=== PATIENT | male | born 1960 | race Caucasian/White ===

== ENCOUNTER 2022-11-17 12:31 | Outpatient (OUT) | payer MEDICARE, MEDICAID, SELFPAY ==
[2022-11-17 13:38] LABS: Alanine Aminotransferase 39 U/L (16-63); Albumin Level 3.8 g/dL (3.4-5.0); Alkaline Phosphatase 86 U/L (46-116); Aspartate Amino Transferase 30 U/L (15-37); Bilirubin Direct 0.1 mg/dL (0.0-0.2); Bilirubin Total 0.6 mg/dL (0.2-1.0); Globulin 3.7 g/dL; Total Protein 7.5 g/dL (6.4-8.2)
[2022-11-18 05:08] LABS: HBsAg Screen Negative (Negative); Hep B Core Ab, IgM Negative (Negative); Hep B Core Ab, Tot Negative (Negative)
== END 2022-11-17 12:32 | disposition home or self-care (01) ==
PROVIDERS: PCP Internal Medicine
DX: R76.8 Other specified abnormal immunological findings in serum (principal)
CPT/HCPCS: 36415; 80076; 86704; 86705; 86706; 86707; 87350; 87517; 87522

== ENCOUNTER 2022-12-11 15:18 | Outpatient (OUT) | payer MEDICARE, MEDICAID, SELFPAY ==
[2022-12-11 16:32] LABS: Prostate Specific Antigen Dx <0.13 ng/mL (<=4.00)
[2022-12-13 06:37] LABS: Testosterone 338 ng/dL (264-916)
== END 2022-12-11 15:19 | disposition home or self-care (01) ==
PROVIDERS: PCP Internal Medicine
DX: C61 Malignant neoplasm of prostate (principal)
CPT/HCPCS: 36415; 84153; 84403

== ENCOUNTER 2023-06-14 14:00 | Outpatient (OUT) | payer MEDICARE, MEDICAID, SELFPAY ==
[2023-06-14 15:01] LABS: Erythrocyte Sedimentation Rate 14 mm/hr (<=20)
[2023-06-14 15:11] LABS: C Reactive Protein 0.63 mg/dL (<=0.50)
[2023-06-16 10:09] LABS: QuantiFERON-TB Gold Plus Negative (Negative)
[2023-06-17 18:08] LABS: HBsAg Screen Negative (Negative); HCV Ab Reactive (Non Reactive); Hep A Ab, IgM Negative (Negative); Hep B Core Ab, IgM Negative (Negative)
== END 2023-06-14 14:01 | disposition home or self-care (01) ==
LOC: LAB 14:07
PROVIDERS: PCP Internal Medicine
DX: C61 Malignant neoplasm of prostate (principal); M05.9 Rheumatoid arthritis with rheumatoid factor, unspecified
CPT/HCPCS: 36415; 80074; 84153; 84403; 85652; 86140; 86480; 87522

== ENCOUNTER 2023-06-14 14:20 | Outpatient (OUT) | payer MEDICARE, MEDICAID, SELFPAY ==
[2023-06-14 15:26] LABS: Prostate Specific Antigen Dx 0.14 ng/mL (<=4.00)
[2023-06-15 04:09] LABS: Testosterone 285 ng/dL (264-916)
== END 2023-06-14 14:21 | disposition home or self-care (01) ==
PROVIDERS: PCP Internal Medicine; Visit Provider Radiology Radiation Oncology
DX: C61 Malignant neoplasm of prostate (principal)
CPT/HCPCS: 36415; 84153; 84403

== ENCOUNTER 2023-12-07 13:05 | Outpatient (OUT) | payer MEDICARE, SELFPAY ==
[2023-12-07 13:29] LABS: Estimated GFR (African America >60 (>=60); Estimated GFR (Non-African Ame >60 (>=60)
--- NOTE | 2023-12-07 13:34 | CT_ITS ---
[facility] [place] [id number] Patient Name: CONSTANTINO DUVAL MRN: [facility]:[id number] date: 1960 Sex: M Assigned Patient Location: LAB Current Patient Location: LAB Accession/Order Number: [id number] Exam Date: 12/07/2023 14:38 Report Date: 12/07/2023 15:12 At the request of: MAYKEL XAVIER Procedure: CT abdomen pelvis w con EXAM: CT scan of the abdomen and pelvis using 98 mL of IV iodinated contrast. Oral contrast. Dose reduction technique used: Automated exposure control and/or adjustment of the mA and/or kV according to patient size and/or use of iterative reconstruction technique. REASON FOR EXAM: Abdominal Pain R10.9 COMPARISON: CT scan dated 09/14/2020 FINDINGS: Diffuse bladder wall thickening. Colonic diverticulosis. Prostate brachytherapy. Chronic L1 anterior plate compression fracture with mild height loss. Atrophy of the pancreatic tail. Normal appendix. No free fluid in the abdomen or pelvis. No free intraperitoneal air. No dilated or thickened loops of small bowel or colon. No hydronephrosis or obstructing renal or ureteral calculi. Liver, pancreas, spleen, bilateral kidneys, and bilateral adrenal glands are otherwise unremarkable. No lymphadenopathy in the abdomen or pelvis. Remainder unremarkable. CT/CT abdomen pelvis w con IMPRESSION: 1. Diffuse bladder wall thickening could be due to chronic outlet obstruction although cystitis cannot be excluded, correlate clinically. 2. Otherwise, no acute abnormalities in the abdomen or pelvis. Electronically authenticated by: CHRIS ZARCO Date: 12/07/2023 15:12
== END 2023-12-07 13:06 | disposition home or self-care (01) ==
LOC: LAB 13:05
PROVIDERS: PCP Internal Medicine; Visit Provider Internal Medicine
DX: R10.9 Unspecified abdominal pain (principal)
CPT/HCPCS: 36415; 74177; 82565; Q9967

== ENCOUNTER 2024-03-12 06:13 | Emergency (ER) | payer MEDICARE, SELFPAY ==
[2024-03-12] VITALS (8 sets, daily range): BP systolic 138–152; BP diastolic 88–103; PULSE 76–102; TEMP 36.7; O2SAT 82–99; BMI 28.7
--- OUTSIDE RECORDS SUMMARY | 2024-03-12 06:20 | XMS_ITS | CCD ---
Author Organization [facility] Care Team Providers Care Case Resource Manager Name Role Phone Efren Castillo II Primary Care Provider Rhys German Unavailable EFREN CASTILLO Primary Care Physician [phone] Efren Castillo II Primary Care Provider Efren Castillo II Primary Care Provider [phone] DANICA MCNEIL P Admitting Unavailable DANICA MCNEIL Attending Unavailable JONATHAN, DR COLEMAN Primary Care Unavailable ENGDANICA CHAPMAN P Consulting Unavailable MISC, DR COSTA Consulting Unavailable MISC, DR COSTA Admitting Unavailable MISC, DR COSTA Attending Unavailable JONATHAN, DR COLEMAN Primary Care Unavailable ENGELERDANICA P Consulting Unavailable ENGELER, DANICA P Admitting Unavailable ENGELER, DANICA P Attending Unavailable JONATHAN, DR COLEMAN Primary Care Unavailable MISC, DR COSTA Admitting Unavailable MISC, DR COSTA Attending Unavailable JONATHAN, DR COLEMAN Primary Care Unavailable MISC, DR COSTA Consulting Unavailable MISC, DR COSTA Admitting Unavailable MISC, DR COSTA Attending Unavailable JONATHAN, DR COLEMAN Primary Care Unavailable MARYAN, PHOEBE Admitting Unavailable EUGENE HERNANDEZ Consulting Unavailable JONATHAN, DR COLEMAN Primary Care Unavailable MARYAN, PHOEBE Attending Unavailable MARYAN, PHOEBE Consulting Unavailable ENGELER, DANICA P Admitting Unavailable ENGELER, DANICA P Attending Unavailable JONATHAN, DR COLEMAN Primary Care Unavailable DANICA MCNEIL P Consulting Unavailable Efren Castillo II Primary Care Provider Jonathan VALDEZ MD, Daniel B Primary Care Provider Jonathan VALDEZ MD, Daniel B Primary Care Provider MD Chin Watkins Attending Provider JOSÉ MIGUEL Castillo Primary Care Provider [phone] Efren Castillo Primary Care Unavailable Chin Watkins Attending Unavailable Chin Watkins Admitting Unavailable Ronald Rice Attending Unavailab Ronald Huffman Admitting Unavailab Khanh Benson Primary Care Unavailable CASTILLO II, EFREN B Primary Care Unavailable May MCNEIL Attending Unavailable JOE HEADLEY Attending Unavailable JONATHAN VALDEZ, EFREN [place] Primary Care Unavailable KATTY DUENAS Referring Unavailable CASTILLO II, EFREN B Primary Care Unavailable KATTY DUENAS Attending Unavailable CASTILLO II, EFREN [place] Primary Care Unavailable JOE HEADLEY Referring Unavailable CASTILLO II, EFREN B Primary Care Unavailable CASTILLO II, EFREN B Primary Care Unavailable May MCNEIL Attending Unavailable CASTILLO II, EFREN B Primary Care Unavailable JOE HEADLEY Attending Unavailable KATTY DUENAS Attending Unavailable SELF Referring Unavailable CASTILLO II, EFREN B Primary Care Unavailable PELFREY, ROBYN Referring Unavailable CASTILLO II, EFREN B Primary Care Unavailable PELFREY, ROBYN Referring Unavailable CASTILLO II, EFREN B Primary Care Unavailable Jacky MARSH Attending Unavailable Jacky MARSH Attending Unavailable Efren Castillo MD Primary Care Provider EFREN CASTILLO Attending Unavailable EFREN CASTILLO Attending Unavailable EFREN CASTILLO Attending Unavailable EFREN CASTILLO Attending Unavailable EFREN CASTILLO Attending Unavailable YANDEL MTZ Attending Unavailable FORREST BUENO Attending Unavailable Allergies Allergy Classification Reported Allergen(s) Allergy Type Date of Onset Reaction(s) Facility Anti-Epileptic Agents (1 source) gabapentin Drug Allergy 12-25-19 23 Other: See Comments [facility] leflunomide (1 source) leflunomide Drug Allergy 08-02-19 21 Diarrhea, GI Upset, Intolerance, Other: See Comments, Shortness of Breath [facility] methIMAzole (1 source) methIMAzole Drug Allergy 03-25-20 11 Anaphylaxis [facility] Methotrexate (1 source) Methotrexate Drug Allergy 09-19-19 23 GI Upset [facility] (16 sources) HMG-CoA reductase inhibitor; Translations: [statins] Drug Intolerance 04-24-20 20 Other: See Comments, Pain (finding) [facility] (20 sources) leflunomide; Translations: [leflunomide] Drug Allergy 08-02-19 21 Diarrhea, GI Upset, Intolerance, Other: See Comments, Shortness of Breath, Nausea (finding), Diarrhea (finding) [facility] (20 sources) methIMAzole; Translations: [methimazole] Drug Allergy 03-25-20 11 Anaphylaxis, Anaphylaxis (disorder) [facility] (2 sources) Hmg-Coa Reductase Inhibitors (Statins); Translations: [statins] Propensity to adverse reactions muscle pain [facility] (20 sources) Methotrexate; Translations: [methotrexate] Drug Allergy 09-19-19 23 GI Upset [facility] Other (3 sources) atorvastatin; Translations: [atorvastatin] Drug Allergy Cramping sensation quality (qualifier value) [facility] (3 sources) Simvastatin; Translations: [simvastatin] Drug Allergy Muscle pain (finding) [facility] (20 sources) HMG-CoA reductase inhibitor Drug Intolerance 04-24-20 20 Other: See Comments [facility] (1 source) black walnut pollen extract Drug Allergy [facility] Rep[facility] (19 sources) gabapentin; Translations: [GABAPENTIN] Drug Allergy 12-25-19 Other: See Comments [facility] (2 sources) Xabxmoe-YSC-WkC Reductase Inhibitor; Translations: [Qoasbjg-FDC-VoC Reductase Inhibitor] Allergy to substance 10-21-19 muscle pain [facility] (1 source) leflunomide Drug Allergy 10-21-19 24 [facility] (1 source) Methotrexate Drug Allergy 10-21-19 [facility] (1 source) Hydroxychloroqui ne; Translations: [hydroxychloroqu ine] Drug Allergy 01-23-20 [facility] Rep[facility] (1 source) No Known Medication Allergies; Translations: [No Known Medication Allergies] Propensity to adverse reactions (disorder) [facility] (3 sources) atorvastatin Drug Allergy 12-25-19 [facility] (3 sources) leflunomide Drug Allergy 12-25-19 23 [facility] (3 sources) methIMAzole Drug Allergy 03-25-20 Anaphylaxis [facility] (3 sources) Pregabalin Allergy to substance 12-25-19 [facility] (3 sources) Simvastatin Allergy to substance 12-25-19 [facility] Medications Current Medications Medication Drug Class(es) Dates Sig (Normalized) Sig (Original) [id number] 200 actuat albuterol 0.09 mg/actuat metered dose inhaler (18 sources) beta2-Adrenergic Agonist Start: 08-25-2023 take 2 puff(s) by mouth every four hours albuterol HFA 90 mcg/act inhaler inhale 2 puffs by mouth and INTO THE LUNGS every 4 hours if neede... (REFER TO PRESCRIPTION NOTES). 08/25/2023 Active Start: 01-15-2023 End: 09-24-2023 take 2 puff(s) by inhalation every four hours as needed for wheezing albuterol HFA (VENTOLIN HFA) 90 mcg/actuation inhaler Indications: Chronic obstructive pulmonary disease, unspecified COPD type (HCC) Inhale 2 Puffs as instructed every 4 hours as needed for wheezing/shortness of breath. 1 Each 5 08/25/2023 Active Comment on above: Inhale 2 Puffs as in structed every 4 hours as needed for wheezing/shortness of breath. ALPRAZolam 0.25 mg oral tablet (20 sources) Benzodiazepine Start: 12-16-19 End: 03-15-20 take 1 tablet by mouth once ALPRAZolam (Xanax) 0.25 MG tablet Indications: Depression with anxiety Take 1 tablet (0.25 mg) by mouth every 12 (twelve) hours if needed for anxiety 30 tablet 2 12/16/2023 03/15/2024 Active Start: 09-30-2023 take 1 tablet by wilfredo th once daily Alprazolam (Xanax) 0.25 mg tablet Active 0.25 MG PO Daily September 30, 2023 12:00am Start: 05-21-2020 Xanax Oral, Joe dotyy Start Date: 05/21/20 Status: Ordered Start: 03-29-2020 take 1 tablet by wilfredo th every twelve hours as needed ALPRAZolam (XANAX) 0.25 mg tablet Take 0.25 mg by mouth twice daily as needed. 0 03/29/2020 Active Comment on above: Take 0.25 mg by mout h twice daily as needed. atenolol 50 mg oral tablet (20 sources) beta-Adrenergic [place] Start: 10-18-2023 take 1 tablet by mouth twice daily atenolol (Tenormin) 50 MG tablet Indications: Benign essential hypertension (CMS/HCC) take 1 tablet by mouth twice a day 180 tablet 3 10/18/2023 Active Start: 06-22-2011 take 1 tablet by wilfredo th once daily atenolol 50 mg Tab 50 mg = 1 tab(s), Oral, Daily, Refills(s) 0 Start Date: 01/30/20 Status: Ordered Comment on above: Take by mouth once d aily. 50 mg.once daily Augmentin Tablets 875 MG (1 source) Start: 01-22-2021 take 1 tablet by mouth every twelve hours Augmentin Tablets 875 MG 1 cap(s) orally bid for 10 day(s) Jan, Active biotin 10 mg oral capsule (4 sources) Start: 11-03-2023 take 37464 ug by mouth once daily Biotin Active 00314 MCG PO Daily November 03, 2023 12:00am biotin 02400 MCG tablet 1 (one) time each day at the same time. Active cwgzmo-hlos-mcrd-levomef-zhen ic 10-50-500-0.5 mg cap (20 sources) fnqnjt-jgjj-nmiu -levomef-silic 10-50-500-0.5 mg cap Take 1 tablet by mouth. 0 Active Comment on above: Take 1 tablet by wilfredo th. busPIRone hydrochloride 10 m g oral tablet (20 sources) Sta rt: take 10 mg by mouth four times daily Buspirone Active 10 MG PO Four times daily September 30, 2023 12:00am Start: 08-04-2023 End: 08-03-2024 take 2 tablets by mouth in the morning busPIRone (Buspar) 10 MG tablet Indications: Depression with anxiety Take 2 tablets (20 mg) by mouth in the morning and 2 tablets (20 mg) before bedtime. 120 tablet 11 08/04/2023 08/03/2024 Active Start: 01-30-2020 take 2 tablets by mo ut three times daily busPIRone (BUSPAR) 10 mg tablet Take 20 mg by mouth three times daily. 0 01/30/2020 Active Start: 01-30-2020 take 2 tablets by mo ut twice daily busPIRone 10 mg Tab 20 mg = 2 tab(s), Oral, BID, Refills(s) 0 Start Date: 01/30/20 Status: Ordered BuSpar Active Comment on above: Take 20 mg by mouth three times daily. Take 20 mg by mouth twice daily. cholecalciferol 0.05 mg oral capsule (20 sources) Vitamin D Start: take 50 ug by mouth once daily Cholecalciferol (Vitamin D3) Active 50 MCG PO Daily September 30, 2023 12:00am take 1 tablet by mouth once jewell y cholecalciferol (VITAMIN D3) 1,000 unit tab tablet Take 1 tablet by mouth once daily. 0 Active Comment on above: [facility] [address] [facility]. clobetasol propionate 0.5 mg/ml topical cream (20 sources) Corticosteroid Start: 07-06-2022 clobetasol (TEMOVATE) 0.05 % cream Apply to affected area twice daily. APPLY TO AFFECTED AREA 0 07/06/2022 Active Start: 01-30-2020 clobetasol pro pionate 0.05% top oint Topical, BID, Refill(s) 0 Start Date: 01/30/20 Status: Ordered Comment on above: Apply to affected ar ea twice daily. APPLY TO AFFECTED AREA doxycycline hyclate 100 mg oral capsule (1 source) Tetracycline-class Drug Start: 2022 End: 2022 take 1 capsule by mouth twice daily doxycycline hyclate (VIBRAMYCIN) 100 mg capsule Indications: Acute upper respiratory infection Take 1 capsule by mouth twice daily for 7 days. 14 capsule 0 01/15/2023 01/22/2023 Active Comment on above: Take 1 capsule by mo [facility] twice daily for 7 days. Fluticasone Furoate 27.5 MCG/SPRAY (1 source) Start: 2020 take 2 puff(s) nasal route once daily Fluticasone Furoate 27.5 MCG/SPRAY 2 puffs Nasally Once a day Jan, Active hydroxychloroquine sulfate 200 mg oral tablet (20 sources) Antimalarial, Antirheumatic Agent Start: 2023 take 2 tablets by mouth once daily Hydroxychloroquine (Plaquenil) 200 mg tablet Active 400 MG PO Daily September 30, 2023 12:00am Start: 06-08-2023 End: 11-08-2023 take 1 tablet by mouth twice daily at mealtime hydrOXYchloroQUINE (PLAQUENIL) 200 mg tablet Indications: Seropositive rheumatoid arthritis (HCC) take 1 tablet by mouth twice a day with food. Continue yearly retinal eye exam with eye doctor. 60 tablet 11 11/08/2023 Active Start: 07-29-2021 End: 02-08-2023 take 1 tablet by mouth twice daily at mealtime hydrOXYchloroQUINE (PLAQUENIL) 200 mg tablet Indications: Seropositive rheumatoid arthritis (HCC) take 1 tablet by mouth twice a day with food 60 tablet 3 02/08/2023 Active Start: 05-21-2020 take 1 mg by mouth once daily hydroxychloroquine mg, Oral, Daily Start Date: 05/21/20 Status: Ordered Comment on above: take 1 tablet by [facility] twice a day with meals *CONTINUE YEARLY EYE EXAMS take 1 tablet by [facility] twice a day with food levothyroxine sodium 0.175 mg oral tablet (20 sources) l-Thyroxine Start: 12-21-19 take 1 tablet by mouth before mealtime levothyroxine (Synthroid) 175 MCG tablet Indications: Hypothyroidism following radioiodine therapy (CMS/HCC) Take 1 tablet (175 mcg) by mouth in the morning. Take before meals. 100 tablet 3 12/21/2023 Active Start: 11-03-2023 take 175 ug by mouth once jewell y Levothyroxine Active 175 MCG PO Daily November 03, 2023 12:00am Start: 09-30-2023 End: 11-03-2023 take 175 ug by mouth once daily Levothyroxine Disconti nued 175 MCG PO Daily September 30, 2023 12:00am November 03, 2023 8:18am Start: 01-30-2020 take 1 tablet by wilfredo once daily levothyroxine 150 mcg (0.15 mg) Tab 150 microgram = 1 tab(s), Oral, Daily, Refills(s) 0 Start Date: 01/30/20 Status: Ordered take 1 capsule by [facility] once daily before breakfast levothyroxine 150 mcg cap Take 150 mcg by mouth daily before breakfast. 0 Active Levothyroxine So dium Active Comment on above: Take 150 mcg by mout h daily before breakfast. liothyronine sodium 0.025 mg oral tablet (20 sources) l-Triiodothyronine Start: take 1 tablet by mouth once daily liothyronine 25 mcg Tab 25 mcg = 1 tab(s), Oral, Daily, # 30 tab(s), Refills(s) 0 Start Date: 02/21/24 Status: Ordered Start: 12-03-2020 take 1 tablet by wilfredo once daily liothyronine (Cytomel) 25 MCG tablet Indications: Hypothyroidism following radioiodine therapy (CMS/HCC) Take 1 tablet (25 mcg) by mouth Daily 100 tablet 3 12/21/2023 Active Comment on above: Take 25 mcg by mouth once daily. loperamide hydrochloride 2 mg oral capsule (4 sources) Opioid Agonist Start: 03-01-2024 loperamide (Imodium) 2 MG capsule Daily 03/01/2024 Active Start: 11-12-2020 take 1 mg by mouth once Imodiu m A-D mg, Oral, Refills(s) 0 Start Date: 11/12/20 Status: Ordered Medrol Dose Pack as directed (1 source) Start: 01-22-2021 Medrol Dose Pack as directed as directed orally as directed for 6 days Jan, Active Multiple Vitamin (Multi Vitamin) tablet (3 sources) Multiple Vitamin (Multi Vitamin) tablet 1 (one) time each day at the same time. Active Multivitamin (Daily Multi-Vitamin) tablet (1 source) Start: 11-03-2023 take 1 tablet by mouth once daily Multivitamin (Daily Multi-Vitamin) tablet Active 1 TAB PO Daily November 03, 2023 12:00am Multivitamin ORAL capsule (20 sources) Start: 03-25-2011 take 1 capsule by mouth once daily Multivitamin ORAL capsule Indications: Thyrotoxicosis without mention of goiter or other cause, without mention of thyrotoxic crisis or storm Take 1 capsule by mouth once daily. 0 03/25/2011 Active Comment on above: Take 1 capsule by mo ut once daily. Multivitamins and Minerals (2 sources) Start: 01-30-2020 Multivitamins and Minerals See Instructions, Refill(s) 0 Start Date: 01/30/20 Status: Ordered nortriptyline 10 mg oral capsule (3 sources) Tricyclic Antidepressant Start: 01-27-2024 End: 04-26-2024 take 1 capsule by mouth at bedtime nortriptyline (Pamelor) 10 MG capsule Indications: Peripheral neuropathic pain , Peripheral polyneuropathy Take 1 capsule (10 mg) by mouth at bedtime 30 capsule 2 01/27/2024 04/26/2024 Active predniSONE 5 mg oral tablet (20 sources) Start: 11-02-2022 End: 01-13-2023 take 2 tablets by mouth once daily, then take 1 tablet by mouth once daily at breakfast predniSONE (DELTASONE) 5 mg tablet Indications: Seropositive rheumatoid arthritis (HCC) Take 2 tablets by mouth once daily for 3 days, THEN 1 tablet once daily for 3 days. With breakfast. No other nsaids. 9 tablet 0 01/07/2023 01/13/2023 Active Start: 09-16-2022 take 2 tablets by mo uth once daily, then take 1 tablet by mouth once daily predniSONE (DELTASONE) 5 mg tablet take 2 tablets by mouth once daily for 5 days then take 1 tablet by mouth once daily for 5 days 0 09/16/2022 Active Start: 06-12-2022 End: 06-22-2022 take 2 tablets by mouth once daily, then take 1 tablet by mouth once daily predniSONE (DELTASONE) 5 mg tablet Indications: Seropositive rheumatoid arthritis (HCC) Take 2 tablets by mouth once daily for 5 days, THEN 1 tablet once daily for 5 days. 15 tablet 1 06/12/2022 06/22/2022 Active Start: 10-22-2021 End: 03-13-2022 take 2 tablets by mouth once daily predniSONE (DELTASONE) 5 mg tablet Take 2 tablets by mouth once daily. 60 tablet 1 10/22/2021 03/03/2022 Discontinued Start: 08-05-2021 End: 08-19-2021 take 2 tablets by mouth once daily, then take 1 tablet by mouth once daily at breakfast predniSONE (DELTASONE) 5 mg tablet Take 2 tablets by mouth once daily for 7 days, THEN 1 tablet once daily for 7 days. With breakfast . No other NSAID while taking.. 21 tablet 0 08/05/2021 08/19/2021 Active Comment on above: Take 2 tablets by mo [facility] once daily for 7 days, THEN 1 tablet once daily for 7 days. With breakfast . No other NSAID while taking.. Take 2 tablets by mo [facility] once daily. Take 2 tablets by mo [facility] once daily for 5 days, THEN 1 tablet once daily for 5 days. take 2 tablets by mo ut once daily for 5 days then take 1 tablet by mouth once daily for 5 days Take 2 tablets by mo [facility] once daily for 3 days, THEN 1 tablet once daily for 3 days. With breakfast. No other nsaids. sildenafil 100 mg oral tablet (2 sources) Phosphodiesterase 5 Inhibitor Start: 06-17-19 take 1 tablet by mouth once daily sildenafil 100 mg Tab 100 mg = 1 tab(s), Oral, Daily, # 30 tab(s), Refills(s) 1, Pharmacy: [facility] [address], 172, cm, 06/17/21 11:14:00 EST, Height/Length Dosing, 85.1, kg, 06/17/21 11:14:00 EST, Weight Dosing Start Date: 06/17/21 Status: Ordered Sod Picosulf-Mag Ox-Citric Ac (1 source) Start: 09-30-19 take 1 dose by mouth once daily in the evening Sod Picosulf-Mag Ox-Citric Ac (Clenpiq) 10 mg-3.5 gram- 12 gram/175 mL solution Active 175 ML PO Daily 175 September 30, 2023 12:00am take first dose at 3:00 pm the day before colonoscopy, take second dose at 9:00 pm the day before colonoscopy. sodium fluoride 0.011 mg/mg toothpaste (20 sources) Start: 01-27-20 Sodium Fluoride 5000 Plus 1.1 % cream brush teeth EVERY NIGHT before bed do not eat or drink after 01/27/2024 Active Start: 07-03-2022 Sodium Fluorid e 1.1 % BRUSH A PEA SIZED AMOUNT ON TEETH at bedtime (NO FOOD OR WATER 30 MINUTES AFTER,) 0 07/03/2022 Active Comment on above: BRUSH A PEA SIZED AM OUNT ON TEETH at bedtime (NO FOOD OR WATER 30 MINUTES AFTER,) tamsulosin hydrochloride 0.4 mg oral capsule (20 sources) alpha-Adrenergic [place] Start: 09-30-2023 take 1 capsule by mouth once daily Tamsulosin (Flomax) 0.4 mg capsule Active 0.4 MG PO Daily September 30, 2023 12:00am Start: 12-17-2022 End: 08-16-2023 take 1 capsule by mouth twice daily tamsulosin (FLOMAX) 0.4 mg Indications: Malignant neoplasm of prostate (HCC) Take 1 capsule by mouth two times a day. 180 capsule 3 08/17/2023 Active Start: 12-10-2020 End: 10-13-2022 take 1 capsule by mouth twice daily tamsulosin (FLOMAX) 0.4 mg Indications: Malignant neoplasm of prostate (HCC) Take 1 capsule by mouth twice daily. 60 capsule 3 10/13/2022 Active Start: 06-03-2020 End: 10-20-2021 take 1 capsule by mouth once daily at bedtime tamsulosin (FLOMAX) 0.4 mg Take 1 capsule by mouth daily at bedtime. 30 capsule 2 10/20/2021 Active Start: 07-09-2019 take 1 capsule by mo uth every twenty-four hours in the morning tamsulosin (Flomax) 0.4 MG 24 hr capsule Take 0.4 mg by mouth in the morning and 0.4 mg in the evening. 07/09/2019 Active Comment on above: Take 1 capsule by mo uth daily at bedtime. Take 1 capsule by mo uth twice daily. Take 1 capsule by mo uth two times a day. Completed/Discontinued Medications Medication Drug Class(es) Dates Sig (Normalized) Sig (Original) amoxicillin 875 mg / clavulanate 125 mg oral tablet (1 source) Penicillin-class Antibacterial Start: 06-30-2019 take 1 tablet by mouth every twelve hours Amoxicillin-Pot Clavulanate 875-125 MG 1 tablet Orally every 12 hrs for 20 days Jun, Not-Taking biotion (1 source) Start: 09-30-2023 End: 11-03-2023 take 92525 ug by mouth once daily biotion Discontinued 90914 MCG PO Daily September 30, 2023 12:00am November 03, 2023 8:07am Budesonide / formoterol (20 sources) Corticosteroid, beta2-Adrenergic Agonist Start: 01-15-2023 End: 06-24-2023 take 2 puff(s) by inhalation twice daily budesonide-formote rol (SYMBICORT) 160-4.5 mcg/actuation inhaler Indications: Chronic obstructive pulmonary disease, unspecified COPD type (HCC) Inhale 2 Puffs as instructed twice daily. 1 Each 5 01/15/2023 06/24/2023 Discontinued Start: 01-15-2023 take 2 puff(s) by in halation twice daily budesonide-formoterol (SYMBICORT) 160-4.5 mcg/actuation inhaler Indications: Chronic obstructive pulmonary disease, unspecified COPD type (HCC) Inhale 2 Puffs as instructed twice daily. 1 Each 5 01/15/2023 Active Start: 06-18-2022 End: 01-15-2023 take 2 puff(s) by inhalation twice daily budesonide-formoterol (SYMBICORT) 160-4.5 mcg/actuation inhaler Inhale 2 Puffs as instructed twice daily. 1 Each 5 06/18/2022 01/15/2023 Discontinued Start: 06-18-2022 take 2 puff(s) by in halation twice daily budesonide-formoterol (SYMBICORT) 160-4.5 mcg/actuation inhaler Inhale 2 Puffs as instructed twice daily. 1 Each 5 06/18/2022 Active Start: 03-03-2022 End: 06-18-2022 take 2 puff(s) by inhalation twice daily budesonide-formoterol (SYMBICORT) 160-4.5 mcg/actuation inhaler Inhale 2 Puffs as instructed twice daily. 1 Each 2 03/03/2022 06/18/2022 Discontinued Start: 03-03-2022 take 2 puff(s) by in halation twice daily budesonide-formoterol (SYMBICORT) 160-4.5 mcg/actuation inhaler Inhale 2 Puffs as instructed twice daily. 1 Each 2 03/03/2022 Active Comment on above: Inhale 2 Puffs as in structed twice daily. ciprofloxacin 500 mg oral tablet (1 source) Quinolone Antimicrobial Start: take 1 tablet by mouth once daily Cipro 500 mg Tab 500 mg = 1 tab(s), Oral, Daily, take one tab day before procedure and one tab after procedure, # 2 tab(s), Refills(s) 0, Pharmacy: [id number], 172, cm, 02/21/24 11:41:00 EDT, Height/Length Dosing, 85.1, kg, 02/21/24 11:41:00 EDT, Weight Dosing Start Date: 02/21/24 Status: Ordered 1 ml etanercept 50 mg/ml auto-injector (16 sources) Tumor Necrosis Factor [place] Start: 022 End: 023 inject 50 mg by subcutaneous injection every week Etanercept (ENBREL SURECLICK) 50 mg/mL (1 mL) Indications: Seropositive rheumatoid arthritis (HCC) Inject 50mg subcutaneously one time a week. 4 Pen 11 10/27/2021 06/12/2022 Discontinued Start: 07-14-2021 End: 10-08-2021 inject 50 mg by subcutaneous injection every week Etanercept (ENBREL SURECLICK) 50 mg/mL (1 mL) Indications: Seropositive rheumatoid arthritis (HCC) Inject 50mg subcutaneously one time a week. 4 Pen 11 07/14/2021 10/08/2021 Discontinued Comment on above: Inject 50mg subcutan eously one time a week. fluticasone propionate 0.05 mg/actuat metered dose nasal spray (1 source) Corticosteroid Start: 06-30-19 take 1 spray(s) nasal route once daily Fluticasone Propionate 50 MCG/ACT 1 spray in each nostril Nasally Once a day for 21 days Jun, Not-Taking gabapentin 300 mg oral capsule (3 sources) Anti-epileptic Agent Start: 02-08-20 End: 10-09-19 take 1 capsule by mouth three times daily gabapentin (NEURONTIN) 300 mg capsule Take 300 mg by mouth three times daily. 0 02/07/2021 10/08/2021 Discontinued take 1 capsule by [facility] every twenty-four hours Gabapentin 300 MG 1 capsule Orally Once a day Active Comment on above: Take 300 mg by mouth three times daily. hydrOXYzine pamoate 50 mg oral capsule (20 sources) Antihistamine Start: 020 End: 024 hydrOXYzine pamoate (VISTARIL) 50 mg capsule Take 50 mg by mouth. 0 01/30/2020 12/23/2023 Discontinued Comment on above: Take 50 mg by mouth. levETIRAcetam 250 mg oral tablet (6 sources) Start: End: take 1 tablet by mouth in the morning levETIRAcetam (KEPPRA) 250 mg tablet take 1 tablet by mouth IN THE MORNING then 1 tablet by mouth BEFORE BEDTIME 0 12/24/2022 06/24/2023 Discontinued Comment on above: take 1 tablet by wilfredo th IN THE MORNING then 1 tablet by mouth BEFORE BEDTIME methylPREDNISolone (1 source) Corticosteroid Start: Depo-Medrol 40 mg Jun, 40 mg Multivitamin preparation (2 sources) Start: End: take 1 tablet by mouth once daily multivitamin Discontinued 1 TAB PO Daily September 30, 2023 12:00am November 03, 2023 8:07am Multivitamin - O rally Active naproxen 500 mg oral tablet (2 sources) Nonsteroidal Anti-inflammatory Drug Start: 09-14-2020 End: 10-08-2021 take 1 tablet by mouth twice daily naproxen (NAPROSYN) 500 mg tablet Take 500 mg by mouth twice daily. 0 09/14/2020 10/08/2021 Discontinued (Course of therapy completed) Comment on above: Take 500 mg by mouth twice daily. tiZANidine 4 mg oral tablet (2 sources) Central alpha-2 Adrenergic Agonist Start: 12-19-2020 End: 10-08-2021 take 1 tablet by mouth every eight hours as needed tiZANidine (ZANAFLEX) 4 mg tablet Take 4 mg by mouth three times daily as needed. 0 12/19/2020 10/08/2021 Discontinued Comment on above: Take 4 mg by mouth three times daily as needed. zonisamide 25 mg oral capsule (6 sources) Anti-epileptic Agent Start: 12-24-2022 End: 06-24-2023 take 1 capsule by mouth two times weekly zonisamide (ZONEGRAN) 25 mg capsule Take 25 mg by mouth two times a week. 0 12/24/2022 06/24/2023 Discontinued Comment on above: Take 25 mg by mouth two times a week. Problems Active Problems Problem Classification Problem Date Documented Da te Episodic/Chronic Abdominal pain (5 sources) Abdominal pain; Translations: [Unspecified abdominal pain] Onset: 4 09-30-2023 Episodic Administrative/social admission (4 sources) Follow-up status; Translations: [Person consulting for explanation of examination or test findings] Episodic Anxiety disorders (8 sources) Anxiety; Translations: [Anxiety state] Onset: 3 01-30-2020 Chronic Asthma (1 source) Uncomplicated asthma; Translations: [Unspecified asthma, uncomplicated] 08-25-2023 Chronic Cancer of prostate (20 sources) Malignant tumor of prostate; Translations: [Malignant neoplasm of prostate] Onset: 1 06-12-2020 Chronic Cancer of prostate (2 sources) Personal history of malignant neoplasm of prostate; Translations: [History of malignant neoplasm of prostate] Onset: 4 Episodic Chronic obstructive pulmonary disease and bronchiectasis (20 sources) Chronic obstructive lung disease; Translations: [Chronic obstructive pulmonary disease, unspecified] Onset: 3 01-15-2023 Chronic Complications of surgical procedures or medical care (20 sources) Postablative hypothyroidism; Translations: [Postprocedural hypothyroidism] Onset: 3 12-21-2012 Chronic Disorders of lipid metabolism (5 sources) Hyperlipidemia; Translations: [Hyperlipidemia, unspecified] Onset: 3 01-30-2020 Chronic Diverticulosis and diverticulitis (9 sources) Diverticulitis; Translations: [Diverticulitis of intestine, part unspecified, without perforation or abscess without bleeding] Onset: 6 10-15-2022 Chronic E Codes: Adverse effects of medical drugs (1 source) Adverse effect of glucocorticoids and synthetic analogues, initial encounter; Translations: [ADVRS EFF GLUCOCORT SYN ANALOG INIT] Onset: 3 Episodic Esophageal disorders (5 sources) Gastroesophageal reflux disease; Translations: [Gastro-esophageal reflux disease without esophagitis] Onset: 8 01-30-2020 Chronic Essential hypertension (6 sources) Hypertensive disorder; Translations: [Essential (primary) hypertension] Onset: 3 01-30-2020 Chronic Genitourinary symptoms and ill-defined conditions (5 sources) Urge incontinence of urine; Translations: [Urge incontinence] Onset: 3 06-17-2021 Chronic Hyperplasia of prostate (7 sources) Benign prostatic hyperplasia; Translations: [Benign prostatic hypertrophy with outflow obstruction] Onset: 3 05-21-2020 Chronic Immunizations and screening for infectious disease (4 sources) Hepatitis B antibody present; Translations: [Other specified abnormal immunological findings in serum] Episodic Nutritional deficiencies (7 sources) Vitamin D deficiency; Translations: [Vitamin D deficiency, unspecified] Onset: 3 Chronic Osteoarthritis (3 sources) Arthritis; Translations: [Degenerative joint disease of hand] 01-30-2020 Chronic Osteoporosis (3 sources) Osteoporosis; Translations: [Age-related osteoporosis without current pathological fracture] Onset: 3 10-15-2022 Chronic Other aftercare (2 sources) Patient encounter status; Translations: [Encounter for therapeutic drug level monitoring] Episodic Other aftercare (1 source) Long-term current use of systemic steroid; Translations: [care home (current) use of systemic steroids] Episodic Other bone disease and musculoskeletal deformities (4 sources) Other specified disorders of bone density and structure, unspecified site; Translations: [OTH D/O BONE DEN STRUCT UNS SITE] Onset: 3 Episodic Other connective tissue disease (1 source) Pain of bilateral hands; Translations: [Pain in right hand] 08-01-2020 Episodic Other diseases of bladder and urethra (3 sources) Hypertrophy of bladder; Translations: [Other specified disorders of bladder] Onset: 4 12-16-2023 Chronic Other diseases of veins and lymphatics (3 sources) Stasis dermatitis of right lower extremity due to peripheral venous hypertension; Translations: [Chronic venous hypertension (idiopathic) with inflammation of right lower extremity] Onset: 3 10-15-2022 Chronic Other gastrointestinal disorders (5 sources) Diarrhea; Translations: [Diarrhea, unspecified] Onset: 4 Episodic Other gastrointestinal disorders (5 sources) History of diverticulitis; Translations: [Personal history of other diseases of the digestive system] Onset: 4 Episodic Other gastrointestinal disorders (4 sources) Altered bowel function; Translations: [Change in bowel habit] Onset: 4 09-30-2023 Episodic Other gastrointestinal disorders (1 source) Change in bowel habit; Translations: [Other symptoms involving digestive system] 09-30-2023 Episodic Other gastrointestinal disorders (1 source) Diarrhea, unspecified; Translations: [Diarrhea] 09-30-2023 Episodic Other gastrointestinal disorders (1 source) Personal history of other diseases of the digestive system; Translations: [Personal history of unspecified digestive disease] 09-30-2023 Episodic Other infections; including parasitic (2 sources) History of hepatitis C; Translations: [Personal history of other infectious and parasitic diseases] Episodic Other infections; including parasitic (4 sources) History of hepatitis B; Translations: [Personal history of other infectious and parasitic diseases] Onset: 4 09-30-2023 Episodic Other infections; including parasitic (1 source) History of viral hepatitis; Translations: [Personal history of other infectious and parasitic diseases] 09-30-2023 Episodic Other infections; including parasitic (1 source) Personal history of other infectious and parasitic diseases; Translations: [Personal history of other infectious and parasitic diseases] 09-30-2023 Episodic Other lower respiratory disease (20 sources) Interstitial lung disease; Translations: [Interstitial pulmonary disease, unspecified] Onset: 3 01-15-2023 Chronic Other lower respiratory disease (1 source) Interstitial pulmonary disease, unspecified; Translations: [ILD (interstitial lung disease) (HCC)] Onset: 3 Chronic Other lower respiratory disease (5 sources) Dyspnea; Translations: [Shortness of breath] Episodic Other male genital disorders (5 sources) Impotence; Translations: [Male erectile dysfunction, unspecified] Onset: 3 06-17-2021 Chronic Other male genital disorders (1 source) Erectile dysfunction following radiation therapy; Translations: [Erectile dysfunction due to and following radiation therapy] Onset: 4 Chronic Other nervous system disorders (4 sources) Chronic pain; Translations: [Other chronic pain] Onset: 3 10-15-2022 Chronic Other nervous system disorders (1 source) Lesion of ulnar nerve, bilateral upper limbs Onset: 2 Resolved: 2 Chronic Other nervous system disorders (1 source) Other chronic pain Onset: 2 Resolved: 2 Chronic Other nervous system disorders (3 sources) Partial thenar atrophy; Translations: [Carpal tunnel syndrome, right upper limb] Onset: 3 10-15-2022 Chronic Other nervous system disorders (3 sources) Polyneuropathy; Translations: [Polyneuropathy, unspecified] Onset: 3 10-15-2022 Chronic Other nervous system disorders (3 sources) Bilateral ulnar nerve disorder; Translations: [Lesion of ulnar nerve, bilateral upper limbs] Onset: 3 10-15-2022 Chronic Other nervous system disorders (3 sources) Carpal tunnel syndrome; Translations: [Carpal tunnel syndrome, unspecified upper limb] Onset: 1 12-24-2022 Chronic Other nervous system disorders (3 sources) Inflammatory and toxic neuropathy; Translations: [Polyneuropathy due to other toxic agents] Onset: 1 12-24-2022 Chronic Other non-traumatic joint disorders (1 source) Chronic pain of left upper limb; Translations: [Pain in left shoulder] 08-01-2020 Episodic Other non-traumatic joint disorders (1 source) Ankle pain; Translations: [Pain in right ankle and joints of right foot] 08-01-2020 Episodic Other screening for suspected conditions (not mental disorders or infectious disease) (1 source) Imaging of thorax abnormal; Translations: [Abnormal findings on diagnostic imaging of other specified body structures] 02-27-2022 Chronic Other skin disorders (2 sources) Seborrheic keratosis; Translations: [Other seborrheic keratosis] 03-02-2024 Episodic Other skin disorders (2 sources) Epidermoid cyst; Translations: [Epidermal cyst] 03-02-2024 Episodic Other skin disorders (2 sources) Actinic keratosis; Translations: [Actinic keratosis] 03-02-2024 Episodic Other upper respiratory disease (3 sources) Seasonal allergy; Translations: [Other seasonal allergic rhinitis] Onset: 3 10-15-2022 Chronic Other upper respiratory infections (6 sources) Chronic maxillary sinusitis; Translations: [Chronic maxillary sinusitis] Onset: 3 10-15-2022 Chronic Other upper respiratory infections (1 source) Acute upper respiratory infection; Translations: [Acute upper respiratory infection, unspecified] 01-15-2023 Episodic Peripheral and visceral atherosclerosis (3 sources) Peripheral vascular disease, unspecified; Translations: [Peripheral vascular disease, unspecified] Onset: 3 10-15-2022 Chronic Rheumatoid arthritis and related disease (20 sources) Seropositive rheumatoid arthritis; Translations: [Rheumatoid arthritis with rheumatoid factor, unspecified] Onset: 3 Chronic Spondylosis; intervertebral disc disorders; other back problems (1 source) Cervical disc disorder; Translations: [Cervical disc disorder, unspecified, unspecified cervical region] Chronic Substance-related disorders (20 sources) Smoker; Translations: [Nicotine dependence, unspecified, uncomplicated] Onset: 3 Chronic Thyroid disorders (9 sources) Hypothyroidism; Translations: [Hyperthyroidism] Onset: 2 01-30-2020 Chronic Unclassified (2 sources) Asymptomatic microscopic hematuria 04-11-2020 Unclassified (2 sources) Finding of sensation of bladder 01-30-2020 Past or Other Problems Problem Classification Problem Date Documented Da te Episodic/Chronic Abdominal hernia (3 sources) Umbilical hernia; Translations: [Umbilical hernia without obstruction or gangrene] Onset: 10-15-2022 10-15-2022 Episodic Diabetes mellitus without complication (6 sources) Impaired glucose tolerance; Translations: [Impaired glucose tolerance (oral)] Onset: 06-04-2015 10-15-2022 Episodic E Codes: Other specified and classifiable (3 sources) Exposure to radioactive isotopes, initial encounter; Translations: [Exposure to radioactive isotopes] Onset: 05-18-2023 05-18-2023 Episodic Genitourinary symptoms and ill-defined conditions (12 sources) Microscopic hematuria; Translations: [Nocturia] Onset: 12-24-2022 05-21-2020 Episodic Intestinal obstruction without hernia (3 sources) Stenosis of colon; Translations: [Other intestinal obstruction unspecified as to partial versus complete obstruction] Onset: 10-15-2022 10-15-2022 Episodic Malaise and fatigue (3 sources) Asthenia; Translations: [Weakness] Onset: 10-15-2022 10-15-2022 Episodic Mood disorders (3 sources) Mood disorders Onset: 09-01-2023 09-01-2023 Other bone disease and musculoskeletal deformities (20 sources) Steroid-induced osteopenia; Translations: [Other specified disorders of bone density and structure, unspecified site] Onset: 03-19-2021 03-19-2021 Episodic Other bone disease and musculoskeletal deformities (5 sources) Osteopenia; Translations: [Other specified disorders of bone density and structure, multiple sites] Onset: 10-15-2022 01-30-2020 Episodic Other connective tissue disease (1 source) Pain in right foot; Translations: [PAIN IN RIGHT FOOT] Onset: 10-08-2021 Episodic Other connective tissue disease (3 sources) Peripheral neuropathic pain; Translations: [Neuralgia and neuritis, unspecified] Onset: 10-15-2022 10-15-2022 Episodic Other diseases of veins and lymphatics (3 sources) Peripheral venous insufficiency; Translations: [Venous insufficiency (chronic) (peripheral)] Onset: 10-06-2013 10-15-2022 Episodic Other injuries and conditions due to external causes (5 sources) Injury of head; Translations: [Unspecified injury of head, initial encounter] Onset: 12-24-2022 01-30-2020 Episodic Other injuries and conditions due to external causes (3 sources) H/O: vertebral fracture; Translations: [Personal history of (healed) traumatic fracture] Onset: 02-24-2021 12-24-2022 Episodic Other lower respiratory disease (20 sources) Nodule of lung; Translations: [Solitary pulmonary nodule] Onset: 01-15-2023 Episodic Other lower respiratory disease (4 sources) Dyspnea, unspecified; Translations: [DYSPNEA UNSPECIFIED] Onset: 02-23-2022 Episodic Other lower respiratory disease (1 source) Other abnormalities of breathing; Translations: [OTHER ABNORMALITIES OF BREATHING] Onset: 02-25-2022 Episodic Other lower respiratory disease (1 source) Solitary pulmonary nodule; Translations: [Lung nodule] Onset: 01-15-2023 Episodic Other nervous system disorders (3 sources) Ataxia; Translations: [Ataxia, unspecified] Onset: 10-15-2022 10-15-2022 Episodic Other screening for suspected conditions (not mental disorders or infectious disease) (5 sources) Raised prostate specific antigen; Translations: [Elevated prostate specific antigen [PSA]] Onset: 12-24-2022 01-30-2020 Episodic Pancreatic disorders (not diabetes) (3 sources) Pseudocyst of pancreas; Translations: [Pseudocyst of pancreas] Onset: 11-14-2009 10-15-2022 Episodic Poisoning by other medications and drugs (2 sources) Drug overdose Onset: 10-09-2017 01-30-2020 Episodic Residual codes; unclassified (5 sources) Family history of prostate cancer; Translations: [Family history of malignant neoplasm of prostate] Onset: 12-24-2022 04-11-2020 Episodic Residual codes; unclassified (3 sources) Tobacco user; Translations: [Tobacco use] Onset: 10-17-2018 12-24-2022 Episodic Spondylosis; intervertebral disc disorders; other back problems (7 sources) Spinal stenosis, cervical region; Translations: [Pain in cervical spine] Onset: 07-24-2021 Resolved: 07-24-2021 Episodic Sprains and strains (4 sources) Strain of unspecified muscle and tendon at ankle and foot level, right foot, initial encounter; Translations: [STRAIN UNS M AND T ANK FT LEVL RT INIT] Onset: 09-30-2021 Episodic Unclassified (1 source) Low back pain, unspecified M54.50 Onset: 07-24-2021 Resolved: 07-24-2021 Results Test Name Value Interpretation Reference Range Facility No Panel Informationon 03-02 [facility] Ambulatory Visit Summaryon 1 Ambulatory Visit Summary Ambulatory Visit Summary CONSTANTINO DUVAL Ilan :1960 Visit Date:02/21/2024 Ambulatory Visit Instructions Your Diagnosis History of prostate cancer BPH with obstruction/lower urinary tract symptoms ED (erectile dysfunction) Your Care Team Attending Physician - SALMA CHAVARRIA, Jacky Mckinney Primary Care Physician - EFREN CASTILLO MD This Is Your Medications List sildenafil (sildenafil 100 mg Tab) tamsulosin (Flomax 0.4 mg Cap) Contact prescribing physician if questions or concerns alprazolam (Xanax) atenolol (atenolol 50 mg Tab) busPIRone (busPIRone 10 mg Tab) clobetasol topical (clobetasol propionate 0.05% top oint) hydroxychloroquine levothyroxine (levothyroxine 150 mcg (0.15 mg) Tab) liothyronine (liothyronine 25 mcg Tab) loperamide (Imodium A-D) multivitamin with minerals (Multivitamins and Minerals) Procedures Performed Brachytherapy (07/31/2020), Transrectal biopsy of prostate using ultrasound guidance (02/15/2020). Discharge Vitals Heart Rate (Peripheral) 76 Blood Pressure 122/86 Height 172 cm Height 68 in Weight 85.1 kg Weight 187.22 lb BMI 28.77 What to do next You Need to Schedule the Following Appointments Follow Up with SALMA CHAVARRIA, BERNICE Wong When: Where: [facility] [address] , [place] [address] [phone] Medications What How Much When Instructions Unchanged sildenafil (sildenafil 100 mg Tab) 1 Tablets By Mouth Every day Unchanged tamsulosin (Flomax 0.4 mg Cap) 1 Capsules By Mouth 2 times a day Unchanged alprazolam (Xanax) By Mouth Every day Contact prescribing physician if questions or concerns Unchanged atenolol (atenolol 50 mg Tab) 1 Tablets By Mouth Every day Contact prescribing physician if questions or concerns Unchanged busPIRone (busPIRone 10 mg Tab) 2 Tablets By Mouth 2 times a day Contact prescribing physician if questions or concerns Unchanged clobetasol topical (clobetasol propionate 0.05% top oint) Topical 2 times a day Contact prescribing physician if questions or concerns Unchanged hydroxychloroquine By Mouth Every day Contact prescribing physician if questions or concerns Unchanged levothyroxine (levothyroxine 150 mcg (0.15 mg) Tab) 1 Tablets By Mouth Every day Contact prescribing physician if questions or concerns Unchanged liothyronine (liothyronine 25 mcg Tab) 1 Tablets By Mouth Every day Contact prescribing physician if questions or concerns Unchanged loperamide (Imodium A-D) By Mouth Contact prescribing physician if questions or concerns Unchanged multivitamin with minerals (Multivitamins and Minerals) See instructions Contact prescribing physician if questions or concerns Allergies Lipitor (Cramping) leflunomide (Nausea, Diarrhea) methIMAzole (Anaphylaxis) methotrexate (unknown) simvastatin (Myalgia) statins (Pain) Problems Ongoing - Any problem that you are currently receiving treatment for. Anxiety Arthritis Asymptomatic microscopic hematuria BPH with elevated PSA BPH with obstruction/lower urinary tract symptoms Chronic GERD Drug overdose ED (erectile dysfunction) Elevated PSA Family history of prostate cancer Feeling of incomplete bladder emptying Head injury History of cocaine abuse History of prostate cancer Hyperlipidemia Hypertension Hypothyroid Microscopic hematuria Nocturia Osteopenia Prostate cancer Smoker Urge incontinence Patient Survey You may receive a survey via text or e-mail asking about your office visit. Please share your experience with us by completing your survey. We appreciate your feedback and thank you for choosing us for your care. Education Materials Cystoscopy Cystoscopy is a procedure that is used to help diagnose and sometimes treat conditions that affect the lower urinary tract. The lower urinary tract includes the bladder and the urethra. The urethra is the tube that drains urine from the bladder. Cystoscopy is done using a thin, tube-shaped instrument with a light and camera at the end (cystoscope). The cystoscope may be hard or flexible, depending on the goal of the procedure. The cystoscope is inserted through the urethra, into the bladder. Cystoscopy may be recommended if you have: ? Urinary tract infections that keep coming back. ? Blood in the urine (hematuria). ? An inability to control when you urinate (urinary incontinence) or an overactive bladder. ? Unusual cells found in a urine sample. ? A blockage in the urethra, such as a urinary stone. ? Painful urination. ? An abnormality in the bladder found during an intravenous pyelogram (IVP) or CT scan. Cystoscopy may also be done to remove a sample of tissue to be examined under a microscope (biopsy). Tell a health care provider about: ? Any allergies you have. ? All medicines you are taking, including vitamins, herbs, eye drops, creams, and [id number] medicines. ? Any problems you or fa (more content not included)... Normal [facility] Urology Office/Clinic Noteon 02-21-2024 Urology Office/Clinic Note Urology Office/Clinic Note Chief Complaint re- establish HPI Staff 63 yr old pt here to re- establish care, last seen IO 06/17/21 s/p brachytherapy 07-31-20. Dx: bph with luts, weak urine stream, dysuria, nocturia and family h/o prostate cancer. Dysuria: _no Incomplete bladder emptying: _unsure Hematuria: _no, trace IO today Frequency: _q2-3hrs Urgency: _no Nocturia: _2-4x Stream: _weak Leaking: _no Post void dripping: _no Wearing pads/ Depends: _no Urge incontinence: _no Stress incontinence: _no Incontinence without Sensory Awareness: _no Abdominal pain: _no Flank pain: _at times, lower - mid both sides Sexual complaints: _ History of Present Illness Tests reviewed: reviewed UA, PSAs, Testosterone, CT scan I have reviewed the previous health record information and history for this patient from external providers and Dr. Soler. I have reviewed and verified the staff HPI to be accurate for this encounter. Review of Systems PHQ Score Initial Depression Screen Score: 0 SCORE ROS - Provider Constitutional: denies weight loss, denies hot flashes. Eyes: denies eye problems. Gastrointestinal: denies nausea, denies vomiting. Cardiovascular: denies chest pain or angina. Integumentary: no dryness Musculoskeletal: denies musculoskeletal symptoms. ENMT: denies otolaryngeal symptoms. Respiratory: no shortness of breath. Heme/Lymph: denies easy bleeding tendency, denies easy bruising tendency. Psychiatric: no confusion, no anxiety. Genitourinary: See HPI. Physical Exam Vitals & Measurements HR: 76(Peripheral) BP: 122/86 HT: 68 in HT: 172 cm WT: 85.1 kg WT: 187.22 lb BMI: 28.77 General Appearance: alert, no distress, well nourished, well developed male. Assessment/Plan Prior DLS pt, last seen 2021 1. History of prostate cancer (Z85.46: Personal history of malignant neoplasm of prostate) PSA 03/20/21 - 0.05 05/16/21 - 0.1 12/11/22 - <0.13 06/14/23 - 0.14 12/21/23 - 0.06 TRUS/bx 02/15/20 by WIL - Amy 7 (4+3) EBRT 06/21/20. Brachytherapy 07/31/20. Last saw Dr. Schmid 12/23/23. PSA remains low and stable. -Cont following w/ Dr. Mcneil -F/u in 1 year w/ PSA 2. BPH with obstruction/lower urinary tract symptoms (N40.1: Benign prostatic hyperplasia with lower urinary tract symptoms) CT AP w con 12/07/23 [facility] - Diffuse bladder wall thickening could be due to CORLEY although cystitis cannot be excluded. No hydro or obstructing stones. Taking Tamsulosin 0.4mg bid. Reports weaker stream. Getting up a few times per night to void. Does not always feel empty. PVR today 118 mL. States sxs were worse with lower Tamsulosin dosage. Recommended pt to continue taking bid. Also reviewed imaging results. Thickened bladder wall. Discussed cysto to evaluate. Pt wishes to proceed. -Cont Tamsulosin bid -Will schedule cystoscopy. The risks and benefits for cystoscopy have been discussed. The risks include bleeding, infection, and irritation of the bladder and urinary channel, among others. The patient, after being informed of procedural details and after questions have been answered, wishes to proceed. Full informed consent has been obtained. Will order Local anesthesia. 3. Incomplete bladder emptying (R33.9: Retention of urine, unspecified) See #2. 4. ED (erectile dysfunction) (N52.35: Erectile dysfunction following radiation therapy) Testosterone: 12/11/22 - 338 06/14/23 - 285 Not on TRT. Shares Dr. Mcneil was monitoring levels and did not recommend TRT. Taking Sildenafil 100mg prn. Follow-up With When Contact Information SALMA CHAVARRIA, Jacky Mckinney, URL [facility] [address], [place] [address] [phone] Additional Instructions: sched cysto Patient Education Cystoscopy Benign Prostatic Hyperplasia I, Margareth Castillo, personally scribed for Dr. Marsh on 02/21/2024 12:20:26. . Documentation recorded by the elderibMargareth delgado, accurately reflects the services(s) I performed and decisions made by me. Authenticated by Dr. Marsh on 02/21/2024 12:23:34. Problem List/Past Medical History Ongoing Anxiety Arthritis Asymptomatic microscopic hematuria BPH with elevated PSA BPH with obstruction/lower urinary tract symptoms Chronic GERD Drug overdose ED (erectile dysfunction) Elevated PSA Family history of prostate cancer Feeling of incomplete bladder emptying Head injury History of cocaine abuse History of prostate cancer Hyperlipidemia Hypertension Hypothyroid Incomplete bladder emptying Microscopic hematuria Nocturia Osteopenia Prostate cancer Smoker Urge incontinence Historical No qualifying data Procedure/Surgical History Brachytherapy (07/31/2020), Transrectal biopsy of prostate using ultrasound guidance (02/15/2020). Medications atenolol 50 mg Tab, 50 mg= 1 tab(s), Oral, Daily busPIRone 10 mg Tab, 20 mg= 2 tab(s), Oral, BID Cipro 500 mg Tab, 500 mg= 1 (more content not included)... Normal [facility] Comment on above: Result Comment: Elec tronically Signed By: SALMA CHAVARRIA, Jacky R\.br\Date and Time Signed: 02/21/24 12:23 EDT\.br\Electronically Co-Signed By: Margareth Castillo\Date and Time Co-Signed: 02/21/24 12:20 EDT CNOVon 12-23-2023 CNOV Office Visit (RADTSA ) CONSTANTINO DUVAL ([id number]) 1960 M Date Time Provider Department 12/23/23 1:00 PM May MCENIL During your visit today, we recorded the following information about you: Temperature Pulse Respiration Blood pressure 97.1 degrees 82/minute 18/minute 117/76 Weight 92.8 kg May Mcneil MD 12/23/2023 1:31 PM Signed Radiation Oncology - Follow Up Note PATIENT NAME: Constantino Duval PATIENT DIAGNOSIS: Prostate adenocarcinoma, initial PSA 28.36, biopsy Amy score 4 + 3 = 7 (grade group 3), clinical stage T2b, N0, M0, stage IIIA [T1-T2, N0, M0, PSA >=20, GG 1-4] (AJCC 8th ed.), s/p TRUS Random biopsy. RADIATION SUMMARY: DATES OF TREATMENT: Pelvic external beam treatment 05/20/20-06/21/20 Prostate brachytherapy implant 07/31/2020 AREA TREATED: Prostate and pelvis DELIVERED DOSE: Area: Pelvis 45 Gy in 25 fractions,3 Arcs, IMRT with rapid arc , 10MV with daily CBCT Area: Prostate 100 Gy Pd-103, 30 sources, 14 needles, 78.75 mCi INTERVAL HISTORY: Doing well. Patient had some recent abdominal discomfort underwent CT scan without remarkable findings other than some thickening of the bladder. Otherwise doing well. 10/08/21:Doing fairly well. Has had some lower abdominal pain and rectal discomfort. Mostly relieved by BMs. No blood per rectum. Occasional diarrhea. Otherwise no new problems PSA HISTORY: PSA (ng/mL) Date Value 12/21/2023 0.06 PSA. (no units) Date Value 06/14/2023 0.14 12/11/2022 <0.13 06/09/2022 <0.13 02/09/2022 <0.13 02/09/22 Testosterone <3 12/11/2022 Testosterone 338 at ALLERGIES Allergen Reactions Tapazole [Methimazo* Anaphylaxis rash, itching throat was closing Gabapentin Other: See Comments Other Reaction(s): Weakness,Dizziness, Nausea Leflunomide Diarrhea, GI Upset, Intolerance, Other: See Comments, Shortness of Breath Methotrexate GI Upset nausea , vomiting, dizziness Xrkxkla-Bly-Sku Red* Other: See Comments Leg pain hydrOXYchloroQUINE (PLAQUENIL) 200 mg tablet take 1 tablet by mouth twice a day with food. Continue yearly retinal eye exam with eye doctor. tamsulosin (FLOMAX) 0.4 mg Take 1 capsule by mouth two times a day. clobetasol (TEMOVATE) 0.05 % cream Apply to affected area twice daily. APPLY TO AFFECTED AREA Sodium Fluoride 1.1 % BRUSH A PEA SIZED AMOUNT ON TEETH at bedtime (NO FOOD OR WATER 30 MINUTES AFTER,) kwjuye-wzkp-laza-levom ef-silic 10-50-500-0.5 mg cap Take 1 tablet by mouth. cholecalciferol (VITAMIN D3) 1,000 unit tab tablet Take 1 tablet by mouth once daily. liothyronine (CYTOMEL) 25 mcg tablet Take 25 mcg by mouth once daily. levothyroxine 150 mcg cap Take 150 mcg by mouth daily before breakfast. ALPRAZolam (XANAX) 0.25 mg tablet Take 0.25 mg by mouth twice daily as needed. busPIRone (BUSPAR) 10 mg tablet Take 20 mg by mouth twice daily. atenolol 50 mg tablet Take by mouth once daily. 50 mg.once daily Multivitamin ORAL capsule Take 1 capsule by mouth once daily. albuterol HFA (VENTOLIN HFA) 90 mcg/actuation inhaler Inhale 2 Puffs as instructed every 4 hours as needed for wheezing/shortness of breath. REVIEW OF SYSTEMS: D/N = 6/2 AUA = 16 Hematuria: none Dysuria: none Incontinence: none Urgency:Mild to moderate Catheter use: none Medications to aid urination: y Flomax twice daily Bowel movement frequency: 1-3/day Bowel movement quality: Occasional diarrhea Blood per rectum: none Androgen deprivation: Lupron. Last treatment 05/2021 PHYSICAL EXAM: BP 117/76 Pulse 82 Temp 36.2 ?C (97.1 ?F) Resp 18 Wt 92.8 kg (204 lb 9.4 oz) SpO2 100% BMI 28.86 kg/m? KPS: 100 General appearance: Alert and oriented. No acute distress. Rectal exam def Extremities: No deformities, edema, skin discoloration, clubbing or cyanosis. Lymph Nodes: No cervical lymphadenopathy, No supraclavicular lymphadenopathy, No axillary lymphadenopathy. Skin: Skin color, texture, turgor normal, no suspicious rashes or lesions. ASSESSMENT/PLAN: Prostate adenocarcinoma, initial PSA 28.36, biopsy Amy score 4 + 3 = 7 (grade group 3), clinical stage T2b, N0, M0, stage IIIA [T1-T2, N0, M0, PSA >=20, GG 1-4] (AJCC 8th ed.), s/p pelvic radiation followed by prostate brachytherapy 07/31/2020. Doing well. PSA remains low actually decreased from last visit. He has some questionable changes on CT scan of his bladder unclear significance. Patient will see his urologist regarding this. Otherwise recommend continued PSA surveillance. Signed by: May Mcneil MD cc: Efren Castillo II, MD [address] [place] [address] Portions of the above note extracted and edited from previous visit as well as active information included in the EMR. Trudy Davila RN 12/23/2023 1:31 PM Signed AUA 17 PAO Miranda (more content not included)... Normal [facility] Amphetamine Screen Ql (U)Ord ered By: Chin Watkins on 11-03-2023 Amphetamines Ql (U) Negative Negative [facility] Barbiturates [Presence] in U rine by Screen methodOrdered By: Chin Watkins on 11-03-2023 Barbiturates Screen Ql (U) Negative Negative [facility] Benzodiazepines Screen Ql (U )Ordered By: Chin Watkins on 11-03-2023 Benzodiazepines Ql (U) Negative Negative [facility] Benzoylecgonine [Presence] i n Urine by Screen methodOrdered By: Chin Watkins on 11-03-2023 Benzoylecgonine Screen Ql (U) Negative Negative [facility] Cannabinoids [Presence] in U rine by Screen methodOrdered By: Chin Watkins on 11-03-2023 Cannabinoids Screen Ql (U) Positive High Negative [facility] Comment on above: These are unconfirme d results and should not be used for legal purposes. Drug Cut-Off Concentration: AMPH 1000 ng/mL GLENNY 200 ng/mL BECKY 200 ng/mL COCM 300 ng/mL OP 300 ng/mL PCP 25 ng/mL THC 20 ng/mL Drug Screen,Urineon 11-03-19 24 Amphetamine Screen,Urine Negative Normal Negative [facility] Comment on above: Performed By: #### U RDS #### [place] [address] [place] Barbiturate Screen,Urine Negative Normal Negative [facility] Comment on above: Performed By: #### U RDS #### [place] [address] [place] Benzodiazepines Screen,Urine Negative Normal Negative [facility] Comment on above: Performed By: #### U RDS #### [place] [address] [place] Cannabinoid Screen,Urine Positive High Negative [facility] Comment on above: Result Comment: Thes e are unconfirmed results and should not be used for legal purposes. Drug Cut-Off Concentration: AMPH 1000 ng/mL GLENNY 200 ng/mL BECKY 200 ng/mL COCM 300 ng/mL OP 300 ng/mL PCP 25 ng/mL THC 20 ng/mL PERFORMED BY: [place] [address] PATHOLOGIST SOLUTION MAKE UP OPERATOR HUNTER HICKEY M.D. Performed By: #### U RDS #### [place] [address] [place] Cocaine Screen,Urine Negative Normal Negative [facility] Comment on above: Performed By: #### U RDS #### [address] [place] [address] [place] Opiate Screen,Urine Negative Normal Negative [facility] Comment on above: Performed By: #### U RDS #### [facility] [address] Phencyclidine Screen,Urine Negative Normal Negative [facility] Comment on above: Performed By: #### U RDS #### [facility] [address] Kelvin 11-03-2023 L Specimen: [id number] Received: 11/03/23 Status: LINK Req Num: [id number] Spec Type: Surgical Subm Dr: Chin Watkins MD Tissues: A Colon Biopsy (RANDOM COLON BX) Procedures: HE/2, Gross/Micro L4 Age/ Patient Sex Location Account Attending Physician Constantino Duval O 63/M [id number] Chin Watkins MD SPEC NUM: [id number] RECD: 11/03/23 STATUS: LINK BUTLER NUM: [id number] MAURICE: 11/03/23 DR: Chin Watkins MD ENTERED: 11/03/23 [facility] DR: SPEC TYPE: Surgical DEPT: S ORDERED: HE/2, Gross/Micro L4 ORDERED: HE/2, Gross/Micro L4 Pathological Diagnosis Colon, random biopsy: No evidence of colitis. Clinical Information Diarrhea, history of diverticulitis. Rule out microscopic colitis. Gross Description Received in formalin labeled with the patient's name, date of and random colon biopsies is a 0.3 x 0.3 x 0.2 cm singleton mucosal tissue fragment, entirely submitted in A1. CPT Codes 82080 ---- ---- Specimen: [id number] Received: 11/03/23 Status: LINK Butler Num: [id number] Spec Type: Surgical Subm Dr: Chin Watkins MD Tissues: A Colon Biopsy (RANDOM COLON BX) Procedures: HE/2, Gross/Micro L4 ---- Patient: Constantino Duval [id number] (Continued) ---- Signed (signature on file) Elen Skaggs MD 11/04/23 1440 Normal [facility] Opiates [Presence] in Urine by Screen methodOrdered By: Chin Watkins on 11-03-2023 Opiates Screen Ql (U) Negative Negative [facility] Phencyclidine Screen Ql (U)O rdered By: Chin Watkins on 11-03-2023 Phencyclidine Ql (U) Negative [facility] CNPNon 09-06-2023 CNPN Telephone (PULMLO) CONSTANTINO DUVAL ([id number]) 1960 M Date Time Provider Department 09/06/23 JOE HEADLEY During your visit today, we recorded the following information about you: Rita Starr 09/06/2023 3:38 PM Signed PFTs and Return in about 6 months (around 02/24/2024). 1st attempt LVM to schedule 6 month follow and PFTs Rita Starr September 06, 2023 Rita Starr 09/14/2023 10:07 AM Signed Final attempt LVM to schedule Ranier King September 14, 2023 Allergies As of Date: 09/06/2023 Noted Allergy Reaction TAPAZOLE (METHIMAZOLE) 03/25/2011 10 - Anaphylaxis Comments: rash, itching throat was closing GABAPENTIN 12/24/2022 14 - Other: See Comments Comments: Other Reaction(s): Weakness,Dizziness, Nausea LEFLUNOMIDE 08/01/2020 6 - Diarrhea 8 - GI Upset 5 - Intolerance 14 - Other: See Comments 12 - Shortness of Breath METHOTREXATE 09/18/2022 8 - GI Upset Comments: nausea , vomiting, dizziness DTMHKFB-NAI-ZHP REDUCTASE INHIBIT*04/24/2020 14 - Other: See Comments Comments: Leg pain Date Reviewed: 08/08/2023 Reviewed by: Katty Duenas, BUGGYMAN.TRANSVERSE ABDOMINAL MUSCLE SURGEON - Fully Assessed Reason for Visit: Appointment [186] Prescriptions as of 09/14/2023 - albuterol HFA (VENTOLIN HFA) 90 mcg/actuation inhaler Inhale 2 Puffs as instructed every 4 hours as needed for wheezing/shortness of breath. - tamsulosin (FLOMAX) 0.4 mg Take 1 capsule by mouth two times a day. - hydrOXYchloroQUINE (PLAQUENIL) 200 mg tablet take 1 tablet by mouth twice a day with food - clobetasol (TEMOVATE) 0.05 % cream Apply to affected area twice daily. APPLY TO AFFECTED AREA - Sodium Fluoride 1.1 % BRUSH A PEA SIZED AMOUNT ON TEETH at bedtime (NO FOOD OR WATER 30 MINUTES AFTER,) - cpghjz-negj-cvii-levom ef-silic 10-50-500-0.5 mg cap Take 1 tablet by mouth. - cholecalciferol (VITAMIN D3) 1,000 unit tab tablet Take 1 tablet by mouth once daily. - liothyronine (CYTOMEL) 25 mcg tablet Take 25 mcg by mouth once daily. - levothyroxine 150 mcg cap Take 150 mcg by mouth daily before breakfast. - ALPRAZolam (XANAX) 0.25 mg tablet Take 0.25 mg by mouth twice daily as needed. - busPIRone (BUSPAR) 10 mg tablet Take 20 mg by mouth twice daily. - hydrOXYzine pamoate (VISTARIL) 50 mg capsule Take 50 mg by mouth. - atenolol 50 mg tablet Take by mouth once daily. 50 mg.once daily - Multivitamin ORAL capsule Take 1 capsule by mouth once daily. 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, T38.0X5A] 03/19/2021 ILD (interstitial lung disease) (HCC) [J84.9] 01/15/2023 Chronic obstructive pulmonary disease (HCC) [J4*01/15/2023 Lung nodule [R91.1] 01/15/2023 Current smoker [F17.200] 01/15/2023 Encounter Status:Closed by RITA STARR on 09/06/23 [facility] Jose Juan 07-02-2023 CNOV Office Visit (MIQUEL ) CONSTANTINO DUVAL ([id number]) 1960 Jacob Date Time Provider Department 07/02/23 3:30 PM KATTY DUENAS During your visit today, we recorded the following information about you: Temperature Pulse Blood pressure Weight 98 degrees 95/minute 132/79 93.2 kg Katty Duenas, AILIN.TRANSVERSE ABDOMINAL MUSCLE SURGEON 08/08/2023 2:05 PM Signed Face to face FOLLOW UP VISIT PCP: Efren Castillo II, MD [address] [facility] [address] [place] [address] Mr. Duval is a 63 year old patient here today for follow up of rheumatoid arthritis and osteopenia Interim History: Saw Dr. Castillo 2-3 times last month Tsh high 13.78 On levothryoxine Has appt with Dr. Castillo next week Does not have GI Has diverticulitis hx Pain and bloating left side worse this last month Diarrhea off and on More gas Needs a GI closer to home Needed to reapply medicaid losing end july This last month achy bones , joints, ankles , hands Last dec Occasional ibuprofen - it irritates stomach Pain in hands, ankles , sometimes in shoulder s No swelling Am stiffness - couple hours Following pulm for lung nodules, COPD, ILD Current smoker Following with urology prostate ca- just monitoring PSA Off hormone therapy 1 year ago Testosterone slowly going up No falls No fractures No dental concerns Stopped enbrel -caused bloating, diarrhea, headaches Took for only 8 weeks Tried leflunomide, methotrexate Taking plaquenil twice daily Vit d 2 gummies+ ca and mult vitamin daily biotin = 3000 international unit(s) daily Tylenol not working Review of Systems CONSTITUTION: Negative for: Fever and Recent weight change HEENT: Negative for: Nosebleeds, Mouth sores, Trouble swallowing and Dry mouth More sinus issues recently Had hx sinus sx Not currrently following with ent RESPIRATORY: Negative for: Cough (improved), Shortness of breath, Pain with breathing and Coughing up blood GASTROINTESTINAL: Positive for: Diarrhea (intermittent, none today, last couple days ago) Negative for: Melena, Heartburn and Abdominal pain Bloating and diarrhea improved off enbrel Problems since radiation MUSCULOSKELETAL: Positive for: Arthralgias, Myalgias, Muscle weakness and Morning Joint Stiffness Negative for: Joint swelling NEUROLOGICAL: Positive for: Numbness Negative for: Headaches and Memory loss SKIN: Negative for: Rash, Skin changes, Hair loss and Nail changes EYES: Positive for: Eye dryness Negative for: Eye pain, Eye redness and visual disturbance CARDIOVASCULAR: Negative for: Chest pain and Leg swelling GENITOURINARY: Negative for: Dysuria and Hematuria HEMATOLOGIC/LYMPHATIC: Negative for: Swollen glands Past Medical Hx, Past Surgical Hx. Social Hx and Family Hx: unchanged ACTIVE PROBLEM LIST Ild (Interstitial Lung Disease) ([facility]) - 01/15/2023 Chronic Obstructive Pulmonary Disease ([facility]) - 01/15/2023 Lung Nodule - 01/15/2023 Current Smoker - 01/15/2023 Steroid-Induced Osteopenia - 03/19/2021 Prostate Cancer ([facility]) - 06/12/2020 Other Postablative Hypothyroidism - 12/21/2012 PHYSICAL EXAM: BP 132/79 Pulse 95 Temp 36.7 ?C (98 ?F) Wt 93.2 kg (205 lb 7.5 oz) SpO2 97% BMI 28.98 kg/m? GEN: A AND O in NAD SKIN: no lesions HEENT: No conj. inj., oral ulcers, thrush LUNGS: CTA B/L HEART: RRR, no g/r/m NEURO: Mental Status: alert and oriented x 3 cheerful, Gait: Normal w/o assistive devices Tone: normal no focal weakness. MUSCULOSKELETAL: Sw Jts.:0 T Jts.:ankles, knees, mcps hands No joint deformities, no rheumatoid nodules. calcifications or tophi. No SI tenderness, no vitaliy's tenderness, no heel/plantar tenderness, lumbar flexion full, negative Salma's test. No clinical synovitis in the DIP's, PIP's, MCP's, wrists, elbows, shoulders, knees, ankles, midfoot, or toes. No knee effusions bilateral. Shoulder exam:FROM FROM: all upper and lower extremity joints Thoracic/Lumbar Spine: No percussion tenderness SLR: negative modified in chair Extr.: no edema Prior Test results discussed with patient. IMPRESSION/DIAGNOSIS: M05.9 Seropositive rheumatoid arthritis (HCC) (primary encounter diagnosis) Z51.81, Z79.899 Encounter for monitoring of hydroxychloroquine therapy Z71.2 Encounter to discuss test results F17.200 Smoking M85.80, T38.0X5A Steroid-induced osteopenia Z87.19 History of diverticulitis J84.9 ILD (interstitial lung disease) ([facility]) Per Dr. 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 His outside labs: CCP 101 (09/15/2019),RF 10, MANUEL direct negative Urate 4.9 (more content not included)... Normal [facility] LUNG DIFFUSION CAPACITY (BLAYNE O)on 07-02-2023 DLCO (ml/min/mmHg) 24.11 ml/min/mmHg [facility] DLCO/VA (ml/min/mmHg/L) 3.86 ml/min/mmHg/L [facility] OHM24-06% POST (L/S) 1.63 L/S [facility] WKO82-21% PRE (L/S) 1.43 L/S [facility] FEV1 PRE (L) 3.11 L [facility] FEV1/FVC POST (%) 67 % [facility] FEV1/FVC PRE (%) 65 % [facility] FEV1_POST (L) 3.20 L [facility] FVC POST (L) 4.78 L [facility] FVC PRE (L) 4.76 L [facility] PEF POST (L/S) 9.83 L/S [facility] PEF PRE (L/S) 9.65 L/S [facility] VA (L) 6.28 L [facility] SPIROMETRY - BASELINE AND PO ST DILATORon 07-02-2023 [facility] CNOVon 06-24-2023 CNOV Office Visit (WAYNEA ) CONSTANTINO DUVAL ([id number]) 1960 M Date Time Provider Department 06/24/23 1:00 PM ENGELER, G JUNI RADTSA During your visit today, we recorded the following information about you: Temperature Pulse Respiration Blood pressure 97.4 degrees 88/minute 18/minute 124/80 Weight 95.2 kg May Mcneil MD 06/24/2023 1:15 PM Signed Radiation Oncology - Follow Up Note PATIENT NAME: Constantino Duval PATIENT DIAGNOSIS: Prostate adenocarcinoma, initial PSA 28.36, biopsy [place] score 4 + 3 = 7 (grade group 3), clinical stage T2b, N0, M0, stage IIIA [T1-T2, N0, M0, PSA >=20, GG 1-4] (AJCC 8th ed.), s/p TRUS Random biopsy. RADIATION SUMMARY: DATES OF TREATMENT: Pelvic external beam treatment 05/20/20-06/21/20 Prostate brachytherapy implant 07/31/2020 AREA TREATED: Prostate and pelvis DELIVERED DOSE: Area: Pelvis 45 Gy in 25 fractions,3 Arcs, IMRT with rapid arc , 10MV with daily CBCT Area: Prostate 100 Gy Pd-103, 30 sources, 14 needles, 78.75 mCi INTERVAL HISTORY: Doing well. Some occasional slow stream he feels overall improved, has gone to once a day Flomax. No dysuria hematuria. 10/08/21:Doing fairly well. Has had some lower abdominal pain and rectal discomfort. Mostly relieved by BMs. No blood per rectum. Occasional diarrhea. Otherwise no new problems PSA HISTORY: PSA. (no units) Date Value 06/14/2023 0.14 12/11/2022 <0.13 06/09/2022 <0.13 02/09/2022 <0.13 02/09/22 Testosterone <3 12/11/2022 Testosterone 338 at ALLERGIES Allergen Reactions Tapazole [Methimazo* Anaphylaxis rash, itching throat was closing Gabapentin Other: See Comments Other Reaction(s): Weakness,Dizziness, Nausea Leflunomide Diarrhea, GI Upset, Intolerance, Other: See Comments, Shortness of Breath Methotrexate GI Upset nausea , vomiting, dizziness Labtwbn-Efc-Uis Red* Other: See Comments Leg pain hydrOXYchloroQUINE (PLAQUENIL) 200 mg tablet take 1 tablet by mouth twice a day with food tamsulosin (FLOMAX) 0.4 mg Take 1 capsule by mouth two times a day. clobetasol (TEMOVATE) 0.05 % cream Apply to affected area twice daily. APPLY TO AFFECTED AREA Sodium Fluoride 1.1 % BRUSH A PEA SIZED AMOUNT ON TEETH at bedtime (NO FOOD OR WATER 30 MINUTES AFTER,) frmgpy-kltg-rhxv-levom ef-silic 10-50-500-0.5 mg cap Take 1 tablet by mouth. cholecalciferol (VITAMIN D3) 1,000 unit tab tablet Take 1 tablet by mouth once daily. liothyronine (CYTOMEL) 25 mcg tablet Take 25 mcg by mouth once daily. levothyroxine 150 mcg cap Take 150 mcg by mouth daily before breakfast. ALPRAZolam (XANAX) 0.25 mg tablet Take 0.25 mg by mouth twice daily as needed. busPIRone (BUSPAR) 10 mg tablet Take 20 mg by mouth twice daily. hydrOXYzine pamoate (VISTARIL) 50 mg capsule Take 50 mg by mouth. atenolol 50 mg tablet Take by mouth once daily. 50 mg.once daily Multivitamin ORAL capsule Take 1 capsule by mouth once daily. levETIRAcetam (KEPPRA) 250 mg tablet take 1 tablet by mouth IN THE MORNING then 1 tablet by mouth BEFORE BEDTIME zonisamide (ZONEGRAN) 25 mg capsule Take 25 mg by mouth two times a week. budesonide-formoterol (SYMBICORT) 160-4.5 mcg/actuation inhaler Inhale 2 Puffs as instructed twice daily. albuterol HFA (VENTOLIN HFA) 90 mcg/actuation inhaler Inhale 2 Puffs as instructed every 4 hours as needed for wheezing/shortness of breath. REVIEW OF SYSTEMS: D/N = 6/2 AUA = 16 Hematuria: none Dysuria: none Incontinence: none Urgency:Mild to moderate Catheter use: none Medications to aid urination: y Flomax twice daily Bowel movement frequency: 1-3/day Bowel movement quality: Occasional diarrhea Blood per rectum: none Androgen deprivation: lupron. Last treatment 05/2021 PHYSICAL EXAM: Resp 18 Wt 95.2 kg (209 lb 14.1 oz) BMI 29.60 kg/m? KPS: 100 General appearance: Alert and oriented. No acute distress. Rectal exam def Extremities: No deformities, edema, skin discoloration, clubbing or cyanosis. Lymph Nodes: No cervical lymphadenopathy, No supraclavicular lymphadenopathy, No axillary lymphadenopathy. Skin: Skin color, texture, turgor normal, no suspicious rashes or lesions. ASSESSMENT/PLAN: Prostate adenocarcinoma, initial PSA 28.36, biopsy [place] score 4 + 3 = 7 (grade group 3), clinical stage T2b, N0, M0, stage IIIA [T1-T2, N0, M0, PSA >=20, GG 1-4] (AJCC 8th ed.), s/p pelvic radiation followed by prostate brachytherapy 07/31/2020. Doing well. PSA has risen minimally likely related to hormonal withdrawal. Recommend follow-up in 6 months with repeat PSA. Signed by: May Mcneil MD cc: Efren Castillo II, MD [address] [place] [address] Portions of the above note extracted and edited from previous visit as well as active information included in the EMR. Trudy Davila RN 06/24/2023 1:01 PM S (more content not included)... Normal [facility] Natalie 06-15-2023 BILLY Telephone (MIQUEL) CONSTANTINO UDVAL ([id number]) 1960 M Date Time Provider Department 06/15/23 KATTY DUENAS During your visit today, we recorded the following information about you: Natalee Huertas MA 06/15/2023 10:49 AM Signed Received outside lab results ordered by Katty Duenas CNP, completed on 06/14/2023 at [facility] Sed rate, CRP Natalee Huertas MA 06/16/2023 1:38 PM Signed [facility] lab faxed TB results placed on Katty Duenas's desk for review Katty Duenas APRN.TRANSVERSE ABDOMINAL MUSCLE SURGEON 06/17/2023 11:52 PM Signed Please call patient No inflammation Sed - normal Crp-normal Tb negative Natalee Huertas MA 06/18/2023 9:36 AM Signed Notified patient of below, verbal understanding. Natalee Huertas MA 06/18/2023 11:53 AM Signed Received outside labs from [facility] that were done along with rest of labs below Hepatitis panel Katty Duenas APRN.CNP 06/29/2023 3:52 PM Signed Hep panel unchanged from prior hepA AB igm - neg HBsAG scrn - neg Hep b core igm- neg HCV ab - reactive Hep c quant - HCV not detected HCV log 10 - test not performed - resolved past infection Allergies As of Date: 06/15/2023 Noted Allergy Reaction TAPAZOLE (METHIMAZOLE) 03/25/2011 10 - Anaphylaxis Comments: rash, itching throat was closing GABAPENTIN 12/24/2022 14 - Other: See Comments Comments: Other Reaction(s): Weakness,Dizziness, Nausea LEFLUNOMIDE 08/01/2020 6 - Diarrhea 8 - GI Upset 5 - Intolerance 14 - Other: See Comments 12 - Shortness of Breath METHOTREXATE 09/18/2022 8 - GI Upset Comments: nausea , vomiting, dizziness [id number] REDUCTASE INHIBIT*04/24/2020 14 - Other: See Comments Comments: Leg pain Date Reviewed: 01/07/2023 Reviewed by: Natalee Huertas MA - Fully Assessed Reason for Visit: Outside Labs-[facility] Ordered [1004] Cmt: [facility] -06/14/2023- ordered by Katty Duenas CNP Prescriptions as of 06/29/2023 - tamsulosin (FLOMAX) 0.4 mg Take 1 capsule by mouth two times a day. - hydrOXYchloroQUINE (PLAQUENIL) 200 mg tablet take 1 tablet by mouth twice a day with food - albuterol HFA (VENTOLIN HFA) 90 mcg/actuation inhaler Inhale 2 Puffs as instructed every 4 hours as needed for wheezing/shortness of breath. - clobetasol (TEMOVATE) 0.05 % cream Apply to affected area twice daily. APPLY TO AFFECTED AREA - Sodium Fluoride 1.1 % BRUSH A PEA SIZED AMOUNT ON TEETH at bedtime (NO FOOD OR WATER 30 MINUTES AFTER,) - shrqou-zkyo-iqzw-levom ef-silic 10-50-500-0.5 mg cap Take 1 tablet by mouth. - cholecalciferol (VITAMIN D3) 1,000 unit tab tablet Take 1 tablet by mouth once daily. - liothyronine (CYTOMEL) 25 mcg tablet Take 25 mcg by mouth once daily. - levothyroxine 150 mcg cap Take 150 mcg by mouth daily before breakfast. - ALPRAZolam (XANAX) 0.25 mg tablet Take 0.25 mg by mouth twice daily as needed. - busPIRone (BUSPAR) 10 mg tablet Take 20 mg by mouth twice daily. - hydrOXYzine pamoate (VISTARIL) 50 mg capsule Take 50 mg by mouth. - atenolol 50 mg tablet Take by mouth once daily. 50 mg.once daily - Multivitamin ORAL capsule Take 1 capsule by mouth once daily. 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] 03/19/2021 ILD (interstitial lung disease) (HCC) [J84.9] 01/15/2023 Chronic obstructive pulmonary disease (HCC) [J4*01/15/2023 Lung nodule [R91.1] 01/15/2023 Current smoker [F17.200] 01/15/2023 Encounter Status:Closed by NATALEE HUERTAS on 06/18/23 [facility] 06-02-2023 DARIN Telephone (MIQUEL) CONSTANTINO DUVAL ([id number]) 1960 M Date Time Provider Department 06/02/23 KATTY DUENAS During your visit today, we recorded the following information about you: Natalee Huertas MA 06/02/2023 2:56 PM Signed Received Ophthalmology exam completed on 03/10/2023 Dr Lamin Morel Normal OCT, no change in ON's return annually -high risk med use -open ankle with borderline findings, low risk, bilateral -presbyopia Katty Duenas, AILIN.TRANSVERSE ABDOMINAL MUSCLE SURGEON 06/17/2023 11:46 PM Signed reviewed Allergies As of Date: 06/02/2023 Noted Allergy Reaction TAPAZOLE (METHIMAZOLE) 03/25/2011 10 - Anaphylaxis Comments: rash, itching throat was closing GABAPENTIN 12/24/2022 14 - Other: See Comments Comments: Other Reaction(s): Weakness,Dizziness, Nausea LEFLUNOMIDE 08/01/2020 6 - Diarrhea 8 - GI Upset 5 - Intolerance 14 - Other: See Comments 12 - Shortness of Breath METHOTREXATE 09/18/2022 8 - GI Upset Comments: nausea , vomiting, dizziness [id number] REDUCTASE INHIBIT*04/24/2020 14 - Other: See Comments Comments: Leg pain Date Reviewed: 01/07/2023 Reviewed by: Natalee Huertas MA - Fully Assessed Reason for Visit: Received Outside Medical Records [3576] Cmt: Ophthalmology exam - Plaquenil Prescriptions as of 06/17/2023 - hydrOXYchloroQUINE (PLAQUENIL) 200 mg tablet take 1 tablet by mouth twice a day with food - tamsulosin (FLOMAX) 0.4 mg Take 1 capsule by mouth two times a day. - levETIRAcetam (KEPPRA) 250 mg tablet take 1 tablet by mouth IN THE MORNING then 1 tablet by mouth BEFORE BEDTIME - zonisamide (ZONEGRAN) 25 mg capsule Take 25 mg by mouth two times a week. - budesonide-formoterol (SYMBICORT) 160-4.5 mcg/actuation inhaler Inhale 2 Puffs as instructed twice daily. - albuterol HFA (VENTOLIN HFA) 90 mcg/actuation inhaler Inhale 2 Puffs as instructed every 4 hours as needed for wheezing/shortness of breath. - clobetasol (TEMOVATE) 0.05 % cream Apply to affected area twice daily. APPLY TO AFFECTED AREA - Sodium Fluoride 1.1 % BRUSH A PEA SIZED AMOUNT ON TEETH at bedtime (NO FOOD OR WATER 30 MINUTES AFTER,) - fxiafv-pcsm-xscb-levom ef-silic 10-50-500-0.5 mg cap Take 1 tablet by mouth. - cholecalciferol (VITAMIN D3) 1,000 unit tab tablet Take 1 tablet by mouth once daily. - liothyronine (CYTOMEL) 25 mcg tablet Take 25 mcg by mouth once daily. - levothyroxine 150 mcg cap Take 150 mcg by mouth daily before breakfast. - ALPRAZolam (XANAX) 0.25 mg tablet Take 0.25 mg by mouth twice daily as needed. - busPIRone (BUSPAR) 10 mg tablet Take 20 mg by mouth twice daily. - hydrOXYzine pamoate (VISTARIL) 50 mg capsule Take 50 mg by mouth. - atenolol 50 mg tablet Take by mouth once daily. 50 mg.once daily - Multivitamin ORAL capsule Take 1 capsule by mouth once daily. Problem List As Of Date 06/02/2023 Noted Resolved Other postablative hypothyroidism [E89.0] 12/21/2012 Prostate cancer (HCC) [C61] 06/12/2020 Steroid-induced osteopenia [M85.80, T38.0X5A] 03/19/2021 ILD (interstitial lung disease) (HCC) [J84.9] 01/15/2023 Chronic obstructive pulmonary disease (HCC) [J4*01/15/2023 Lung nodule [R91.1] 01/15/2023 Current smoker [F17.200] 01/15/2023 Encounter Status:Closed by KATTY DUENAS on 06/17/23 [facility]OVon 01-15-2023 CNOV Office Visit (PULMLO ) CONSTANTINO DUVAL ([id number]) 1960 M Date Time Provider Department 01/15/23 3:30 PM JOE HEADLEY During your visit today, we recorded the following information about you: Temperature Pulse Blood pressure Weight 97.2 degrees 76/minute 114/69 92.5 kg Height 1.793 m Joe Headley MD 01/17/2023 12:37 PM Signed . [facility] [place] Follow Up [facility] Note Mr. Duval is a 62 year old male who presents to the [facility] [place] for follow up of COPD. HPI: 62 year old male with PMH significant for COPD, lung nodule (first seen 02/27/22), current smoker, 1 PPD x 42 years, RA (previously on methotrexate and Enbrel, currently on Plaquenil and prednisone 5 mg PRN), GERD, HTN, MVP, prostate CA. Occupational exposure to dust, possible exposure to asbestos. Has dyspnea and leg weakness with exertion after 60-80 ft. Chronic cough with white/clear sputum and occasional wheezing. Interval HPI Since Last OV via telehealth with Dr. Headley 06/18/22: Cont. Symbicort as prescribed. Counseled on smoking cessation and to increase physical activity Follow CT chest in [place] given lung nodule in a smoker, counseled on risks/benefits of repat CT chest and he wishes to proceed with another scan Shortness of breath seems like it is progressively getting worse since last visit. Has occasional daily cough with clear sputum. Stopped Symbicort during an episode of exacerbation/bronchiti s-like symptoms; didn't feel like it was helping. Took it for at least 6 months, stopped 3 months ago. Did not notice any instant worsening without it. Has had increased cough, yellow/white sputum production, and shortness of breath over the past week. Has sinus congestion, runny nose, sore throat, headache, night sweats. Not taking any additional treatment at this time. Using albuterol HFA 0-1 x/day with minimal response. Last took prednisone 5 mg x 10 days for RA exacerbation, ended 1 month ago. Last took antibiotics 2-3 years ago. Smoking 1 PPD still. Smoking has gone up since he has stopped working and his schedule is less structured. Tried to quit 6 times - accupuncture twice, Chantix (dizzy/nausea after 3 days), patches, gum. Quit once for 6-8 months, gained 45 lbs. Started smoking again because of wt gain. Review of Systems Constitutional: Positive for chills. Negative for diaphoresis, fever, malaise/fatigue and weight loss. HENT: Positive for congestion and sore throat. Negative for nosebleeds and sinus pain. Eyes: Negative for pain. Respiratory: Positive for cough, sputum production and shortness of breath. Negative for hemoptysis, wheezing and stridor. Cardiovascular: Negative for chest pain, palpitations, orthopnea and leg swelling. Gastrointestinal: Negative for heartburn. Musculoskeletal: Positive for back pain, joint pain and myalgias. Negative for falls. Skin: Negative for rash. Neurological: Negative for seizures and loss of consciousness. Endo/Heme/Allergies: Negative for environmental allergies. Psychiatric/Behavioral : Negative for hallucinations. Allergies: Tapazole [Methimazole], Gabapentin, Leflunomide, Methotrexate, and Mdlctwq-Oik-Zbn Reductase Inhibitors Outpatient Medications: tamsulosin (FLOMAX) 0.4 mg Take 1 capsule by mouth twice daily. hydrOXYchloroQUINE (PLAQUENIL) 200 mg tablet take 1 tablet by mouth twice a day with food clobetasol (TEMOVATE) 0.05 % cream Apply to affected area twice daily. APPLY TO AFFECTED AREA Sodium Fluoride 1.1 % BRUSH A PEA SIZED AMOUNT ON TEETH at bedtime (NO FOOD OR WATER 30 MINUTES AFTER,) wzpqgg-ofrw-hzkc-levom ef-silic 10-50-500-0.5 mg cap Take 1 tablet by mouth. cholecalciferol (VITAMIN D3) 1,000 unit tab tablet Take 1 tablet by mouth once daily. liothyronine (CYTOMEL) 25 mcg tablet Take 25 mcg by mouth once daily. levothyroxine 150 mcg cap Take 150 mcg by mouth daily before breakfast. ALPRAZolam (XANAX) 0.25 mg tablet Take 0.25 mg by mouth twice daily as needed. busPIRone (BUSPAR) 10 mg tablet Take 20 mg by mouth twice daily. hydrOXYzine pamoate (VISTARIL) 50 mg capsule Take 50 mg by mouth. atenolol 50 mg tablet Take by mouth once daily. 50 mg.once daily Multivitamin ORAL capsule Take 1 capsule by mouth once daily. levETIRAcetam (KEPPRA) 250 mg tablet take 1 tablet by mouth IN THE MORNING then 1 tablet by mouth BEFORE BEDTIME zonisamide (ZONEGRAN) 25 mg capsule Take 25 mg by mouth two times a week. budesonide-formoterol (SYMBICORT) 160-4.5 mcg/actuation inhaler Inhale 2 Puffs as instructed twice daily. (Patient not taking: Reported on 01/15/2023) BP 114/69 Pulse 76 Temp (Src) 97.2 (Temporal) Ht 5' 10.6 (1.79m) Wt 204 lb (92.5kg) SpO2 98[RA]% BMI 28.78 kg/(m2). Physical Exam Vitals reviewed. Constitutional: General: He is not in acute distress. Appearance: Normal appearance. He is not (more content not included)... [facility]MIQUEL[facility] CONSTANTINO DUVAL ([id number]) 1960 M Date Time Provider Department 01/10/23 KATTY DUENAS During your visit today, we recorded the following information about you: Katty Duenas, BUGGYMAN.TRANSVERSE ABDOMINAL MUSCLE SURGEON 01/10/2023 10:53 PM Signed Please call patient Labs are normal Recheck in 3 months Component Latest Ref Rng AND Units 01/07/2023 WBC 3.70 - 11.00 k/uL 5.87 RBC 4.20 - 6.00 m/uL 4.54 Hemoglobin 13.0 - 17.0 g/dL 15.2 Hematocrit 39.0 - 51.0 % 45.5 MCV 80.0 - 100.0 fL 100.2 (H) MCH 26.0 - 34.0 pg 33.5 MCHC 30.5 - 36.0 g/dL 33.4 RDW-CV 11.5 - 15.0 % 13.0 Platelet Count 150 - 400 k/uL 226 MPV 9.0 - 12.7 fL 9.4 Neut% % 67.0 Abs Neut (ANC) 1.45 - 7.50 k/uL 3.93 Lymph% % 17.7 Abs Lymph 1.00 - 4.00 k/uL 1.04 Rush% % 11.4 Abs Rush <0.87 k/uL 0.67 Eosin% % 3.2 Abs Eosin <0.46 k/uL 0.19 Baso% % 0.5 Abs Baso <0.11 k/uL 0.03 Immature Gran % % 0.2 IMMATURE GRANS (ABS) <0.10 k/uL <0.03 NRBC /100 WBC 0.0 Absolute nRBC <0.01 k/uL <0.01 DTYPE Auto Protein, Total 6.3 - 8.0 g/dL 7.8 Albumin 3.9 - 4.9 g/dL 4.5 Calcium 8.5 - 10.2 mg/dL 9.6 Bilirubin, Total 0.2 - 1.3 mg/dL 0.4 Alkaline Phosphatase 38 - 113 U/L 86 AST 14 - 40 U/L 33 ALT 10 - 54 U/L 25 Glucose 74 - 99 mg/dL 98 BUN 9 - 24 mg/dL 8 (L) Creatinine 0.73 - 1.22 mg/dL 0.99 Sodium 136 - 144 mmol/L 137 Potassium 3.7 - 5.1 mmol/L 4.3 Chloride 97 - 105 mmol/L 102 CO2 22 - 30 mmol/L 26 Anion Gap 9 - 18 mmol/L 9 eGFR >=60 mL/min/1.73mA? 87 CRP <0.9 mg/dL 0.5 WSR 0 - 15 mm/hr 6 Vitamin D 25 Hydroxy 31.0 - 80.0 ng/mL 44.3 Michelle Lechuga MA 01/12/2023 9:15 AM Signed Left a v/m for pt to return call. My chart sent. Michelle Lechuga MA January 12, 2023 9:14 AM Elida Almonte MA 01/13/2023 8:44 AM Signed Lm regarding results and recommendations. Allergies As of Date: 01/10/2023 Noted Allergy Reaction TAPAZOLE (METHIMAZOLE) 03/25/2011 10 - Anaphylaxis Comments: rash, itching throat was closing LEFLUNOMIDE 08/01/2020 6 - Diarrhea 8 - GI Upset 5 - Intolerance 14 - Other: See Comments 12 - Shortness of Breath METHOTREXATE 09/18/2022 8 - GI Upset Comments: nausea , vomiting, dizziness [id number] REDUCTASE INHIBIT*04/24/2020 14 - Other: See Comments Comments: Leg pain Date Reviewed: 01/07/2023 Reviewed by: Natalee Huertas MA - Fully Assessed Reason for Visit: Results [95] Primary Visit Diagnosis:Seropositive rheumatoid arthritis (HCC) [M05.9] Order(s):CBC + DIFF [SQCBCDIF] Order #: [id number] FUTURE COMP METABOLIC PANEL [SQCMP] Order #: [id number] FUTURE Prescriptions as of 01/13/2023 - predniSONE (DELTASONE) 5 mg tablet Take 2 tablets by mouth once daily for 3 days, THEN 1 tablet once daily for 3 days. With breakfast. No other nsaids. - tamsulosin (FLOMAX) 0.4 mg Take 1 capsule by mouth twice daily. - hydrOXYchloroQUINE (PLAQUENIL) 200 mg tablet take 1 tablet by mouth twice a day with food - clobetasol (TEMOVATE) 0.05 % cream Apply to affected area twice daily. APPLY TO AFFECTED AREA - Sodium Fluoride 1.1 % BRUSH A PEA SIZED AMOUNT ON TEETH at bedtime (NO FOOD OR WATER 30 MINUTES AFTER,) - budesonide-formoterol (SYMBICORT) 160-4.5 mcg/actuation inhaler Inhale 2 Puffs as instructed twice daily. - thgdfd-hxys-fjoo-levom ef-silic 10-50-500-0.5 mg cap Take 1 tablet by mouth. - cholecalciferol (VITAMIN D3) 1,000 unit tab tablet Take 1 tablet by mouth once daily. - liothyronine (CYTOMEL) 25 mcg tablet Take 25 mcg by mouth once daily. - levothyroxine 150 mcg cap Take 150 mcg by mouth daily before breakfast. - ALPRAZolam (XANAX) 0.25 mg tablet Take 0.25 mg by mouth twice daily as needed. - busPIRone (BUSPAR) 10 mg tablet Take 20 mg by mouth twice daily. - hydrOXYzine pamoate (VISTARIL) 50 mg capsule Take 50 mg by mouth. - atenolol 50 mg tablet Take by mouth once daily. 50 mg.once daily - Multivitamin ORAL capsule Take 1 capsule by mouth once daily. Problem List As Of Date 01/10/2023 Noted Resolved Other postablative hypothyroidism [E89.0] 12/21/2012 Prostate cancer (HCC) [C61] 06/12/2020 Steroid-induced osteopenia [M85.80, T38.0X5A] 03/19/2021 Encounter Status:Closed by ELIDA ALMONTE on 01/13/23 Normal [facility] 25(OH)D3 Leslie 2022 25-hydroxyvitamin D3 [Mass/Vol] 44.3 ng/mL Normal 31.0-80.0 [facility] Comment on above: Order Comment: Speci men Type: BLOOD SPECIMENOrdering Facility: [facility] Address: [address] [address] Result Comment: Clas sification of 25 OH Vitamin D status: Deficiency/Insufficiency: < or = 30 ng/ml. Sufficiency/Optimal Levels: 31-80 ng/mL Toxicity: > 100 ng/mL. Test performed by chemiluminescent immunoassay. Performed By: #### 1 989-3 ####[facility]CLIA [id number] [address] [place] CBC W Auto Differential pane l (Bld)on 01-07-2023 Basophils (Bld) [#/Vol] 0.03 10*3/uL <0.11 k/uL [facility] Basophils/100 WBC (Bld) 0.5 % [facility] Differential cell count method Nom (Bld) Auto [facility] Eosinophils (Bld) [#/Vol] 0.19 10*3/uL <0.46 k/uL [facility] Eosinophils/100 WBC (Bld) 3.2 % [facility] Erythrocyte distribution width (RBC) [Ratio] 13.0 % 11.5 - 15.0 % [facility] Hematocrit (Bld) [Volume fraction] 45.5 % 39.0 - 51.0 % [facility] Hemoglobin (Bld) [Mass/Vol] 15.2 g/dL 13.0 - 17.0 g/dL [facility] Immature granulocytes (Bld) [#/Vol] <0.10 k/uL [facility] Immature granulocytes/100 WBC (Bld) 0.2 % [facility] Lymphocytes (Bld) [#/Vol] 1.04 10*3/uL 1.00 - 4.00 k/uL [facility] Lymphocytes/100 WBC (Bld) 17.7 % [facility] MCH (RBC) [Entitic mass] 33.5 pg 26.0 - 34.0 pg [facility] MCHC (RBC) [Mass/Vol] 33.4 g/dL 30.5 - 36.0 g/dL [facility] MCV (RBC) [Entitic vol] 100.2 fL High 80.0 - 100.0 fL [facility] Monocytes (Bld) [#/Vol] 0.67 10*3/uL <0.87 k/uL [facility] Monocytes/100 WBC (Bld) 11.4 % [facility] Neutrophils (Bld) [#/Vol] 3.93 10*3/uL 1.45 - 7.50 k/uL [facility] Neutrophils/100 WBC (Bld) 67.0 % [facility] Nucleated RBC (Bld) [#/Vol] <0.01 k/uL [facility] Nucleated RBC/100 WBC (Bld) [Ratio] 0.0 /100 WBC [facility] Platelet mean volume (Bld) [Entitic vol] 9.4 fL 9.0 - 12.7 fL [facility] Platelets (Bld) [#/Vol] 226 10*3/uL 150 - 400 k/uL [facility] RBC (Bld) [#/Vol] 4.54 10*6/uL 4.20 - 6.0 0 m/uL [facility] WBC (Bld) [#/Vol] 5.87 10*3/uL 3.70 - 11. 00 k/uL [facility] Basophils (Bld) [#/Vol] 0.03 10*3/uL Normal <0.11 [facility] Comment on above: Order Comment: Speci men Type: BLOOD SPECIMENOrdering Facility: [facility] Address: [address] [place] [address] Performed By: #### 5 7021-8, 4537-7 ####[facility]CLIA [id number] [address] [place] Basophils/100 WBC (Bld) 0.5 % Normal [facility] Comment on above: Order Comment: Speci men Type: BLOOD SPECIMENOrdering Facility: [facility] Address: [address] Performed By: #### 5 7021-8, 4536-7 ####[facility]CLIA [id number] [place] [address] [place] Differential cell count method Nom (Bld) Auto Normal [facility] Comment on above: Order Comment: Speci men Type: BLOOD SPECIMENOrdering Facility: [facility] Address: [address] Performed By: #### 5 7021-8, 4536-7 ####[facility]CLIA [id number] [place] [address] [place] Eosinophils (Bld) [#/Vol] 0.19 10*3/uL Normal <0.46 [facility] Comment on above: Order Comment: Speci men Type: BLOOD SPECIMENOrdering Facility: [facility] Address: [address] Performed By: #### 5 7021-8, 7 ####[facility]CLIA [id number] [place] [address] [place] Eosinophils/100 WBC (Bld) 3.2 % Normal [facility] Comment on above: Order Comment: Speci men Type: BLOOD SPECIMENOrdering Facility: [facility] Address: [address] Performed By: #### 5 7021-8, 7 ####[facility]CLIA [id number] [place] [address] [place] Erythrocyte distribution width (RBC) [Ratio] 13.0 % Normal 11.5-15.0 [facility] Comment on above: Order Comment: Speci men Type: BLOOD SPECIMENOrdering Facility: [facility] Address: [address] Performed By: #### 5 7021-8, 4536-7 ####[facility]CLIA [id number] [place] [address] [place] Hematocrit (Bld) [Volume fraction] 45.5 % Normal 39.0-51.0 [facility] Comment on above: Order Comment: Speci men Type: BLOOD SPECIMENOrdering Facility: [facility] Address: [address] [place] [address] Performed By: #### 5 7021-8, 4536-7 ####[facility]CLIA [id number] [place] [address] [place] Hemoglobin (Bld) [Mass/Vol] 15.2 g/dL Normal 13.0-17.0 [facility] Comment on above: Order Comment: Speci men Type: BLOOD SPECIMENOrdering Facility: [facility] Address: [address] [place] [address] Performed By: #### 5 7021-8, 4536-7 ####[facility]CLIA [id number] [place] [address] [place] Immature granulocytes (Bld) [#/Vol] 10*3/uL Normal <0.10 [facility] Comment on above: Order Comment: Speci men Type: BLOOD SPECIMENOrdering Facility: [facility] Address: [address] [place] [address] Performed By: #### 5 7021-8, 4536-7 ####[facility]CLIA [id number] [address] [place] Immature granulocytes/100 WBC (Bld) 0.2 % Normal [facility] Comment on above: Order Comment: Speci men Type: BLOOD SPECIMENOrdering Facility: [facility] Address: [address] [place], [place] [address] Performed By: #### 5 7021-8, 4536-7 ####[facility]CLIA [id number] [place] [address] [place] Lymphocytes (Bld) [#/Vol] 1.04 10*3/uL Normal 1.00-4.00 [facility] Comment on above: Order Comment: Speci men Type: BLOOD SPECIMENOrdering Facility: [facility] Address: [address] [place] [address] Performed By: #### 5 7021-8, 4536-7 ####[facility]CLIA [id number] [address] [place] [facility] Lymphocytes/100 WBC (Bld) 17.7 % Normal [facility] Comment on above: Order Comment: Speci men Type: BLOOD SPECIMENOrdering Facility: [facility] Address: [address] [place] [address] Performed By: #### 5 7021-8, 4536-7 ####[facility] LABIA [id number] [address] [place] [facility] MCH (RBC) [Entitic mass] 33.5 pg Normal 26.0-34.0 [facility] Comment on above: Order Comment: Speci men Type: BLOOD SPECIMENOrdering Facility: [facility] Address: [address] [place], [place] [address] Performed By: #### 5 7021-8, 4536-7 ####[facility] LABIA [id number] [address] [place] [facility] MCHC (RBC) [Mass/Vol] 33.4 g/dL Normal 30.5-36.0 [facility] Comment on above: Order Comment: Speci men Type: BLOOD SPECIMENOrdering Facility: [facility] Address: [address] [place], [place] [address] Performed By: #### 5 7021-8, 4536-7 ####[facility]CLIA [id number] [address] [place] MCV (RBC) [Entitic vol] 100.2 fL High 80.0-100.0 [facility] Comment on above: Order Comment: Speci men Type: BLOOD SPECIMENOrdering Facility: [facility] Address: [address] Performed By: #### 5 7021-8, 4536-7 ####[facility]CLIA [id number] [place] [address] [place] Monocytes (Bld) [#/Vol] 0.67 10*3/uL Normal <0.87 [facility] Comment on above: Order Comment: Speci men Type: BLOOD SPECIMENOrdering Facility: [facility] Address: [address] [address] Performed By: #### 5 7021-8, 4536-7 ####[facility]CLIA [id number] [place] [address] [place] Monocytes/100 WBC (Bld) 11.4 % Normal [facility] Comment on above: Order Comment: Speci men Type: BLOOD SPECIMENOrdering Facility: [facility] Address: [address] Performed By: #### 5 7021-8, 7 ####[facility]CLIA [id number] [place] [address] [place] Neutrophils (Bld) [#/Vol] 3.93 10*3/uL Normal 1.45-7.50 [facility] Comment on above: Order Comment: Speci men Type: BLOOD SPECIMENOrdering Facility: [facility] Address: [address] Performed By: #### 5 7021-8, 4536-7 ####[facility] LABCLIA [id number] [place] [address] [place] Neutrophils/100 WBC (Bld) 67.0 % Normal [facility] Comment on above: Order Comment: Speci men Type: BLOOD SPECIMENOrdering Facility: [facility] Address: [address] Performed By: #### 5 7021-8, 4536-7 ####[facility]CLIA [id number] [place] [address] [place] Nucleated RBC (Bld) [#/Vol] 10*3/uL Normal <0.01 [facility] Comment on above: Order Comment: Speci men Type: BLOOD SPECIMENOrdering Facility: [facility] Address: [address] [place], [place] Performed By: #### 5 7021-8, 7 ####[facility] LABIA [id number] [place] [address] [place] Nucleated RBC/100 WBC (Bld) [Ratio] 0.0 /100 WBC Normal [facility] Comment on above: Order Comment: Speci men Type: BLOOD SPECIMENOrdering Facility: [facility] Address: [address] [place] [address] Performed By: #### 5 7021-8, 7 ####[facility] LABIA [id number] [place] [address] [place] Platelet mean volume (Bld) [Entitic vol] 9.4 fL Normal 9.0-12.7 [facility] Comment on above: Order Comment: Speci men Type: BLOOD SPECIMENOrdering Facility: [facility] Address: [address] [place], [place] Performed By: #### 5 7021-8, 7 ####[facility] LABIA [id number] [place] [address] [place] Platelets (Bld) [#/Vol] 226 10*3/uL Normal 150-400 [facility] Comment on above: Order Comment: Speci men Type: BLOOD SPECIMENOrdering Facility: [facility] Address: [address] [place], [place] Performed By: #### 5 7021-8, 7 ####[facility]CLIA [id number] [place] [address] [place] RBC (Bld) [#/Vol] 4.54 10*6/uL Normal 4.20-6.00 [facility] Comment on above: Order Comment: Speci men Type: BLOOD SPECIMENOrdering Facility: [facility] Address: [address] [place] [address] Performed By: #### 5 7021-8, 4537-7 ####[facility]CLIA [id number] [place] [address] [place] WBC (Bld) [#/Vol] 5.87 10*3/uL Normal 3.70-11.00 [facility] Comment on above: Order Comment: Speci men Type: BLOOD SPECIMENOrdering Facility: [facility] Address: [address] [place] [address] Performed By: #### 5 7021-8, 4537-7 ####[facility]CLIA [id number] [place] [address] [place] CNOVon 01-07-2023 CNOV Office Visit (MIQUEL ) CONSTANTINO DUVAL ([id number]) 1960 M Date Time Provider Department 01/07/23 2:30 PM KATTY DUENAS During your visit today, we recorded the following information about you: Pulse Blood pressure Weight 85/minute 110/74 91.2 kg Katty Duenas APRN.TRANSVERSE ABDOMINAL MUSCLE SURGEON 01/07/2023 2:46 PM Signed Face to face FOLLOW UP VISIT PCP: Efren Castillo II, MD [address] [place] [id number] Mr. Duval is a 62 year old patient here today for follow up of rheumatoid arthritis and osteopenia Interim History: Off and on Has not seen GI yet Still having diarrhea off and on- wants another colonoscope Terminated from work and dropped insurance Had CT scan scheduled same time - completed today Now has medicaid and medicare Following pulm for lung nodules, COPD Has pleural thickening per patient Follow up scheduled next Wednesday Following with urology prostate ca- just monitoring PSA Off hormone therapy 1 year ago Testosterone slowly going up Starting to have more pains Pain -ankles/ shoulder/ arms and legs No swelling Am stiffness 30 min No falls No fractures No dental concerns Stopped enbrel -caused bloating, diarrhea, headaches Took for only 8 weeks Tried leflunomide, methotrexate Following with pulm Still smoking Taking plaquenil twice daily Eye exam due - scheduled 1 month Vit d 2 gummies+ ca and mult vitamin daily biotin = 3000 international unit(s) daily No pred since October Tylenol not working Ibuprofen helps but bothers stomach Hx diverticulitis- has appt scheduled GI Review of Systems CONSTITUTION: Negative for: Fever and Recent weight change HEENT: Negative for: Nosebleeds, Mouth sores, Trouble swallowing and Dry mouth More sinus issues recently Had hx sinus sx Not currrently following with ent RESPIRATORY: Negative for: Cough (improved), Shortness of breath, Pain with breathing and Coughing up blood GASTROINTESTINAL: Positive for: Diarrhea (intermittent, none today, last couple days ago) Negative for: Melena, Heartburn and Abdominal pain Bloating and diarrhea improved off enbrel Problems since radiation MUSCULOSKELETAL: Positive for: Arthralgias, Myalgias, Muscle weakness and Morning Joint Stiffness Negative for: Joint swelling NEUROLOGICAL: Positive for: Numbness Negative for: Headaches and Memory loss SKIN: Negative for: Rash, Skin changes, Hair loss and Nail changes EYES: Positive for: Eye dryness Negative for: Eye pain, Eye redness and visual disturbance CARDIOVASCULAR: Negative for: Chest pain and Leg swelling GENITOURINARY: Negative for: Dysuria and Hematuria HEMATOLOGIC/LYMPHATIC: Negative for: Swollen glands Past Medical Hx, Past Surgical Hx. 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 GEN: A AND O in NAD SKIN: no lesions HEENT: No conj. inj., oral ulcers, thrush LUNGS: CTA B/L HEART: RRR, no g/r/m NEURO: Mental Status: alert and oriented x 3 cheerful, Gait: Normal w/o assistive devices Tone: normal no focal weakness. MUSCULOSKELETAL: Sw Jts.:0 T Jts.:ankles, knees, mcps hands No joint deformities, no rheumatoid nodules. calcifications or tophi. No SI tenderness, no vitaliy's tenderness, no heel/plantar tenderness, lumbar flexion full, negative Salma's test. No clinical synovitis in the DIP's, PIP's, MCP's, wrists, elbows, shoulders, knees, ankles, midfoot, or toes. No knee effusions bilateral. Shoulder exam:FROM FROM: all upper and lower extremity joints Thoracic/Lumbar Spine: No percussion tenderness SLR: negative modified in chair Extr.: no edema Prior Test results discussed with patient. 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 His outside labs: CCP 101 (09/15/2019),RF 10, MANUEL direct negative Urate 4.9 sed 10 crp 0.5 mg/dL He has had very good response to prednisone, but flares after being off and has requir (more content not included)... Normal [facility] CRP SerPl-ncon 01-07-2023 CRP [Mass/Vol] 0.5 mg/dL Normal <0.9 [facility] Comment on above: Order Comment: Speci men Type: BLOOD SPECIMENOrdering Facility: [facility] Address: [address] [place] [address] Performed By: #### 2 4323-8, 1987-09 ####[facility] LABCLIA [id number] [facility] [id number] [address] [facility] CT CHEST WO IVCONon 01-08-[address] CHEST WO IVCON * * *Final Report* * * DATE OF EXAM: Jan 07 2023 1:59PM [facility] 0541 - CT CHEST WO IVCON / PROCEDURE REASON: Lung nodule * * * * Physician Interpretation * * * * RESULT: EXAMINATION: CHEST CT WITHOUT CONTRAST CLINICAL HISTORY: Evaluate lung nodules. Technique: Spiral CT acquisition of the chest from the thoracic inlet to the upper abdomen without contrast. MQ: [id number] CT Radiation dose: Integrated Dose-length product (DLP) for this visit = 284 mGy*cm CT Dose Reduction Employed: Automated exposure control (AEC) Comparison: CT chest 02/27/2022 RESULT: Limitations: None. Lines, tubes, and devices: None. Lung parenchyma and airways: There is unchanged mild subpleural groundglass and interstitial reticulation involving the anterior aspects of both upper lobes (series 4, image 105) and the right middle lobe (series 4, image 171). There is mild peripheral groundglass opacification with subpleural sparing involving the lower lobes (series 4, image 168). There is mild subsegmental atelectasis within the lingula and left lower lobe. No dense airspace consolidation. There is minimal dependent secretion within the trachea and bilateral mainstem bronchi. A 0.5 cm nodule within the right middle lobe (series 4, image 184) is unchanged. No enlarging suspicious pulmonary nodule is identified. Pleural space: No pleural effusion. No pleural thickening. Lower neck, lymph nodes, and mediastinum: There is no supraclavicular or axillary lymphadenopathy. Again noted are mildly enlarged mediastinal and right hilar lymph nodes. A precarinal lymph node measures 0.9 cm in short axis on series 3, image 93 (previously 0.9 cm when remeasured at a similar location.). A right hilar lymph node measures 1.2 cm on series 3, image 107 (previously 1.2 cm). A subcarinal lymph node on series 3, image 111 measures 1 cm (unchanged). Heart, pericardium, and thoracic vessels: The thoracic aorta and main pulmonary artery are normal in caliber. The cardiac chambers are normal in size. No coronary artery atherosclerotic calcifications are noted, although the study is not optimized for coronary assessment. No pericardial effusion or thickening. Bones and soft tissues: Degenerative changes involve the thoracic spine. Unchanged compression deformities of the midthoracic spine. No destructive lytic or blastic osseous abnormality. Upper abdomen: No abnormality in the imaged upper abdomen. Print Decorator (topogram) images: No additional findings. IMPRESSION: 1. Unchanged mild diffuse subpleural interstitial reticular opacities and peripheral groundglass, most pronounced within the anterior aspects of the upper lobes, suggestive of interstitial lung disease (favoring a nonspecific interstitial pneumonitis pattern). 2. Unchanged mildly enlarged mediastinal and right hilar lymph nodes. 3. Unchanged 0.5 cm right middle lobe nodule. No enlarging suspicious pulmonary nodule. Transcribe Date/Time: Jan 08 2023 1:39P Dictated by: MAE HUGO MD This examination was interpreted and the report reviewed and electronically signed by: MAE HUGO MD on Jan 08 2023 1:49PM EST Thank you for allowing us to participate in the care of your patient. Should there be any questions regarding this interpretation, please call [phone]. If you are unable to reach us at the number above, please feel free to contact [facility] at [phone]. [id number] Normal [facility] Comprehensive metabolic 2000 panelon 01-07-2023 Albumin [Mass/Vol] 4.5 g/dL Normal 3.9-4.9 [facility] Comment on above: Order Comment: Speci men Type: BLOOD SPECIMENOrdering Facility: [facility] Address: [address] [place] [address] Performed By: #### 2 4323-8, 1987-09 ####[facility] LABCLIA [id number] [place] [address] [place] ALP [Catalytic activity/Vol] 86 U/L Normal 38-113 [facility] Comment on above: Order Comment: Speci men Type: BLOOD SPECIMENOrdering Facility: [facility] Address: [address] [place], [place] [address] Performed By: #### 2 4322-12, 1987-09 ####[facility] LABCLIA [id number] [place] [address] [place] ALT [Catalytic activity/Vol] 25 U/L Normal 10-54 [facility] Comment on above: Order Comment: Speci men Type: BLOOD SPECIMENOrdering Facility: [facility] Address: [address] [place], [place] [address] Performed By: #### 2 4322-12, 1987-09 ####[facility] LABCLIA [id number] [place] [address] [place] Anion gap [Moles/Vol] 9 mmol/L Normal 9-18 [facility] Comment on above: Order Comment: Speci men Type: BLOOD SPECIMENOrdering Facility: [facility] Address: [address] [place] [address] Performed By: #### 2 4322-12, 1987-09 ####[facility] LABCLIA [id number] [place] [address] [place] AST [Catalytic activity/Vol] 33 U/L Normal 14-40 [facility] Comment on above: Order Comment: Speci men Type: BLOOD SPECIMENOrdering Facility: [facility] Address: [address] [place] [address] Performed By: #### 2 4322-12, 1987-09 ####[facility] LABCLIA [id number] [place] [address] [place] Bilirubin [Mass/Vol] 0.4 mg/dL Normal 0.2-1.3 [facility] Comment on above: Order Comment: Speci men Type: BLOOD SPECIMENOrdering Facility: [facility] Address: [address] [place] [address] Performed By: #### 2 4322-12, 1987-09 ####[facility] LABCLIA [id number] [place] [address] [place] Calcium [Mass/Vol] 9.6 mg/dL Normal 8.5-10.2 [facility] Comment on above: Order Comment: Speci men Type: BLOOD SPECIMENOrdering Facility: [facility] Address: [address] Performed By: #### 2 4322-12, 1987-09 ####[facility] LABCLIA [id number] [place] [address] [place] Chloride [Moles/Vol] 102 mmol/L Normal 97-105 [facility] Comment on above: Order Comment: Speci men Type: BLOOD SPECIMENOrdering Facility: [facility] Address: [address] Performed By: #### 2 4322-12, 1987-09 ####[facility] LABCLIA [id number] [place] [address] [place] CO2 [Moles/Vol] 26 mmol/L Normal 22-30 [facility] Comment on above: Order Comment: Speci men Type: BLOOD SPECIMENOrdering Facility: [facility] Address: [address] [place], [place] Performed By: #### 2 4322-12, 1987-09 ####[facility] LABCLIA [id number] [place] [address] [place] Creatinine [Mass/Vol] 0.99 mg/dL Normal 0.73-1.22 [facility] Comment on above: Order Comment: Speci men Type: BLOOD SPECIMENOrdering Facility: [facility] Address: [address] [place] [id number] Performed By: #### 2 43231987-09 ####[facility] LABCLIA [id number] [place] [address] [place] Creatinine and Glomerular filtration rate.predicted panel (S/P/Bld) 87 mL/min/1.73m??? Normal >=60 [facility] Comment on above: Order Comment: Aric hall Type: BLOOD SPECIMENOrdering Facility: [facility] Address: [address] [place] [address] Result Comment: Maureen mated Glomerular Filtration Rate (eGFR) is calculated using the 2020 CKD-EPI creatinine equation. This equation utilizes serum creatinine, sex, and age as parameters. The creatinine assay has traceable calibration to isotope dilution-mass spectrometry. Refer to KDIGO guidelines for clinical interpretation. In patients with unstable renal function, e.g. those with acute kidney injury, the eGFR may not accurately reflect actual GFR. Performed By: #### 2 43207-15, 1987-09 ####[facility] LABIA [id number] [place] [address] [place] Glucose [Mass/Vol] 98 mg/dL Normal 74-99 [facility] Comment on above: Order Comment: Aric hall Type: BLOOD SPECIMENOrdering Facility: [facility] Address: [address] [place] [address] Result Comment: The [place] Diabetes Association (ADA) provides guidance for cutoff values for fasting glucose and random glucose. The ADA defines fasting as no caloric intake for at least 8 hours. Fasting plasma glucose results between 100 to 125 mg/dL indicate increased risk for diabetes (prediabetes). Fasting plasma glucose results greater than or equal to 126 mg/dL meet the criteria for diagnosis of diabetes. In the absence of unequivocal hyperglycemia, results should be confirmed by repeat testing. In a patient with classic symptoms of hyperglycemia or hyperglycemic crisis, random plasma glucose results greater than or equal to 200 mg/dL meet the criteria for diagnosis of diabetes. Reference: Standards of Medical Care in Diabetes 2016, [place] [employer] Association. Diabetes Care. 2016.39(Suppl 1). Performed By: #### 2 4323, 1987-09 ####[facility] LABCLIA [id number] [place] [address] [place] Potassium [Moles/Vol] 4.3 mmol/L Normal 3.7-5.1 [facility] Comment on above: Order Comment: Speci men Type: BLOOD SPECIMENOrdering Facility: [facility] Address: [address] [place] [address] Performed By: #### 2 43207-15, 1987-09 ####[facility] LABCLIA [id number] [place] [address] [place] Protein [Mass/Vol] 7.8 g/dL Normal 6.3-8.0 [facility] Comment on above: Order Comment: Speci men Type: BLOOD SPECIMENOrdering Facility: [facility] Address: [address] [place] [address] Performed By: #### 2 43207-15, 1987-09 ####[facility] LABIA [id number] [place] [address] [place] Sodium [Moles/Vol] 137 mmol/L Normal 136-144 [facility] Comment on above: Order Comment: Speci men Type: BLOOD SPECIMENOrdering Facility: [facility] Address: [address] [place] [address] Performed By: #### 2 4322-12, 1987-09 ####[facility] LABIA [id number] [place] [address] [place] Urea nitrogen [Mass/Vol] 8 mg/dL Low 9-24 [facility] Comment on above: Order Comment: Speci men Type: BLOOD SPECIMENOrdering Facility: [facility] Address: [address] [place] [address] Performed By: #### 2 43207-15, 1987-09 ####[facility]CLIA [id number] [place] [address] [place] ESR Westergren method (Bld) [Velocity]on 01-07-2023 ESR (Bld) [Velocity] 6 mm/h 0 - 15 mm/hr Cl [facility] ESR (Bld) [Velocity] 6 mm/h Normal 0-15 [facility] Comment on above: Order Comment: Speci men Type: BLOOD SPECIMENOrdering Facility: [facility] Address: [address] [place] [id number] Performed By: #### 5 7021-8, 4537-7 ####[facility] LABCLIA [id number] [place] [id number] [facility] YASMIN MISC TESTon 023 Referral Lab Comment Normal [facility] Comment on above: Result Comment: [facility] Performed By: #### L CMISC #### [facility] [address] [place] [address] Dr. Shree Gar Referral Test Code or Mnemonic Comment Normal [facility] Comment on above: Result Comment: SNTX Performed By: #### L CMISC #### [facility] [address] [place] [address] Dr. Shree Gar Referral Test Name Comment Normal [facility] Comment on above: Result Comment: N TE RMINAL TELOPEPTIDE Performed By: #### L CMISC #### [facility] [address] [place] [address] Dr. Shree Gar Referral Test Results Comment Normal [facility] Comment on above: Result Comment: Refe rence lab report sent via fax. Performed By: #### L CMISC #### [facility] [address] [place] [address] [address] Shree Gar CBC AUTO DIFFon 09-08-2022 BASO # 0.0 103/ul Normal 0.0-0.1 [facility] Comment on above: Performed By: #### C BC #### [facility] [address] [place] [address] Dr. Shree Gar Basophils/100 WBC (Bld) 1.0 % Normal 0.2-2.0 [facility] Comment on above: Performed By: #### C BC #### [facility] [address] [place] [address] Dr. Shree Gar EO # 0.3 103/ul Normal 0.0-0.7 [facility] Comment on above: Performed By: #### C BC #### [facility] [address] [place] [address] Dr. Shree Gar Eosinophils/100 WBC (Bld) 6.7 % Normal 0.9-7.0 [facility] Comment on above: Performed By: #### C BC #### [facility] [address] [place] [address] Dr. Shree Gar Erythrocyte distribution width (RBC) [Ratio] 12.9 % Normal 11.0-15.0 [facility] Comment on above: Performed By: #### C BC #### [facility] [address] [place] [address] Dr. Shree Gar Hematocrit (Bld) [Volume fraction] 42.2 % Normal 42.0-54.0 [facility] Comment on above: Performed By: #### C BC #### [facility] [address] [place] [address] Dr. Shree Gar Hemoglobin (Bld) [Mass/Vol] 14.4 g/dL Normal 14.0-18.0 [facility] Comment on above: Performed By: #### C BC #### [facility] [address] [place] [address] Dr. Shree Gar IG # 0.01 10e3/ul Normal 0.00-0.03 [facility] Comment on above: Performed By: #### C BC #### [facility] [address] [place] [address] Dr. Shree Gar IG % 0.2 % Normal 0.0-0.5 [facility] Comment on above: Performed By: #### C BC #### [facility] [address] [place] [address] Dr. Shree Gar LYMPH # 0.8 103/ul Critically low 1.2-3.8 [facility] Comment on above: Performed By: #### C BC #### [facility] [address] [place] [address] Dr. Shree Gar Lymphocytes/100 WBC (Bld) 19.3 % Critically low 20.5-60.0 [facility] Comment on above: Performed By: #### C BC #### [facility] [address] [place] [address] Dr. Shree Gar MANUAL DIFF REQ NO Normal [facility] Comment on above: Performed By: #### C BC #### [facility] [address] [place] [address] [address] Shree Gar MCH (RBC) [Entitic mass] 33.2 pg Normal 25.9-34.0 [facility] Comment on above: Performed By: #### C BC #### [facility] [address] [place] [address] Dr. Shree Gar MCHC (RBC) [Mass/Vol] 34.1 g/dL Normal 29.9-35.2 [facility] Comment on above: Performed By: #### C BC #### [facility] [address] [place] [address] Dr. Shree Gar MCV (RBC) [Entitic vol] 97.2 fL Critically high 80.0-94.0 [facility] Comment on above: Performed By: #### C BC #### [facility] [address] [place] [address] Dr. Shree Gar MONO # 0.6 103/ul Normal 0.3-0.8 [facility] Comment on above: Performed By: #### C BC #### [facility] [address] [place] [address] Dr. Shree Gar Monocytes/100 WBC (Bld) 13.1 % Critically high 1.7-12.0 [facility] Comment on above: Performed By: #### C BC #### [facility] [address] [place] [address] Dr. Shree Gar NEUT # 2.5 103/ul Normal 1.4-6.5 [facility] Comment on above: Performed By: #### C BC #### [facility] [address] [place] [address] Dr. Shree Gar Neutrophils/100 WBC (Bld) 59.7 % Normal 43.0-75.0 [facility] Comment on above: Performed By: #### C BC #### [facility] [address] [place] [address] Dr. Shree Gar Platelet mean volume (Bld) [Entitic vol] 8.9 fL Critically low 9.5-13.5 [facility] Comment on above: Performed By: #### C BC #### [facility] [address] [place] [address] Dr. Shree Gar PLT 204 103/ul Normal 150-450 [facility] Comment on above: Performed By: #### C BC #### [facility] [address] [place] [address] Dr. Shree Gar RBC 4.34 106/ul Critically low 4.70-6.10 [facility] Comment on above: Performed By: #### C BC #### [facility] [address] [place] [address] Dr. Shree Gar WBC 4.2 103/ul Normal 4.0-11.0 [facility] Comment on above: Performed By: #### C BC #### [facility] [address] [place] [address] Dr. Shree Gar CRPon 09-08-2022 CRP 0.6 mg/dL Normal <=1.0 [facility] Comment on above: Performed By: #### T ESTTOT #### [facility] [address] [place] [address] Dr. Shree Gar LAB TESTINGon 09-08-2022 RECV HEADER SEE SCANNED REPORT I N HPF Normal [facility] Comment on above: Performed By: #### M ISC #### [facility] [address] [place] [address] Dr. Shree Gar REV FROM REF LAB 09/11/2022 Normal [facility] Comment on above: Performed By: #### M ISC #### [facility] [address] [place] [address] Dr. Shree Gar SENT TO REF LAB 09/08/2022 Normal [facility] Comment on above: Performed By: #### M ISC #### [facility] [address] [address] [address] Shree Gar PHOSPHORUSon 09-08-2022 Phosphate [Mass/Vol] 3.1 mg/dL Normal 2.6-4.7 [facility] Comment on above: Performed By: #### T ESTTOT #### [facility] [address] [place] [address] Dr. Shree Gar PROF 14(COMP METB)on 023 Albumin [Mass/Vol] 3.6 g/dL Normal 3.4-5.0 [facility] Comment on above: Performed By: #### C RP, PHOS, CMP #### [facility] [address] [place] [address] Dr. Shree Gar Albumin/Globulin [Mass ratio] 0.9 {ratio} Normal [facility] Comment on above: Performed By: #### C RP, PHOS, CMP #### [facility] [address] [place] [address] Dr. Shree Gar ALP [Catalytic activity/Vol] 94 U/L Normal 46-116 [facility] Comment on above: Performed By: #### C RP, PHOS, CMP #### [facility] [address] [place] [address] Dr. Shree Gar ALT [Catalytic activity/Vol] 31 U/L Normal 16-63 [facility] Comment on above: Performed By: #### C RP, PHOS, CMP #### [facility] [address] [place] [address] Dr. Shree Gar Anion gap [Moles/Vol] 10.7 mmol/L Normal [facility] Comment on above: Performed By: #### C RP, PHOS, CMP #### [facility] [address] [place] [address] Dr. Shree Gar AST [Catalytic activity/Vol] 27 U/L Normal 15-37 [facility] Comment on above: Performed By: #### C RP, PHOS, CMP #### [facility] [address] [address] [address] Shree Gar Bilirubin [Mass/Vol] 0.4 mg/dL Normal 0.2-1.0 [facility] Comment on above: Performed By: #### C RP, PHOS, CMP #### [facility] [address] [address] [address] Shree Gar Calcium [Mass/Vol] 8.9 mg/dL Normal 8.5-10.1 [facility] Comment on above: Performed By: #### C RP, PHOS, CMP #### [facility] [address] [address] [address] Shree Gar Chloride [Moles/Vol] 106 mmol/L Normal 98-107 [facility] Comment on above: Performed By: #### C RP, PHOS, CMP #### [facility] [address] [place] [address] Dr. Shree Gar CO2 [Moles/Vol] 28.8 mmol/L Normal 21.0-32.0 [facility] Comment on above: Performed By: #### C RP, PHOS, CMP #### [facility] [address] [place] [address] Dr. Shree Gar Creatinine [Mass/Vol] 1.00 mg/dL Normal 0.70-1.30 [facility] Comment on above: Performed By: #### C RP, PHOS, CMP #### [facility] [address] [place] [address] Dr. Shree Gar EGFR-AF MONTSERRATIAN >60 Normal >=60 [facility] Comment on above: Performed By: #### C RP, PHOS, CMP #### [facility] [address] [place] [address] Dr. Shree Gar EGFR-NON AF MONTSERRATIAN >60 Normal >=60 [facility] Comment on above: Performed By: #### C RP, PHOS, CMP #### [facility] [address] [place] [address] Dr. Shree Gar Globulin (S) [Mass/Vol] 3.9 g/dL Normal [facility] Comment on above: Performed By: #### C RP, PHOS, CMP #### [facility] [address] [place] [address] Dr. Shree Gar Glucose [Mass/Vol] 113 mg/dL Critically high 74-106 [facility] Comment on above: Performed By: #### C RP, PHOS, CMP #### [facility] [address] [place] [address] Dr. Shree Gar Potassium [Moles/Vol] 4.5 mmol/L Normal 3.5-5.1 [facility] Comment on above: Performed By: #### C RP, PHOS, CMP #### [facility] [address] [place] [address] Dr. Shree Gar Protein [Mass/Vol] 7.5 g/dL Normal 6.4-8.2 [facility] Comment on above: Performed By: #### C RP, PHOS, CMP #### [facility] [address] [place] [address] Dr. Shree Gar Sodium [Moles/Vol] 141 mmol/L Normal 136-145 [facility] Comment on above: Performed By: #### C RP, PHOS, CMP #### [facility] [address] [place] [address] Dr. Shree Gar Urea nitrogen [Mass/Vol] 8.0 mg/dL Normal 7.0-18.0 [facility] Comment on above: Performed By: #### C RP, PHOS, CMP #### [facility] [address] [place] [address] Dr. Shree Gar Urea nitrogen/Creatinine [Mass ratio] 8.0 mg/mg Normal [facility] Comment on above: Performed By: #### C RP, PHOS, CMP #### [facility] [address] [place] [address] Dr. Shree Gar SED RATE [facility] 2022 SED RATE 10 mm/hr Normal <=20 [facility] Comment on above: Performed By: #### S EDR #### [facility] [address] [place] [address] Dr. Shree Gar VITAMIN D 25 OHon 09-08-2022 VIT D 25-OH 48.5 ng/mL Normal [facility] Comment on above: Performed By: #### V ITAD #### [facility] [address] [address] [address] Shree Gar VIT D RANGES SEE BELOW Normal [facility] Comment on above: Result Comment: <20 ng/mL Vit D deficient 20 - <30 ng/mL Vit D insufficient 30 - 100 ng/mL Vit D sufficient >100 ng/mL Potential Toxicity Performed By: #### V ITAD #### [facility] [address] [address] [address] Shree Gar TESTOSTERONE, TOTALon 2022 Testosterone [Mass/Vol] 244 ng/dL Critically low 264-916 [facility] Comment on above: Result Comment: Adul t male reference interval is based on a population of healthy nonobese males (BMI <30) between 19 and 39 years old. Berkley, et.al. JCEM 2017,102;8723-6522. PMID: [id number]. Performed By: #### T ESTTOT #### [facility] [address] [address] [address] Shree Gar BLOOD TB SCREENon 03-03-2022 M. tuberculosis tuberculin stim IFN-g Ql (Bld) Negative [facility] Mitogen minus Nil >=0.50 IU/mL [facility] TB Gamma Interpretation Infection with M. tuberculosis complex is unlikely. If latent tuberculosis infection is highly suspected, a negative result does not rule out the infection. Specimens from immunocompromised patients and those <5 years of age may show false negative results. In case of a contact investigation, please repeat 8-12 weeks after a known exposure. [facility] TB Nil 0.00 IU/mL <=8.00 IU/mL [facility] TB1 Ag minus Nil 0.03 IU/mL <0.35 IU/mL [facility] TB2 Ag minus Nil 0.04 IU/mL <0.35 IU/mL [facility] CT CHEST W IVCONon 2 Radiology Result ACTIONABLE Abnormal [facility] CBC W Auto Differential pane l (Bld)on 02-28-2022 Basophils (Bld) [#/Vol] 0.04 10*3/uL <0.11 k/uL [facility] Basophils/100 WBC (Bld) 0.7 % [facility] Differential cell count method Nom (Bld) Auto [facility] Eosinophils (Bld) [#/Vol] 0.26 10*3/uL <0.46 k/uL [facility] Eosinophils/100 WBC (Bld) 4.6 % [facility] Erythrocyte distribution width (RBC) [Ratio] 12.3 % 11.5 - 15.0 % [facility] Hematocrit (Bld) [Volume fraction] 41.3 % 39.0 - 51.0 % [facility] Hemoglobin (Bld) [Mass/Vol] 14.0 g/dL 13.0 - 17.0 g/dL [facility] Immature granulocytes (Bld) [#/Vol] <0.10 k/uL [facility] Immature granulocytes/100 WBC (Bld) 0.4 % [facility] Lymphocytes (Bld) [#/Vol] 0.93 10*3/uL Low 1.00 - 4.00 k/uL [facility] Lymphocytes/100 WBC (Bld) 16.5 % [facility] MCH (RBC) [Entitic mass] 33.4 pg 26.0 - 34.0 pg [facility] MCHC (RBC) [Mass/Vol] 33.9 g/dL 30.5 - 36.0 g/dL [facility] MCV (RBC) [Entitic vol] 98.6 fL 80.0 - 100.0 fL [facility] Monocytes (Bld) [#/Vol] 0.77 10*3/uL <0.87 k/uL [facility] Monocytes/100 WBC (Bld) 13.7 % [facility] Neutrophils (Bld) [#/Vol] 3.62 10*3/uL 1.45 - 7.50 k/uL [facility] Neutrophils/100 WBC (Bld) 64.1 % [facility] Nucleated RBC (Bld) [#/Vol] <0.01 k/uL [facility] Nucleated RBC/100 WBC (Bld) [Ratio] 0.0 /100 WBC [facility] Platelet mean volume (Bld) [Entitic vol] 10.0 fL 9.0 - 12.7 fL [facility] Platelets (Bld) [#/Vol] 241 10*3/uL 150 - 400 k/uL [facility] RBC (Bld) [#/Vol] 4.19 10*6/uL Low 4.20 - 6.0 0 m/uL [facility] WBC (Bld) [#/Vol] 5.64 10*3/uL 3.70 - 11. 00 k/uL [facility] Comprehensive metabolic 2000 panelon 02-28-2022 Albumin [Mass/Vol] 4.6 g/dL 3.9 - 4.9 g/dL [facility] ALP [Catalytic activity/Vol] 79 U/L 38 - 113 U/L [facility] ALT [Catalytic activity/Vol] 23 U/L 10 - 54 U/L [facility] Anion gap [Moles/Vol] 9 mmol/L 9 - 18 mmol/L [facility] AST [Catalytic activity/Vol] 32 U/L 14 - 40 U/L [facility] Bilirubin [Mass/Vol] 0.2 mg/dL 0.2 - 1 .3 mg/dL [facility] Calcium [Mass/Vol] 9.4 mg/dL 8.5 - 10. 2 mg/dL [facility] Chloride [Moles/Vol] 103 mmol/L 97 - 10 5 mmol/L [facility] CO2 [Moles/Vol] 28 mmol/L 22 - 30 mmol/L [facility] Creatinine [Mass/Vol] 0.97 mg/dL 0.73 - 1.22 mg/dL [facility] Estimated Glomerular Filtration Rate 89 mL/min/1.73m >=60 mL/min/1.73m [facility] Glucose [Mass/Vol] 92 mg/dL 74 - 99 mg/dL [facility] Potassium [Moles/Vol] 4.8 mmol/L 3.7 - 5.1 mmol/L [facility] Protein [Mass/Vol] 7.1 g/dL 6.3 - 8.0 g/dL [facility] Sodium [Moles/Vol] 140 mmol/L 136 - 144 mmol/L [facility] Urea nitrogen [Mass/Vol] 11 mg/dL 9 - 24 mg/dL [facility] VITAMIN D 25 HYDROXYon 02-28 25-hydroxyvitamin D3 [Mass/Vol] 39.7 ng/mL 31.0 - 80.0 ng/mL [facility] CREATININE, BLOOD (POC)on Creatinine [Mass/Vol] 0.90 mg/dL 0.7 - 1.4 mg/dL [facility] eGFR (POCT) [facility] SPIROMETRY WITH DILATOR IF O BSTRUCTEDon 02-27-2022 VLL58-49% POST (L/S) 2.00 L/S [facility] LML16-21% PRE (L/S) 1.05 L/S [place] [facility] FEV1 PRE (L) 2.78 L [facility] FEV1/FVC POST (%) 65 % [facility] FEV1/FVC PRE (%) 63 % [facility] FEV1_POST (L) 3.10 L [facility] FVC POST (L) 4.75 L [facility] FVC PRE (L) 4.39 L [facility] PEF POST (L/S) 8.53 L/S [facility] PEF PRE (L/S) 8.46 L/S [facility] CREATININEon 02-23-2022 Creatinine [Mass/Vol] 0.95 mg/dL Normal 0.70-1.30 [facility] Comment on above: Performed By: #### T ESTTOT #### [facility] [address] [address] [address] Shree Gar EGFR-AF MONTSERRATIAN >60 Normal >=60 [facility] Comment on above: Performed By: #### T ESTTOT #### [facility] [address] [address] [address] Shree Gar EGFR-NON AF MONTSERRATIAN >60 Normal >=60 [facility] Comment on above: Performed By: #### T ESTTOT #### [facility] [address] [address] [address] Shree Gar TESTOSTERONE, TOTALon 2021 Testosterone [Mass/Vol] ng/dL Critically low 264-916 [facility] Comment on above: Result Comment: Adul t male reference interval is based on a population of healthy nonobese males (BMI <30) between 19 and 39 years old. leon Gooden.al. JCEM 2017,102;8018-2715. PMID: [id number]. Performed By: #### T ESTTOT #### [facility] [address] [place], [place] [address] Dr. Shree Gar CBC W Auto Differential pane l (Bld)on 10-23-2021 Abs Immature Gran <0.03 <0.10 k/uL [facility] Basophils (Bld) [#/Vol] 0.04 10*3/uL <0.11 k/uL [facility] Basophils/100 WBC (Bld) 0.6 % [facility] Differential cell count method Nom (Bld) Auto [facility] Eosinophils (Bld) [#/Vol] 0.16 10*3/uL <0.46 k/uL [facility] Eosinophils/100 WBC (Bld) 2.3 % [facility] Erythrocyte distribution width (RBC) [Ratio] 12.8 % 11.5 - 15.0 % [facility] Hematocrit (Bld) [Volume fraction] 39.5 % 39.0 - 51.0 % [facility] Hemoglobin (Bld) [Mass/Vol] 13.3 g/dL 13.0 - 17.0 g/dL [facility] Immature Gran % 0.3 % [facility] Lymphocytes (Bld) [#/Vol] 1.49 10*3/uL 1.00 - 4.00 k/uL [facility] Lymphocytes/100 WBC (Bld) 21.7 % [facility] MCH (RBC) [Entitic mass] 32.6 pg 26.0 - 34.0 pg [facility] MCHC (RBC) [Mass/Vol] 33.7 g/dL 30.5 - 36.0 g/dL [facility] MCV (RBC) [Entitic vol] 96.8 fL 80.0 - 100.0 fL [facility] Monocytes (Bld) [#/Vol] 0.71 10*3/uL <0.87 k/uL [facility] Monocytes/100 WBC (Bld) 10.3 % [facility] Neutrophils (Bld) [#/Vol] 4.45 10*3/uL 1.45 - 7.50 k/uL [facility] Neutrophils/100 WBC (Bld) 64.8 % [facility] Nucleated RBC (Bld) [#/Vol] 10*3/uL <0.01 k/uL [facility] Nucleated RBC/100 WBC (Bld) [Ratio] 0.0 /100 WBC [facility] Platelet mean volume (Bld) [Entitic vol] 9.8 fL 9.0 - 12.7 fL [facility] Platelets (Bld) [#/Vol] 231 10*3/uL 150 - 400 k/uL [facility] RBC (Bld) [#/Vol] 4.08 10*6/uL Low 4.20 - 6.0 0 m/uL [facility] WBC (Bld) [#/Vol] 6.87 10*3/uL 3.70 - 11. 00 k/uL [facility] Comprehensive metabolic 2000 panelon 10-23-2021 Albumin [Mass/Vol] 4.4 g/dL 3.9 - 4.9 g/dL [facility] ALP [Catalytic activity/Vol] 69 U/L 38 - 113 U/L [facility] ALT [Catalytic activity/Vol] 19 U/L 10 - 54 U/L [facility] Anion gap [Moles/Vol] 11 mmol/L 9 - 18 mmol/L [facility] AST [Catalytic activity/Vol] 27 U/L 14 - 40 U/L [facility] Bilirubin [Mass/Vol] 0.3 mg/dL 0.2 - 1 .3 mg/dL [facility] Calcium [Mass/Vol] 9.8 mg/dL 8.5 - 10. 2 mg/dL [facility] Chloride [Moles/Vol] 102 mmol/L 97 - 10 5 mmol/L [facility] CO2 [Moles/Vol] 27 mmol/L 22 - 30 mmol/L [facility] Creatinine [Mass/Vol] 0.93 mg/dL 0.73 - 1.22 mg/dL [facility] Estimated Glomerular Filtration Rate 94 mL/min/1.73m >=60 mL/min/1.73m [facility] Glucose [Mass/Vol] 110 mg/dL High 74 - 99 mg/dL [facility] Potassium [Moles/Vol] 4.1 mmol/L 3.7 - 5.1 mmol/L [facility] Protein [Mass/Vol] 7.3 g/dL 6.3 - 8.0 g/dL [facility] Sodium [Moles/Vol] 140 mmol/L 136 - 144 mmol/L [facility] Urea nitrogen [Mass/Vol] 14 mg/dL 9 - 24 mg/dL [facility] VITAMIN D 25 HYDROXYon 10-23 25-hydroxyvitamin D3 [Mass/Vol] 41.1 ng/mL 31.0 - 80.0 ng/mL [facility] No Panel Informationon 10-22 [facility] No Panel Informationon 08-01 [facility] Vital Signs Date Time Vital Sign Value Performing Clinician Facility 02-21-2024 11:33-0400 Blood Pressure Location Jackyregulo MARSH [facility] 02-21-2024 11:33-0400 Diastolic blood pressure 86 mm[Hg] Jackyregulo MARSH [facility] 02-21-2024 11:33-0400 Heart rate 76 /min Jackyregulo MARSH [facility] 02-21-2024 11:33-0400 Systolic blood pressure 122 mm[Hg] Jackyregulo MARSH [facility] 12-23-2023 12:59-0400 Body mass index (BMI) [Ratio] 28.86 kg/m2 DWIGHT Mcneil MD Work Phone: [facility] 12-23-2023 12:59-0400 Body temperature 97.11 [degF] DWIGHT Mcneil MD Work Phone: [facility] 12-23-2023 12:59-0400 Body weight 92.8 kg DWIGHT Mcneil MD Work Phone: [facility] 12-23-2023 12:59-0400 Diastolic blood pressure 76 mm[Hg] DWIGHT Mcneil MD Work Phone: [facility] 12-23-2023 12:59-0400 Heart rate 82 /min DWIGHT Mcneil MD Work Phone: [facility] 12-23-2023 12:59-0400 Respiratory rate 18 /min DWIGHT Mcneil MD Work Phone: [facility] 12-23-2023 12:59-0400 SaO2% (BldA) [Mass fraction] 100 % NA Ethan CHAVARRIA Work Phone: [facility] 12-23-2023 12:59-0400 Systolic blood pressure 117 mm[Hg] NA Ethan CHAVARRIA Work Phone: [facility] 11-03-2023 10:31-0400 Diastolic blood pressure 87 mm[Hg] II Efren Castillo Work Phone: [facility] 11-03-2023 10:31-0400 Heart rate 67 /min II Efren Castillo Work Phone: [facility] 11-03-2023 10:31-0400 Respiratory rate 16 /min II Efren Castillo Work Phone: [facility] 11-03-2023 10:31-0400 SaO2% (BldA) [Mass fraction] 97 % II Efren Castillo Work Phone: [facility] 11-03-2023 10:31-0400 Systolic blood pressure 129 mm[Hg] II Efren Castillo Work Phone: [facility] 11-03-2023 08:12-0400 Body height 177.8 cm II Efren Castillo Work Phone: [facility] 11-03-2023 08:12-0400 Body weight 90.71 kg II Efren Castillo Work Phone: [facility] 09-30-2023 14:02-0400 Body height 177.8 cm II Efren Castillo Work Phone: [facility] 09-30-2023 14:02-0400 Body mass index (BMI) [Ratio] 29.1 kg/m2 II Efren Castillo Work Phone: [facility] 09-30-2023 14:02-0400 Body weight 92.07 kg II Efren Castillo Work Phone: [facility] 09-30-2023 14:02-0400 Diastolic blood pressure 80 mm[Hg] II Efrenpasha Castillo Work Phone: [facility] 09-30-2023 14:02-0400 Heart rate 82 /min II Efren Castillo Work Phone: [facility] 09-30-2023 14:02-0400 Systolic blood pressure 113 mm[Hg] II Efren Castillo Work Phone: [facility] 06-24-2023 12:56-0500 Body temperature 97.39 [degF] DWIGHT Mcneil MD Work Phone: [facility] 06-24-2023 12:56-0500 Body weight 95.2 kg DWGIHT Mcneil MD Work Phone: [facility] 06-24-2023 12:56-0500 Diastolic blood pressure 80 mm[Hg] DWIGHT Mcneil MD Work Phone: [facility] 06-24-2023 12:56-0500 Heart rate 88 /min DWIGHT Mcneil MD Work Phone: [facility] 06-24-2023 12:56-0500 Respiratory rate 18 /min DWIGHT Mcneil MD Work Phone: [facility] 06-24-2023 12:56-0500 SaO2% (BldA) [Mass fraction] 98 % DWIGHT Mcneil MD Work Phone: [facility] 06-24-2023 12:56-0500 Systolic blood pressure 124 mm[Hg] DWIGHT Mcneil MD Work Phone: [facility] 01-15-2023 15:20-0400 Body height 179.3 cm Joe Headley MD Work Phone: [facility] 01-15-2023 15:20-0400 Body temperature 97.2 [degF] Joe Headley MD Work Phone: [facility] 01-15-2023 15:20-0400 Body weight 92.53 kg Joe Headley MD Work Phone: [facility] 01-15-2023 15:20-0400 Diastolic blood pressure 69 mm[Hg] Joe Headley MD Work Phone: [facility] 01-15-2023 15:20-0400 Heart rate 76 /min Joe Headley MD Work Phone: [facility] 01-15-2023 15:20-0400 SaO2% (BldA) [Mass fraction] 98 % Joe Headley MD Work Phone: [facility] 01-15-2023 15:20-0400 Systolic blood pressure 114 mm[Hg] Joe Headley MD Work Phone: [facility] 01-07-2023 14:10-0400 Body weight 91.17 kg Katty Duenas [employer]GG[employer].TRANSVERSE [employer] SURGEON Work Phone: [facility] 01-07-2023 14:10-0400 Diastolic blood pressure 74 mm[Hg] Katty Duenas BUGGYMAN.TRANSVERSE ABDOMINAL MUSCLE SURGEON Work Phone: [facility] 01-07-2023 14:10-0400 Heart rate 85 /min Katty Duenas BUGGYMAN.TRANSVERSE ABDOMINAL MUSCLE SURGEON Work Phone: [facility] 01-07-2023 14:10-0400 SaO2% (BldA) [Mass fraction] 99 % Katty Duenas BUGGYMAN.TRANSVERSE ABDOMINAL MUSCLE SURGEON Work Phone: [facility] 01-07-2023 14:10-0400 Systolic blood pressure 110 mm[Hg] Katty Duenas BUGGYMAN.TRANSVERSE ABDOMINAL MUSCLE SURGEON Work Phone: [facility] 06-16-2022 13:00-0500 Body temperature 96.91 [degF] DWIGHT Mcneil MD Work Phone: [facility] 06-16-2022 13:00-0500 Body weight 90.72 kg DWIGHT Mcneil MD Work Phone: [facility] 06-16-2022 13:00-0500 Diastolic blood pressure 77 mm[Hg] DWIGHT Mcneil MD Work Phone: [facility] 06-16-2022 13:00-0500 Heart rate 73 /min DWIGHT Mcneil MD Work Phone: [facility] 02-07-2023 13:00-0500 Respiratory rate 16 /min DWIGHT Mcneil MD Work Phone: [facility] 06-16-2022 13:00-0500 SaO2% (BldA) [Mass fraction] 100 % DWIGHT Mcneil MD Work Phone: [facility] 06-16-2022 13:00-0500 Systolic blood pressure 113 mm[Hg] DWIGHT Mcneil MD Work Phone: [facility] 02-27-2022 15:34-0400 Body weight 89.81 kg Katty Duenas APRN.TRANSVERSE A[employer]INAL [employer]CLE SURGEON Work Phone: [facility] 02-27-2022 15:34-0400 Diastolic blood pressure 67 mm[Hg] Katty Duenas BUGGYMAN.TRANSVERSE A[employer]INAL MUSCLE SURGEON Work Phone: [facility] 02-27-2022 15:34-0400 Heart rate 83 /min Katty Duenas APRN.TRANSVERSE ABD[employer]INAL MUSCLE SURGEON Work Phone: [facility] 02-27-2022 15:34-0400 SaO2% (BldA) [Mass fraction] 100 % Katty Duenas BUGGYMAN.TRANSVERSE ABDOMINAL MUSCLE SURGEON Work Phone: [facility] 02-27-2022 15:34-0400 Systolic blood pressure 122 mm[Hg] Katty Duenas BUGGYMAN.TRANSVERSE ABDOMINAL MUSCLE SURGEON Work Phone: [facility] 02-11-2022 10:44-0400 Body temperature 97.81 [degF] DWIGHT Mcneil MD Work Phone: [facility] 02-11-2022 10:44-0400 Body weight 88.91 kg DWIGHT Mcneil MD Work Phone: [facility] 02-11-2022 10:44-0400 Diastolic blood pressure 78 mm[Hg] DWIGHT Mcneil MD Work Phone: [facility] 02-11-2022 10:44-0400 Heart rate 78 /min DWIGHT Mcneil MD Work Phone: [facility] 02-11-2022 10:44-0400 Respiratory rate 16 /min DWIGHT Mcneil MD Work Phone: [facility] 02-11-2022 10:44-0400 SaO2% (BldA) [Mass fraction] 98 % DWIGHT Mcneil MD Work Phone: [facility] 02-11-2022 10:44-0400 Systolic blood pressure 121 mm[Hg] DWIGHT Mcneil MD Work Phone: [facility] 10-22-2021 14:55-0400 Body weight 85.37 kg Katty Duenas APRN.TRANSVERSE A[employer]INAL [employer]CLE SURGEON Work Phone: [facility] 10-22-2021 14:55-0400 Diastolic blood pressure 67 mm[Hg] Katty Duenas APRN.TRANSVERSE ABD[employer]INAL MUSCLE SURGEON Work Phone: [facility] 10-22-2021 14:55-0400 Heart rate 78 /min Katty Duenas APRN.TRANSVERSE ABDOMINAL MUSCLE SURGEON Work Phone: [facility] 10-22-2021 14:55-0400 SaO2% (BldA) [Mass fraction] 100 % Katty Duenas APRN.TRANSVERSE ABDOMINAL MUSCLE SURGEON Work Phone: [facility] 10-22-2021 14:55-0400 Systolic blood pressure 112 mm[Hg] Katty Duenas APRN.TRANSVERSE ABDOMINAL MUSCLE SURGEON Work Phone: [facility] 10-08-2021 10:53-0400 Body temperature 97.3 [degF] DWIGHT Mcneil MD Work Phone: [facility] 10-08-2021 10:53-0400 Body weight 86.09 kg DWIGHT Mcneil MD Work Phone: [facility] 10-08-2021 10:53-0400 Diastolic blood pressure 71 mm[Hg] DWIGHT Mcneil MD Work Phone: [facility] 10-08-2021 10:53-0400 Heart rate 78 /min DWIGHT Mcneil MD Work Phone: [facility] 10-08-2021 10:53-0400 Respiratory rate 16 /min DWIGHT Mcneil MD Work Phone: [facility] 10-08-2021 10:53-0400 SaO2% (BldA) [Mass fraction] 99 % DWIGHT Mcneil MD Work Phone: [facility] 10-08-2021 10:53-0400 Systolic blood pressure 102 mm[Hg] DWIGHT Mcneil MD Work Phone: [facility] 07-24-2021 15:00-0400 Body height 182.88 cm Rhys German Other [employer] Other 07-24-2021 15:00-0400 Body mass index (BMI) [Ratio] 25.09 kg/m2 Rhys German Other [employer] Other 07-24-2021 15:00-0400 Body weight 83.92 kg Rhys German Other [employer] Other Encounters Encounter Date Encounter Type Care Provider Facility Start: 02-23-2025 ambulatory Jacky MARSH Facili ty:[facility] Start: 03-02-2024 End: 03-02-2024 Bamboo flowsheet Forrest [facility] PA Work Phone: [facility] Start: 03-02-2024 End: 03-02-2024 Bamboo flowsheet Forrest [facility] Work Phone: [facility] Start: 03-02-2024 End: 03-02-2024 Office outpatient new [facility] Work Phone: [facility] Comment on above: Epidermal inclusion cyst (Primary Dx); Seborrheic keratosis; Actinic keratosis Start: 03-02-2024 End: 03-02-2024 ambulatory FORREST NORTHEIM Not Available Start: 02-21-2024 End: 02-21-2024 ambulatory Jacky MARSH Facility:[facility] Start: 02-21-2024 End: 02-21-2024 Patient encounter procedure Jacky MARSH [facility] Start: 01-27-2024 End: 01-27-2024 ambulatory YANDEL MTZ Not Available Start: 12-23-2023 End: 12-23-2023 ambulatory EFRENPASHA CASTILLO II Facility:[facility] Start: 12-23-2023 End: 12-23-2023 Patient encounter procedure G Juni Mcneil MD Work Phone: Radiation Oncology Comment on above: Malignant neoplasm o f prostate (HCC) (Primary Dx) Start: 12-16-2023 End: 12-16-2023 ambulatory EFREN CASTILLO Not Available Start: 11-07-2023 Refill Katty Duenas BUGGYMAN.TRANSVERSE ABDOMINAL MUSCLE SURGEON Work Phone: Rheumatology Comment on above: Refill Request Start: 11-06-2023 ambulatory Katty Duenas APRN.TRANSVERSE ABDOMINAL MUSCLE SURGEON Work Phone: Rheumatology Comment on above: Prescription Start: 11-03-2023 Non-patient / Non-visit II Agusto Castillo Work Phone: [facility] Work Phone: Start: 11-03-2023 End: 11-03-2023 Admission to same day surgery center II Efren Castillo Work Phone: [facility] Work Phone: Start: 11-03-2023 End: 11-03-2023 ambulatory II Efren Castillo Work Phone: [facility] Work Phone: Start: 09-30-2023 End: 09-30-2023 Patient encounter procedure II Efren Castillo Work Phone: [facility] Work Phone: Start: 09-06-2023 Telephone encounter Joe villegas MD Work Phone: Pulmonary Medicine Comment on above: Appointment Start: 09-01-2023 End: 09-01-2023 ambulatory EFREN CASTILLO Not Available Start: 08-25-2023 End: 08-25-2023 [facility] Joe Headley MD Work Phone: Pulmonary Medicine Comment on above: ILD (interstitial faisal ng disease) (HCC) (Primary Dx); Chronic obstructive pulmonary disease, unspecified COPD type (HCC); Uncomplicated asthma, unspecified asthma severity, unspecified whether persistent [U14.448]; Tobacco use disorder [F17.200] Start: 08-16-2023 Refill G Juni guerra MD Work Phone: Radiation Oncology Comment on above: Refill Request Start: 08-04-2023 End: 08-04-2023 ambulatory EFREN CASTILLO Not Available Start: 07-14-2023 ambulatory Katty Duenas BUGGYMAN.TRANSVERSE ABDOMINAL MUSCLE SURGEON Work Phone: [facility] Start: 07-14-2023 Follow-up encounter Katty rebolledo BUGGYMAN.TRANSVERSE ABDOMINAL MUSCLE SURGEON Work Phone: Rheumatology Comment on above: Follow up Start: 07-07-2023 End: 07-07-2023 ambulatory EFREN CASTILLO Not Available Start: 07-02-2023 End: 07-02-2023 ambulatory KATTY DUENAS Pulmonary Lab Comment on above: Spirometry Start: 07-02-2023 End: 07-02-2023 Patient encounter procedure Pulm [facility] Work Phone: [facility] Start: 07-01-2023 Refill Katty Duenas BUGGYMAN.TRANSVERSE ABDOMINAL MUSCLE SURGEON Work Phone: Rheumatology Comment on above: Refill Request Start: 06-24-2023 End: 06-24-2023 ambulatory EFREN CASTILLO II Facility:[facility] Start: 06-24-2023 End: 06-24-2023 Patient encounter procedure May Mcneil MD Work Phone: Radiation Oncology Comment on above: Malignant neoplasm o f prostate (HCC) (Primary Dx) Start: 06-22-2023 ambulatory Ronald Rice Facility:[facility] Start: 06-15-2023 Telephone encounter Katty rebolledo BUGGYMAN.TRANSVERSE ABDOMINAL MUSCLE SURGEON Work Phone: Rheumatology Comment on above: Outside Labs-[facility] Ord ered ([facility] -06/14/2023- ordered by Katty Duenas CNP) Start: 06-02-2023 Telephone encounter Katty rebolledo APRN.DARIN Work Phone: Rheumatology Comment on above: Received Outside [facility] Records (Ophthalmology exam - Plaquenil ) Start: 06-02-2023 End: 06-02-2023 ambulatory EFREN CASTILLO Not Available Start: 03-05-2023 Refill G Juni guerra MD Work Phone: Radiation Oncology Comment on above: Refill Request Start: 02-05-2023 Refill Katty Duenas APRN.CNP Work Phone: Rheumatology Comment on above: Refill Request Start: 01-15-2023 End: 01-15-2023 ambulatory JOE HEADLEY Facility:[facility] Start: 01-15-2023 End: 01-15-2023 Patient encounter procedure Joe Headley MD Work Phone: Pulmonary Medicine Comment on above: ILD (interstitial faisal ng disease) (HCC) (Primary Dx); Chronic obstructive pulmonary disease, unspecified COPD type (HCC); Lung nodule; Current smoker; Acute upper respiratory infection Start: 01-13-2023 ambulatory Katty Duenas APRN.CNP Work Phone: Rheumatology Comment on above: Handicap prescriptio n Start: 01-10-2023 Telephone encounter Katty rebolledo APRN.DARIN Work Phone: Rheumatology Comment on above: Results Start: 01-07-2023 End: 01-07-2023 Patient encounter procedure Katty Duenas APRN.TRANSVERSE ABDOMINAL MUSCLE SURGEON Work Phone: Rheumatology Comment on above: Seropositive rheumat oid arthritis (HCC) (Primary Dx); Encounter for monitoring of hydroxychloroquine therapy; Encounter to discuss test results; Encounter for medication review and counseling; Steroid-induced osteopenia; Smoking; History of hepatitis C; Hepatitis B antibody positive; Vitamin D deficiency Start: 01-07-2023 End: 01-07-2023 ambulatory KATTY DUENAS Facility:[facility] Start: 01-07-2023 End: 01-07-2023 Subsequent hospital visit by physician Afshan [facility] Work Phone: Radiology Comment on above: Lung nodule [R91.1] Start: 12-09-2022 ambulatory May guerra MD Work Phone: Radiation Oncology Comment on above: blood test Start: 11-02-2022 ambulatory Katty Duenas APRN.TRANSVERSE ABDOMINAL MUSCLE SURGEON Work Phone: Rheumatology Comment on above: Prednisone Start: 10-27-2022 End: 10-27-2022 ambulatory Adrienne Russo PA-C Work Phone: Gastroenterology Comment on above: HCV antibody positiv e (Primary Dx); Hepatitis B core antibody positive; Diarrhea, unspecified type; History of diverticulitis Start: 10-27-2022 End: 10-27-2022 Telemedicine consultation with patient Adrienne Russo PA-C Work Phone: [facility] Start: 10-13-2022 Refill May guerra MD Work Phone: Radiation Oncology Comment on above: Refill Request Start: 10-12-2022 Refill Katty Duenas APRN.TRANSVERSE ABDOMINAL MUSCLE SURGEON Work Phone: Rheumatology Comment on above: Refill Request Start: 09-08-2022 End: 09-09-[address] DOCTOR OSORIO Facility:[facility] Start: 08-24-2022 End: 08-25-[address] DOCTOR OSORIO Facility:[facility] Start: 07-28-2022 ambulatory Katty Duenas APRN.TRANSVERSE ABDOMINAL MUSCLE SURGEON Work Phone: Rheumatology Comment on above: Ntx test Start: 06-19-2022 Telephone encounter May Mcneil MD Work Phone: Radiation Oncology Comment on above: Medication Question Start: 06-18-2022 End: 06-18-2022 ambulatory Joe Headley MD Work Phone: Pulmonary Medicine Comment on above: Lung nodule (Primary Dx) Start: 06-18-2022 End: 06-18-2022 Telemedicine consultation with patient Joe Headley MD Work Phone: [facility] Start: 06-16-2022 End: 06-16-2022 Patient encounter procedure May Mcneil MD Work Phone: Radiation Oncology Comment on above: Malignant neoplasm o f prostate (HCC) (Primary Dx) Start: 06-09-2022 End: 06-10-2022 ambulatory DANICA MCNEIL Facility:[facility] Start: 06-09-2022 Telephone encounter Katty rebolledo BUGGYMAN.TRANSVERSE ABDOMINAL MUSCLE SURGEON Work Phone: Rheumatology Comment on above: Patient Update Start: 06-08-2022 Refill Katty Duenas BUGGYMAN.TRANSVERSE ABDOMINAL MUSCLE SURGEON Work Phone: Rheumatology Comment on above: Refill Request Start: 04-07-2022 ambulatory Katty Duenas BUGGYMAN.TRANSVERSE ABDOMINAL MUSCLE SURGEON Work Phone: Rheumatology Comment on above: handicap renewal Start: 03-30-2022 Refill May guerra MD Work Phone: Radiation Oncology Comment on above: Refill Request Start: 03-03-2022 Telephone encounter Joe villegas MD Work Phone: Pulmonary Medicine Comment on above: Results Start: 03-01-2022 ambulatory Katty Duenas BUGGYMAN.TRANSVERSE ABDOMINAL MUSCLE SURGEON Work Phone: Rheumatology Comment on above: Hepatitis blood work Start: 02-27-2022 End: 02-27-2022 Patient encounter procedure Katty Duenas BUGGYMAN.TRANSVERSE ABDOMINAL MUSCLE SURGEON Work Phone: Rheumatology Comment on above: 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) (Primary Dx); Encounter for monitoring of hydroxychloroquine therapy; Encounter to discuss test results; Encounter for medication review and counseling; care home current use of systemic steroids; Steroid-induced osteopenia Start: 02-27-2022 End: 02-27-2022 Subsequent hospital visit by physician Afshan [facility] Work Phone: Radiology Comment on above: Abnormal CXR [R93.89 ] Start: 02-27-2022 End: 02-27-2022 ambulatory Pulm Isabela Work Phone: Pulmonary Lab Comment on above: Spirometry Start: 02-27-2022 End: 02-27-2022 Patient encounter procedure [facility] Start: 02-23-2022 End: 02-24-[address] DOCTOR DE PAZ Facility:[facility] Start: 02-20-2022 Orders Only Joe Headley MD Work Phone: Pulmonary Medicine Comment on above: Dyspnea and respirat ory abnormalities (Primary Dx) Start: 02-12-2022 Telephone encounter May Mcneil MD Work Phone: Radiation Oncology Comment on above: Results Start: 02-11-2022 End: 02-11-2022 Patient encounter procedure May Juni Mcneil MD Work Phone: Radiation Oncology Comment on above: Malignant neoplasm o f prostate (HCC) (Primary Dx) Start: 02-09-2022 End: 02-10-2022 ambulatory DANICA MCNEIL Facility:[facility] Start: 02-09-2022 Refill Katty Duenas APRN.TRANSVERSE ABDOMINAL MUSCLE SURGEON Work Phone: Rheumatology Comment on above: Refill Request Start: 12-16-2021 End: 12-16-2021 Patient encounter procedure Trae Soler Jr. [facility] Start: 10-27-2021 ambulatory Katty Duenas BUGGYMAN.TRANSVERSE ABDOMINAL MUSCLE SURGEON Work Phone: Rheumatology Comment on above: Enbrel Start: 10-23-2021 Telephone encounter Katty rebolledo BUGGYMAN.TRANSVERSE ABDOMINAL MUSCLE SURGEON Work Phone: Rheumatology Comment on above: Results Start: 10-22-2021 End: 10-22-2021 Subsequent hospital visit by physician Xr [facility] Radiology Comment on above: Seropositive rheumat oid arthritis (HCC) [M05.9] Start: 10-22-2021 ambulatory Claritza Donaldson n RT(R) Radiology Comment on above: Radiology XR Start: 10-22-2021 End: 10-22-2021 Patient encounter procedure Claritza Singh RT(R) [facility] Comment on above: Seropositive rheumat oid arthritis (HCC) (Primary Dx); Vitamin D deficiency; Smoking; SOB (shortness of breath) Start: 10-22-2021 Telephone encounter Katty rebolledo BUGGYMAN.TRANSVERSE ABDOMINAL MUSCLE SURGEON Work Phone: Rheumatology Comment on above: Forms Start: 10-20-2021 Refill Katty Duenas APRN.TRANSVERSE ABDOMINAL MUSCLE SURGEON Work Phone: Rheumatology Comment on above: Refill Request time off work Start: 10-08-2021 End: 10-08-2021 ambulatory Elizabeth Henderson APRN.TRANSVERSE ABDOMINAL MUSCLE SURGEON Work Phone: Hematology/Oncology Comment on above: Prostate cancer (HCC ) (Primary Dx) Start: 10-08-2021 End: 10-08-2021 Patient encounter procedure Elizabeth Henderson BUGGYMAN.TRANSVERSE ABDOMINAL MUSCLE SURGEON Work Phone: [place] Comment on above: Malignant neoplasm o f prostate (HCC) (Primary Dx) Start: 10-02-2021 End: 10-03-2021 ambulatory DANICA MCNEIL Facility:[facility] Start: 09-30-2021 End: 10-01-2021 ambulatory PHOEBE STEINBERG Facility:[facility] Start: 08-04-2021 ambulatory Katty Duenas APRN.TRANSVERSE ABDOMINAL MUSCLE SURGEON Work Phone: Rheumatology Comment on above: predisone Start: 07-24-2021 End: 07-24-2021 ambulatory Rhys German Other [facility] [employer] Other Start: 07-24-2021 Office outpatient ne w 45 minutes Rhys German [facility] Neurosurgery Start: 08-01-2020 End: 08-01-2020 Subsequent hospital visit by physician Xr [facility] Radiology Comment on above: Seropositive rheumat oid arthritis (HCC) [M05.9] Procedures Date Procedure Procedure Detail Performing Clinician Start: 03-02-2024 CRYOTHERAPY SKIN LESION Forrest SIN Work Phone: Start: 11-03-2023 Colonoscopy II Efren Castillo Work Phone: Start: 07-02-2023 Co diffusing capacity S aubrey Alcazar APRN.TRANSVERSE ABDOMINAL MUSCLE SURGEON Work Phone: Start: 06-02-2023 Lipid 1996 panel - S yanira or Plasma Katty Duenas BUGGYMAN.TRANSVERSE ABDOMINAL MUSCLE SURGEON Work Phone: Start: 06-09-2022 End: 06-09-2022 PSA screening [facility] Provider Comment on above: Performed By: #### P SAD #### [facility] [address] [place] [address] Dr. Shree Gar Start: 02-27-2022 Ct thorax w/contrast material Joe Headley MD Work Phone: Start: 02-27-2022 Creatinine [Mass/vol ume] in Serum or Plasma [facility] Provider Start: 02-27-2022 Brncdilat rspse spmt ry pre&post-brncdilat admn Joe Headley MD Work Phone: Start: 02-09-2022 End: 02-09-2022 PSA screening [facility] Provider Comment on above: Performed By: #### T ESTTOT #### [facility] [address] [place] [address] Dr. Shree Gar Start: 10-22-2021 Radiologic exam ches t 2 views Katty Duenas BUGGYMAN.TRANSVERSE ABDOMINAL MUSCLE SURGEON Work Phone: Start: 10-07-2021 Adult depression scr eening assessment Elizabeth Henderson BUGGYMAN.TRANSVERSE ABDOMINAL MUSCLE SURGEON Work Phone: Start: 10-02-2021 End: 10-02-2021 PSA screening [facility] Provider Comment on above: Performed By: #### P SAD #### [facility] [address] [place], [place] [id number] Dr. Shree Gar Start: 01-05-2021 Adult depression scr eening assessment Katty Duenas BUGGYMAN.TRANSVERSE ABDOMINAL MUSCLE SURGEON Work Phone: Start: 08-01-2020 Radex shoulder compl ete minimum 2 views Jared Gonzalez MD Work Phone: Start: 07-31-2020 Brachytherapy Trae altamirano Jr. Start: 02-15-2020 Transrectal biopsy o f prostate using ultrasound guidance Trae Soler Jr. Start: 11-15-2015 Colonoscopy Forrest SIN Work Phone: Start: 03-04-2010 Colonoscopy Katty pittman APRN.TRANSVERSE ABDOMINAL MUSCLE SURGEON Work Phone: Plan of Treatment Date Care Activity Detail Author Start: 11-02-2033 Screening for malign ant neoplasm of colon [facility] Start: 01-02-2030 Urine microalbumin profile [facility] Start: 12-20-2028 Prostate specific antigen measurement Prostate Cancer Screening Discussion [facility] Start: 06-14-2028 Prostate specific antigen measurement Prostate Cancer Screening Discussion [facility] Start: 06-02-2028 Lipid panel Lipid Screening [facility] Start: 12-12-2027 PROSTATE CANCER SCREENING DISCUSSION PROSTATE CANCER SCREENING DISCUSSION [facility] Start: 06-09-2027 PROSTATE CANCER SCREENING DISCUSSION PROSTATE CANCER SCREENING DISCUSSION [facility] Start: 02-09-2027 PROSTATE CANCER SCREENING DISCUSSION PROSTATE CANCER SCREENING DISCUSSION [facility] Start: 10-22-2026 PROSTATE CANCER SCREENING DISCUSSION PROSTATE CANCER SCREENING DISCUSSION [facility] Start: 10-02-2026 PROSTATE CANCER SCREENING DISCUSSION PROSTATE CANCER SCREENING DISCUSSION [facility] Start: 03-20-2026 PROSTATE CANCER SCREENING DISCUSSION PROSTATE CANCER SCREENING DISCUSSION [facility] Start: 01-07-2026 DIABETES SCREEN DIABETES SCREEN [facility] Start: 01-07-2026 Diabetes Screening Diabetes Screenin g [facility] Start: 11-14-2025 Screening for malign ant neoplasm of colon [facility] Start: 02-27-2025 DIABETES SCREEN DIABETES SCREEN [facility] Start: 10-22-2024 DIABETES SCREEN DIABETES SCREEN [facility] Start: 08-31-2024 Medicare Annual Wellness (AWV) Medicare Annual Wellness (AWV) [facility] Start: 06-24-2024 End: 09-23-2024 Prostate specific Ag [Mass/volume] in Serum or Plasma PROSTATE-SPECIFIC ANTIGEN DIAGNOSTIC Lab Routine Malignant neoplasm of prostate (HCC) Expected: 06/24/2024 (Approximate), Expires: 09/23/2024 [facility] Work Phone: Comment on above: Expected: 06/24/2024 (Approximate), Expires: 09/23/2024 Start: 06-22-2024 End: 06-22-2024 Patient encounter procedure 06/22/2024 1:00 PM EST Office Visit Radiation Oncology [address] [place] [address] [place] [address] May Mcneil MD [address] [place] [address] [place] [address] Follow up Radiation Oncology Comment on above: Follow up Start: 06-20-2024 End: 06-20-2024 Patient encounter procedure 06/20/2024 1:40 PM EST Office Visit Rheumatology [address] [place] [address] Jared Gonzalez MD [address] [facility] [place] [address] ra f/u Rheumatology Comment on above: ra f/u Start: 06-19-2024 End: 06-19-2024 Patient encounter procedure 06/19/2024 1:30 PM EST Office Visit [facility] [address] [facility] [address] [place] [id number] Efren Castillo MD [address] [place] [address] [facility] Start: 04-27-2024 End: 04-27-2024 Patient encounter procedure 04/27/2024 11:40 AM EST Office Visit [facility] [address] [place] [address] Yandel Mtz MD [address] [facility] [address] [id number] [facility] Start: 03-02-2024 End: 03-02-2024 Patient encounter procedure 03/02/2024 1:20 PM EDT Office Visit [facility] [address] [place] [address] Forrest Bueno PA [address] [place] [address] Arrived [facility] Comment on above: Arrived Start: 02-12-2024 DIABETES SCREEN DIABETES SCREEN [facility] Start: 01-09-2024 Influenza vaccination Influenza Vacc ine (#1) [facility] Start: 01-08-2024 Influenza vaccination LUNG CANCER SC REENING [facility] Start: 01-08-2024 Screening for malign ant neoplasm of lung Lung Cancer Screening [facility] Start: 12-23-2023 End: 03-23-2024 Prostate specific Ag [Mass/volume] in Serum or Plasma PSA/PROSTSPECAG DIAG Lab Routine Malignant neoplasm of prostate (HCC) Expected: 12/23/2023 (Approximate), Expires: 03/23/2024 [facility] Work Phone: Comment on above: Expected: 12/23/2023 (Approximate), Expires: 03/23/2024 Start: 12-23-2023 End: 03-23-2024 Testosterone [Mass/volume] in Serum or Plasma TESTOSTERONE TOTAL Lab Routine Malignant neoplasm of prostate (HCC) Expected: 12/23/2023 (Approximate), Expires: 03/23/2024 [facility] Work Phone: Comment on above: Expected: 12/23/2023 (Approximate), Expires: 03/23/2024 Start: 12-23-2023 End: 12-23-2023 Patient encounter procedure 12/23/2023 1:00 PM EDT Office Visit Radiation Oncology [address] [place] [address] May Mcneil MD [address] [place] [address] Follow up Radiation Oncology Comment on above: Follow up Start: 12-14-2023 End: 12-14-2023 Patient encounter procedure 12/14/2023 2:00 PM EDT Office Visit Rheumatology [address] [place] [address] Jared Gonzalez MD [address] [facility] [place] [id number] future with Dr. Gonzalez . Rheumatology Comment on above: future with Dr. Dottie jurado . Start: 11-03-2023 [facility] Start: 05-10-2023 Behavioral Health Screening Behavioral Health Screening [facility] Start: 05-10-2023 Depression Assessment Depression Ass essment [facility] Start: 04-11-2023 End: 06-11-2023 CBC W Auto Differential panel - Blood CBC + DIFF Lab Routine Seropositive rheumatoid arthritis (HCC) Expected: 04/11/2023 (Approximate), Expires: 06/11/2023 [facility] Work Phone: Comment on above: Expected: 04/11/2023 (Approximate), Expires: 06/11/2023 Start: 04-11-2023 End: 06-11-2023 Comprehensive metabolic 2000 panel - Serum or Plasma COMP METABOLIC PANEL Lab Routine Seropositive rheumatoid arthritis (HCC) Expected: 04/11/2023 (Approximate), Expires: 06/11/2023 [facility] Work Phone: Comment on above: Expected: 04/11/2023 (Approximate), Expires: 06/11/2023 Start: 02-27-2023 Influenza vaccination LUNG CANCER [facility] Start: 01-08-2023 Covid-19 Vaccine (2022- season) Covid-19 Vaccine ( season) [facility] Start: 01-08-2023 Influenza vaccination [facility] Start: 01-07-2023 End: 03-09-2023 25-hydroxyvitamin D3 [Mass/volume] in Serum or Plasma [facility] Work Phone: Comment on above: Expected: 01/07/2023 , Expires: 03/09/2023 Start: 01-07-2023 End: 03-09-2023 C reactive protein [Mass/volume] in Serum or Plasma [facility] Work Phone: Comment on above: Expected: 01/07/2023 , Expires: 03/09/2023 Start: 01-07-2023 End: 03-09-2023 Comprehensive metabolic 2000 panel - Serum or Plasma [facility] Work Phone: Comment on above: Expected: 01/07/2023 , Expires: 03/09/2023 Start: 12-15-2022 End: 07-18-2023 Ct thorax w/o contrast material CT CHEST WO IVCON Radiology Routine Lung nodule Expected: 12/15/2022, Expires: 07/18/2023 [facility] Work Phone: Comment on above: Expected: 12/15/2022 , Expires: 07/18/2023 Start: 12-14-2022 End: 02-13-2023 Prostate specific Ag [Mass/volume] in Serum or Plasma PSA/PROSTSPECAG DIAG Lab Routine Malignant neoplasm of prostate (HCC) Expected: 12/14/2022, Expires: 02/13/2023 [facility] Work Phone: Comment on above: Expected: 12/14/2022 , Expires: 02/13/2023 Start: 12-10-2022 End: 02-09-2023 Testosterone [Mass/volume] in Serum or Plasma TESTOSTERONE TOTAL Lab Routine Malignant neoplasm of prostate (HCC) Expected: 12/10/2022, Expires: 02/09/2023 [facility] Work Phone: Comment on above: Expected: 12/10/2022 , Expires: 02/09/2023 Start: 10-27-2022 End: 12-27-2022 HEP BE ANTIBODY HEP BE ANTIBODY Lab Routine HCV antibody positive Hepatitis B core antibody positive Expected: 10/27/2022, Expires: 12/27/2022 [facility] Work Phone: Comment on above: Expected: 10/27/2022 , Expires: 12/27/2022 Start: 10-27-2022 End: 12-27-2022 HEP BE ANTIGEN HEP BE ANTIGEN Lab Routine HCV antibody positive Hepatitis B core antibody positive Expected: 10/27/2022, Expires: 12/27/2022 [facility] Work Phone: Comment on above: Expected: 10/27/2022 , Expires: 12/27/2022 Start: 10-27-2022 End: 12-27-2022 Hepatic function 2000 panel - Serum or Plasma HEPATIC FUNCTION PNL Lab Routine HCV antibody positive Hepatitis B core antibody positive Expected: 10/27/2022, Expires: 12/27/2022 [facility] Work Phone: Comment on above: Expected: 10/27/2022 , Expires: 12/27/2022 Start: 10-27-2022 End: 12-27-2022 Hepatitis B virus core Ab [Presence] in Serum HEP B CORE AB TOTAL Lab Routine HCV antibody positive Hepatitis B core antibody positive Expected: 10/27/2022, Expires: 12/27/2022 [facility] Work Phone: Comment on above: Expected: 10/27/2022 , Expires: 12/27/2022 Start: 10-27-2022 End: 12-27-2022 Hepatitis B virus core IgM Ab [Presence] in Serum HEP B CORE AB IGM Lab Routine HCV antibody positive Hepatitis B core antibody positive Expected: 10/27/2022, Expires: 12/27/2022 [facility] Work Phone: Comment on above: Expected: 10/27/2022 , Expires: 12/27/2022 Start: 10-27-2022 End: 12-27-2022 Hepatitis B virus DNA [Units/volume] in Serum HEP B VIRAL DNA CLEO Lab Routine HCV antibody positive Hepatitis B core antibody positive Expected: 10/27/2022, Expires: 12/27/2022 [facility] Work Phone: Comment on above: Expected: 10/27/2022 , Expires: 12/27/2022 Start: 10-27-2022 End: 12-27-2022 Hepatitis B virus surface Ag [Presence] in Serum HEP B SURF AG SCRN Lab Routine HCV antibody positive Hepatitis B core antibody positive Expected: 10/27/2022, Expires: 12/27/2022 [facility] Work Phone: Comment on above: Expected: 10/27/2022 , Expires: 12/27/2022 Start: 10-27-2022 End: 12-27-2022 Hepatitis C virus RNA [Units/volume] (viral load) in Serum or Plasma by CARMELIAN with probe detection HCV QUANT RNA BY PCR Lab Routine HCV antibody positive Hepatitis B core antibody positive Expected: 10/27/2022, Expires: 12/27/2022 [facility] Work Phone: Comment on above: Expected: 10/27/2022 , Expires: 12/27/2022 Start: 10-07-2022 Adult depression screening assessment DEPRESSION SCREENING [facility] Start: 06-16-2022 End: 08-16-2022 Testosterone [Mass/volume] in Serum or Plasma TESTOSTERONE TOTAL Lab Routine Malignant neoplasm of prostate (HCC) Expected: 06/16/2022, Expires: 08/16/2022 [facility] Work Phone: Comment on above: Expected: 06/16/2022 , Expires: 08/16/2022 Start: 06-14-2022 End: 08-14-2022 Prostate specific Ag [Mass/volume] in Serum or Plasma PSA/PROSTSPECAG DIAG Lab Routine Malignant neoplasm of prostate (HCC) Expected: 06/14/2022, Expires: 08/14/2022 [facility] Work Phone: Comment on above: Expected: 06/14/2022 , Expires: 08/14/2022 Start: 06-14-2022 End: 08-14-2022 Testosterone [Mass/volume] in Serum or Plasma TESTOSTERONE TOTAL Lab Routine Malignant neoplasm of prostate (HCC) Expected: 06/14/2022, Expires: 08/14/2022 [facility] Work Phone: Comment on above: Expected: 06/14/2022 , Expires: 08/14/2022 Start: 05-10-2022 DEPRESSION ASSESSMENT DEPRESSION ASS ESSMENT [facility] Start: 02-21-2022 End: 04-23-2022 Prostate specific Ag [Mass/volume] in Serum or Plasma PSA/PROSTSPECAG DIAG Lab Routine Malignant neoplasm of prostate (HCC) Expected: 02/21/2022, Expires: 04/23/2022 [facility] Work Phone: Comment on above: Expected: 02/21/2022 , Expires: 04/23/2022 Start: 02-21-2022 End: 04-23-2022 Testosterone [Mass/volume] in Serum or Plasma TESTOSTERONE TOTAL Lab Routine Malignant neoplasm of prostate (HCC) Expected: 02/21/2022, Expires: 04/23/2022 [facility] Work Phone: Comment on above: Expected: 02/21/2022 , Expires: 04/23/2022 Start: 02-20-2022 End: 04-22-2022 CREATININE BLD CREATININE BLD Lab Routine Dyspnea and respiratory abnormalities Expected: 02/20/2022, Expires: 04/22/2022 [facility] Work Phone: Comment on above: Expected: 02/20/2022 , Expires: 04/22/2022 Start: 01-08-2022 Influenza vaccination INFLUENZA (#1) [facility] Start: 01-05-2022 Adult depression screening assessment DEPRESSION SCREENING [facility] Start: 10-08-2021 End: 12-08-2021 Prostate specific Ag [Mass/volume] in Serum or Plasma PSA/PROSTSPECAG DIAG Lab Routine Malignant neoplasm of prostate (HCC) Expected: 10/08/2021, Expires: 12/08/2021 [facility] Work Phone: Comment on above: Expected: 10/08/2021 , Expires: 12/08/2021 Start: 10-08-2021 End: 12-08-2021 Testosterone [Mass/volume] in Serum or Plasma TESTOSTERONE TOTAL Lab Routine Malignant neoplasm of prostate (HCC) Expected: 10/08/2021, Expires: 12/08/2021 [facility] Work Phone: Comment on above: Expected: 10/08/2021 , Expires: 12/08/2021 Start: 2021 RSV Vaccine (1 - 1-d ose 60+ series) RSV Vaccine (1 - 1-dose 60+ series) [facility] Start: 05-10-2021 DEPRESSION ASSESSMENT DEPRESSION ASS ESSMENT [facility] Start: 10-24-2020 COVID-19 VACCINE (3 - Booster for Pfizer series) COVID-19 VACCINE (3 - Booster for Pfizer series) [facility] Start: 10-24-2020 COVID-19 VACCINE (3 - Pfizer series) COVID-19 VACCINE (3 - Pfizer series) [facility] Start: 09-26-2020 COVID-19 VACCINE (3 - Pfizer risk 4-dose series) COVID-19 VACCINE (3 - Pfizer risk 4-dose series) [facility] Start: 09-26-2020 COVID-19 VACCINE (3 - Pfizer risk series) COVID-19 VACCINE (3 - Pfizer risk series) [facility] Start: 12-08-2019 PNEUMOCOCCAL (2 - PCV) PNEUMOCOCCAL (2 - PCV) [facility] Start: 12-08-2019 Pneumococcal vaccination [facility] Start: 2016 Influenza vaccination LUNG CANCER [facility] Start: 07-31-2011 Influenza vaccination LUNG CANCER [facility] Start: 07-31-2011 SHINGRIX VACCINE (1 of 2) SHINGRIX VACCINE (1 of 2) [facility] Start: 03-04-2011 Colonoscopy COLONOSCOPY [facility] Start: 03-04-2011 COLORECTAL CANCER SCREENING COLORECTAL CANCER SCREENING [facility] Start: 03-04-2011 Screening for malign ant neoplasm of colon [facility] Start: 2006 COLOGUARD (FIT-DNA) COLOGUARD (FIT-D NA) [facility] Start: [address] COLONOGRAPHY [facility] Start: 2006 FECAL OCCULT BLOOD FECAL OCCULT BLOO D [facility] Start: 2006 Screening for malign ant neoplasm of colon [facility] Start: 2006 SIGMOIDOSCOPY SIGMOIDOSCOPY [facility] Start: 1996 Lipid 1996 panel - Serum or Plasma Lipid Screening [facility] Start: 1996 LIPID SCREEN LIPID SCREEN [facility] Start: 07-31-1991 Zoledronic acid therapy ALPHA- 1 ANTITRYPSIN DEFICIENCY SCREENING [facility] Start: 1980 SHINGRIX VACCINE (1 of 2) SHINGRIX VACCINE (1 of 2) [facility] Start: 07-31-1979 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 DISEASE VISIT ANNUAL PCP TEAM CHRONIC DISEASE VISIT [facility] Start: 07-31-1979 Anxiety Screening Anxiety Screening [facility] Start: 07-31-1979 Depression Screening Depression Scre ening [facility] Start: 07-31-1979 HIV SCREENING HIV SCREENING [facility] Start: 07-31-1979 HIV screening HIV Screening [facility] Start: 1961 Screening for malign ant neoplasm of colon [facility] thorax w/o contra st material CT CHEST WO IVCON Radiology Routine Lung nodule 01/07/2023 2:08 PM EDT [facility] Work Phone: Hepatic function panel [facility] Hepatitis B core antibody measurement [facility] Hepatitis B virus surface Ab [Presence] in Serum [facility] End: 02-15-2024 LUNG DIFFUSION CAPACITY (DLCO) LUNG DIFFUSION CAPACITY (DLCO) PFT Routine ILD (interstitial lung disease) (HCC) Chronic obstructive pulmonary disease, unspecified COPD type (HCC) Lung nodule 1 Occurrences starting 01/15/2023 until 02/15/2024 [facility] Work Phone: Comment on above: 1 Occurrences starti ng 01/15/2023 until 02/15/2024 End: 09-23-2024 LUNG DIFFUSION CAPACITY (DLCO) LUNG DIFFUSION CAPACITY (DLCO) PFT Routine ILD (interstitial lung disease) (HCC) 1 Occurrences starting 08/25/2023 until 09/23/2024 [facility] Work Phone: Comment on above: 1 Occurrences starti ng 08/25/2023 until 09/23/2024 Patient Education Know your Meds [facility] Work Phone: End: 02-15-2024 SPIROMETRY - BASELINE AND POST DILATOR SPIROMETRY - BASELINE AND POST DILATOR PFT Routine ILD (interstitial lung disease) (HCC) Chronic obstructive pulmonary disease, unspecified COPD type (HCC) Current smoker 1 Occurrences starting 01/15/2023 until 02/15/2024 [facility] Work Phone: Comment on above: 1 Occurrences starti ng 01/15/2023 until 02/15/2024 End: 09-23-2024 SPIROMETRY WITH DILATOR IF OBSTRUCTED SPIROMETRY WITH DILATOR IF OBSTRUCTED PFT Routine ILD (interstitial lung disease) (HCC) 1 Occurrences starting 08/25/2023 until 09/23/2024 [facility] Work Phone: Comment on above: 1 Occurrences starti ng 08/25/2023 until 09/23/2024 [facility] Immunizations Immunization Date Immunization Notes Care Provider Fa [facility] 03-03-2023 influenza, injectabl e, quadrivalent, preservative free Forrest Terryjacob [place] Work Phone: [facility] 03-03-2023 influenza virus vacc ine, unspecified formulation Katty Duenas APRN.TRANSVERSE ABDOMINAL MUSCLE SURGEON Work Phone: [facility] 04-06-2022 influenza, injectabl e, quadrivalent, preservative free Katty Duenas BUGGYMAN.TRANSVERSE ABDOMINAL MUSCLE SURGEON Work Phone: [facility] 04-06-2022 influenza virus vacc ine, unspecified formulation Katty Duenas APRN.TRANSVERSE ABDOMINAL MUSCLE SURGEON Work Phone: [facility] 04-08-2021 influenza, injectabl e, quadrivalent, contains preservative Katty Duenas APRN.TRANSVERSE ABDOMINAL MUSCLE SURGEON Work Phone: [facility] 08-29-2020 COVID-19 vaccine, ag e 12+ yr (PFIZER-BIONTECH - PURPLE TOP) Katty Duenas APRN.TRANSVERSE ABDOMINAL MUSCLE SURGEON Work Phone: [facility] 08-08-2020 COVID-19 vaccine, ag e 12+ yr (PFIZER-BIONTECH - PURPLE TOP) Katty Duenas APRN.TRANSVERSE ABDOMINAL MUSCLE SURGEON Work Phone: [facility] 04-15-2020 influenza, injectabl e, quadrivalent, preservative free Katty Duenas APRN.TRANSVERSE ABDOMINAL MUSCLE SURGEON Work Phone: [facility] 01-03-2020 tetanus toxoid, redu khadar diphtheria toxoid, and acellular pertussis vaccine, adsorbed Katty Duenas APRN.TRANSVERSE ABDOMINAL MUSCLE SURGEON Work Phone: [facility] 12-07-2018 pneumococcal polysaccharide vaccine, 23 valent Katty Matthew BUGGYMAN.TRANSVERSE ABDOMINAL MUSCLE SURGEON Work Phone: [facility] 02-23-2018 influenza, seasonal, injectable, preservative free Katty Matthew BUGGYMAN.TRANSVERSE ABDOMINAL MUSCLE SURGEON Work Phone: [facility] 02-23-2018 seasonal influenza, intradermal, preservative free Katty Matthew BUGGYMAN.TRANSVERSE ABDOMINAL MUSCLE SURGEON Work Phone: [facility] 02-17-2017 influenza, seasonal, injectable, preservative free Katty Matthew BUGGYMAN.TRANSVERSE ABDOMINAL MUSCLE SURGEON Work Phone: [facility] 02-17-2017 seasonal influenza, intradermal, preservative free Katty Matthew BUGGYMAN.TRANSVERSE ABDOMINAL MUSCLE SURGEON Work Phone: [facility] 02-13-2007 tetanus and diphther ia toxoids, adsorbed, preservative free, for adult use (5 Lf of tetanus toxoid and 2 Lf of diphtheria toxoid) Katty Matthew BUGGYMAN.TRANSVERSE ABDOMINAL MUSCLE SURGEON Work Phone: [facility] Payers Date Payer Category Payer Private Health Insurance [id number] 2022 Medicare [id number] 2022 Medicare (Managed Care) [employer] ADV[employer]AGE [id number] 2022 Medicaid [id number] 2022 Private Health Insurance [id number] 2022 Self-pay [id number] 2020 Private Health Insurance [facility] [employer] GENERIC [id number] 2020-Present [phone] [address] [address] [place] [address] PPO [id number] 2020 Private Health Insurance [id number] 2019 Medicaid [facility] MEDICAID [facility] [employer] MEDICAID [id number] 2019-Present [phone] [address] [place] [address] Medicaid [id number] 2019 Medicaid [id number] 1961 Unknown [id number] 2.16.840.1.465096.3.579.2. 593 1961 Unknown [id number] 2.16.840.1.383355.3.579.2. 593 1961 Unknown [id number] 2.16.840.1.535859.3.579.2. 593 1961 Unknown [id number] 2.16.840.1.394697.3.579.2. 593 1961 Unknown [id number] 2.16.840.1.265477.3.579.2. 593 1961 Unknown [id number] 2.16.840.1.289045.3.579.2. 593 1961 Unknown [id number] 2.16.840.1.964671.3.579.2. 593 1961 Unknown [id number] 2.16.840.1.385012.3.579.2. 727 1961 Unknown [id number] 2.16.840.1.915635.3.579.2. 727 1961 Unknown [id number] 2.16.840.1.832445.3.579.2. 1259 1961 Unknown [id number] 2.16.840.1.516639.3.579.2. 1259 1961 Unknown [id number] 2.16.840.1.702041.3.579.2. 1259 1961 Unknown [id number] 2.16.840.1.878102.3.579.2. 1259 1961 Unknown [id number] 2.16.840.1.057603.3.579.2. 1259 1961 Unknown [id number] 2.16.840.1.339968.3.579.2. 1259 1961 Unknown [id number] 2.16.840.1.352896.3.579.2. 1259 1959 Unknown [id number] 2.16.840.1.763597.19 1959 Unknown [id number] 2.16.840.1.005184. 1959 Unknown [id number] Private Health Insurance [facility] [id number] Unknown [id number] 2.16.840.1.298222.3.579.2. 531 Unknown [id number] [id number]. 531 Social History Date Type Detail Facility Start: 12-21-2012 End: 12-16-2023 Tobacco smoking status ORIS Smokes tobacco daily [facility] End: 04-12-2011 History of tobacco use Cigarette Smoker [facility] Start: 12-21-2012 End: 06-01-2023 Cigarettes smoked current (pack per day) - Reported 1 [facility] Start: 12-21-2012 End: 12-16-2023 Tobacco use and exposure Smokeless tobacco non-user [facility] Start: 03-19-2021 End: 03-02-2024 Alcohol intake Current drinker of alcohol (finding) [facility] Start: 04-24-2020 History SDOH Alcohol Comment rarely [facility] Start: 1960 Sex Assigned At Male C [facility] Start: 07-02-2020 End: 02-27-2022 Exposure to SARS-CoV-2 (event) Not sure [facility] Start: 10-27-2022 End: 06-01-2023 Sex Assigned At [employer] [employer] Other Start: 06-17-2021 End: 02-21-2024 Tobacco smoking status Heavy tobacco smoker (finding) [facility] [employer] Adult Depression Screening Assessment 0 [facility] Start: 01-05-2021 Gender identity Identifies as male gender (finding) [facility] Start: 01-05-2021 Sexual orientation Heterosexual (fin magui) [facility] Start: 11-03-2023 Tobacco smoking status NHIS Smoker (finding) [facility] History of tobacco use Cigar Smoker [facility] Within the last year , have you been afraid of your partner or ex-partner? No [facility] Are you now , , , , never or living with a partner? [facility] How often to you hav e a drink containing alcohol? 2-3 time sa week [facility] How many standard drinks containing alcohol do you have on a typical day? 5 or 6 [facility] How often do you hav e 6 or more drinks on 1 occasion? Weekly [facility] How hard is it for you to pay for the very basics like food, housing, medical care, and heating Somewhat hard [facility] Do you feel stress - tense, restless, nervous, or anxious, or unable to sleep at night because your mind is troubled all the time - these days [OSQ] To some extent [facility] (I/We) worried whether (my/our) food would run out before (I/we) got money to buy more. Sometimes true [facility] Start: 03-02-2023 Tobacco Comment 11-20 cigarettes/day [facility] Start: 03-02-2023 Alcohol Comment 5-6 drinks 2-3 times a week, caffeine: coffee,soda [facility] NEGATED: Highlighted rowStart: NINF History of tobacco use Passive smoker [facility] Goals Date Patient Goal Desired Activity /State Functional Status Date Assessment Result Facility 02-21-2024 Functional Status N/A [facility] Clinical Notes 06-17-2021 to 03-02-2024 JANUARY Weiner - 03/02/2024 1:20 PM Trudy Soria RN - 12/23/2023 1:01 PM Trudy Soria RN - 12/23/2023 1:01 PM May Curtis MD - 12/23/2023 1:00 PM EDTPatient Instructions Note Date & Type Note Facility 03-02-2024 History of Present illness Narrative Images from the original note were not included. Lesions: Location: scalp and neck Duration: years Quality: denies pain, denies itch, denies bleeding Associated symptoms: non-healing, rough Treatments: none New patient All pertinent medical history, medications, and allergies were reviewed. General Exam: alert, oriented to person, place, and time, normal affect, well appearing Unaccompanied A focused exam completed based on patient reported problems, see below: 1. Actinic keratosis (7) Mid Occipital Scalp (4), Mid Parietal Scalp (3) Erythematous scaly papules Patient was counseled regarding these sun-induced growths that can develop into squamous cell carcinoma if left untreated. Discussed treatment with cryotherapy. It was emphasized that any treated lesions that fail to resolve should be re-evaluated. 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 Method: Liquid nitrogen was used to treat the lesion(s) with two 5-10 second freeze-thaw cycles. Number of lesions treated: 7 Post-procedure instructions: Instructions were given orally and in writing. The office will be contacted if the lesion fails to resolve despite treatment, or if a side effect develops such as abnormal crusting, scabbing, redness or tenderness Cryotherapy, skin lesion - Mid Occipital Scalp (4), Mid Parietal Scalp (3) 2. Seborrheic keratosis (2) Right Forehead, Right Frontal Scalp Stuck on verrucous, singleton-brown papules and plaques. Patient was counseled regarding these benign growths. Removal is normally not necessary, but they may be removed if they are symptomatic or for cosmetic reasons. 3. Epidermal inclusion cyst Right Anterior Neck 0.8 x 0.6 cm erythematous, subcutaneous nodule Patient was counseled regarding cysts. Although benign, cysts often slowly enlarge and can occasionally become inflamed. Discussed the only way to definitively diagnose the lesion would be to have it removed and tested. Discussed treatment options including observation vs. excision. Patient elected for excision. Reviewed procedure and what to expect. Patient informed that the office will contact them to schedule a 30 minute excision once an estimate of their co-pay is determined. He is aware that we are booking out until June for cyst removal. Next Visit: prn for any new/changing lesions documented in this encounter [facility] 02-21-2024 Hospital Discharge instructions Patient Education 02/21/2024 12:17:01 Cystoscopy Cystoscopy Cystoscopy is a procedure that is used to help diagnose and sometimes treat conditions that affect the lower urinary tract. The lower urinary tract includes the bladder and the urethra. The urethra is the tube that drains urine from the bladder. Cystoscopy is done using a thin, tube-shaped instrument with a light and camera at the end (cystoscope). The cystoscope may be hard or flexible, depending on the goal of the procedure. The cystoscope is inserted through the urethra, into the bladder. Cystoscopy may be recommended if you have: Urinary tract infections that keep coming back. Blood in the urine (hematuria). An inability to control when you urinate (urinary incontinence) or an overactive bladder. Unusual cells found in a urine sample. A blockage in the urethra, such as a urinary stone. Painful urination. An abnormality in the bladder found during an intravenous pyelogram (IVP) or CT scan. Cystoscopy may also be done to remove a sample of tissue to be examined under a microscope (biopsy). Tell a health care provider about: Any allergies you have. All medicines you are taking, including vitamins, herbs, eye drops, creams, and [id number] medicines. Any problems you or family members have had with anesthetic medicines. Any blood disorders you have. Any surgeries you have had. Any medical conditions you have. Whether you are or may be . What are the risks? Generally, this is a safe procedure. However, problems may occur, including: Infection. Bleeding. Allergic reactions to medicines. Damage to other structures or organs. What happens before the procedure? Medicines Ask your health care provider about: Changing or stopping your regular medicines. This is especially important if you are taking diabetes medicines or blood thinners. Taking medicines such as aspirin and ibuprofen. These medicines can thin your blood. Do not take these medicines unless your health care provider tells you to take them. Taking [id number] medicines, vitamins, herbs, and supplements. Tests You may have an exam or testing, such as: X-rays of the bladder, urethra, or kidneys. CT scan of the abdomen or pelvis. Urine tests to check for signs of infection. General instructions Follow instructions from your health care provider about eating or drinking restrictions. Ask your health care provider what steps will be taken to help prevent infection. These steps may include: ?Washing skin with a germ-killing soap. ?Taking antibiotic medicine. Plan to have a responsible adult take you home from the hospital or clinic. What happens during the procedure? You will be given one or more of the following: ?A medicine to help you relax (sedative). ?A medicine to numb the area (local anesthetic). The area around the opening of your urethra will be cleaned. The cystoscope will be passed through your urethra into your bladder. Germ-free (sterile) fluid will flow through the cystoscope to fill your bladder. The fluid will stretch your bladder so that your health care provider can clearly examine your bladder monae. Your doctor will look at the urethra and bladder. Your doctor may take a biopsy or remove stones. The cystoscope will be removed, and your bladder will be emptied. The procedure may vary among health care providers and hospitals. What can I expect after the procedure? After the procedure, it is common to have: Some soreness or pain in your abdomen and urethra. Urinary symptoms. These include: ?Mild pain or burning when you urinate. Pain should stop within a few minutes after you urinate. This may last for up to 1 week. ?A small amount of blood in your urine for several days. ?Feeling like you need to urinate but producing only a small amount of urine. Follow these instructions at home: Medicines Take imfu-oxh-zqmknmf and prescription medicines only as told by your health care provider. If you were prescribed an antibiotic medicine, take it as told by your health care provider. Do not stop taking the antibiotic even if you start to feel better. General instructions Return to your normal activities as told by your health care provider. Ask your health care provider what activities are safe for you. If you were given a sedative during the procedure, it can affect you for several hours. Do not drive or operate machinery until your health care provider says that it is safe. Watch for any blood in your urine. If the amount of blood in your urine increases, call your health care provider. Follow instructions from your health care provider about eating or drinking restrictions. If a tissue sample was removed for testing (biopsy) during your procedure, it is up to you to get your test results. Ask your health care provider, or the department that is doing the test, when your results will be ready. Drink enough fluid to keep your urine pale yellow. Keep all follow-up visits. This is important. Contact a health care provider if: You have pain that gets worse or does not get better with medicine, especially pain when you urinate. You have trouble urinating. You have more blood in your urine. Get help right away if: You have blood clots in your urine. You have abdominal pain. You have a fever or chills. You are unable to urinate. Summary Cystoscopy is a procedure that is used to help diagnose and sometimes treat conditions that affect the lower urinary tract. Cystoscopy is done using a thin, tube-shaped instrument with a light and camera at the end. After the procedure, it is common to have some soreness or pain in your abdomen and urethra. Watch for any blood in your urine. If the amount of blood in your urine increases, call your health care provider. If you were prescribed an antibiotic medicine, take it as told by your health care provider. Do not stop taking the antibiotic even if you start to feel better. This information is not intended to replace advice given to you by your health care provider. Make sure you discuss any questions you have with your health care provider. Document Revised: 01/07/2022 Document Reviewed: 12/06/2020 [employer] Patient Education 2023 [employer]. 02/21/2024 12:16:59 Benign Prostatic Hyperplasia Benign Prostatic Hyperplasia Benign prostatic hyperplasia (BPH) is an enlarged prostate gland that is caused by the normal aging process. The prostate may get bigger as a man gets older. The condition is not caused by cancer. The prostate is a walnut-sized gland that is involved in the production of semen. It is located in front of the rectum and below the bladder. The bladder stores urine. The urethra carries stored urine out of the body. An enlarged prostate can press on the urethra. This can make it harder to pass urine. The buildup of urine in the bladder can cause infection. Back pressure and infection may progress to bladder damage and kidney (renal) failure. What are the causes? This condition is part of the normal aging process. However, not all men develop problems from this condition. If the prostate enlarges away from the urethra, urine flow will not be blocked. If it enlarges toward the urethra and compresses it, there will be problems passing urine. What increases the risk? This condition is more likely to develop in men older than 50 years. What are the signs or symptoms? Symptoms of this condition include: Getting up often during the night to urinate. Needing to urinate frequently during the day. Difficulty starting urine flow. Decrease in size and strength of your urine stream. Leaking (dribbling) after urinating. Inability to pass urine. This needs immediate treatment. Inability to completely empty your bladder. Pain when you pass urine. This is more common if there is also an infection. Urinary tract infection (UTI). How is this diagnosed? This condition is diagnosed based on your medical history, a physical exam, and your symptoms. Tests will also be done, such as: A post-void bladder scan. This measures any amount of urine that may remain in your bladder after you finish urinating. A digital rectal exam. In a rectal exam, your health care provider checks your prostate by putting a lubricated, gloved finger into your rectum to feel the back of your prostate gland. This exam detects the size of your gland and any abnormal lumps or growths. An exam of your urine (urinalysis). A prostate specific antigen (PSA) screening. This is a blood test used to screen for prostate cancer. An ultrasound. This test uses sound waves to electronically produce a picture of your prostate gland. Your health care provider may refer you to a specialist in kidney and prostate diseases (urologist). How is this treated? Once symptoms begin, your health care provider will monitor your condition (active surveillance or watchful waiting). Treatment for this condition will depend on the severity of your condition. Treatment may include: Observation and yearly exams. This may be the only treatment needed if your condition and symptoms are mild. Medicines to relieve your symptoms, including: ?Medicines to shrink the prostate. ?Medicines to relax the muscle of the prostate. Surgery in severe cases. Surgery may include: ?Prostatectomy. In this procedure, the prostate tissue is removed completely through an open incision or with a laparoscope or robotics. ?Transurethral resection of the prostate (TURP). In this procedure, a tool is inserted through the opening at the tip of the penis (urethra). It is used to cut away tissue of the inner core of the prostate. The pieces are removed through the same opening of the penis. This removes the blockage. ?Transurethral incision (TUIP). In this procedure, small cuts are made in the prostate. This lessens the prostate's pressure on the urethra. ?Transurethral microwave thermotherapy (TUMT). This procedure uses microwaves to create heat. The heat destroys and removes a small amount of prostate tissue. ?Transurethral needle ablation (TUNA). This procedure uses radio frequencies to destroy and remove a small amount of prostate tissue. ?Interstitial laser coagulation (ILC). This procedure uses a laser to destroy and remove a small amount of prostate tissue. ?Transurethral electrovaporization (TUVP). This procedure uses electrodes to destroy and remove a small amount of prostate tissue. ?Prostatic urethral lift. This procedure inserts an implant to push the lobes of the prostate away from the urethra. Follow these instructions at home: Take domi-qqw-imiihma and prescription medicines only as told by your health care provider. Monitor your symptoms for any changes. Contact your health care provider with any changes. Avoid drinking large amounts of liquid before going to bed or out in public. Avoid or reduce how much caffeine or alcohol you drink. Give yourself time when you urinate. Keep all follow-up visits. This is important. Contact a health care provider if: You have unexplained back pain. Your symptoms do not get better with treatment. You develop side effects from the medicine you are taking. Your urine becomes very dark or has a bad smell. Your lower abdomen becomes distended and you have trouble passing urine. Get help right away if: You have a fever or chills. You suddenly cannot urinate. You feel light-headed or very dizzy, or you faint. There are large amounts of blood or clots in your urine. Your urinary problems become hard to manage. You develop moderate to severe low back or flank pain. The flank is the side of your body between the ribs and the hip. These symptoms may be an emergency. Get help right away. Call 911. Do not wait to see if the symptoms will go away. Do not drive yourself to the hospital. Summary Benign prostatic hyperplasia (BPH) is an enlarged prostate that is caused by the normal aging process. It is not caused by cancer. An enlarged prostate can press on the urethra. This can make it hard to pass urine. This condition is more likely to develop in men older than 50 years. Get help right away if you suddenly cannot urinate. This information is not intended to replace advice given to you by your health care provider. Make sure you discuss any questions you have with your health care provider. Document Revised: 11/12/2021 Document Reviewed: 11/12/2021 [employer] Patient Education 2023 [employer]. Follow Up Care 01/03/2024 10:55:06 With:SALMA CHAVARRIA, Jacky Mckinney, URL Address: [facility] [address] [place] [address]- [phone] When: Unknown [facility] 02-21-2024 Note Patient Education Urology Cystoscopy Cystoscopy is a procedure that is used to help diagnose and sometimes treat conditions that affect the lower urinary tract. The lower urinary tract includes the bladder and the urethra. The urethra is the tube that drains urine from the bladder. Cystoscopy is done using a thin, tube-shaped instrument with a light and camera at the end (cystoscope). The cystoscope may be hard or flexible, depending on the goal of the procedure. The cystoscope is inserted through the urethra, into the bladder. Cystoscopy may be recommended if you have: ? Urinary tract infections that keep coming back. ? Blood in the urine (hematuria). ? An inability to control when you urinate (urinary incontinence) or an overactive bladder. ? Unusual cells found in a urine sample. ? A blockage in the urethra, such as a urinary stone. ? Painful urination. ? An abnormality in the bladder found during an intravenous pyelogram (IVP) or CT scan. Cystoscopy may also be done to remove a sample of tissue to be examined under a microscope (biopsy). Tell a health care provider about: ? Any allergies you have. ? All medicines you are taking, including vitamins, herbs, eye drops, creams, and ravv-wly-wkuyikz medicines. ? Any problems you or family members have had with anesthetic medicines. ? Any blood disorders you have. ? Any surgeries you have had. ? Any medical conditions you have. ? Whether you are or may be . What are the risks? Generally, this is a safe procedure. However, problems may occur, including: ? Infection. ? Bleeding. ? Allergic reactions to medicines. ? Damage to other structures or organs. What happens before the procedure? Medicines Ask your health care provider about: ? Changing or stopping your regular medicines. This is especially important if you are taking diabetes medicines or blood thinners. ? Taking medicines such as aspirin and ibuprofen. These medicines can thin your blood. Do not take these medicines unless your health care provider tells you to take them. ? Taking paik-grt-akzbmlc medicines, vitamins, herbs, and supplements. Tests You may have an exam or testing, such as: ? X-rays of the bladder, urethra, or kidneys. ? CT scan of the abdomen or pelvis. ? Urine tests to check for signs of infection. General instructions ? Follow instructions from your health care provider about eating or drinking restrictions. ? Ask your health care provider what steps will be taken to help prevent infection. These steps may include: ? Washing skin with a germ-killing soap. ? Taking antibiotic medicine. ? Plan to have a responsible adult take you home from the hospital or clinic. What happens during the procedure? ? You will be given one or more of the following: ? A medicine to help you relax (sedative). ? A medicine to numb the area (local anesthetic). ? The area around the opening of your urethra will be cleaned. ? The cystoscope will be passed through your urethra into your bladder. ? Germ-free (sterile) fluid will flow through the cystoscope to fill your bladder. The fluid will stretch your bladder so that your health care provider can clearly examine your bladder monae. ? Your doctor will look at the urethra and bladder. Your doctor may take a biopsy or remove stones. ? The cystoscope will be removed, and your bladder will be emptied. The procedure may vary among health care providers and hospitals. What can I expect after the procedure? After the procedure, it is common to have: ? Some soreness or pain in your abdomen and urethra. ? Urinary symptoms. These include: ? Mild pain or burning when you urinate. Pain should stop within a few minutes after you urinate. This may last for up to 1 week. ? A small amount of blood in your urine for several days. ? Feeling like you need to urinate but producing only a small amount of urine. Follow these instructions at home: Medicines ? Take vkdc-icv-ofetnbu and prescription medicines only as told by your health care provider. ? If you were prescribed an antibiotic medicine, take it as told by your health care provider. Do not stop taking the antibiotic even if you start to feel better. General instructions ? Return to your normal activities as told by your health care provider. Ask your health care provider what activities are safe for you. ? If you were given a sedative during the procedure, it can affect you for several hours. Do not drive or operate machinery until your health care provider says that it is safe. ? Watch for any blood in your urine. If the amount of blood in your urine increases, call your health care provider. ? Follow instructions from your health care provider about eating or drinking restrictions. ? If a tissue sample was removed for testing (biopsy) during your procedure, it is up to you to get your test results. Ask your health care provider, (more content not included)... [facility] 12-23-2023 Nurse Note MADI Davila RN [facility] 12-23-2023 Nurse Note MADI Davila RN documented in this encounter [facility] 12-23-2023 History of Present illness Narrative Radiation Oncology - Follow Up Note PATIENT NAME: Constantino Duval PATIENT DIAGNOSIS: Prostate adenocarcinoma, initial PSA 28.36, biopsy Amy score 4 + 3 = 7 (grade group 3), clinical stage T2b, N0, M0, stage IIIA [T1-T2, N0, M0, PSA >=20, GG 1-4] (AJCC 8th ed.), s/p TRUS Random biopsy. RADIATION SUMMARY: DATES OF TREATMENT: Pelvic external beam treatment 05/20/20-06/21/20 Prostate brachytherapy implant 07/31/2020 AREA TREATED: Prostate and pelvis DELIVERED DOSE: Area: Pelvis 45 Gy in 25 fractions,3 Arcs, IMRT with rapid arc , 10MV with daily CBCT Area: Prostate 100 Gy Pd-103, 30 sources, 14 needles, 78.75 mCi INTERVAL HISTORY: Doing well. Patient had some recent abdominal discomfort underwent CT scan without remarkable findings other than some thickening of the bladder. Otherwise doing well. 10/08/21:Doing fairly well. Has had some lower abdominal pain and rectal discomfort. Mostly relieved by BMs. No blood per rectum. Occasional diarrhea. Otherwise no new problems PSA HISTORY: PSA (ng/mL) Date Value 12/21/2023 0.06 PSA. (no units) Date Value 06/14/2023 0.14 12/11/2022 <0.13 06/09/2022 <0.13 02/09/2022 <0.13 02/09/22 Testosterone <3 12/11/2022 Testosterone 338 at ALLERGIES Allergen Reactions Tapazole [Methimazo* Anaphylaxis rash, itching throat was closing Gabapentin Other: See Comments Other Reaction(s): Weakness,Dizziness, Nausea Leflunomide Diarrhea, GI Upset, Intolerance, Other: See Comments, Shortness of Breath Methotrexate GI Upset nausea , vomiting, dizziness Czyvqzi-Fdw-Xki Red* Other: See Comments Leg pain hydrOXYchloroQUINE (PLAQUENIL) 200 mg tablet take 1 tablet by mouth twice a day with food. Continue yearly retinal eye exam with eye doctor. tamsulosin (FLOMAX) 0.4 mg Take 1 capsule by mouth two times a day. clobetasol (TEMOVATE) 0.05 % cream Apply to affected area twice daily. APPLY TO AFFECTED AREA Sodium Fluoride 1.1 % BRUSH A PEA SIZED AMOUNT ON TEETH at bedtime (NO FOOD OR WATER 30 MINUTES AFTER,) jjoymy-trjb-lqbj-levomef-silic 10-50-500-0.5 mg cap Take 1 tablet by mouth. cholecalciferol (VITAMIN D3) 1,000 unit tab tablet Take 1 tablet by mouth once daily. liothyronine (CYTOMEL) 25 mcg tablet Take 25 mcg by mouth once daily. levothyroxine 150 mcg cap Take 150 mcg by mouth daily before breakfast. ALPRAZolam (XANAX) 0.25 mg tablet Take 0.25 mg by mouth twice daily as needed. busPIRone (BUSPAR) 10 mg tablet Take 20 mg by mouth twice daily. atenolol 50 mg tablet Take by mouth once daily. 50 mg.once daily Multivitamin ORAL capsule Take 1 capsule by mouth once daily. albuterol HFA (VENTOLIN HFA) 90 mcg/actuation inhaler Inhale 2 Puffs as instructed every 4 hours as needed for wheezing/shortness of breath. REVIEW OF SYSTEMS: D/N = 6/2 AUA = 16 Hematuria: none Dysuria: none Incontinence: none Urgency:Mild to moderate Catheter use: none Medications to aid urination: y Flomax twice daily Bowel movement frequency: 1-3/day Bowel movement quality: Occasional diarrhea Blood per rectum: none Androgen deprivation: Lupron. Last treatment 05/2021 PHYSICAL EXAM: BP 117/76 Pulse 82 Temp 36.2 C (97.1 F) Resp 18 Wt 92.8 kg (204 lb 9.4 oz) SpO2 100% BMI 28.86 kg/m KPS: 100 General appearance: Alert and oriented. No acute distress. Rectal exam def Extremities: No deformities, edema, skin discoloration, clubbing or cyanosis. Lymph Nodes: No cervical lymphadenopathy, No supraclavicular lymphadenopathy, No axillary lymphadenopathy. Skin: Skin color, texture, turgor normal, no suspicious rashes or lesions. ASSESSMENT/PLAN: Prostate adenocarcinoma, initial PSA 28.36, biopsy Amy score 4 + 3 = 7 (grade group 3), clinical stage T2b, N0, M0, stage IIIA [T1-T2, N0, M0, PSA >=20, GG 1-4] (AJCC 8th ed.), s/p pelvic radiation followed by prostate brachytherapy 07/31/2020. Doing well. PSA remains low actually decreased from last visit. He has some questionable changes on CT scan of his bladder unclear significance. Patient will see his urologist regarding this. Otherwise recommend continued PSA surveillance. Signed by: May Mcneil MD cc: Efren Castillo II, MD [address] [place] [address] Portions of the above note extracted and edited from previous visit as well as active information included in the EMR. documented in this encounter [facility] 12-23-2023 Note HNO ID: [id number] Author: May MCNEIL MD Service: ? Author Type: Physician Type: Progress Notes Filed: 12/23/2023 13:31 Note Text: Radiation Oncology - Follow Up Note PATIENT NAME: Constantino Duval PATIENT DIAGNOSIS: Prostate adenocarcinoma, initial PSA 28.36, biopsy [place] score 4 + 3 = 7 (grade group 3), clinical stage T2b, N0, M0, stage IIIA [T1-T2, N0, M0, PSA >=20, GG 1-4] (AJCC 8th ed.), s/p TRUS Random biopsy. RADIATION SUMMARY: DATES OF TREATMENT: Pelvic external beam treatment 05/20/20-06/21/20 Prostate brachytherapy implant 07/31/2020 AREA TREATED: Prostate and pelvis DELIVERED DOSE: Area: Pelvis 45 Gy in 25 fractions,3 Arcs, IMRT with rapid arc , 10MV with daily CBCT Area: Prostate 100 Gy Pd-103, 30 sources, 14 needles, 78.75 mCi INTERVAL HISTORY: Doing well. Patient had some recent abdominal discomfort underwent CT scan without remarkable findings other than some thickening of the bladder. Otherwise doing well. 10/08/21:Doing fairly well. Has had some lower abdominal pain and rectal discomfort. Mostly relieved by BMs. No blood per rectum. Occasional diarrhea. Otherwise no new problems PSA HISTORY: PSA (ng/mL) Date Value 12/21/2023 0.06 PSA. (no units) Date Value 06/14/2023 0.14 12/11/2022 <0.13 06/09/2022 <0.13 02/09/2022 <0.13 02/09/22 Testosterone <3 12/11/2022 Testosterone 338 at ALLERGIES Allergen Reactions Tapazole [Methimazo* Anaphylaxis rash, itching throat was closing Gabapentin Other: See Comments Other Reaction(s): Weakness,Dizziness, Nausea Leflunomide Diarrhea, GI Upset, Intolerance, Other: See Comments, Shortness of Breath Methotrexate GI Upset nausea , vomiting, dizziness Rlyvqip-Xhs-Lby Red* Other: See Comments Leg pain hydrOXYchloroQUINE (PLAQUENIL) 200 mg tablet take 1 tablet by mouth twice a day with food. Continue yearly retinal eye exam with eye doctor. tamsulosin (FLOMAX) 0.4 mg Take 1 capsule by mouth two times a day. clobetasol (TEMOVATE) 0.05 % cream Apply to affected area twice daily. APPLY TO AFFECTED AREA Sodium Fluoride 1.1 % BRUSH A PEA SIZED AMOUNT ON TEETH at bedtime (NO FOOD OR WATER 30 MINUTES AFTER,) mjqwxh-ffth-gtpw-levomef-silic 10-50-500-0.5 mg cap Take 1 tablet by mouth. cholecalciferol (VITAMIN D3) 1,000 unit tab tablet Take 1 tablet by mouth once daily. liothyronine (CYTOMEL) 25 mcg tablet Take 25 mcg by mouth once daily. levothyroxine 150 mcg cap Take 150 mcg by mouth daily before breakfast. ALPRAZolam (XANAX) 0.25 mg tablet Take 0.25 mg by mouth twice daily as needed. busPIRone (BUSPAR) 10 mg tablet Take 20 mg by mouth twice daily. atenolol 50 mg tablet Take by mouth once daily. 50 mg.once daily Multivitamin ORAL capsule Take 1 capsule by mouth once daily. albuterol HFA (VENTOLIN HFA) 90 mcg/actuation inhaler Inhale 2 Puffs as instructed every 4 hours as needed for wheezing/shortness of breath. REVIEW OF SYSTEMS: D/N = 6/2 AUA = 16 Hematuria: none Dysuria: none Incontinence: none Urgency:Mild to moderate Catheter use: none Medications to aid urination: y Flomax twice daily Bowel movement frequency: 1-3/day Bowel movement quality: Occasional diarrhea Blood per rectum: none Androgen deprivation: Lupron. Last treatment 05/2021 PHYSICAL EXAM: BP 117/76 Pulse 82 Temp 36.2 ?C (97.1 ?F) Resp 18 Wt 92.8 kg (204 lb 9.4 oz) SpO2 100% BMI 28.86 kg/m? KPS: 100 General appearance: Alert and oriented. No acute distress. Rectal exam def Extremities: No deformities, edema, skin discoloration, clubbing or cyanosis. Lymph Nodes: No cervical lymphadenopathy, No supraclavicular lymphadenopathy, No axillary lymphadenopathy. Skin: Skin color, texture, turgor normal, no suspicious rashes or lesions. ASSESSMENT/PLAN: Prostate adenocarcinoma, initial PSA 28.36, biopsy Amy score 4 + 3 = 7 (grade group 3), clinical stage T2b, N0, M0, stage IIIA [T1-T2, N0, M0, PSA >=20, GG 1-4] (AJCC 8th ed.), s/p pelvic radiation followed by prostate brachytherapy 07/31/2020. Doing well. PSA remains low actually decreased from last visit. He has some questionable changes on CT scan of his bladder unclear significance. Patient will see his urologist regarding this. Otherwise recommend continued PSA surveillance. Signed by: May Mcneil MD cc: Efren Castillo II, MD [address] [place] [address] Portions of the above note extracted and edited from previous visit as well as active information included in the EMR. [facility] 11-18-2023 Telephone encounter Note Rx printed/written and mailed to patient. [facility] 11-18-2023 Miscellaneous Notes Rx printed/written and mailed to patient. Printed please process for patient Plaquenil on refill encounter please advise of handicap placard - pending review - expiring in January will postpone until provider is back in office documented in this encounter [facility] 11-17-2023 Telephone encounter Note Printed please process for patient [facility] 11-08-2023 Telephone encounter Note Left message for patient to call office regarding below. [facility] 11-08-2023 Miscellaneous Notes Left message for patient to call office regarding below. Images from the original note were not included. Refill completed, but system alerted the following DDI Please advise patient of the following warning with his hydrOXYzine : The concurrent use of hydroxyzine with agents that prolong the QTc interval may result in potentially life-threatening cardiac arrhythmias, including torsades de pointes. I recommend that he discuss this with his prescribing physician the drug drug interaction with his hydroxychloroquine. If his prescribing physician cannot stop his hydroxyzine then they need to monitor his EKG yearly to ensure there is no prolonged QTc interval. If he is no longer taking it please delete it from his medication list. thank you kindly, [facility] electronically requests the following refill(s) Requested Prescriptions Pending Prescriptions Disp Refills hydrOXYchloroQUINE (PLAQUENIL) 200 mg tablet [Pharmacy Med Name: HYDROXYCHLOROQUINE 200 MG TAB] 60 tablet 3 Sig: take 1 tablet by mouth twice a day with food last eye exam 03/10/2023 ( scanned in chart ) Natalee Huertas MA Most recent Rheumatology visit: 07/02/2023 (with Katty Duenas) Rheumatology Care Team: None on file Recent Office Visits - This Specialty 07/02/2023 Seropositive rheumatoid arthritis (HCC) Rheumatology Katty Duenas, BUGGYMAN.TRANSVERSE ABDOMINAL MUSCLE SURGEON 01/07/2023 Seropositive rheumatoid arthritis (HCC) Rheumatology Katty Duenas, BUGGYMAN.TRANSVERSE ABDOMINAL MUSCLE SURGEON 09/18/2022 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) Rheumatology Katty Duenas, BUGGYMAN.TRANSVERSE ABDOMINAL MUSCLE SURGEON Upcoming Rheumatology Appointments - Next 365 Days Visit Type Date Time Department [facility] 12/14/2023 2:00 PM [facility] Last Ophthalmology Check for Plaquenil (Hydroxychloroquine) Last OCT Macula Exam No resulted procedures found. Last Visual Field Exam No resulted procedures found. CBC: None on file in the last 6 months Vitamin D: None on file in the last 6 months LFT: None on file in the last 6 months Hepatic Function: Creatinine: None on file in the last 6 months ESR/CRP: None on file in the last 6 months Uric Acid: None on file in the last 6 months Open Standing (Multiple Instance) Lab Orders None Open Future (Single Instance) Lab Orders Expected Expires Ordered PSA/PROSTSPECAG DIAG [SQPSA] 12/23/23 03/23/24 06/24/23 Auth. provider: May Mcneil MD Assoc. diagnoses: Malignant neoplasm of prostate (HCC) TESTOSTERONE TOTAL [SQTESTO] 12/23/23 03/23/24 06/24/23 Auth. provider: May Mcneil MD Assoc. diagnoses: Malignant neoplasm of prostate (HCC) documented in this encounter [facility] 11-08-2023 Telephone encounter Note Images from the original note were not included. Refill completed, but system alerted the following DDI Please advise patient of the following warning with his hydrOXYzine : The concurrent use of hydroxyzine with agents that prolong the QTc interval may result in potentially life-threatening cardiac arrhythmias, including torsades de pointes. I recommend that he discuss this with his prescribing physician the drug drug interaction with his hydroxychloroquine. If his prescribing physician cannot stop his hydroxyzine then they need to monitor his EKG yearly to ensure there is no prolonged QTc interval. If he is no longer taking it please delete it from his medication list. thank you kindly, fa [facility] 11-08-2023 Telephone encounter Note Plaquenil on refill encounter please advise of kylee pinedo - pending review - expiring in January will postpone until provider is back in office [facility] 11-08-2023 Telephone encounter Note Pharmacy electronically requests the following refill(s) Requested Prescriptions Pending Prescriptions Disp Refills hydrOXYchloroQUINE (PLAQUENIL) 200 mg tablet [Pharmacy Med Name: HYDROXYCHLOROQUINE 200 MG TAB] 60 tablet 3 Sig: take 1 tablet by mouth twice a day with food last eye exam 03/10/2023 ( scanned in chart ) Natalee Huertas MA Most recent Rheumatology visit: 07/02/2023 (with Katty Duenas) Rheumatology Care Team: None on file Recent Office Visits - This Specialty 07/02/2023 Seropositive rheumatoid arthritis (HCC) Rheumatology Katty Duenas, BUGGYMAN.TRANSVERSE ABDOMINAL MUSCLE SURGEON 01/07/2023 Seropositive rheumatoid arthritis (HCC) Rheumatology Katty Duenas, BUGGYMAN.TRANSVERSE ABDOMINAL MUSCLE SURGEON 09/18/2022 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) Rheumatology Katty Duenas, BUGGYMAN.TRANSVERSE ABDOMINAL MUSCLE SURGEON Upcoming Rheumatology Appointments - Next 365 Days Visit Type Date Time Department [facility] 12/14/2023 2:00 PM [facility] Last Ophthalmology Check for Plaquenil (Hydroxychloroquine) Last OCT Macula Exam No resulted procedures found. Last Visual Field Exam No resulted procedures found. CBC: None on file in the last 6 months Vitamin D: None on file in the last 6 months LFT: None on file in the last 6 months Hepatic Function: Creatinine: None on file in the last 6 months ESR/CRP: None on file in the last 6 months Uric Acid: None on file in the last 6 months Open Standing (Multiple Instance) Lab Orders None Open Future (Single Instance) Lab Orders Expected Expires Ordered PSA/PROSTSPECAG DIAG [SQPSA] 12/23/23 03/23/24 06/24/23 Auth. provider: May Mcneil MD Assoc. diagnoses: Malignant neoplasm of prostate (HCC) TESTOSTERONE TOTAL [SQTESTO] 12/23/23 03/23/24 06/24/23 Auth. provider: May Mcneil MD Assoc. diagnoses: Malignant neoplasm of prostate (HCC) [facility] 11-03-2023 Procedure note [facility] 09-06-2023 Telephone encounter Note PFTs and Return in about 6 months (around 02/24/2024). 1st attempt LVM to schedule 6 month follow and PFTs Rita Starr September 06, 2023 [facility] 09-06-2023 Miscellaneous Notes PFTs and Return in about 6 months (around 02/24/2024). 1st attempt LVM to schedule 6 month follow and PFTs Rita Starr September 06, 2023 documented in this encounter [facility] 08-25-2023 Instructions Joe Headley MD - 08/25/2023 3:51 PM EDT Use 2 puffs of albuterol as needed, use the spacer device Need to work on quit smoking. Breathing tests in 6 months and see me in clinic afterwards documented in this encounter [facility] 08-25-2023 History of Present illness Narrative VIRTUAL VISIT PROGRESS NOTE This is a virtual visit using [employer] video visit. It required patient-provider interaction for the medical decision making as documented below. Constantino Duval is a 61 year old male with a pmh of GERD, MVP, anxiety/Depression, peripehral neuropathy, HTN, hyperthyroidism, prostate cancer, and RA that presents for follow up of Asthma. He states that he had some issues with symbicort. Notes that he had thrush really bad and received treatment (lozenges) that cleared the thrush. He has been off the symbicort for two months now and he there has not been much change. States that he has some minor wheezing and after a coughing his wheezing will go away. He was rinsing his mouth out after each use of the symbicort, used spacer device intermittently but still got another bout of thrush. He is still smoking, less than 1 PPD now, smoking about 15-18 cigarettes per day. He is not ready to quit, has previously tried cold turkey, accunpuncture (x2), and chantix to no avail. He does note that he keeps smoking because of his anxiety levels. He does have neuropathy in his feet which decreases his mobility. HISTORY REVIEWED (electronic chart updated): PAST MEDICAL HISTORY Diagnosis Date Alcohol abuse, in remission 07/08/2005 Alcoholic pancreatitis Anxiety Depression Diverticulitis GERD (gastroesophageal reflux disease) Hypertension Hypertension Hyperthyroidism Intolerance to tapazole Low back pain Lumbar herniated disc Marijuana abuse 07/08/2005 In remission Mitral valve prolapse Narcotic dependence, in remission (HCC) 07/08/2005 Pseudocyst, pancreas Rheumatoid arthritis (HCC) Tobacco abuse PAST SURGICAL HISTORY Procedure Laterality Date HEMORRHOIDECTOMY OTHER Left foot surgery FAMILY HISTORY Problem Relation Age of Onset Thyroid Sister Hypothyroidism Diabetes Other Brother's son - ?type 1 Prostate Cancer Brother Cancer Sister other (Pituitary) No Family History other (Parathyroid) No Family History other (Adrenal) No Family History Social History Tobacco Use Smoking status: Every Day Packs/day: 1.00 Years: 35.00 Additional pack years: 0.00 Total pack years: 35.00 Types: Cigarettes Last attempt to quit: 04/12/2011 Years since quittin.3 Passive exposure: Never Smokeless tobacco: Never Vaping Use Vaping Use: Never used Substance Use Topics Alcohol use: Yes Comment: rarely Drug use: Not Currently Types: Marijuana, Cocaine, Opiates Comment: NONE SINCE 2005 Current Outpatient Medications Medication Sig tamsulosin (FLOMAX) 0.4 mg Take 1 capsule by mouth two times a day. hydrOXYchloroQUINE (PLAQUENIL) 200 mg tablet take 1 tablet by mouth twice a day with food albuterol HFA (VENTOLIN HFA) 90 mcg/actuation inhaler Inhale 2 Puffs as instructed every 4 hours as needed for wheezing/shortness of breath. clobetasol (TEMOVATE) 0.05 % cream Apply to affected area twice daily. APPLY TO AFFECTED AREA Sodium Fluoride 1.1 % BRUSH A PEA SIZED AMOUNT ON TEETH at bedtime (NO FOOD OR WATER 30 MINUTES AFTER,) gqgzmk-utfj-lhfw-levomef-silic 10-50-500-0.5 mg cap Take 1 tablet by mouth. cholecalciferol (VITAMIN D3) 1,000 unit tab tablet Take 1 tablet by mouth once daily. liothyronine (CYTOMEL) 25 mcg tablet Take 25 mcg by mouth once daily. levothyroxine 150 mcg cap Take 150 mcg by mouth daily before breakfast. ALPRAZolam (XANAX) 0.25 mg tablet Take 0.25 mg by mouth twice daily as needed. busPIRone (BUSPAR) 10 mg tablet Take 20 mg by mouth twice daily. hydrOXYzine pamoate (VISTARIL) 50 mg capsule Take 50 mg by mouth. atenolol 50 mg tablet Take by mouth once daily. 50 mg.once daily Multivitamin ORAL capsule Take 1 capsule by mouth once daily. No current facility-administered medications for this visit. ALLERGIES Allergen Reactions Tapazole [Methimazo* Anaphylaxis rash, itching throat was closing Gabapentin Other: See Comments Other Reaction(s): Weakness,Dizziness, Nausea Leflunomide Diarrhea, GI Upset, Intolerance, Other: See Comments, Shortness of Breath Methotrexate GI Upset nausea , vomiting, dizziness Wjovjuk-Jlx-Ypa Red* Other: See Comments Leg pain PHYSICAL EXAMINATION: VIDEO EXAM: (if completed, performed via video enabled technology) GENERAL: NAD, smiling, interactive RESPIRATORY: Non-labored, speaking in complete sentences STUDIES: CT Chest: IMPRESSION: 1. Unchanged mild diffuse subpleural interstitial reticular opacities and peripheral groundglass, most pronounced within the anterior aspects of the upper lobes, suggestive of interstitial lung disease (favoring a nonspecific interstitial pneumonitis pattern). 2. Unchanged mildly enlarged mediastinal and right hilar lymph nodes. 3. Unchanged 0.5 cm right middle lobe nodule. No enlarging suspicious pulmonary nodule. PFTS: 2/23/24: Nl luis miguel, no BD response, NL DLCO [place] 02/27/22: Mild obstruction (FEV1: 2.78, 76%), borderline BD response ASSESSMENT: Asthma ILD-he has mild B.L reticulation on his CT chest, his PFTs remain stable and there has been no progression on his last CT scan and suspect that this is inactive Smoker PLAN: -He has been off symbicort 2/2 thrush and he will continue to use PRN albuterol with spacer and gauge the severity of symptoms -repeat his Luis Miguel/DLCO in 6 months given the reticulation seen on his CT chest -I do suspect that deconditioning is contributing to his sense of dyspnea of exertion -He was counseled on the need to quit smoking. Patient Instructions Use 2 puffs of albuterol as needed, use the spacer device Need to work on quit smoking. Breathing tests in 6 months and see me in clinic afterwards I spent a total of 28 minutes on the date of the service which included [id number] patient care, completing clinical documentation, counseling and educating the patient/family/caregiver, and ordering medications, tests, or procedures. Joe Headley MD documented in this encounter [facility] 08-25-2023 Note HNO ID: [id number] Author: JOE HEADLEY MD Service: ? Author Type: Physician Type: Progress Notes Filed: 08/25/2023 15:53 Note Text: VIRTUAL VISIT PROGRESS NOTE This is a virtual visit using [employer] video visit. It required patient-provider interaction for the medical decision making as documented below. Constantino Duval is a 61 year old male with a pmh of GERD, MVP, anxiety/Depression, peripehral neuropathy, HTN, hyperthyroidism, prostate cancer, and RA that presents for follow up of Asthma. He states that he had some issues with symbicort. Notes that he had thrush really bad and received treatment (lozenges) that cleared the thrush. He has been off the symbicort for two months now and he there has not been much change. States that he has some minor wheezing and after a coughing his wheezing will go away. He was rinsing his mouth out after each use of the symbicort, used spacer device intermittently but still got another bout of thrush. He is still smoking, less than 1 PPD now, smoking about 15-18 cigarettes per day. He is not ready to quit, has previously tried cold turkey, accunpuncture (x2), and chantix to no avail. He does note that he keeps smoking because of his anxiety levels. He does have neuropathy in his feet which decreases his mobility. HISTORY REVIEWED (electronic chart updated): PAST MEDICAL HISTORY Diagnosis Date Alcohol abuse, in remission 07/08/2005 Alcoholic pancreatitis Anxiety Depression Diverticulitis GERD (gastroesophageal reflux disease) Hypertension Hypertension Hyperthyroidism Intolerance to tapazole Low back pain Lumbar herniated disc Marijuana abuse 07/08/2005 In remission Mitral valve prolapse Narcotic dependence, in remission (HCC) 07/08/2005 Pseudocyst, pancreas Rheumatoid arthritis (HCC) Tobacco abuse PAST SURGICAL HISTORY Procedure Laterality Date HEMORRHOIDECTOMY OTHER Left foot surgery FAMILY HISTORY Problem Relation Age of Onset Thyroid Sister Hypothyroidism Diabetes Other Brother's son - ?type 1 Prostate Cancer Brother Cancer Sister other (Pituitary) No Family History other (Parathyroid) No Family History other (Adrenal) No Family History Social History Tobacco Use Smoking status: Every Day Packs/day: 1.00 Years: 35.00 Additional pack years: 0.00 Total pack years: 35.00 Types: Cigarettes Last attempt to quit: 04/12/2011 Years since quittin.3 Passive exposure: Never Smokeless tobacco: Never Vaping Use Vaping Use: Never used Substance Use Topics Alcohol use: Yes Comment: rarely Drug use: Not Currently Types: Marijuana, Cocaine, Opiates Comment: NONE SINCE 2005 Current Outpatient Medications Medication Sig tamsulosin (FLOMAX) 0.4 mg Take 1 capsule by mouth two times a day. hydrOXYchloroQUINE (PLAQUENIL) 200 mg tablet take 1 tablet by mouth twice a day with food albuterol HFA (VENTOLIN HFA) 90 mcg/actuation inhaler Inhale 2 Puffs as instructed every 4 hours as needed for wheezing/shortness of breath. clobetasol (TEMOVATE) 0.05 % cream Apply to affected area twice daily. APPLY TO AFFECTED AREA Sodium Fluoride 1.1 % BRUSH A PEA SIZED AMOUNT ON TEETH at bedtime (NO FOOD OR WATER 30 MINUTES AFTER,) bclede-orhz-bizh-levomef-silic 10-50-500-0.5 mg cap Take 1 tablet by mouth. cholecalciferol (VITAMIN D3) 1,000 unit tab tablet Take 1 tablet by mouth once daily. liothyronine (CYTOMEL) 25 mcg tablet Take 25 mcg by mouth once daily. levothyroxine 150 mcg cap Take 150 mcg by mouth daily before breakfast. ALPRAZolam (XANAX) 0.25 mg tablet Take 0.25 mg by mouth twice daily as needed. busPIRone (BUSPAR) 10 mg tablet Take 20 mg by mouth twice daily. hydrOXYzine pamoate (VISTARIL) 50 mg capsule Take 50 mg by mouth. atenolol 50 mg tablet Take by mouth once daily. 50 mg.once daily Multivitamin ORAL capsule Take 1 capsule by mouth once daily. No current facility-administered medications for this visit. ALLERGIES Allergen Reactions Tapazole [Methimazo* Anaphylaxis rash, itching throat was closing Gabapentin Other: See Comments Other Reaction(s): Weakness,Dizziness, Nausea Leflunomide Diarrhea, GI Upset, Intolerance, Other: See Comments, Shortness of Breath Methotrexate GI Upset nausea , vomiting, dizziness Itlwjyp-Dwe-Wix Red* Other: See Comments Leg pain PHYSICAL EXAMINATION: VIDEO EXAM: (if completed, performed via video enabled technology) GENERAL: NAD, smiling, interactive RESPIRATORY: Non-labored, speaking in complete sentences STUDIES: CT Chest: IMPRESSION: 1. Unchanged mild diffuse subpleural interstitial reticular opacities and peripheral groundglass, most pronounced within the anterior aspects of the upper lobes, suggestive of interstitial lung disease (favoring a nonspecific interstitial pneumonitis pattern). 2. Unchanged mildly enlarged mediastinal and right hilar lymph nodes. 3. Unchanged 0.5 cm right middle lobe nodule. (more content not included)... [facility] 08-16-2023 Miscellaneous Notes Please review and sign if agreeable for 90 day supply. Thank you Trudy Davila RN documented in this encounter [facility] 07-02-2023 Note HNO ID: [id number] Author: KATTY DUENAS APRN.DARIN Service: ? Author Type: Nurse Practitioner Type: Progress Notes Filed: 08/08/2023 14:05 Note Text: Face to face FOLLOW UP VISIT PCP: Efren Castillo II, MD [address] [place] [address] Mr. Duval is a 63 year old patient here today for follow up of rheumatoid arthritis and osteopenia Interim History: Saw Dr. Castillo 2-3 times last month Tsh high 13.78 On levothryoxine Has appt with Dr. Castillo next week Does not have GI Has diverticulitis hx Pain and bloating left side worse this last month Diarrhea off and on More gas Needs a GI closer to home Needed to reapply medicaid losing end july This last month achy bones , joints, ankles , hands Last dec Occasional ibuprofen - it irritates stomach Pain in hands, ankles , sometimes in shoulder s No swelling Am stiffness - couple hours Following pulm for lung nodules, COPD, ILD Current smoker Following with urology prostate ca- just monitoring PSA Off hormone therapy 1 year ago Testosterone slowly going up No falls No fractures No dental concerns Stopped enbrel -caused bloating, diarrhea, headaches Took for only 8 weeks Tried leflunomide, methotrexate Taking plaquenil twice daily Vit d 2 gummies+ ca and mult vitamin daily biotin = 3000 international unit(s) daily Tylenol not working Review of Systems CONSTITUTION: Negative for: Fever and Recent weight change HEENT: Negative for: Nosebleeds, Mouth sores, Trouble swallowing and Dry mouth More sinus issues recently Had hx sinus sx Not currrently following with ent RESPIRATORY: Negative for: Cough (improved), Shortness of breath, Pain with breathing and Coughing up blood GASTROINTESTINAL: Positive for: Diarrhea (intermittent, none today, last couple days ago) Negative for: Melena, Heartburn and Abdominal pain Bloating and diarrhea improved off enbrel Problems since radiation MUSCULOSKELETAL: Positive for: Arthralgias, Myalgias, Muscle weakness and Morning Joint Stiffness Negative for: Joint swelling NEUROLOGICAL: Positive for: Numbness Negative for: Headaches and Memory loss SKIN: Negative for: Rash, Skin changes, Hair loss and Nail changes EYES: Positive for: Eye dryness Negative for: Eye pain, Eye redness and visual disturbance CARDIOVASCULAR: Negative for: Chest pain and Leg swelling GENITOURINARY: Negative for: Dysuria and Hematuria HEMATOLOGIC/LYMPHATIC: Negative for: Swollen glands Past Medical Hx, Past Surgical Hx. Social Hx and Family Hx: unchanged ACTIVE PROBLEM LIST Ild (Interstitial Lung Disease) ([facility]) - 01/15/2023 Chronic Obstructive Pulmonary Disease (Hcc) - 01/15/2023 Lung Nodule - 01/15/2023 Current Smoker - 01/15/2023 Steroid-Induced Osteopenia - 03/19/2021 Prostate Cancer ([facility]) - 06/12/2020 Other Postablative Hypothyroidism - 12/21/2012 PHYSICAL EXAM: BP 132/79 Pulse 95 Temp 36.7 ?C (98 ?F) Wt 93.2 kg (205 lb 7.5 oz) SpO2 97% BMI 28.98 kg/m? GEN: A AND O in NAD SKIN: no lesions HEENT: No conj. inj., oral ulcers, thrush LUNGS: CTA B/L HEART: RRR, no g/r/m NEURO: Mental Status: alert and oriented x 3 cheerful, Gait: Normal w/o assistive devices Tone: normal no focal weakness. MUSCULOSKELETAL: Sw Jts.:0 T Jts.:ankles, knees, mcps hands No joint deformities, no rheumatoid nodules. calcifications or tophi. No SI tenderness, no vitaliy's tenderness, no heel/plantar tenderness, lumbar flexion full, negative Salma's test. No clinical synovitis in the DIP's, PIP's, MCP's, wrists, elbows, shoulders, knees, ankles, midfoot, or toes. No knee effusions bilateral. Shoulder exam:FROM FROM: all upper and lower extremity joints Thoracic/Lumbar Spine: No percussion tenderness SLR: negative modified in chair Extr.: no edema Prior Test results discussed with patient. IMPRESSION/DIAGNOSIS: M05.9 Seropositive rheumatoid arthritis (HCC) (primary encounter diagnosis) Z51.81, Z79.899 Encounter for monitoring of hydroxychloroquine therapy Z71.2 Encounter to discuss test results F17.200 Smoking M85.80, T38.0X5A Steroid-induced osteopenia Z87.19 History of diverticulitis J84.9 ILD (interstitial lung disease) ([facility]) Per Dr. 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 His outside labs: CCP 101 (09/15/2019),RF 10, MANUEL direct negative Urate 4.9 sed 10 crp 0.5 mg/dL He has had very good response to prednisone, but flares after being off and has required multiple courses. He is on low dose, suboptimal dose hydroxychloroquine, for the past 6 months. Did not tolerated methotrexate due to sevre naus (more content not included)... [facility] 07-02-2023 Note HNO ID: [id number] Author: KATTY ANDRES RRT Service: ? Author Type: Registered Resp Therapist Type: Progress Notes Filed: 07/02/2023 14:33 Note Text: PULM FUNCTION SMARTBLOCK: Provider: Robyn Alcazar APRN.CNP Spirometry w/BD: 1 DLCO: 1 [facility] 07-02-2023 History of Present illness Narrative PULM FUNCTION SMARTBLOCK: Provider: Robyn Alcazar APRN.CNP Spirometry w/BD: 1 DLCO: 1 documented in this encounter [facility] 07-01-2023 Miscellaneous Notes Patient phones requesting refills as follows: Pt has appt scheduled tomorrow Requested Prescriptions Refused Prescriptions Disp Refills hydrOXYchloroQUINE (PLAQUENIL) 200 mg tablet [Pharmacy Med Name: HYDROXYCHLOROQUINE 200 MG TAB] 60 tablet 0 Sig: take 1 tablet by mouth twice a day with food Please review and advise. Natalee Huertas MA Most recent Rheumatology visit: 01/07/2023 (with Katty Duenas) Rheumatology Care Team: None on file Recent Office Visits - This Specialty 01/07/2023 Seropositive rheumatoid arthritis (HCC) Rheumatology Katty Duenas APRN.CNP 09/18/2022 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) Rheumatology Katty Duenas APRN.CNP 02/27/2022 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) Rheumatology Katty Duenas APRN.CNP Upcoming Rheumatology Appointments - Next 365 Days Visit Type Date Time Department [facility] 07/02/2023 3:30 PM [facility] 12/14/2023 2:00 PM [facility] Last Ophthalmology Check for Plaquenil (Hydroxychloroquine) Last OCT Macula Exam No resulted procedures found. Last Visual Field Exam No resulted procedures found. CBC: CBC Latest Ref Rng & Units 02/27/2022 01/07/2023 WBC 3.70 - 11.00 k/uL 5.64 5.87 HEMOGLOBIN 13.0 - 17.0 g/dL 14.0 15.2 HEMATOCRIT 39.0 - 51.0 % 41.3 45.5 PLATELETS 150 - 400 k/uL 241 226 ABS NEUT (ANC) 1.45 - 7.50 k/uL 3.62 3.93 ABS LYMPH 1.00 - 4.00 k/uL 0.93(L) 1.04 Vitamin D: Vitamin D Latest Ref Rng & Units 02/27/2022 01/07/2023 VITAMIN D 25 HYDROXY 31.0 - 80.0 ng/mL 39.7 44.3 LFT: CMP Latest Ref Rng & Units 02/27/2022 01/07/2023 SODIUM 136 - 144 mmol/L 140 137 POTASSIUM 3.7 - 5.1 mmol/L 4.8 4.3 CHLORIDE 97 - 105 mmol/L 103 102 CO2 22 - 30 mmol/L 28 26 GLUCOSE 74 - 99 mg/dL 92 98 BUN 9 - 24 mg/dL 11 8(L) CREATININE 0.73 - 1.22 mg/dL 0.97 0.99 CREATININE (POCT) 0.7 - 1.4 mg/dL 0.90 - CALCIUM, TOTAL 8.5 - 10.2 mg/dL 9.4 9.6 AST 14 - 40 U/L 32 33 ALT 10 - 54 U/L 23 25 ALKALINE PHOSPHATASE 38 - 113 U/L 79 86 Hepatic Function: Creatinine: Creatinine Latest Ref Rng & Units 09/08/2022 01/07/2023 CREAT 0.73 - 1.22 mg/dL - 0.99 NTX 3.0 - 63.0 nM BCE/mM Creatinine 49.3 - NTXS 5.4 - 24.2 nM BCE - - ESR/CRP: ESR, WSR Latest Ref Rng & Units 01/07/2023 WSR 0 - 15 mm/hr 6 CRP Latest Ref Rng & Units 01/07/2023 CRP <0.9 mg/dL 0.5 Uric Acid: None on file in the last 6 months Open Standing (Multiple Instance) Lab Orders None Open Future (Single Instance) Lab Orders Expected Expires Ordered PSA/PROSTSPECAG DIAG [SQPSA] 06/19/23 08/19/23 12/17/22 Auth. provider: May Mcneil MD Assoc. diagnoses: Malignant neoplasm of prostate (HCC) TESTOSTERONE TOTAL [SQTESTO] 06/19/23 08/19/23 12/17/22 Auth. provider: May Mcneil MD Assoc. diagnoses: Malignant neoplasm of prostate (HCC) CBC + DIFF [SQCBCDIF] 06/01/23 08/31/23 06/01/23 Auth. provider: Katty Duenas APRN.TRANSVERSE ABDOMINAL MUSCLE SURGEON Assoc. diagnoses: Seropositive rheumatoid arthritis (HCC) COMP METABOLIC PANEL [SQCMP] 06/01/23 08/31/23 06/01/23 Auth. provider: Katty Duenas APRN.TRANSVERSE ABDOMINAL MUSCLE SURGEON Assoc. diagnoses: Seropositive rheumatoid arthritis (HCC) C-REACTIVE PROTEIN (CRP) [SQCRP] 06/01/23 08/31/23 06/01/23 Auth. provider: Katty Duenas APRN.TRANSVERSE ABDOMINAL MUSCLE SURGEON Assoc. diagnoses: Seropositive rheumatoid arthritis (HCC) SED RATE WESTERGREN [SQWSR] 06/01/23 08/31/23 06/01/23 Auth. provider: Katty Duenas APRN.TRANSVERSE ABDOMINAL MUSCLE SURGEON Assoc. diagnoses: Seropositive rheumatoid arthritis (HCC) HEP REMOTE PANEL BL [SQHREMOP] 06/01/23 08/31/23 06/01/23 Auth. provider: Katty Duenas APRN.TRANSVERSE ABDOMINAL MUSCLE SURGEON Assoc. diagnoses: Seropositive rheumatoid arthritis (HCC) BLOOD TB SCREEN [SQINFTBP] 06/01/23 08/31/23 06/01/23 Auth. provider: Katty Duenas APRN.TRANSVERSE ABDOMINAL MUSCLE SURGEON Assoc. diagnoses: Seropositive rheumatoid arthritis (HCC) PSA/PROSTSPECAG DIAG [SQPSA] 12/23/23 03/23/24 06/24/23 Auth. provider: May Mcneil MD Assoc. diagnoses: Malignant neoplasm of prostate (HCC) TESTOSTERONE TOTAL [SQTESTO] 12/23/23 03/23/24 06/24/23 Auth. provider: May Mcneil MD Assoc. diagnoses: Malignant neoplasm of prostate (HCC) documented in this encounter [facility] 06-24-2023 Nurse Note AUA 16 Trudy Davila RN documented in this encounter [facility] 06-24-2023 Note HNO ID: [id number] Author: May MCNEIL MD Service: ? Author Type: Physician Type: Progress Notes Filed: 06/24/2023 13:15 Note Text: Radiation Oncology - Follow Up Note PATIENT NAME: Constantino Duval PATIENT DIAGNOSIS: Prostate adenocarcinoma, initial PSA 28.36, biopsy Amy score 4 + 3 = 7 (grade group 3), clinical stage T2b, N0, M0, stage IIIA [T1-T2, N0, M0, PSA >=20, GG 1-4] (AJCC 8th ed.), s/p TRUS Random biopsy. RADIATION SUMMARY: DATES OF TREATMENT: Pelvic external beam treatment 05/20/20-06/21/20 Prostate brachytherapy implant 07/31/2020 AREA TREATED: Prostate and pelvis DELIVERED DOSE: Area: Pelvis 45 Gy in 25 fractions,3 Arcs, IMRT with rapid arc , 10MV with daily CBCT Area: Prostate 100 Gy Pd-103, 30 sources, 14 needles, 78.75 mCi INTERVAL HISTORY: Doing well. Some occasional slow stream he feels overall improved, has gone to once a day Flomax. No dysuria hematuria. 10/08/21:Doing fairly well. Has had some lower abdominal pain and rectal discomfort. Mostly relieved by BMs. No blood per rectum. Occasional diarrhea. Otherwise no new problems PSA HISTORY: PSA. (no units) Date Value 06/14/2023 0.14 12/11/2022 <0.13 06/09/2022 <0.13 02/09/2022 <0.13 02/09/22 Testosterone <3 12/11/2022 Testosterone 338 at ALLERGIES Allergen Reactions Tapazole [Methimazo* Anaphylaxis rash, itching throat was closing Gabapentin Other: See Comments Other Reaction(s): Weakness,Dizziness, Nausea Leflunomide Diarrhea, GI Upset, Intolerance, Other: See Comments, Shortness of Breath Methotrexate GI Upset nausea , vomiting, dizziness Otmuijk-Qla-Qoc Red* Other: See Comments Leg pain hydrOXYchloroQUINE (PLAQUENIL) 200 mg tablet take 1 tablet by mouth twice a day with food tamsulosin (FLOMAX) 0.4 mg Take 1 capsule by mouth two times a day. clobetasol (TEMOVATE) 0.05 % cream Apply to affected area twice daily. APPLY TO AFFECTED AREA Sodium Fluoride 1.1 % BRUSH A PEA SIZED AMOUNT ON TEETH at bedtime (NO FOOD OR WATER 30 MINUTES AFTER,) xsnnvg-lwkr-rwlw-levomef-silic 10-50-500-0.5 mg cap Take 1 tablet by mouth. cholecalciferol (VITAMIN D3) 1,000 unit tab tablet Take 1 tablet by mouth once daily. liothyronine (CYTOMEL) 25 mcg tablet Take 25 mcg by mouth once daily. levothyroxine 150 mcg cap Take 150 mcg by mouth daily before breakfast. ALPRAZolam (XANAX) 0.25 mg tablet Take 0.25 mg by mouth twice daily as needed. busPIRone (BUSPAR) 10 mg tablet Take 20 mg by mouth twice daily. hydrOXYzine pamoate (VISTARIL) 50 mg capsule Take 50 mg by mouth. atenolol 50 mg tablet Take by mouth once daily. 50 mg.once daily Multivitamin ORAL capsule Take 1 capsule by mouth once daily. levETIRAcetam (KEPPRA) 250 mg tablet take 1 tablet by mouth IN THE MORNING then 1 tablet by mouth BEFORE BEDTIME zonisamide (ZONEGRAN) 25 mg capsule Take 25 mg by mouth two times a week. budesonide-formoterol (SYMBICORT) 160-4.5 mcg/actuation inhaler Inhale 2 Puffs as instructed twice daily. albuterol HFA (VENTOLIN HFA) 90 mcg/actuation inhaler Inhale 2 Puffs as instructed every 4 hours as needed for wheezing/shortness of breath. REVIEW OF SYSTEMS: D/N = 6/2 AUA = 16 Hematuria: none Dysuria: none Incontinence: none Urgency:Mild to moderate Catheter use: none Medications to aid urination: y Flomax twice daily Bowel movement frequency: 1-3/day Bowel movement quality: Occasional diarrhea Blood per rectum: none Androgen deprivation: lupron. Last treatment 05/2021 PHYSICAL EXAM: Resp 18 Wt 95.2 kg (209 lb 14.1 oz) BMI 29.60 kg/m? KPS: 100 General appearance: Alert and oriented. No acute distress. Rectal exam def Extremities: No deformities, edema, skin discoloration, clubbing or cyanosis. Lymph Nodes: No cervical lymphadenopathy, No supraclavicular lymphadenopathy, No axillary lymphadenopathy. Skin: Skin color, texture, turgor normal, no suspicious rashes or lesions. ASSESSMENT/PLAN: Prostate adenocarcinoma, initial PSA 28.36, biopsy [place] score 4 + 3 = 7 (grade group 3), clinical stage T2b, N0, M0, stage IIIA [T1-T2, N0, M0, PSA >=20, GG 1-4] (AJCC 8th ed.), s/p pelvic radiation followed by prostate brachytherapy 07/31/2020. Doing well. PSA has risen minimally likely related to hormonal withdrawal. Recommend follow-up in 6 months with repeat PSA. Signed by: May Mcneil MD cc: Efren Castillo II, MD [address] [place] [address] Portions of the above note extracted and edited from previous visit as well as active information included in the EMR. [facility] 06-24-2023 History of Present illness Narrative Radiation Oncology - Follow Up Note PATIENT NAME: Constantino Duval PATIENT DIAGNOSIS: Prostate adenocarcinoma, initial PSA 28.36, biopsy Amy score 4 + 3 = 7 (grade group 3), clinical stage T2b, N0, M0, stage IIIA [T1-T2, N0, M0, PSA >=20, GG 1-4] (AJCC 8th ed.), s/p TRUS Random biopsy. RADIATION SUMMARY: DATES OF TREATMENT: Pelvic external beam treatment 05/20/20-06/21/20 Prostate brachytherapy implant 07/31/2020 AREA TREATED: Prostate and pelvis DELIVERED DOSE: Area: Pelvis 45 Gy in 25 fractions,3 Arcs, IMRT with rapid arc , 10MV with daily CBCT Area: Prostate 100 Gy Pd-103, 30 sources, 14 needles, 78.75 mCi INTERVAL HISTORY: Doing well. Some occasional slow stream he feels overall improved, has gone to once a day Flomax. No dysuria hematuria. 10/08/21:Doing fairly well. Has had some lower abdominal pain and rectal discomfort. Mostly relieved by BMs. No blood per rectum. Occasional diarrhea. Otherwise no new problems PSA HISTORY: PSA. (no units) Date Value 06/14/2023 0.14 12/11/2022 <0.13 06/09/2022 <0.13 02/09/2022 <0.13 02/09/22 Testosterone <3 12/11/2022 Testosterone 338 at ALLERGIES Allergen Reactions Tapazole [Methimazo* Anaphylaxis rash, itching throat was closing Gabapentin Other: See Comments Other Reaction(s): Weakness,Dizziness, Nausea Leflunomide Diarrhea, GI Upset, Intolerance, Other: See Comments, Shortness of Breath Methotrexate GI Upset nausea , vomiting, dizziness Zxhujvm-Wvu-Cfo Red* Other: See Comments Leg pain hydrOXYchloroQUINE (PLAQUENIL) 200 mg tablet take 1 tablet by mouth twice a day with food tamsulosin (FLOMAX) 0.4 mg Take 1 capsule by mouth two times a day. clobetasol (TEMOVATE) 0.05 % cream Apply to affected area twice daily. APPLY TO AFFECTED AREA Sodium Fluoride 1.1 % BRUSH A PEA SIZED AMOUNT ON TEETH at bedtime (NO FOOD OR WATER 30 MINUTES AFTER,) raqksj-tjls-ekyt-levomef-silic 10-50-500-0.5 mg cap Take 1 tablet by mouth. cholecalciferol (VITAMIN D3) 1,000 unit tab tablet Take 1 tablet by mouth once daily. liothyronine (CYTOMEL) 25 mcg tablet Take 25 mcg by mouth once daily. levothyroxine 150 mcg cap Take 150 mcg by mouth daily before breakfast. ALPRAZolam (XANAX) 0.25 mg tablet Take 0.25 mg by mouth twice daily as needed. busPIRone (BUSPAR) 10 mg tablet Take 20 mg by mouth twice daily. hydrOXYzine pamoate (VISTARIL) 50 mg capsule Take 50 mg by mouth. atenolol 50 mg tablet Take by mouth once daily. 50 mg.once daily Multivitamin ORAL capsule Take 1 capsule by mouth once daily. levETIRAcetam (KEPPRA) 250 mg tablet take 1 tablet by mouth IN THE MORNING then 1 tablet by mouth BEFORE BEDTIME zonisamide (ZONEGRAN) 25 mg capsule Take 25 mg by mouth two times a week. budesonide-formoterol (SYMBICORT) 160-4.5 mcg/actuation inhaler Inhale 2 Puffs as instructed twice daily. albuterol HFA (VENTOLIN HFA) 90 mcg/actuation inhaler Inhale 2 Puffs as instructed every 4 hours as needed for wheezing/shortness of breath. REVIEW OF SYSTEMS: D/N = 6/2 AUA = 16 Hematuria: none Dysuria: none Incontinence: none Urgency:Mild to moderate Catheter use: none Medications to aid urination: y Flomax twice daily Bowel movement frequency: 1-3/day Bowel movement quality: Occasional diarrhea Blood per rectum: none Androgen deprivation: lupron. Last treatment 05/2021 PHYSICAL EXAM: Resp 18 Wt 95.2 kg (209 lb 14.1 oz) BMI 29.60 kg/m KPS: 100 General appearance: Alert and oriented. No acute distress. Rectal exam def Extremities: No deformities, edema, skin discoloration, clubbing or cyanosis. Lymph Nodes: No cervical lymphadenopathy, No supraclavicular lymphadenopathy, No axillary lymphadenopathy. Skin: Skin color, texture, turgor normal, no suspicious rashes or lesions. ASSESSMENT/PLAN: Prostate adenocarcinoma, initial PSA 28.36, biopsy Amy score 4 + 3 = 7 (grade group 3), clinical stage T2b, N0, M0, stage IIIA [T1-T2, N0, M0, PSA >=20, GG 1-4] (AJCC 8th ed.), s/p pelvic radiation followed by prostate brachytherapy 07/31/2020. Doing well. PSA has risen minimally likely related to hormonal withdrawal. Recommend follow-up in 6 months with repeat PSA. Signed by: May Mcneil MD cc: Efren Castillo II, MD [address] [place] [address] Portions of the above note extracted and edited from previous visit as well as active information included in the EMR. documented in this encounter [facility] 06-18-2023 Miscellaneous Notes Received outside labs from [facility] that were done along with rest of labs below Hepatitis panel Notified patient of below, verbal understanding. Please call patient No inflammation Sed - normal Crp-normal Tb negative [facility] lab faxed TB results placed on Katty Duenas's desk for review Received outside lab results ordered by Katty Duenas CNP, completed on 06/14/2023 at [facility] Sed rate, CRP documented in this encounter [facility] 06-17-2023 Miscellaneous Notes reviewed Received Ophthalmology exam completed on 03/10/2023 Dr Lamin Morel Normal OCT, no change in ON's return annually -high risk med use -open ankle with borderline findings, low risk, bilateral -presbyopia documented in this encounter [facility] 02-05-2023 Miscellaneous Notes Most recent Rheumatology visit: 01/07/2023 (with Katty Duenas) Recent Office Visits - This Specialty 01/07/2023 Seropositive rheumatoid arthritis (HCC) Rheumatology Katty Duenas, BUGGYMAN.TRANSVERSE ABDOMINAL MUSCLE SURGEON 09/18/2022 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) Rheumatology Katty Duenas, BUGGYMAN.TRANSVERSE ABDOMINAL MUSCLE SURGEON 02/27/2022 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) Rheumatology Katty Duenas, BUGGYMAN.TRANSVERSE ABDOMINAL MUSCLE SURGEON Upcoming Rheumatology Appointments - Next 365 Days Visit Type Date Time Department [facility] 03[facility]09/2023 2:00 PM [facility] 12/14/2023 2:00 PM [facility] Last Ophthalmology Check for Plaquenil (Hydroxychloroquine) Last OCT Macula Exam No resulted procedures found. Last Visual Field Exam No resulted procedures found. CBC: CBC Latest Ref Rng & Units 02/27/2022 01/07/2023 WBC 3.70 - 11.00 k/uL 5.64 5.87 HEMOGLOBIN 13.0 - 17.0 g/dL 14.0 15.2 HEMATOCRIT 39.0 - 51.0 % 41.3 45.5 PLATELETS 150 - 400 k/uL 241 226 ABS NEUT (ANC) 1.45 - 7.50 k/uL 3.62 3.93 ABS LYMPH 1.00 - 4.00 k/uL 0.93(L) 1.04 Vitamin D: Vitamin D Latest Ref Rng & Units 02/27/2022 01/07/2023 VITAMIN D 25 HYDROXY 31.0 - 80.0 ng/mL 39.7 44.3 LFT: CMP Latest Ref Rng & Units 02/27/2022 01/07/2023 SODIUM 136 - 144 mmol/L 140 137 POTASSIUM 3.7 - 5.1 mmol/L 4.8 4.3 CHLORIDE 97 - 105 mmol/L 103 102 CO2 22 - 30 mmol/L 28 26 GLUCOSE 74 - 99 mg/dL 92 98 BUN 9 - 24 mg/dL 11 8(L) CREATININE 0.73 - 1.22 mg/dL 0.97 0.99 CREATININE (POCT) 0.7 - 1.4 mg/dL 0.90 - CALCIUM, TOTAL 8.5 - 10.2 mg/dL 9.4 9.6 AST 14 - 40 U/L 32 33 ALT 10 - 54 U/L 23 25 ALKALINE PHOSPHATASE 38 - 113 U/L 79 86 Hepatic Function: Creatinine: Creatinine Latest Ref Rng & Units 09/08/2022 01/07/2023 CREAT 0.73 - 1.22 mg/dL - 0.99 NTX 3.0 - 63.0 nM BCE/mM Creatinine 49.3 - NTXS 5.4 - 24.2 nM BCE - - ESR/CRP: ESR, WSR Latest Ref Rng & Units 01/07/2023 WSR 0 - 15 mm/hr 6 CRP Latest Ref Rng & Units 01/07/2023 CRP <0.9 mg/dL 0.5 Uric Acid: None on file in the last 6 months Open Standing (Multiple Instance) Lab Orders None Open Future (Single Instance) Lab Orders Expected Expires Ordered PSA/PROSTSPECAG DIAG [SQPSA] 12/14/22 02/13/23 06/16/22 Auth. provider: May Mcneil MD Assoc. diagnoses: Malignant neoplasm of prostate (HCC) TESTOSTERONE TOTAL [SQTESTO] 12/10/22 02/09/23 12/10/22 Auth. provider: May Mcneil MD Assoc. diagnoses: Malignant neoplasm of prostate (HCC) PSA/PROSTSPECAG DIAG [SQPSA] 06/19/23 08/19/23 12/17/22 Auth. provider: May Mcneil MD Assoc. diagnoses: Malignant neoplasm of prostate (HCC) TESTOSTERONE TOTAL [SQTESTO] 06/19/23 08/19/23 12/17/22 Auth. provider: May Mcneil MD Assoc. diagnoses: Malignant neoplasm of prostate (HCC) CBC + DIFF [SQCBCDIF] 04/11/23 06/11/23 01/10/23 Auth. provider: Katty Duenas APRN.DARIN Assoc. diagnoses: Seropositive rheumatoid arthritis (HCC) COMP METABOLIC PANEL [SQCMP] 04/11/23 06/11/23 01/10/23 Auth. provider: Katty Duenas APRN.DARIN Assoc. diagnoses: Seropositive rheumatoid arthritis (HCC) documented in this encounter [facility] 01-15-2023 Instructions Robyn Alcazar APRN.CNP - 01/15/2023 3:59 PM EDT It was a pleasure seeing you in the office today. Here is a summary of the plan we discussed: -How to use inhaler with or without a spacer https://www.cdc.gov/asthma/inhale r_video/default.htm -Take the antibiotic doxycycline for your acute illness. -Resume the Symbicort inhaler. It has a steroid in it that mostly just goes into your lungs. Make sure you rinse your mouth and spit the water out. -Work on cutting back/quitting smoking! Let me know if you want a referral to the Smoking Cessation program. Please call the office or send me a message through [employer] if you have any questions. Sincerely, Robyn Alcazar APRN.DARIN documented in this encounter [facility] 01-15-2023 History of Present illness Narrative Images from the original note were not included. . [facility] [place] Follow Up Clinic Note Mr. Duval is a 62 year old male who presents to the [facility] [place] for follow up of COPD. HPI: 62 year old male with PMH significant for COPD, lung nodule (first seen 02/27/22), current smoker, 1 PPD x 42 years, RA (previously on methotrexate and Enbrel, currently on Plaquenil and prednisone 5 mg PRN), GERD, HTN, MVP, prostate CA. Occupational exposure to dust, possible exposure to asbestos. Has dyspnea and leg weakness with exertion after 60-80 ft. Chronic cough with white/clear sputum and occasional wheezing. Interval HPI Since Last OV via telehealth with Dr. Headley 06/18/22: Cont. Symbicort as prescribed. Counseled on smoking cessation and to increase physical activity Follow CT chest in [place] given lung nodule in a smoker, counseled on risks/benefits of repat CT chest and he wishes to proceed with another scan Shortness of breath seems like it is progressively getting worse since last visit. Has occasional daily cough with clear sputum. Stopped Symbicort during an episode of exacerbation/bronchitis-like symptoms; didn't feel like it was helping. Took it for at least 6 months, stopped 3 months ago. Did not notice any instant worsening without it. Has had increased cough, yellow/white sputum production, and shortness of breath over the past week. Has sinus congestion, runny nose, sore throat, headache, night sweats. Not taking any additional treatment at this time. Using albuterol HFA 0-1 x/day with minimal response. Last took prednisone 5 mg x 10 days for RA exacerbation, ended 1 month ago. Last took antibiotics 2-3 years ago. Smoking 1 PPD still. Smoking has gone up since he has stopped working and his schedule is less structured. Tried to quit 6 times - accupuncture twice, Chantix (dizzy/nausea after 3 days), patches, gum. Quit once for 6-8 months, gained 45 lbs. Started smoking again because of wt gain. Review of Systems Constitutional: Positive for chills. Negative for diaphoresis, fever, malaise/fatigue and weight loss. HENT: Positive for congestion and sore throat. Negative for nosebleeds and sinus pain. Eyes: Negative for pain. Respiratory: Positive for cough, sputum production and shortness of breath. Negative for hemoptysis, wheezing and stridor. Cardiovascular: Negative for chest pain, palpitations, orthopnea and leg swelling. Gastrointestinal: Negative for heartburn. Musculoskeletal: Positive for back pain, joint pain and myalgias. Negative for falls. Skin: Negative for rash. Neurological: Negative for seizures and loss of consciousness. Endo/Heme/Allergies: Negative for environmental allergies. Psychiatric/Behavioral: Negative for hallucinations. Allergies: Tapazole [Methimazole], Gabapentin, Leflunomide, Methotrexate, and Blcytuc-Mwc-Pfn Reductase Inhibitors Outpatient Medications: tamsulosin (FLOMAX) 0.4 mg Take 1 capsule by mouth twice daily. hydrOXYchloroQUINE (PLAQUENIL) 200 mg tablet take 1 tablet by mouth twice a day with food clobetasol (TEMOVATE) 0.05 % cream Apply to affected area twice daily. APPLY TO AFFECTED AREA Sodium Fluoride 1.1 % BRUSH A PEA SIZED AMOUNT ON TEETH at bedtime (NO FOOD OR WATER 30 MINUTES AFTER,) fxynux-ljqk-ozum-levomef-silic 10-50-500-0.5 mg cap Take 1 tablet by mouth. cholecalciferol (VITAMIN D3) 1,000 unit tab tablet Take 1 tablet by mouth once daily. liothyronine (CYTOMEL) 25 mcg tablet Take 25 mcg by mouth once daily. levothyroxine 150 mcg cap Take 150 mcg by mouth daily before breakfast. ALPRAZolam (XANAX) 0.25 mg tablet Take 0.25 mg by mouth twice daily as needed. busPIRone (BUSPAR) 10 mg tablet Take 20 mg by mouth twice daily. hydrOXYzine pamoate (VISTARIL) 50 mg capsule Take 50 mg by mouth. atenolol 50 mg tablet Take by mouth once daily. 50 mg.once daily Multivitamin ORAL capsule Take 1 capsule by mouth once daily. levETIRAcetam (KEPPRA) 250 mg tablet take 1 tablet by mouth IN THE MORNING then 1 tablet by mouth BEFORE BEDTIME zonisamide (ZONEGRAN) 25 mg capsule Take 25 mg by mouth two times a week. budesonide-formoterol (SYMBICORT) 160-4.5 mcg/actuation inhaler Inhale 2 Puffs as instructed twice daily. (Patient not taking: Reported on 01/15/2023) BP 114/69 Pulse 76 Temp (Src) 97.2 (Temporal) Ht 5' 10.6 (1.79m) Wt 204 lb (92.5kg) SpO2 98[RA]% BMI 28.78 kg/(m^2). Physical Exam Vitals reviewed. Constitutional: General: He is not in acute distress. Appearance: Normal appearance. He is not ill-appearing. HENT: Head: Normocephalic and atraumatic. Right Ear: External ear normal. Left Ear: External ear normal. Nose: Nose normal. No congestion or rhinorrhea. Mouth/Throat: Mouth: Mucous membranes are moist. Pharynx: Oropharynx is clear. Eyes: General: No scleral icterus. Right eye: No discharge. Left eye: No discharge. Extraocular Movements: Extraocular movements intact. Conjunctiva/sclera: Conjunctivae normal. Cardiovascular: Rate and Rhythm: Normal rate and regular rhythm. Heart sounds: Normal heart sounds. No murmur heard. No gallop. Pulmonary: Effort: Pulmonary effort is normal. No respiratory distress. Breath sounds: No wheezing, rhonchi or rales. Abdominal: General: Bowel sounds are normal. Palpations: Abdomen is soft. Musculoskeletal: Cervical back: Normal range of motion. Right lower leg: No edema. Left lower leg: No edema. Skin: General: Skin is warm and dry. Findings: No erythema or rash. Neurological: General: No focal deficit present. Mental Status: He is alert. Mental status is at baseline. Psychiatric: Mood and Affect: Mood normal. Behavior: Behavior normal. Labs / Imaging / Diagnostic Studies: All radiography listed below personally reviewed by me. Data reviewed from [facility] (in addition to that noted in HPI and past histories above): PFT: MM/YY 02/27/22 02/27/22 pre % post % abs % abs % abs % FEV1 2.78 93 4.75 +8 FVC 4.39 76 3.10 +11 DLCO 6MWD CXR: no new results 10/22/21 Lungs and pleura: There is blunting of the left costophrenic angle, suggestive of pleural thickening or small pleural effusion. No consolidation. No lung mass. No pneumothorax. CT Chest: 01/07/23 1. Unchanged mild diffuse subpleural interstitial reticular opacities and peripheral groundglass, most pronounced within the anterior aspects of the upper lobes, suggestive of interstitial lung disease (favoring a nonspecific interstitial pneumonitis pattern). 2. Unchanged mildly enlarged mediastinal and right hilar lymph nodes. 3. Unchanged 0.5 cm right middle lobe nodule. (Slice 184) No enlarging suspicious pulmonary nodule. Echo: no new or historical results ASSESSMENT & PLAN: Acute Upper Respiratory Infection -7-10 days of symptoms without improvement with high risk for COPD/ILD exacerbation -Will treat with doxycycline - -No prednisone since he is not wheezing -Encouraged to increase use of albuterol HFA until he is feeling better. COPD -Resume Symbicort CT - -Continue albuterol HFA 2 puffs up to Q4H PRN shortness of breath/wheezing/prior to activity -Repeat pre/post spirometry and DLCO prior to next visit. Interstitial Lung Disease 2/2 RA -Stable changes on most recent CT chest - -Images reviewed with patient -Continue to follow with Rheumatology. Lung nodule, stable -Stable 5mm nodule since 02/27/22 - -Images reviewed with patient -Repeat CT chest without contrast in 1 year (Jan 2024) - -To be ordered at next OV. Current Smoker -Still smoking, unsure of readiness to quit. -Discussed this at length, including cessation strategies. - -He may try the budget method this time. -Referral to Smoking Cessation Program offered - He will contact the office via [employer] message if he would like a referral prior to next visit. Robyn Alcazar APRN.TRANSVERSE ABDOMINAL MUSCLE SURGEON Pulmonary and Critical Care Staff ATTENDING ADDENDUM Patient seen and examined. Discussed with MARISA. CT chest stable. Discussed restarting symbicort. He needs to quit smoking and this was discussed with him. documented in this encounter [facility] 01-15-2023 Note HNO ID: [id number] Author: Joe Headley MD Service: ? Author Type: Physician Type: Progress Notes Filed: 01/17/2023 12:37 PM Note Text: . [facility] [place] Follow Up Clinic Note Mr. Duval is a 62 year old male who presents to the [facility] [place] for follow up of COPD. HPI: 62 year old male with PMH significant for COPD, lung nodule (first seen 02/27/22), current smoker, 1 PPD x 42 years, RA (previously on methotrexate and Enbrel, currently on Plaquenil and prednisone 5 mg PRN), GERD, HTN, MVP, prostate CA. Occupational exposure to dust, possible exposure to asbestos. Has dyspnea and leg weakness with exertion after 60-80 ft. Chronic cough with white/clear sputum and occasional wheezing. Interval HPI Since Last OV via telehealth with Dr. Headley 06/18/22: Cont. Symbicort as prescribed. Counseled on smoking cessation and to increase physical activity Follow CT chest in [place] given lung nodule in a smoker, counseled on risks/benefits of repat CT chest and he wishes to proceed with another scan Shortness of breath seems like it is progressively getting worse since last visit. Has occasional daily cough with clear sputum. Stopped Symbicort during an episode of exacerbation/bronchitis-like symptoms; didn't feel like it was helping. Took it for at least 6 months, stopped 3 months ago. Did not notice any instant worsening without it. Has had increased cough, yellow/white sputum production, and shortness of breath over the past week. Has sinus congestion, runny nose, sore throat, headache, night sweats. Not taking any additional treatment at this time. Using albuterol HFA 0-1 x/day with minimal response. Last took prednisone 5 mg x 10 days for RA exacerbation, ended 1 month ago. Last took antibiotics 2-3 years ago. Smoking 1 PPD still. Smoking has gone up since he has stopped working and his schedule is less structured. Tried to quit 6 times - accupuncture twice, Chantix (dizzy/nausea after 3 days), patches, gum. Quit once for 6-8 months, gained 45 lbs. Started smoking again because of wt gain. Review of Systems Constitutional: Positive for chills. Negative for diaphoresis, fever, malaise/fatigue and weight loss. HENT: Positive for congestion and sore throat. Negative for nosebleeds and sinus pain. Eyes: Negative for pain. Respiratory: Positive for cough, sputum production and shortness of breath. Negative for hemoptysis, wheezing and stridor. Cardiovascular: Negative for chest pain, palpitations, orthopnea and leg swelling. Gastrointestinal: Negative for heartburn. Musculoskeletal: Positive for back pain, joint pain and myalgias. Negative for falls. Skin: Negative for rash. Neurological: Negative for seizures and loss of consciousness. Endo/Heme/Allergies: Negative for environmental allergies. Psychiatric/Behavioral: Negative for hallucinations. Allergies: Tapazole [Methimazole], Gabapentin, Leflunomide, Methotrexate, and Cvzzzzf-Dfl-Psl Reductase Inhibitors Outpatient Medications: tamsulosin (FLOMAX) 0.4 mg Take 1 capsule by mouth twice daily. hydrOXYchloroQUINE (PLAQUENIL) 200 mg tablet take 1 tablet by mouth twice a day with food clobetasol (TEMOVATE) 0.05 % cream Apply to affected area twice daily. APPLY TO AFFECTED AREA Sodium Fluoride 1.1 % BRUSH A PEA SIZED AMOUNT ON TEETH at bedtime (NO FOOD OR WATER 30 MINUTES AFTER,) rgtslx-umhg-fiyd-levomef-silic 10-50-500-0.5 mg cap Take 1 tablet by mouth. cholecalciferol (VITAMIN D3) 1,000 unit tab tablet Take 1 tablet by mouth once daily. liothyronine (CYTOMEL) 25 mcg tablet Take 25 mcg by mouth once daily. levothyroxine 150 mcg cap Take 150 mcg by mouth daily before breakfast. ALPRAZolam (XANAX) 0.25 mg tablet Take 0.25 mg by mouth twice daily as needed. busPIRone (BUSPAR) 10 mg tablet Take 20 mg by mouth twice daily. hydrOXYzine pamoate (VISTARIL) 50 mg capsule Take 50 mg by mouth. atenolol 50 mg tablet Take by mouth once daily. 50 mg.once daily Multivitamin ORAL capsule Take 1 capsule by mouth once daily. levETIRAcetam (KEPPRA) 250 mg tablet take 1 tablet by mouth IN THE MORNING then 1 tablet by mouth BEFORE BEDTIME zonisamide (ZONEGRAN) 25 mg capsule Take 25 mg by mouth two times a week. budesonide-formoterol (SYMBICORT) 160-4.5 mcg/actuation inhaler Inhale 2 Puffs as instructed twice daily. (Patient not taking: Reported on 01/15/2023) BP 114/69 Pulse 76 Temp (Src) 97.2 (Temporal) Ht 5' 10.6 (1.79m) Wt 204 lb (92.5kg) SpO2 98[RA]% BMI 28.78 kg/(m2). Physical Exam Vitals reviewed. Constitutional: General: He is not in acute distress. Appearance: Normal appearance. He is not ill-appearing. HENT: Head: Normocephalic and atraumatic. Right Ear: External ear normal. Left Ear: External ear normal. Nose: Nose normal. No congestion or rhinorrhea. Mouth/Throat: Mouth: Mucous membranes are moist. Pharynx: Oropharynx is clear. Eyes: General: (more content not included)... [facility] 01-13-2023 Miscellaneous Notes Please notify patient ready for picker tender or mail to home Order pended. Michelle Lechuga MA January 13, 2023 11:22 AM documented in this encounter [facility] 01-13-2023 Miscellaneous Notes Lm regarding results and recommendations. Left a v/m for pt to return call. My chart sent. Michelle Lechuga MA January 12, 2023 9:14 AM Please call patient Labs are normal Recheck in 3 months Component Latest Ref Rng & Units 01/07/2023 WBC 3.70 - 11.00 k/uL 5.87 RBC 4.20 - 6.00 m/uL 4.54 Hemoglobin 13.0 - 17.0 g/dL 15.2 Hematocrit 39.0 - 51.0 % 45.5 MCV 80.0 - 100.0 fL 100.2 (H) MCH 26.0 - 34.0 pg 33.5 MCHC 30.5 - 36.0 g/dL 33.4 RDW-CV 11.5 - 15.0 % 13.0 Platelet Count 150 - 400 k/uL 226 MPV 9.0 - 12.7 fL 9.4 Neut% % 67.0 Abs Neut (ANC) 1.45 - 7.50 k/uL 3.93 Lymph% % 17.7 Abs Lymph 1.00 - 4.00 k/uL 1.04 Rush% % 11.4 Abs Rush <0.87 k/uL 0.67 Eosin% % 3.2 Abs Eosin <0.46 k/uL 0.19 Baso% % 0.5 Abs Baso <0.11 k/uL 0.03 Immature Gran % % 0.2 IMMATURE GRANS (ABS) <0.10 k/uL <0.03 NRBC /100 WBC 0.0 Absolute nRBC <0.01 k/uL <0.01 DTYPE Auto Protein, Total 6.3 - 8.0 g/dL 7.8 Albumin 3.9 - 4.9 g/dL 4.5 Calcium 8.5 - 10.2 mg/dL 9.6 Bilirubin, Total 0.2 - 1.3 mg/dL 0.4 Alkaline Phosphatase 38 - 113 U/L 86 AST 14 - 40 U/L 33 ALT 10 - 54 U/L 25 Glucose 74 - 99 mg/dL 98 BUN 9 - 24 mg/dL 8 (L) Creatinine 0.73 - 1.22 mg/dL 0.99 Sodium 136 - 144 mmol/L 137 Potassium 3.7 - 5.1 mmol/L 4.3 Chloride 97 - 105 mmol/L 102 CO2 22 - 30 mmol/L 26 Anion Gap 9 - 18 mmol/L 9 eGFR >=60 mL/min/1.73m 87 CRP <0.9 mg/dL 0.5 WSR 0 - 15 mm/hr 6 Vitamin D 25 Hydroxy 31.0 - 80.0 ng/mL 44.3 documented in this encounter [facility] 01-07-2023 Instructions Katty Duenas APRN.DARIN - 01/07/2023 2:42 PM EDT -PLEASE NOTE THAT WE REVIEW ALL YOUR TEST RESULTS AT YOUR NEXT FOLLOW UP VISIT WITH YOU. IF ANY ABNORMAL LAB REQUIRES SOONER ATTENTION, WE WILL CONTACT YOU. -If you have signed up on [employer], we will release your test results through [employer]. I wish you the best of health and wellness. 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 Please use sun screen if you are outdoors during summer and kristen days, to avoid skin pigment changes and sunburn, as this is a risk with hydroxychloroquine. If you experience palpitations or chest pains, please stop the hydroxychloroquine and contact your Primary care physician. They will need to obtain an EKG to insure you do not have a prolonged QTc as well as the usual cardiac work for chest pains. Please share this information with your Primary care physician: the hydroxyzine interacts with the hydroxychloroquine and can lead to hear rhythm problems. The concurrent use of hydroxychloroquine with other agents that prolong the QTc interval may result in potentially life-threatening cardiac arrhythmias, including torsades de pointes.(1) Please follow up with your eye doctor - Start taking vitamin D over the counter, 2000 international units once daily with meals Maintaining good vitamin D blood levels is important for bone health and overall health. Please see additional information on vitamin D below. A vitamin D blood test, called vitamin D 25-hydroxy (OH) is obtained to assess vitamin D level. If the vitamin D is low, you will need to take a vitamin D supplement. If you are already on a vitamin D supplement, then the dose will need to be adjusted. Also you multivitamin may contain vitamin D. Vitamin D is a fat soluble vitamin that requires it be taken with good fat to be absorbed. Examples of healthy fat include nuts, seeds, avocados, olives and for the most part the meal of the day. Spending up to 30 minutes in the sun during Summer and late Spring can provide natural vitamin D to the uncovered skin (arms, legs) - Your calcium can be sufficient in your diet Healthy food that are rich in calcium include: nuts, seeds, legumes/beans, peas, dark green leafy vegetables, plant based milk Additional calcium rich foods listed below - Soaking Almonds overnight in the fridge with drinking water, can help with softening the almonds and improved absorption of the almonds. See additional information below on calcium. - I recommend following a healthy lifestyle. You can find additional information below. I recommend this to all my patients, as I have seen convincing scientific evidence, and seen the results in my practice, of the benefits of this healthy lifestyle to overall health and wellness. I hope you will find this beneficial as well. A whole plant based diet and healthy lifestyle have been reported to be optimal for health in general, anti-inflammatory diet, prevention of common chronic diseases, healthy weight management, memory and brain healthy, bone health. Recommendations for healthy lifestyle include: Healthy nutritious diet, anti-inflammatory diet, appropriate exercise, good sleep hygiene, stress management, supplementing vital deficiencies and maintaining healthy weight. with BMI that does not exceed 25 to 26 . 5 points to remember to improve your health and continue on a healthy path: 1- Optimal nutritious food, such as a Whole Plant Based diet You can watch the movie that features the Whole Plant Based diet, [place] over knives (see video online and visit website). Another movie that was recently released is: Eating You Alive (you can find it at Romotive) and The Credii ChangeDoutíssima movie Dr. Noemi Guevara is a [facility] physician who is an expert in Whole Plant based diet. His website is [employer]. His research highlights the benefits of the Whole food plant based diet in reversing and preventing heart disease. Mrs. Guevara (his ) has a cookbook with many recipes on whole plant based food: The Prevent and Reverse Heart Disease cookbook. You can also consider reading his son, Edwardo Guevara's book: The Engine 2 cookbook Edwardo is a retired staffing account manager who has helped many people get healthier by following the whole food plant based diet. Dr. Mike Waller, has a website and free marisa to help get started on a whole plant based diet, at www.Fooda.org and you can log on for free for his 21-Day Kickstart with meals and recipes to follow for 21 days. There is also a free marisa for that. He has multiple free videos and YouTube, for example: https://Woowa [email or web address]/[email or web address] , [email or web address] [email or web address]/[email or web address] He has written multiple books, including Power Food for the Brain, The Cheese Trap, Dr. Mike Waller's Program for Reversing Diabetes, Your Body in Balance Dr. William Villalobos has shown the benefit of a starch based whole food plant based diet to his Rheumatoid Arthritis patients, as well as patient with diabetes II, hypertension, obesity, multiple sclerosis, heart disease, acne, and other, his website: www.bert.PressConnect Dr. Alejandro Greene is a renowned informatics scientist, who has studied and researched the benefits of the Whole plant based diet. He has also researched the adverse effects of animal proteins on health. He presents many of his research findings in his book The [place] study. Dr. Yobani Schuler has completed many research trials proving the reversal of diseases, such as heart disease and early prostate cancer, with healthy lifestyle and the Whole Plant based diet. Dr. Yobani Schuler website is: www.rubyInform Direct.PressConnect His new book: Undo It, has evidence based information and guide to following this healthy lifestyle. Dr. Wiliam Rogers has dedicated a website and additional time to reviewing all food related articles and research and presents them in his power point presentation and on his website at: nutritionfacts.org which is all free. Dr. Rogers has multiple free videos and YouTube, for example https://youSpaceCraft, Inc.u.be/aSgNkhgVtks and https://youVanquish Oncology.be/lXXXygDRyBU. He has written multiple books including: How Not To and How Not To Diet He is now working on his next book: How Not To Age Dr. Shelley Nguyen (from the [facility]), has articles on the following website: [employer] Also, you could find additional information on practical to follow recipes by reading or watching online and YouTube such as: Pickling Operator AJ, Cooking With Plants, The Vegan Corner (recipes from an [place] Pickling Operator), The Whole Foods Plant Based Cooking Show and visiting the provided websites for additional information on the whole plant based benefit and cooking recipes. You can also consider watching the vlogs of some of the plant based Athletes such as Blas Day Derek on [employer]. Dr. Radha Hadley (a psychiatrist who suffered with lupus) has helped reverse her Systemic Lupus Erythematosus and helps many patients with their auto-immune diseases, based on her recommendations of the whole food plant based diet and the green smoothies. She has a facebook and website, and on youtube her channel is: Goodbye Lupus Some people have adverse effect or intolerance to gluten. Certain patients with auto-immune disease, including auto-immune thyroid disease, need to avoid gluten. If you suspect you are gluten sensitive or intolerant, consider gluten free diet. Gluten could lead to increased inflammation in the bowels and body in certain patients. Not all your food has to be organ if you cannot afford or find them. Consider organic and non-GMO products when shopping for your food, when possible. GMO are genetically modified food that may have adverse impact on our health. If you are unable to purchase organic of non-GMO, you can wash your produce with white vinegar or soak in baking soda and water (see details from Dr. Mixon's website nutritionfacts.org) and rinse well with water. 2- Regular Exercise, such as beginner yoga, marcus chi, stretching, cardio, gradual strengthening, pool therapy, physical therapy Come As You Are: YOGA - Gentle Yoga Anyone Can Do Anywhere www.[employer].PressConnect/y oga Also on youtube: yoga with Sylvia 3- Good Sleep (poor sleep impacts everything, recommended sleep is 7.5 to 8 hrs. a night). Certain people need less or more sleep. Meditation and relaxation techniques have shown to help with improving sleep. 4- Stress management, staying positive, be happy, laugh often (it is a great medicine) Find time to relax and meditate if possible. Following steps 1-3 will help with this as well. In psychiatric disorders, it is important to follow with a professional on the optimal management of depression, anxiety or psychiatric illness 5- Supplements Supplementing necessary vitamins and minerals, correcting any deficiencies, i.e. Vitamin D, B12, omega-3 fatty acids etc... Go natural when possible -Important notice: If you are following a Whole plant based diet, it is recommended to take Vitamin B12, sublingual, dissolve under the tongue, take once daily. Vitamin B12 is available over the counter, dose could be 2500 mcg, and can be taken once a week, and if your blood levels are low, you may need to take it once daily or a higher dose. Raw: Garlic, Cilantro, [place] nuts, Pumpkin seeds, Greene seeds and Flax seed powder have been reported to help with certain metal detoxification such as mercury. [place]-3 plant based rich foods are good anti-inflammatory sources such as : denae seeds, flax seed (needs to be ground), walnuts, hemp seeds, dark green leafy vegetables. It is important to avoid refined oils as much as possible especially that many have too much omega-6 that is pro-inflammatory (lead to inflammation as well as concern for heart and vascular disease). Turmeric can be found natural, used as the spice powder or the root with your food. This is also available as a capsule. If you are on a blood thinner, you will need to discuss with your pharmacist or physician before taking Turmeric If you have gall bladder disease or gall bladder stones, it is recommended to avoid turmeric capsules. Sweet cherries (raw cleaned or frozen), Turmeric , pineapple (contains bromelain), omega-rich foods, have anti-inflammatory benefit Start reviewing the Whole Plant Based Diet, by watching [place] over [employer] movie and then review website. There are many other resources and educational information on the Whole plant based diet on the Internet and documentaries. There are other resources for wellness that you can also benefit from, such as the [facility] Wellness website, [facility]org and includes Plant based and Mediterranean diet, yoga and meditation. Please avoid all dairy products. You could use non-dairy milk such as Flax milk, Cashew milk, Brooks milk, Rice milk, Oat milk or Hemp milk, instead. It is very important to avoid all: refined sugars (including high fructose syrup), refined carbohydrates, any artificial sweeteners and artificial preservatives, and soda and heavily processed food. Insure adequate hydration; drink at least 6 to 8 cups of water daily, certain people need less or more. Examples of Smoothies: Every morning you can start your day with a healthy natural anti-inflammatory smoothie, for example, you can blend: fresh or frozen sweet cherries, half a root of turmeric (1 to 2 inches), banana, blue berries, walnuts, few leaves of kale, add flax milk (or almond milk), and enjoy. You could add half an avocado if you like it smoother. If you do not tolerate walnuts, you can use flax seeds, denae seeds or hemp seeds instead. If you do not like plant based milk, you can use coconut water or plain water instead. Other smoothies, including green smoothies, are also very healthy and highly anti-inflammatory. For example fruits (such as banana or frozen alex or pineapple) and add significant amount of leafy greens, then add water or coconut water and blend until smooth. You can also add turmeric in this recipe. GENERAL INFORMATION ON BONE HEALTH : -Bone Density testing (DXA scan) as recommended. -Vitamin D supplementation is recommended, unless blood levels are sufficient. Recommended daily dose of 1000 to 2000 IU total a day, or the dose necessary to achieve a Vitamin D 25-OH blood level of >31 and preferably closer to 40-60 ng/mL. Vitamin D pills are available over the counter. -Recommended daily dose of calcium: 1200mg total a day in divided doses. Calcium is usually sufficient in our regular diet, also available in multivitamins. Patients on certain dietary restrictions or those unable to meet their daily calcium by diety alone, may require calcium supplements. For patient with history of calcium kidney stones, Calcium Citrate would be the recommended supplement. It is recommended to avoid caclium carbonate supplement in this case, as these may increase risk of calcium kidney stones. The after visit summary has information on dietary calcium and instructions on reading calcium label and converting the %DV to mg. When you read a food label and you see calcium reported as DV %, add a zero and this will provide you with the approximate mg value of the calcium content in this food. For example, if a glass of almond milk is labeled as 40% calcium DV, then this contains 400 mg of calcium. For additional information, please see references provided. -Regular weight-bearing and muscle-strengthening exercise -Avoidance of tobacco smoking, excessive alcohol intake and excessive caffeine intake. -Fall and fracture precautions -It is recommend to continue regular follow up visits with your dentist every 6 months, and continue with good oral hygiene. Calcium: If your diet is sufficient in Calcium rich food, you will not need calcium supplement. Calcium Citrate is the preferred calcium if you have had kidney stones. Daily recommended calcium dose: 600mg twice a day with meals. Adequate calcium ingestion is essential for maintaining healthy bones. The recommended dose daily intake of calcium varies depending on individual needs but is usually between 1200 and 1500mg daily, preferably around 1200mg a day in divided dose (not all taken at once). This is equivalent to about five 8oz glasses of milk per day. Many foods are rich in calcium and they include: - Plant based, non-dairy, calcium rich products, include nuts, almond milk, beans, lentils - Vegetables and Fruit: bok-preston, turnips, broccoli, kale, collards, - Dairy products: milk, cheese, yogurt, ice-cream - Fish products: canned salmon, sardines and shrimp - Cereals and nuts: almonds, sesame seeds, fortified cereals and oatmeal - Other foods: fortified orange-juice, figs, soybeans, other beans and eggs. If you have a low calcium diet and cannot tolerate calcium-rich foods, many supplements are available today. Your pharmacist can help you choose the one which best suits your needs. A few tips on supplements: - They should be easy to swallow - They should dissolve easily in cup of vinegar in < 15 minutes. - Count the ELEMENTAL calcium mgs. E.g. Calcium 499mg may have only 221mg of elemental Calcium. - Calcium citrate is the calcium supplement to take if you have had kidney stones and unable to meet your calcium requirements from food/diet alone. - There is such a variety today that it is best to bring in the bottle to your doctor to show them exactly what you are taking. Lastly too much calcium can be bad for you. Recent studies show extra supplements may increase your risk of kidney stones or cause high calcium levels in some people. You should discuss how much you should be taking with your doctor before starting them. Further Information is available from the following resources: www.nof.org (National Osteoporosis Foundation) http://www.osteo.org/osteolinks.a sp National Institutes of Health: 8-706-669-BONE The Calcium Information [place]: -Non-Dairy, Plant based Milk, can contain in1 glass up to 450 mg of calcium (300 to 450 mg) Exampled include Oat Milk, Flax Milk, Brooks Milk, Cashew Milk, Soy Milk, Peas Milk general health and well being Examples of Food Sources of Calcium from [facility] Food Milligrams (mg) per serving Percent DV* Soymilk, calcium-fortified, 8 ounces 299 30 Spring juice, calcium-fortified, 6 ounces 261 26 Tofu, firm, made with calcium sulfate, cup* 253 25 Tofu, soft, made with calcium sulfate, cup* 138 14 Fvqqf-re-qpt cereal, calcium-fortified, 1 cup 100-1,000 10-100 Turnip greens, fresh, boiled, cup 99 10 Kale, raw, chopped, 1 cup 100 10 Kale, fresh, cooked, 1 cup 94 9 Nigerian cabbage, bok preston, raw, shredded, 1 cup 74 7 Bread, white, 1 slice 73 7 Tortilla, corn, hxofr-zi-ytiq/wang, one 6 diameter 46 5 Tortilla, flour, ouycj-bx-zbhb/wang, one 6 diameter 32 3 Bread, whole-wheat, 1 slice 30 3 Broccoli, raw, cup 21 2 * DV = Daily Value. DVs were developed by the U.S. Food and Drug Administration to help consumers compare the nutrient contents among products within the context of a total daily diet. The U.S. Department of Agriculture s (USDA s) Nutrient Database Web site lists the nutrient content of many foods and provides comprehensive list of foods containing calcium arranged by nutrient content and by food name. *Calcium content varies slightly by fat content; the more fat, the less calcium the food contains. * Calcium content is for tofu processed with a calcium salt. Tofu processed with other salts does not provide significant amounts of calcium. You could acces this information online at: http://ods.od.nih.gov/factsheets/ Calcium-HealthProfessional/ Vitamin D: Vitamin D3= cholecalciferol, available over the counter. Dose recommended 800 to 1000 iu daily with a meal; Certain patients require 1594-3144 iu daily and in patients deficient in Vitamin D, they require higher dosages. Certain patient requires higher dose, depending on their Vit D blood levels. Vitamin D is essential for calcium metabolism. It is really a hormone produced mainly in your skin after exposure to sunlight. Vitamin D helps you absorb calcium from your stomach and kidneys and incorporates it into your bones. Studies show approximately 50% of [place] men and women are vitamin D deficient in the winter. Milder cases of vitamin D are usually asymptomatic so the only way to know you have a problem is to have a blood level checked. More severe cases can cause osteomalacia (a.k.a. rickets) which can result in bone pain, weak bones and several abnormal laboratory tests and also weak muscles (a.k.a. myopathy). When this happens, your bones lose a lot of their calcium stores as the body tries to regulate the calcium required by other tissues. Prolonged deficiency can lead to severe bone disorders and fractures. Unlike calcium, dietary sources of vitamin D are rare, limited to a few fish oils particularly cod-liver oil, other fortified foods and egg yolks. and most are unhealthy. Natural source of vitamin D is through sunshine. This is usually during kristen seasons, for example a 30 minute exposure to sunshine. Some people are unable to be exposed to the sun due to skin condition. Often supplementation is needed. Many multivitamins contain some vitamin D and vitamin D alone preparations are now available in several forms. The recommended daily intake of vitamin D used to be 400 and 800 international units, however, it is now known that larger amounts are needed, as discussed above. Your doctor can prescribe prescription strength vitamin D for you if necessary, if you have marked deficiency or diseases of the liver or kidney. Supplementation in patients with severe deficiency can stabilize or improve bone mineral density and in frail elderly persons, may reduce their risk of falling. Additional Information is available from: www.nof.org (the national osteoporosis foundation) http://www.[facility].org/ar thritis/osteo/info.htm http://ods.od.nih.gov/factsheets/ vitamind.asp [place] [employer] of Health: 9-404-768-BONE [facility] Calcium Information [place]: At the [facility], we work as a team for your care, along with Nurse Practitioners, Physician Assistants, Nurses and Medical Assistants. It is a privilege and honor to serve you. Thank you for choosing [facility] for your healthcare. Sincerely, Katty Duenas APRN.TRANSVERSE ABDOMINAL MUSCLE SURGEON documented in this encounter [facility] 01-07-2023 History of Present illness Narrative Face to face FOLLOW UP VISIT PCP: Efren Castillo II, MD [address] [place] [id number] Mr. Duval is a 62 year old patient here today for follow up of rheumatoid arthritis and osteopenia Interim History: Off and on Has not seen GI yet Still having diarrhea off and on- wants another colonoscope Terminated from work and dropped insurance Had CT scan scheduled same time - completed today Now has medicaid and medicare Following pulm for lung nodules, COPD Has pleural thickening per patient Follow up scheduled next Wednesday Following with urology prostate ca- just monitoring PSA Off hormone therapy 1 year ago Testosterone slowly going up Starting to have more pains Pain -ankles/ shoulder/ arms and legs No swelling Am stiffness 30 min No falls No fractures No dental concerns Stopped enbrel -caused bloating, diarrhea, headaches Took for only 8 weeks Tried leflunomide, methotrexate Following with pulm Still smoking Taking plaquenil twice daily Eye exam due - scheduled 1 month Vit d 2 gummies+ ca and mult vitamin daily biotin = 3000 international unit(s) daily No pred since October Tylenol not working Ibuprofen helps but bothers stomach Hx diverticulitis- has appt scheduled GI Review of Systems CONSTITUTION: Negative for: Fever and Recent weight change HEENT: Negative for: Nosebleeds, Mouth sores, Trouble swallowing and Dry mouth More sinus issues recently Had hx sinus sx Not currrently following with ent RESPIRATORY: Negative for: Cough (improved), Shortness of breath, Pain with breathing and Coughing up blood GASTROINTESTINAL: Positive for: Diarrhea (intermittent, none today, last couple days ago) Negative for: Melena, Heartburn and Abdominal pain Bloating and diarrhea improved off enbrel Problems since radiation MUSCULOSKELETAL: Positive for: Arthralgias, Myalgias, Muscle weakness and Morning Joint Stiffness Negative for: Joint swelling NEUROLOGICAL: Positive for: Numbness Negative for: Headaches and Memory loss SKIN: Negative for: Rash, Skin changes, Hair loss and Nail changes EYES: Positive for: Eye dryness Negative for: Eye pain, Eye redness and visual disturbance CARDIOVASCULAR: Negative for: Chest pain and Leg swelling GENITOURINARY: Negative for: Dysuria and Hematuria HEMATOLOGIC/LYMPHATIC: Negative for: Swollen glands Past Medical Hx, Past Surgical Hx. 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 inj., oral ulcers, thrush LUNGS: CTA B/L HEART: RRR, no g/r/m NEURO: Mental Status: alert and oriented x 3 cheerful, Gait: Normal w/o assistive devices Tone: normal no focal weakness. MUSCULOSKELETAL: Sw Jts.:0 T Jts.:ankles, knees, mcps hands No joint deformities, no rheumatoid nodules. calcifications or tophi. No SI tenderness, no vitaliy's tenderness, no heel/plantar tenderness, lumbar flexion full, negative Salma's test. No clinical synovitis in the DIP's, PIP's, MCP's, wrists, elbows, shoulders, knees, ankles, midfoot, or toes. No knee effusions bilateral. Shoulder exam:FROM FROM: all upper and lower extremity joints Thoracic/Lumbar Spine: No percussion tenderness SLR: negative modified in chair Extr.: no edema Prior Test results discussed with patient. 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 His outside labs: CCP 101 (09/15/2019),RF 10, MANUEL direct negative Urate 4.9 sed 10 crp 0.5 mg/dL He has had very good response to prednisone, but flares after being off and has required multiple courses. He is on low dose, suboptimal dose hydroxychloroquine, for the past 6 months. Did not tolerated methotrexate due to sevre nausea. Has not been on other DMARDs, Biol or Kyle inhibitors. He is better today due to recently completing pred course. At this time, patient requires optimizing DMARD medications. I counseled him on smoking cessation and reviewed the research showing risk of RA in smokers who are CCP positive. Also smoking can impair response to hydroxychloroquine, other DMARDs and Biologic medications. Outside BMD 01/27/2021 osteopenia Spine -2.0 T score Right femur -2.3 lowest T score Additional risk factors- smoking, current frequent steroid use Had 1 dose reclast 07/2022. Tolerated well. At todays visit patient patient Rheumatoid arthritis appears to be stable Off enbrel and developed bloating , diarrhea, headaches. Unclear if from enbrel. Will consult GI. Only took for 8 weeks. Last pred in October for joint pain and swelling. Pred for flare since off med and increase pain and stiffness. Discussed risks and need to limit. Patient is limited in tylenol due to liver and ibuprofen he can take due to stomach issues. No issues with low dose pred. Will only take when needed , in process of starting new biologic. To decrease steroid use. Patient will need to follow with GI, ID and pulm prior. Taking plaquenil tolerating well will increase to twice daily. saw IDID- + hep and Gi symptoms- discussed possible monitoring vs treatment now . Neuropathy in feet tried lyrica and gabapentin follows with primary care. No falls, no fractures, no new bone pains, no dental concerns, no procedures planned, no s/s of infections and no antibiotics. Patient happy with current plan PLAN/RECOMMENDATIONS: Off enbrel Follow with GI for diarrhea and +hep Follow with pulm Pred only for joint flares- will try to limit Continue plaquenil 200mg twice daily Eye exam every 6-12 months while on plaquenil Portions of this note have been copied from my previous note and have been updated to reflect today's visit note January 07, 2023 all reflect current medical decision making from date of this visit. I spent a total of 34 minutes on the date of the service which included preparing to see the patient, [id number] patient care, completing clinical documentation, obtaining and/or reviewing separately obtained history, performing a medically appropriate examination, counseling and educating the patient/family/caregiver, and ordering medications, tests, or procedures. Discussed medications dosage, usage, goals of therapy and side effects. Patient instructed to notify provider of any changes in medical condition. Patient in agreement and in understanding of plan. . Follow up:as scheduled Katty Duenas APRN.CNP Recommendations to share with referring physician/Primary care physician : Dear. Dr. Castillo I had the pleasure of seeing your patient, Mr Duval. I have enclosed a copy of my clinic note with my assessment and recommendations for this patient. Recommendations for your consideration as you deem necessary: -Continuous follow up with Primary care physician for cardiovascular disease prevention, for age appropriate cancer screening and routine health maintenance and wellness, and infection precautions and age appropriate immunization recommended. Thank you for allowing me to participate in the care of your patient. Katty Duenas APRN.CNP CC: Efren Castillo II, MD documented in this encounter [facility] 01-07-2023 Note HNO ID: [id number] Author: Katty Duenas, BUGGYMAN.TRANSVERSE ABDOMINAL MUSCLE SURGEON Service: ? Author Type: Nurse Practitioner Type: Progress Notes Filed: 01/07/2023 2:46 PM Note Text: Face to face FOLLOW UP VISIT PCP: Efren Castillo II, MD [address] [address] Mr. Duval is a 62 year old patient here today for follow up of rheumatoid arthritis and osteopenia Interim History: Off and on Has not seen GI yet Still having diarrhea off and on- wants another colonoscope Terminated from work and dropped insurance Had CT scan scheduled same time - completed today Now has medicaid and medicare Following pulm for lung nodules, COPD Has pleural thickening per patient Follow up scheduled next Wednesday Following with urology prostate ca- just monitoring PSA Off hormone therapy 1 year ago Testosterone slowly going up Starting to have more pains Pain -ankles/ shoulder/ arms and legs No swelling Am stiffness 30 min No falls No fractures No dental concerns Stopped enbrel -caused bloating, diarrhea, headaches Took for only 8 weeks Tried leflunomide, methotrexate Following with pulm Still smoking Taking plaquenil twice daily Eye exam due - scheduled 1 month Vit d 2 gummies+ ca and mult vitamin daily biotin = 3000 international unit(s) daily No pred since October Tylenol not working Ibuprofen helps but bothers stomach Hx diverticulitis- has appt scheduled GI Review of Systems CONSTITUTION: Negative for: Fever and Recent weight change HEENT: Negative for: Nosebleeds, Mouth sores, Trouble swallowing and Dry mouth More sinus issues recently Had hx sinus sx Not currrently following with ent RESPIRATORY: Negative for: Cough (improved), Shortness of breath, Pain with breathing and Coughing up blood GASTROINTESTINAL: Positive for: Diarrhea (intermittent, none today, last couple days ago) Negative for: Melena, Heartburn and Abdominal pain Bloating and diarrhea improved off enbrel Problems since radiation MUSCULOSKELETAL: Positive for: Arthralgias, Myalgias, Muscle weakness and Morning Joint Stiffness Negative for: Joint swelling NEUROLOGICAL: Positive for: Numbness Negative for: Headaches and Memory loss SKIN: Negative for: Rash, Skin changes, Hair loss and Nail changes EYES: Positive for: Eye dryness Negative for: Eye pain, Eye redness and visual disturbance CARDIOVASCULAR: Negative for: Chest pain and Leg swelling GENITOURINARY: Negative for: Dysuria and Hematuria HEMATOLOGIC/LYMPHATIC: Negative for: Swollen glands Past Medical Hx, Past Surgical Hx. 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 GEN: A AND O in NAD SKIN: no lesions HEENT: No conj. inj., oral ulcers, thrush LUNGS: CTA B/L HEART: RRR, no g/r/m NEURO: Mental Status: alert and oriented x 3 cheerful, Gait: Normal w/o assistive devices Tone: normal no focal weakness. MUSCULOSKELETAL: Sw Jts.:0 T Jts.:ankles, knees, mcps hands No joint deformities, no rheumatoid nodules. calcifications or tophi. No SI tenderness, no vitaliy's tenderness, no heel/plantar tenderness, lumbar flexion full, negative Salma's test. No clinical synovitis in the DIP's, PIP's, MCP's, wrists, elbows, shoulders, knees, ankles, midfoot, or toes. No knee effusions bilateral. Shoulder exam:FROM FROM: all upper and lower extremity joints Thoracic/Lumbar Spine: No percussion tenderness SLR: negative modified in chair Extr.: no edema Prior Test results discussed with patient. 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 His outside labs: CCP 101 (09/15/2019),RF 10, MANUEL direct negative Urate 4.9 sed 10 crp 0.5 mg/dL He has had very good response to prednisone, but flares after being off and has required multiple courses. He is on low dose, suboptimal dose hydroxychloroquine, for the past 6 months. Did not tolerated methotrexate due to sevre nausea. Has not been on other DMARDs, Biol or Kyle inhibitors. He is better toda (more content not included)... [facility] 01-07-2023 History of Present illness Narrative Radiology Service Progress Note PATIENT NAME: Constantino Duval DATE OF SERVICE: January 07, 2023 TIME: 1:53 PM PATIENT IDENTITY VERIFICATION COMPLETED USING TWO (2) IDENTIFIERS: Name and Date of confirmed by patient verbally and Name and Date of confirmed by identification band. FALL SCREENING: Has the patient had 2 falls in the last year or 1 fall with injury or currently using an Ambulatory Assistive Device (Walker, Cane, Wheelchair, Crutches, etc.)? No PATIENT GENDER DATA: Male PATIENT RELEVANT IMPLANT DATA REVIEWED: Not Applicable RADIOLOGY DEPARTMENT: CT; Exam(s) Completed: Chest PERIPHERAL IV DATA: Not applicable SIGNED BY: RT Sergio(Faye) January 07, 2023 1:53 PM documented in this encounter [facility] 01-07-2023 Note HNO ID: [id number] Author: Lea Malik RT(Faye) Service: Radiology Author Type: Technologist Type: Progress Notes Filed: 01/07/2023 1:56 PM Note Text: Radiology Service Progress Note PATIENT NAME: Constantino Duval DATE OF SERVICE: January 07, 2023 TIME: 1:53 PM PATIENT IDENTITY VERIFICATION COMPLETED USING TWO (2) IDENTIFIERS: Name and Date of confirmed by patient verbally and Name and Date of confirmed by identification band. FALL SCREENING: Has the patient had 2 falls in the last year or 1 fall with injury or currently using an Ambulatory Assistive Device (Walker, Cane, Wheelchair, Crutches, etc.)? No PATIENT GENDER DATA: Male PATIENT RELEVANT IMPLANT DATA REVIEWED: Not Applicable RADIOLOGY DEPARTMENT: CT; Exam(s) Completed: Chest PERIPHERAL IV DATA: Not applicable SIGNED BY: Lea Malik, RT(R) January 07, 2023 1:53 PM [facility] 12-10-2022 Miscellaneous Notes Pt requests Testosterone level to be drawn. Please sign if agreeable. Trudy Davila RN documented in this encounter [facility] 11-02-2022 Miscellaneous Notes Most recent Rheumatology visit: 09/18/2022 (with Katty Duenas) Recent Office Visits - This Specialty 09/18/2022 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) Rheumatology Katty Duenas APRN.TRANSVERSE ABDOMINAL MUSCLE SURGEON 02/27/2022 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) Rheumatology Katty Duenas APRN.TRANSVERSE ABDOMINAL MUSCLE SURGEON 10/22/2021 Seropositive rheumatoid arthritis (HCC) Rheumatology Katty Duenas APRN.TRANSVERSE ABDOMINAL MUSCLE SURGEON Upcoming Rheumatology Appointments - Next 365 Days Visit Type Date Time Department [facility] 12/15/2022 2:00 PM [facility] Last Ophthalmology Check for Plaquenil (Hydroxychloroquine) Last OCT Macula Exam No resulted procedures found. Last Visual Field Exam No resulted procedures found. CBC: None on file in the last 6 months Vitamin D: None on file in the last 6 months LFT: None on file in the last 6 months Hepatic Function: Creatinine: Creatinine Latest Ref Rng & Units 02/27/2022 09/08/2022 CREAT 0.73 - 1.22 mg/dL 0.97 - NTX 3.0 - 63.0 nM BCE/mM Creatinine - 49.3 NTXS 5.4 - 24.2 nM BCE - - ESR/CRP: None on file in the last 6 months Uric Acid: None on file in the last 6 months Open Standing (Multiple Instance) Lab Orders None Open Future (Single Instance) Lab Orders Expected Expires Ordered PSA/PROSTSPECAG DIAG [SQPSA] 12/14/22 02/13/23 06/16/22 Auth. provider: May Mcneil MD Assoc. diagnoses: Malignant neoplasm of prostate (HCC) HCV QUANT RNA BY PCR [SQHCQPCR] 10/27/22 12/27/22 10/27/22 Auth. provider: Adrienne Russo PA-C Assoc. diagnoses: HCV antibody positive, Hepatitis B core antibody positive HEPATIC FUNCTION PNL [SQHFP] 10/27/22 12/27/22 10/27/22 Auth. provider: Adrienne Russo PA-C Assoc. diagnoses: HCV antibody positive, Hepatitis B core antibody positive HEP B SURF AG SCRN [SQHBSAG] 10/27/22 12/27/22 10/27/22 Auth. provider: Adrienne Russo PA-C Assoc. diagnoses: HCV antibody positive, Hepatitis B core antibody positive HEP B VIRAL DNA CLEO [SQHBVDNU] 10/27/22 12/27/22 10/27/22 Auth. provider: Adrienne Russo PA-C Assoc. diagnoses: HCV antibody positive, Hepatitis B core antibody positive HEP B CORE AB TOTAL [SQAHBCOT] 10/27/22 12/27/22 10/27/22 Auth. provider: Adrienne Russo PA-C Assoc. diagnoses: HCV antibody positive, Hepatitis B core antibody positive HEP BE ANTIBODY [SQAHBE] 10/27/22 12/27/22 10/27/22 Auth. provider: Adrienne Russo PA-C Assoc. diagnoses: HCV antibody positive, Hepatitis B core antibody positive HEP BE ANTIGEN [SQHBEAG] 10/27/22 12/27/22 10/27/22 Auth. provider: Adrienne Russo PA-C Assoc. diagnoses: HCV antibody positive, Hepatitis B core antibody positive HEP B CORE AB IGM [SQAHBCM] 10/27/22 12/27/22 10/27/22 Auth. provider: ETTA Souzaoc. diagnoses: HCV antibody positive, Hepatitis B core antibody positive documented in this encounter [facility] 10-27-2022 History of Present illness Narrative NEW VIRTUAL VISIT This is a virtual visit using HIPAA compliant video platform- Zoom. It required patient-provider interaction for the medical decision making as documented below. I have communicated my name and active licensure. The patient's identity and physical location were verified at the time of this visit. Either the patient or their legal provider relations representative has been informed of the risks and benefits of -- and alternatives to -- treatment through a remote evaluation and consents to proceed with the evaluation remotely. I had a virtual visit with Mr. Duval today. His local doctors have given his a diagnosis of HBV/HCV infection. Patient is referred in consultation by Katty Duenas for an opinion regarding Hepatitis C and Hepatitis B and my final recommendations will be communicated back to the requesting physician by way of shared Medical Record. HISTORY: CC: Patient presents with: Hepatitis HPI:: Mr. Duval is a 62 year old Male with past medical history of RA, alcoholic pancreatitis x2, alcohol use, presenting today for HBV/HCV. Upon chart review, 02/2022 had +HCV AB and negative HCV PCR not detected +HBV c Ab total, -HBV s Ag/Ab Previous testing from July 2020 also showed positive HCV AB with equivocal HBV c Ab total. HCV PCR has been undetectable Liver enzymes are wnl, normal plt count Has never been treated for HCV Following with Rheumatology for RA: Stopped enbrel -caused bloating, diarrhea, headaches Took for only 8 weeks Tried leflunomide, methotrexate Using prednisone for joint pains Risk Factors for Liver Disease: 1. Blood transfusions before 1991: no 2. IVDA: yes-last use 2017 3. Intranasal coccaine use: yes-last use 2017 4. Tattoos: yes x 3, not professionally (age 17, 19, 26) 5. Service: No 6. High risk sexual behavior: No 7. Alcohol: Yes, drank from [age] (considered himself an alcoholic), sober from age 41-2018, started drinking beer on and off since then. Now drinks most days of the week. No DUIs 8. Obesity: yes 9. Hyperlipidemia: No 10. Prolonged exposure to hepatotoxic meds: No 11. Other autoimmune disorders No Family hx: father of pancreatic cancer and cirrhosis Denies current issues with ascites, HE, hematemesis, hematochezia, confusion, dark urine, ezekiel colored stool, nausea, vomiting, weight loss, early satiety, bloating, dysphagia, odynophagia, change in bm. Remaining systems reviewed and are negative. Computed MELD-Na unavailable. Necessary lab results were not found in the last year. Computed MELD unavailable. Necessary lab results were not found in the last year. PAST MEDICAL HISTORY Diagnosis Date Alcohol abuse, in remission 07/08/2005 Alcoholic pancreatitis Anxiety Depression Diverticulitis GERD (gastroesophageal reflux disease) Hypertension Hypertension Hyperthyroidism Intolerance to tapazole Low back pain Lumbar herniated disc Marijuana abuse 07/08/2005 In remission Mitral valve prolapse Narcotic dependence, in remission (HCC) 07/08/2005 Pseudocyst, pancreas Rheumatoid arthritis (HCC) Tobacco abuse PAST SURGICAL HISTORY Procedure Laterality Date HEMORRHOIDECTOMY OTHER Left foot surgery FAMILY HISTORY Problem Relation Age of Onset Thyroid Sister Hypothyroidism Diabetes Other Brother's son - ?type 1 Prostate Cancer Brother Cancer Sister other (Pituitary) No Family History other (Parathyroid) No Family History other (Adrenal) No Family History Social History Tobacco Use Smoking status: Every Day Packs/day: 1.00 Years: 35.00 Pack years: 35.00 Types: Cigarettes Last attempt to quit: 04/12/2011 Years since quittin.5 Smokeless tobacco: Never Substance Use Topics Alcohol use: Yes Comment: rarely Drug use: Not Currently Types: Marijuana, Cocaine, Opiates Comment: NONE SINCE 2005 Current Outpatient Medications Medication Sig Dispense Refill tamsulosin (FLOMAX) 0.4 mg Take 1 capsule by mouth twice daily. 60 capsule 3 hydrOXYchloroQUINE (PLAQUENIL) 200 mg tablet take 1 tablet by mouth twice a day with food 60 tablet 3 clobetasol (TEMOVATE) 0.05 % cream Apply to affected area twice daily. APPLY TO AFFECTED AREA Sodium Fluoride 1.1 % BRUSH A PEA SIZED AMOUNT ON TEETH at bedtime (NO FOOD OR WATER 30 MINUTES AFTER,) predniSONE (DELTASONE) 5 mg tablet take 2 tablets by mouth once daily for 5 days then take 1 tablet by mouth once daily for 5 days budesonide-formoterol (SYMBICORT) 160-4.5 mcg/actuation inhaler Inhale 2 Puffs as instructed twice daily. 1 Each 5 qujmme-tzxz-ylkr-levomef-silic 10-50-500-0.5 mg cap Take 1 tablet by mouth. cholecalciferol (VITAMIN D3) 1,000 unit tab tablet Take 1 tablet by mouth once daily. liothyronine (CYTOMEL) 25 mcg tablet Take 25 mcg by mouth once daily. levothyroxine 150 mcg cap Take 150 mcg by mouth daily before breakfast. ALPRAZolam (XANAX) 0.25 mg tablet Take 0.25 mg by mouth twice daily as needed. busPIRone (BUSPAR) 10 mg tablet Take 20 mg by mouth twice daily. hydrOXYzine pamoate (VISTARIL) 50 mg capsule Take 50 mg by mouth. atenolol 50 mg tablet Take by mouth once daily. 50 mg.once daily Multivitamin ORAL capsule Take 1 capsule by mouth once daily. 0 No current facility-administered medications for this visit. ALLERGIES Allergen Reactions Tapazole [Methimazo* Anaphylaxis rash, itching throat was closing Leflunomide Diarrhea, GI Upset, Intolerance, Other: See Comments, Shortness of Breath Methotrexate GI Upset nausea , vomiting, dizziness Twekkgz-Yvj-Rcb Red* Other: See Comments Leg pain REVIEW OF SYSTEMS: PAIN ASSESSMENT: Negative for pain, history of chronic pain, or current treatment for a chronic pain condition. GENERAL: No weight loss, malaise or fevers RESPIRATORY: Not reviewed CARDIOVASCULAR: Negative for chest pain, leg swelling, hypertension, CHF or palpitations GI: No nausea, vomiting, or diarrhea MUSCULOSKELETAL: Not reviewed SKIN: Negative for lesions, rash, and itching ENDOCRINE: Not reviewed NEURO: No history of headaches, syncope, paralysis, seizures or tremors PHYSICAL FINDINGS OF NOTE: General - Normal, cooperative, in no acute distress Able to interact verbally by video conference Psych - ORIENTATION: normal to time place, person and situation Mood/Affect: AFFECT AND MOOD: Normal Head/Neuro - Normal size and shape Facial appearance normal Pulmonary - breathing comfortably Cardiovascular - patient describes extremities normal and warm Abdominal - Not performed Skin - abnormal lesions not visualized Motor - patient seen sitting with Normal appearing strength and coordination REVIEWED ITEMS No recent abdominal imaging to review IMPRESSION Mr. Duval is a 62 year old Male with past medical history of RA, alcoholic pancreatitis x2, alcohol use, presenting today for HBV/HCV. Previous testing (HCV AB +, HCV PCR -) suggests previous exposure to HCV but no active infection, discussed no need for treatment. Also has previous exposure to HBV infection, no active infection. Risk factors include illicit drug use-last 2017 and 3 tattoos, not professionally done. He was unsure if Rheumatology has plans to try another biologic for his RA, which may need HBV ppx, will clarify. Discussed pathophysiology of HBV and HCV infections, with risk of spontaneous clearance. RECOMMENDATION: HCV PCR- if not detected, no further testing needed Do not check HCV Ab as will remain positive lifelong and does not indicate active infection HBV serologies, HBV core antibody total positivity indicates previous but not active infection May need either monitoring of LFTs/HBV DNA/HBV sAg if Rheumatology were to consider biologics vs can initiate HBV treatment to prevent flare of HBV, will clarify with Rheum Mediterranean diet/increased cardiovascular exercise with goal >45 minutes 5 days weekly Tight control of metabolic syndrome essential, PCP to assist with management of metabolic syndrome risk factors Avoid liver detox cleanse/supplements Not to exceed 2,000 mg tylenol daily Will be seeing GI locally Requesting we fax lab orders to him (home phone) I spent a total of 40 minutes on the date of the service which included preparing to see the patient, [id number] patient care, completing clinical documentation, obtaining and/or reviewing separately obtained history, performing a medically appropriate examination, counseling and educating the patient/family/caregiver, ordering medications, tests, or procedures, communicating with other HCPs (not separately reported), and independently interpreting results (not separately reported). Adrienne Russo PA-C October 27, 2022 4:42 PM documented in this encounter [facility] 10-13-2022 Miscellaneous Notes Please sign Rx in Dr Mcneil's absence. Thank you Trudy Davila RN documented in this encounter [facility] 10-12-2022 Miscellaneous Notes Last Rheum office visit: 09/18/22 Next Rheum office visit: 12/15/22 Last CMP and CBC: CMP: Glucose 92 02/27/2022 BUN 11 02/27/2022 Creatinine 0.97 02/27/2022 Sodium 140 02/27/2022 Potassium 4.8 02/27/2022 Chloride 103 02/27/2022 CO2 28 02/27/2022 Protein, Total 7.1 02/27/2022 Albumin 4.6 02/27/2022 Calcium 9.4 02/27/2022 Alkaline Phosphatase 79 02/27/2022 Bilirubin, Total 0.2 02/27/2022 AST 32 02/27/2022 ALT 23 02/27/2022 Hemoglobin (g/dL) Date Value 02/27/2022 14.0 02/11/2021 13.2 Hematocrit (%) Date Value 02/27/2022 41.3 02/11/2021 41.5 WBC (k/uL) Date Value 02/27/2022 5.64 02/11/2021 5.98 Platelet Count (k/uL) Date Value 02/27/2022 241 02/11/2021 259 Last eye exam date: 03/04/22 documented in this encounter [facility] 07-29-2022 Miscellaneous Notes Labs printed and placed in the mail to patient's home address. documented in this encounter [facility] 06-25-2022 Miscellaneous Notes Images from the original note were not included. Chasity at [facility] notified of Dr. Mcneil's response. Nicole Guerrier LPN G Juni Mcneil MD You; [facility]t [facility] 56 minutes ago (12:52 PM) Ok to d/c and follow psa closely Adriana with Dr. Santacruz's office called stating Richardson was previously seen by Dr. Soler. Richardson canceled his Lupron injection that was scheduled December 2021. Dr. Mcneil's previous follow up note from October 2021 mentioned discontinuing Lupron and Dr. Santacruz would like to make sure that stopping Lupron is still acceptable. Also does patient need to follow with urology at this time? Please advise. Nicole Guerrier LPN documented in this encounter [facility] 06-18-2022 Instructions Joe Headley MD - 06/18/2022 10:25 AM EST Work on quitting smoking Stay active Continue symbicort, rinse mouth out after each use CT chest in december with follow up documented in this encounter [facility] 06-18-2022 History of Present illness Narrative VIRTUAL VISIT PROGRESS NOTE This is a virtual visit using [employer] video visit. It required patient-provider interaction for the medical decision making as documented below. Constantino Duval is a 61 year old male with a pmh of GERD, MVP, anxiety/Depression, peripehral neuropathy, HTN, hyperthyroidism, prostate cancer, and RA that presents for follow up of COPD. Notes that he is doing ok. Notes that his breathing has gotten better and using symbicort 2 puffs BID and notes his breathing has gotten better. He states that he is now on disability and not at work. He notes some shortness of breath with going up stairs. No ER visits, no hospitalizations or steroids for COPD. Notes some prednisone for his RA that will improve his breathing. Still smoking 1PPD. States that he has been thinking about quitting smoking. No lung cancer in the family. HISTORY REVIEWED (electronic chart updated): PAST MEDICAL HISTORY Diagnosis Date Alcohol abuse, in remission 07/08/2005 Alcoholic pancreatitis Anxiety Depression Diverticulitis GERD (gastroesophageal reflux disease) Hypertension Hypertension Hyperthyroidism Intolerance to tapazole Low back pain Lumbar herniated disc Marijuana abuse 07/08/2005 In remission Mitral valve prolapse Narcotic dependence, in remission (HCC) 07/08/2005 Pseudocyst, pancreas Rheumatoid arthritis (HCC) Tobacco abuse PAST SURGICAL HISTORY Procedure Laterality Date HEMORRHOIDECTOMY OTHER Left foot surgery FAMILY HISTORY Problem Relation Age of Onset Thyroid Sister Hypothyroidism Diabetes Other Brother's son - ?type 1 Prostate Cancer Brother Cancer Sister other (Pituitary) No Family History other (Parathyroid) No Family History other (Adrenal) No Family History Social History Tobacco Use Smoking status: Every Day Packs/day: 1.00 Years: 35.00 Pack years: 35.00 Types: Cigarettes Last attempt to quit: 04/12/2011 Years since quittin.1 Smokeless tobacco: Never Substance Use Topics Alcohol use: Yes Comment: rarely Drug use: Not Currently Types: Marijuana, Cocaine, Opiates Comment: NONE SINCE 2005 Current Outpatient Medications Medication Sig tamsulosin (FLOMAX) 0.4 mg Take 1 capsule by mouth twice daily. predniSONE (DELTASONE) 5 mg tablet Take 2 tablets by mouth once daily for 5 days, THEN 1 tablet once daily for 5 days. hydrOXYchloroQUINE (PLAQUENIL) 200 mg tablet take 1 tablet by mouth twice a day with food budesonide-formoterol (SYMBICORT) 160-4.5 mcg/actuation inhaler Inhale 2 Puffs as instructed twice daily. qnqfhj-kjiq-pofo-levomef-silic 10-50-500-0.5 mg cap Take 1 tablet by mouth. cholecalciferol (VITAMIN D3) 1,000 unit tab tablet Take 1 tablet by mouth once daily. liothyronine (CYTOMEL) 25 mcg tablet Take 25 mcg by mouth once daily. levothyroxine 150 mcg cap Take 150 mcg by mouth daily before breakfast. ALPRAZolam (XANAX) 0.25 mg tablet Take 0.25 mg by mouth twice daily as needed. busPIRone (BUSPAR) 10 mg tablet Take 20 mg by mouth three times daily. hydrOXYzine pamoate (VISTARIL) 50 mg capsule Take 50 mg by mouth. atenolol 50 mg tablet Take by mouth once daily. 50 mg.once daily Multivitamin ORAL capsule Take 1 capsule by mouth once daily. No current facility-administered medications for this visit. ALLERGIES Allergen Reactions Tapazole [Methimazo* Anaphylaxis rash, itching throat was closing Leflunomide Diarrhea, GI Upset, Intolerance, Other: See Comments, Shortness of Breath Ydwzrii-Kiy-Mtp Red* Other: See Comments Leg pain REVIEW OF SYSTEMS: GENERAL: feeling well without fatigue, no recent change in weight RESPIRATORY: no cough, no wheezing or shortness of breath PHYSICAL EXAMINATION: VIDEO EXAM: (if completed, performed via video enabled technology) GENERAL: alert and appropriate, in no distress, well-hydrated, well nourished, and happy, smiling, interactive RESPIRATORY: breathing non-labored CHEST: equal chest rise with normal respiratory effort STUDIES: CT Chest: IMPRESSION: 1. Linear bandlike opacities at the left costophrenic angle, likely representing scarring. 2. Right middle lobe 5 mm nodule, nonspecific. Recommend follow-up as described below. 3. Mildly prominent mediastinal and right hilar nodes. [place] 02/27/22: Mild obstruction (FEV1: 2.78, 76%), borderline BD response ASSESSMENT: No diagnosis found. PLAN: Cont. Symbicort as prescribed. Counseled on smoking cessation and to increase physical activity Follow CT chest in [place] given lung nodule in a smoker, counseled on risks/benefits of repat CT chest and he wishes to proceed with another scan, Patient Instructions Work on quitting smoking Stay active Continue symbicort, rinse mouth out after each use CT chest in december with follow up I spent a total of 30 minutes on the date of the service which included preparing to see the patient, ftxi-vo-miin patient care, completing clinical documentation, performing a medically appropriate examination, and ordering medications, tests, or procedures Joe Headley MD documented in this encounter [facility] 06-16-2022 Nurse Note AUA= 13 documented in this encounter [facility] 06-16-2022 History of Present illness Narrative Radiation Oncology - Follow Up Note PATIENT NAME: Constantino Duval PATIENT DIAGNOSIS: Prostate adenocarcinoma, initial PSA 28.36, biopsy [place] score 4 + 3 = 7 (grade group 3), clinical stage T2b, N0, M0, stage IIIA [T1-T2, N0, M0, PSA >=20, GG 1-4] (AJCC 8th ed.), s/p TRUS Random biopsy. RADIATION SUMMARY: DATES OF TREATMENT: Pelvic external beam treatment 05/20/20-06/21/20 Prostate brachytherapy implant 07/31/2020 AREA TREATED: Prostate and pelvis DELIVERED DOSE: Area: Pelvis 45 Gy in 25 fractions,3 Arcs, IMRT with rapid arc , 10MV with daily CBCT Area: Prostate 100 Gy Pd-103, 30 sources, 14 needles, 78.75 mCi INTERVAL HISTORY: Doing well. Bladder function has improved. Less hot flashes. No other new problems. 10/08/21:Doing fairly well. Has had some lower abdominal pain and rectal discomfort. Mostly relieved by BMs. No blood per rectum. Occasional diarrhea. Otherwise no new problems PSA HISTORY: PSA (ng/mL) Date Value 10/22/2021 <0.02 PSA. (no units) Date Value 06/09/2022 <0.13 02/09/2022 <0.13 10/02/2021 <0.13 03/20/2021 <0.05 02/09/22 Testosterone <3 ALLERGIES Allergen Reactions Tapazole [Methimazo* Anaphylaxis rash, itching throat was closing Leflunomide Diarrhea, GI Upset, Intolerance, Other: See Comments, Shortness of Breath Qqosmui-Vus-Cts Red* Other: See Comments Leg pain predniSONE (DELTASONE) 5 mg tablet Take 2 tablets by mouth once daily for 5 days, THEN 1 tablet once daily for 5 days. hydrOXYchloroQUINE (PLAQUENIL) 200 mg tablet take 1 tablet by mouth twice a day with food budesonide-formoterol (SYMBICORT) 160-4.5 mcg/actuation inhaler Inhale 2 Puffs as instructed twice daily. mwcood-zyzo-zgfd-levomef-silic 10-50-500-0.5 mg cap Take 1 tablet by mouth. cholecalciferol (VITAMIN D3) 1,000 unit tab tablet Take 1 tablet by mouth once daily. liothyronine (CYTOMEL) 25 mcg tablet Take 25 mcg by mouth once daily. levothyroxine 150 mcg cap Take 150 mcg by mouth daily before breakfast. ALPRAZolam (XANAX) 0.25 mg tablet Take 0.25 mg by mouth twice daily as needed. busPIRone (BUSPAR) 10 mg tablet Take 20 mg by mouth three times daily. hydrOXYzine pamoate (VISTARIL) 50 mg capsule Take 50 mg by mouth. atenolol 50 mg tablet Take by mouth once daily. 50 mg.once daily Multivitamin ORAL capsule Take 1 capsule by mouth once daily. tamsulosin (FLOMAX) 0.4 mg Take 1 capsule by mouth twice daily. REVIEW OF SYSTEMS: D/N = 6/2 AUA = 13 Hematuria: none Dysuria: none Incontinence: none Urgency:Mild to moderate Catheter use: none Medications to aid urination: y Bowel movement frequency: 1-3/day Bowel movement quality: Occasional diarrhea Blood per rectum: none Androgen deprivation: Currently being treated with lupron. Last treatment 05/2021 PHYSICAL EXAM: BP 113/77 Pulse 73 Temp 36.1 C (96.9 F) Resp 16 Wt 90.7 kg (200 lb) SpO2 100% BMI 27.12 kg/m KPS: 90 General appearance: Alert and oriented. No acute distress. Rectal exam def Extremities: No deformities, edema, skin discoloration, clubbing or cyanosis. Lymph Nodes: No cervical lymphadenopathy, No supraclavicular lymphadenopathy, No axillary lymphadenopathy. Skin: Skin color, texture, turgor normal, no suspicious rashes or lesions. ASSESSMENT/PLAN: Prostate adenocarcinoma, initial PSA 28.36, biopsy Amy score 4 + 3 = 7 (grade group 3), clinical stage T2b, N0, M0, stage IIIA [T1-T2, N0, M0, PSA >=20, GG 1-4] (AJCC 8th ed.), s/p pelvic radiation followed by prostate brachytherapy 07/31/2020. Doing well. PSA remains undetectable. No posttreatment related issues. Recommend follow-up in 6 months with repeat PSA. Signed by: May Mcneil MD cc: Efren Castillo II, MD [address] [place] [address] Trae Soler MD Portions of the above note extracted and edited from previous visit as well as active information included in the EMR. documented in this encounter [facility] 06-10-2022 Miscellaneous Notes Left VM and MyChart of questions. Requested return call or message. Please call patient triage joint pain and areas affected documented in this encounter [facility] 06-09-2022 Miscellaneous Notes Most recent Rheumatology visit: 02/27/2022 (with Katty Duenas) Recent Office Visits - This Specialty 02/27/2022 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) Rheumatology Katty Duenas APRN.TRANSVERSE ABDOMINAL MUSCLE SURGEON 10/22/2021 Seropositive rheumatoid arthritis (HCC) Rheumatology Katty Duenas APRN.TRANSVERSE ABDOMINAL MUSCLE SURGEON 03/14/2021 Steroid-induced osteopenia Rheumatology Katty Duenas APRN.TRANSVERSE ABDOMINAL MUSCLE SURGEON Upcoming Rheumatology Appointments - Next 365 Days Visit Type Date Time Department [facility] 06/26/2022 2:30 PM [facility] 12/15/2022 2:00 PM [facility] Last Ophthalmology Check for Plaquenil (Hydroxychloroquine) Last OCT Macula Exam No resulted procedures found. Last Visual Field Exam No resulted procedures found. CBC: CBC Latest Ref Rng & Units 10/22/2021 02/27/2022 WBC 3.70 - 11.00 k/uL 6.87 5.64 HEMOGLOBIN 13.0 - 17.0 g/dL 13.3 14.0 HEMATOCRIT 39.0 - 51.0 % 39.5 41.3 PLATELETS 150 - 400 k/uL 231 241 ABS NEUT (ANC) 1.45 - 7.50 k/uL 4.45 3.62 ABS LYMPH 1.00 - 4.00 k/uL 1.49 0.93(L) Vitamin D: Vitamin D Latest Ref Rng & Units 10/22/2021 02/27/2022 VITAMIN D 25 HYDROXY 31.0 - 80.0 ng/mL 41.1 39.7 LFT: CMP Latest Ref Rng & Units 10/22/2021 02/27/2022 SODIUM 136 - 144 mmol/L 140 140 POTASSIUM 3.7 - 5.1 mmol/L 4.1 4.8 CHLORIDE 97 - 105 mmol/L 102 103 CO2 22 - 30 mmol/L 27 28 GLUCOSE 74 - 99 mg/dL 110(H) 92 BUN 9 - 24 mg/dL 14 11 CREATININE 0.73 - 1.22 mg/dL 0.93 0.97 CREATININE (POCT) 0.7 - 1.4 mg/dL - 0.90 CALCIUM, TOTAL 8.5 - 10.2 mg/dL 9.8 9.4 AST 14 - 40 U/L 27 32 ALT 10 - 54 U/L 19 23 ALKALINE PHOSPHATASE 38 - 113 U/L 69 79 Creatinine: Creatinine Latest Ref Rng & Units 02/27/2022 02/27/2022 CREAT 0.73 - 1.22 mg/dL 0.90 0.97 NTXS 5.4 - 24.2 nM BCE - - ESR/CRP: None on file in the last 6 months Uric Acid: None on file in the last 6 months Open Standing (Multiple Instance) Lab Orders None Open Future (Single Instance) Lab Orders Expected Expires Ordered PSA/PROSTSPECAG DIAG [SQPSA] 06/14/22 08/14/22 02/11/22 Auth. provider: May Mcneil MD Assoc. diagnoses: Malignant neoplasm of prostate (HCC) TESTOSTERONE TOTAL [SQTESTO] 06/14/22 08/14/22 02/11/22 Auth. provider: May Mcneil MD Assoc. diagnoses: Malignant neoplasm of prostate (HCC) documented in this encounter [facility] 04-15-2022 Miscellaneous Notes Called [place] to get patient schedule for [place] [facility]. Spoke to superior court justice patient is schedule for a VV appointment on 04/25/2022 at 3:00. The office is going to call the patient to let him know about appointment. Please call [facility] scheduling to follow up on this request [facility] - I tried to schedule Mr. Duval with our ID Team, as requested by Katty Duenas CNP, but it will not allow me to do so from the active order. Can you please reach out to Mr. Duval to assist with scheduling? This Encounter has been routed to your team several times since February. Can you please provide Katty Duenas CNP with an update, as she is the ordering provider requesting this consult. Thank you, Meenakshi Curt PSS April 15, 2022 10:51 AM Please schedule patient with ID [facility] - I tried to schedule Mr. Duval with our ID Team, as requested by Katty Duenas CNP, but it will not allow me to do so from the active order. Can you please reach out to Mr. Duval to assist with scheduling? I appreciate you! Thank you, Meenakshi Curt PSS March 03, 2022 12:59 PM I spoke with patient Will try enbrel No GI symptoms presently Started pred yesterday 20mg No joint swelling Having pressure all over Dicussed lower pred taper 10mg for 5 days and 5 mg for 5 days PSS Please call and setup ID appt I attempted to call patient Hep b core positive indicating patient has been exposed at some point This has been equivocal and negative in the past . In May when tested a lab [facility] these all came back negative. Hep c positive this is not new and this is non reactive With needing immunosuppressive therapy we would like to consult ID There is a risk of reactivation with immunosuppression May retry enbrel and see if tolerated , if symptoms bloating and diarrhea return then may stop Please if patient prefers to speak to me directly may transfer call [phone] Please transfer to make appt after message documented in this encounter [facility] 04-07-2022 Miscellaneous Notes Handicap Placard mailed to patient. ID consult was forwarded to scheduling. Please mail handkatiapplion pinedo I resent another message regarding ID Also update patient documented in this encounter [facility] 03-30-2022 Miscellaneous Notes Refill request received via fax for tamsulosin. Order pending your approval. Nicole Guerrier LPN documented in this encounter [facility] 03-03-2022 Miscellaneous Notes Called and discussed test results with patients, will start ICS/LABA given mild obstruction with BD response. documented in this encounter [facility] 02-27-2022 Instructions Katty Duenas APRN.TRANSVERSE ABDOMINAL MUSCLE SURGEON - 02/27/2022 4:07 PM EDT -PLEASE NOTE THAT WE REVIEW ALL YOUR TEST RESULTS AT YOUR NEXT FOLLOW UP VISIT WITH YOU. IF ANY ABNORMAL LAB REQUIRES SOONER ATTENTION, WE WILL CONTACT YOU. -If you have signed up on [employer], we will release your test results through [employer]. I wish you the best of health and wellness. 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 Please use sun screen if you are outdoors during summer and kristen days, to avoid skin pigment changes and sunburn, as this is a risk with hydroxychloroquine. If you experience palpitations or chest pains, please stop the hydroxychloroquine and contact your Primary care physician. They will need to obtain an EKG to insure you do not have a prolonged QTc as well as the usual cardiac work for chest pains. Please share this information with your Primary care physician: the hydroxyzine interacts with the hydroxychloroquine and can lead to hear rhythm problems. The concurrent use of hydroxychloroquine with other agents that prolong the QTc interval may result in potentially life-threatening cardiac arrhythmias, including torsades de pointes.(1) Please follow up with your eye doctor - Start taking vitamin D over the counter, 2000 international units once daily with meals Maintaining good vitamin D blood levels is important for bone health and overall health. Please see additional information on vitamin D below. A vitamin D blood test, called vitamin D 25-hydroxy (OH) is obtained to assess vitamin D level. If the vitamin D is low, you will need to take a vitamin D supplement. If you are already on a vitamin D supplement, then the dose will need to be adjusted. Also you multivitamin may contain vitamin D. Vitamin D is a fat soluble vitamin that requires it be taken with good fat to be absorbed. Examples of healthy fat include nuts, seeds, avocados, olives and for the most part the meal of the day. Spending up to 30 minutes in the sun during Summer and late Spring can provide natural vitamin D to the uncovered skin (arms, legs) - Your calcium can be sufficient in your diet Healthy food that are rich in calcium include: nuts, seeds, legumes/beans, peas, dark green leafy vegetables, plant based milk Additional calcium rich foods listed below - Soaking Almonds overnight in the fridge with drinking water, can help with softening the almonds and improved absorption of the almonds. See additional information below on calcium. - I recommend following a healthy lifestyle. You can find additional information below. I recommend this to all my patients, as I have seen convincing scientific evidence, and seen the results in my practice, of the benefits of this healthy lifestyle to overall health and wellness. I hope you will find this beneficial as well. A whole plant based diet and healthy lifestyle have been reported to be optimal for health in general, anti-inflammatory diet, prevention of common chronic diseases, healthy weight management, memory and brain healthy, bone health. Recommendations for healthy lifestyle include: Healthy nutritious diet, anti-inflammatory diet, appropriate exercise, good sleep hygiene, stress management, supplementing vital deficiencies and maintaining healthy weight. with BMI that does not exceed 25 to 26 . 5 points to remember to improve your health and continue on a healthy path: 1- Optimal nutritious food, such as a Whole Plant Based diet You can watch the movie that features the Whole Plant Based diet, [place] over knives (see video online and visit website). Another movie that was recently released is: Eating You Alive (you can find it at Romotive) and The Game Changers movie Dr. Noemi Guevara is a [facility] physician who is an expert in Whole Plant based diet. His website is [employer]. His research highlights the benefits of the Whole food plant based diet in reversing and preventing heart disease. Mrs. Guevara (his ) has a cookbook with many recipes on whole plant based food: The Prevent and Reverse Heart Disease cookbook. You can also consider reading his son, Edwardo Guevara's book: The Engine 2 cookbook Edwardo is a retired staffing account manager who has helped many people get healthier by following the whole food plant based diet. Dr. Mike Waller, has a website and free marisa to help get started on a whole plant based diet, at www.pcrNujira.org and you can log on for free for his 21-Day Kickstart with meals and recipes to follow for 21 days. There is also a free marisa for that. He has multiple free videos and YouTube, for example: https://youtu.be/cdbHfaeL5a0 , https://youtu.be/WxFKAprsi5e He has written multiple books, including Power Food for the Brain, The Cheese Trap, Dr. Mike Waller's Program for Reversing Diabetes, Your Body in Balance Dr. William Villalobos has shown the benefit of a starch based whole food plant based diet to his Rheumatoid Arthritis patients, as well as patient with diabetes II, hypertension, obesity, multiple sclerosis, heart disease, acne, and other, his website: www.bert.PressConnect Dr. Alejandro Greene is a renowned informatics scientist, who has studied and researched the benefits of the Whole plant based diet. He has also researched the adverse effects of animal proteins on health. He presents many of his research findings in his book The [place] study. Dr. Yobani Schuler has completed many research trials proving the reversal of diseases, such as heart disease and early prostate cancer, with healthy lifestyle and the Whole Plant based diet. Dr. Yobani Schuler website is: www.makennaFood Runner.PressConnect His new book: Undo It, has evidence based information and guide to following this healthy lifestyle. Dr. Wiliam Rogers has dedicated a website and additional time to reviewing all food related articles and research and presents them in his power point presentation and on his website at: nutritionfacts.org which is all free. Dr. Rogers has multiple free videos and YouTube, for example https://youtu.be/aSgNkhgVtks and https://youtu.be/lXXXygDRyBU. He has written multiple books including: How Not To and How Not To Diet He is now working on his next book: How Not To Age Dr. Shelley Nguyen (from the [facility]), has articles on the following website: [employer] Also, you could find additional information on practical to follow recipes by reading or watching online and YouTube such as: Pickling Operator AJ, Cooking With Plants, The Vegan Corner (recipes from an [place] Pickling Operator), The Whole Foods Plant Based Cooking Show and visiting the provided websites for additional information on the whole plant based benefit and cooking recipes. You can also consider watching the vlogs of some of the plant based Athletes such as Blas Day Derek on [employer]. Dr. Radha Hadley (a psychiatrist who suffered with lupus) has helped reverse her Systemic Lupus Erythematosus and helps many patients with their auto-immune diseases, based on her recommendations of the whole food plant based diet and the green smoothies. She has a facebook and website, and on youtube her channel is: Goodbye Lupus Some people have adverse effect or intolerance to gluten. Certain patients with auto-immune disease, including auto-immune thyroid disease, need to avoid gluten. If you suspect you are gluten sensitive or intolerant, consider gluten free diet. Gluten could lead to increased inflammation in the bowels and body in certain patients. Not all your food has to be organ if you cannot afford or find them. Consider organic and non-GMO products when shopping for your food, when possible. GMO are genetically modified food that may have adverse impact on our health. If you are unable to purchase organic of non-GMO, you can wash your produce with white vinegar or soak in baking soda and water (see details from Dr. Mixon's website nutritionfacts.org) and rinse well with water. 2- Regular Exercise, such as beginner yoga, marcus chi, stretching, cardio, gradual strengthening, pool therapy, physical therapy Come As You Are: YOGA - Gentle Yoga Anyone Can Do Anywhere www.LDR Holding/y oga Also on youtube: yoga with Sylvia 3- Good Sleep (poor sleep impacts everything, recommended sleep is 7.5 to 8 hrs. a night). Certain people need less or more sleep. Meditation and relaxation techniques have shown to help with improving sleep. 4- Stress management, staying positive, be happy, laugh often (it is a great medicine) Find time to relax and meditate if possible. Following steps 1-3 will help with this as well. In psychiatric disorders, it is important to follow with a professional on the optimal management of depression, anxiety or psychiatric illness 5- Supplements Supplementing necessary vitamins and minerals, correcting any deficiencies, i.e. Vitamin D, B12, omega-3 fatty acids etc... Go natural when possible -Important notice: If you are following a Whole plant based diet, it is recommended to take Vitamin B12, sublingual, dissolve under the tongue, take once daily. Vitamin B12 is available over the counter, dose could be 2500 mcg, and can be taken once a week, and if your blood levels are low, you may need to take it once daily or a higher dose. Raw: Garlic, Cilantro, [place] nuts, Pumpkin seeds, Greene seeds and Flax seed powder have been reported to help with certain metal detoxification such as mercury. [place]-3 plant based rich foods are good anti-inflammatory sources such as : denae seeds, flax seed (needs to be ground), walnuts, hemp seeds, dark green leafy vegetables. It is important to avoid refined oils as much as possible especially that many have too much omega-6 that is pro-inflammatory (lead to inflammation as well as concern for heart and vascular disease). Turmeric can be found natural, used as the spice powder or the root with your food. This is also available as a capsule. If you are on a blood thinner, you will need to discuss with your pharmacist or physician before taking Turmeric If you have gall bladder disease or gall bladder stones, it is recommended to avoid turmeric capsules. Sweet cherries (raw cleaned or frozen), Turmeric , pineapple (contains bromelain), omega-rich foods, have anti-inflammatory benefit Start reviewing the Whole Plant Based Diet, by watching [place] over [employer] movie and then review website. There are many other resources and educational information on the Whole plant based diet on the Internet and documentaries. There are other resources for wellness that you can also benefit from, such as the [facility] Wellness website, [facility] and includes Plant based and Mediterranean diet, yoga and meditation. Please avoid all dairy products. You could use non-dairy milk such as Flax milk, Cashew milk, Brooks milk, Rice milk, Oat milk or Hemp milk, instead. It is very important to avoid all: refined sugars (including high fructose syrup), refined carbohydrates, any artificial sweeteners and artificial preservatives, and soda and heavily processed food. Insure adequate hydration; drink at least 6 to 8 cups of water daily, certain people need less or more. Examples of Smoothies: Every morning you can start your day with a healthy natural anti-inflammatory smoothie, for example, you can blend: fresh or frozen sweet cherries, half a root of turmeric (1 to 2 inches), banana, blue berries, walnuts, few leaves of kale, add flax milk (or almond milk), and enjoy. You could add half an avocado if you like it smoother. If you do not tolerate walnuts, you can use flax seeds, denae seeds or hemp seeds instead. If you do not like plant based milk, you can use coconut water or plain water instead. Other smoothies, including green smoothies, are also very healthy and highly anti-inflammatory. For example fruits (such as banana or frozen alex or pineapple) and add significant amount of leafy greens, then add water or coconut water and blend until smooth. You can also add turmeric in this recipe. GENERAL INFORMATION ON BONE HEALTH : -Bone Density testing (DXA scan) as recommended. -Vitamin D supplementation is recommended, unless blood levels are sufficient. Recommended daily dose of 1000 to 2000 IU total a day, or the dose necessary to achieve a Vitamin D 25-OH blood level of >31 and preferably closer to 40-60 ng/mL. Vitamin D pills are available over the counter. -Recommended daily dose of calcium: 1200mg total a day in divided doses. Calcium is usually sufficient in our regular diet, also available in multivitamins. Patients on certain dietary restrictions or those unable to meet their daily calcium by diety alone, may require calcium supplements. For patient with history of calcium kidney stones, Calcium Citrate would be the recommended supplement. It is recommended to avoid caclium carbonate supplement in this case, as these may increase risk of calcium kidney stones. The after visit summary has information on dietary calcium and instructions on reading calcium label and converting the %DV to mg. When you read a food label and you see calcium reported as DV %, add a zero and this will provide you with the approximate mg value of the calcium content in this food. For example, if a glass of almond milk is labeled as 40% calcium DV, then this contains 400 mg of calcium. For additional information, please see references provided. -Regular weight-bearing and muscle-strengthening exercise -Avoidance of tobacco smoking, excessive alcohol intake and excessive caffeine intake. -Fall and fracture precautions -It is recommend to continue regular follow up visits with your dentist every 6 months, and continue with good oral hygiene. Calcium: If your diet is sufficient in Calcium rich food, you will not need calcium supplement. Calcium Citrate is the preferred calcium if you have had kidney stones. Daily recommended calcium dose: 600mg twice a day with meals. Adequate calcium ingestion is essential for maintaining healthy bones. The recommended dose daily intake of calcium varies depending on individual needs but is usually between 1200 and 1500mg daily, preferably around 1200mg a day in divided dose (not all taken at once). This is equivalent to about five 8oz glasses of milk per day. Many foods are rich in calcium and they include: - Plant based, non-dairy, calcium rich products, include nuts, almond milk, beans, lentils - Vegetables and Fruit: bok-preston, turnips, broccoli, kale, collards, - Dairy products: milk, cheese, yogurt, ice-cream - Fish products: canned salmon, sardines and shrimp - Cereals and nuts: almonds, sesame seeds, fortified cereals and oatmeal - Other foods: fortified orange-juice, figs, soybeans, other beans and eggs. If you have a low calcium diet and cannot tolerate calcium-rich foods, many supplements are available today. Your pharmacist can help you choose the one which best suits your needs. A few tips on supplements: - They should be easy to swallow - They should dissolve easily in cup of vinegar in < 15 minutes. - Count the ELEMENTAL calcium mgs. E.g. Calcium 499mg may have only 221mg of elemental Calcium. - Calcium citrate is the calcium supplement to take if you have had kidney stones and unable to meet your calcium requirements from food/diet alone. - There is such a variety today that it is best to bring in the bottle to your doctor to show them exactly what you are taking. Lastly too much calcium can be bad for you. Recent studies show extra supplements may increase your risk of kidney stones or cause high calcium levels in some people. You should discuss how much you should be taking with your doctor before starting them. Further Information is available from the following resources: www.nof.org (National Osteoporosis Foundation) http://www.osteo.org/osteolinks.a sp National Institutes of Health: 8-969-296-BONE The Calcium Information Center: -Non-Dairy, Plant based Milk, can contain in1 glass up to 450 mg of calcium (300 to 450 mg) Exampled include Oat Milk, Flax Milk, Brooks Milk, Cashew Milk, Soy Milk, Peas Milk general health and well being Examples of Food Sources of Calcium from NIH Food Milligrams (mg) per serving Percent DV* Soymilk, calcium-fortified, 8 ounces 299 30 Spring juice, calcium-fortified, 6 ounces 261 26 Tofu, firm, made with calcium sulfate, cup* 253 25 Tofu, soft, made with calcium sulfate, cup* 138 14 Ltehh-rs-bpq cereal, calcium-fortified, 1 cup 100-1,000 10-100 Turnip greens, fresh, boiled, cup 99 10 Kale, raw, chopped, 1 cup 100 10 Kale, fresh, cooked, 1 cup 94 9 Nigerian cabbage, bok preston, raw, shredded, 1 cup 74 7 Bread, white, 1 slice 73 7 Tortilla, corn, tzfks-qt-aqyd/wang, one 6 diameter 46 5 Tortilla, flour, yydnm-yn-jrvy/wang, one 6 diameter 32 3 Bread, whole-wheat, 1 slice 30 3 Broccoli, raw, cup 21 2 * DV = Daily Value. DVs were developed by the U.S. Food and Drug Administration to help consumers compare the nutrient contents among products within the context of a total daily diet. The U.S. Department of Agriculture s (USDA s) Nutrient Database Web site lists the nutrient content of many foods and provides comprehensive list of foods containing calcium arranged by nutrient content and by food name. *Calcium content varies slightly by fat content; the more fat, the less calcium the food contains. * Calcium content is for tofu processed with a calcium salt. Tofu processed with other salts does not provide significant amounts of calcium. You could acces this information online at: http://ods.od.nih.gov/factsheets/ Calcium-HealthProfessional/ Vitamin D: Vitamin D3= cholecalciferol, available over the counter. Dose recommended 800 to 1000 iu daily with a meal; Certain patients require 2077-5030 iu daily and in patients deficient in Vitamin D, they require higher dosages. Certain patient requires higher dose, depending on their Vit D blood levels. Vitamin D is essential for calcium metabolism. It is really a hormone produced mainly in your skin after exposure to sunlight. Vitamin D helps you absorb calcium from your stomach and kidneys and incorporates it into your bones. Studies show approximately 50% of [place] men and women are vitamin D deficient in the winter. Milder cases of vitamin D are usually asymptomatic so the only way to know you have a problem is to have a blood level checked. More severe cases can cause osteomalacia (a.k.a. rickets) which can result in bone pain, weak bones and several abnormal laboratory tests and also weak muscles (a.k.a. myopathy). When this happens, your bones lose a lot of their calcium stores as the body tries to regulate the calcium required by other tissues. Prolonged deficiency can lead to severe bone disorders and fractures. Unlike calcium, dietary sources of vitamin D are rare, limited to a few fish oils particularly cod-liver oil, other fortified foods and egg yolks. and most are unhealthy. Natural source of vitamin D is through sunshine. This is usually during kristen seasons, for example a 30 minute exposure to sunshine. Some people are unable to be exposed to the sun due to skin condition. Often supplementation is needed. Many multivitamins contain some vitamin D and vitamin D alone preparations are now available in several forms. The recommended daily intake of vitamin D used to be 400 and 800 international units, however, it is now known that larger amounts are needed, as discussed above. Your doctor can prescribe prescription strength vitamin D for you if necessary, if you have marked deficiency or diseases of the liver or kidney. Supplementation in patients with severe deficiency can stabilize or improve bone mineral density and in frail elderly persons, may reduce their risk of falling. Additional Information is available from: www.nof.org (the national osteoporosis foundation) http://www.[facility].org/ar thritis/osteo/info.htm http://ods.od.nih.gov/factsheets/ vitamind.asp National Institutes of Health: 5-874-978-BONE The Calcium Information Center: At the [facility], we work as a team for your care, along with Nurse Practitioners, Physician Assistants, Nurses and Medical Assistants. It is a privilege and honor to serve you. Thank you for choosing [facility] for your healthcare. Sincerely, Katty Duenas APRN.DARIN documented in this encounter [facility] 02-27-2022 History of Present illness Narrative Face to face FOLLOW UP VISIT PCP: Efren Castillo II, MD [address] [place] [address] Mr. Duval is a 61 year old patient here today for follow up of rheumatoid arthritis and osteopenia Interim History: Stopped enbrel -caused bloating, diarrhea, headaches Took for only 8 weeks Took 5 days of pred recently Gained about 10lbs Tried leflunomide, methotrexate No fall No fracture No swelling Min am stiffness Following with pulm Taking plaquenil Eye exam next wed Vit d 2 gummies+ ca and mult vitamin daily biotin Answers submitted by the patient for this visit: Review of Systems Rheumatology (Submitted on 02/26/2022) Fever : No Recent Unintentional Weight Change: Yes Eye Pain: No Eye Redness: No Vision Disturbance: No Eye Dryness: Yes Nose Bleeds: No Sores in your Mouth: No Trouble Swallowing: Yes Dry Mouth: Yes Chest Pain: No Leg Swelling: No A Cough: Yes Blood when you Cough: No Shortness of Breath: Yes Pain with Breathing: No Heartburn: Yes Abdominal Pain: Yes Diarrhea: No Black Tarry Stools: No Blood in Urine: No Pain or Burning with Urination: No Joint Pain or Stiffness: Yes Muscle Weakness: Yes Muscle Aches: Yes Joint Swelling: No Morning Stiffness in Joints: Yes A Rash: Yes Do you have sun sensitive rashes?: No Skin Color Changes: No Hair Loss: No Nail Changes: Yes Headaches: Yes Numbness: Yes Memory Loss: No Swollen Glands: No Past Medical Hx, Past Surgical Hx. 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 inj., oral ulcers, thrush LUNGS: CTA B/L HEART: RRR, no g/r/m NEURO: Mental Status: alert and oriented x 3 cheerful, Gait: Normal w/o assistive devices Tone: normal no focal weakness. MUSCULOSKELETAL: Jts.:0 T Jts.:0 No joint deformities, no rheumatoid nodules. calcifications or tophi. No SI tenderness, no vitaliy's tenderness, no heel/plantar tenderness, lumbar flexion full, negative Salma's test. No clinical synovitis in the DIP's, PIP's, MCP's, wrists, elbows, shoulders, knees, ankles, midfoot, or toes. No knee effusions bilateral. Shoulder exam:FROM FROM: all upper and lower extremity joints Thoracic/Lumbar Spine: No percussion tenderness SLR: negative modified in chair Extr.: no edema Prior Test results discussed with patient. IMPRESSION/DIAGNOSIS: M05.79 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) (primary encounter diagnosis) Z51.81, Z79.899 Encounter for monitoring of hydroxychloroquine therapy Z71.2 Encounter to discuss test results Z71.89 Encounter for medication review and counseling Z79.52 care home current use of systemic steroids M85.80, T38.0X5A Steroid-induced osteopenia Per Dr. 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 His outside labs: CCP 101 (09/15/2019),RF 10, MANUEL direct negative Urate 4.9 sed 10 crp 0.5 mg/dL He has had very good response to prednisone, but flares after being off and has required multiple courses. He is on low dose, suboptimal dose hydroxychloroquine, for the past 6 months. Did not tolerated methotrexate due to sevre nausea. Has not been on other DMARDs, Biol or Kyle inhibitors. He is better today due to recently completing pred course. At this time, patient requires optimizing DMARD medications. I counseled him on smoking cessation and reviewed the research showing risk of RA in smokers who are CCP positive. Also smoking can impair response to hydroxychloroquine, other DMARDs and Biologic medications. Outside BMD 01/27/2021 osteopenia Spine -2.0 T score Right femur -2.3 lowest T score Additional risk factors- smoking, current frequent steroid use Had 1 dose reclast. Tolerated well. At todays visit patient patient Rheumatoid arthritis appears to be stable and improved. Started enbrel and developed bloating , diarrhea, headaches. Unclear if from enbrel. Only took for 8 weeks. Took 5 days of pred recently. Taking plaquenil tolerating well will increase to twice daily. No swelling, min am stiffness. Neuropathy in feet tried lyrica and gabapentin follows with primary care. No falls, no fractures, no new bone pains, no dental concerns, no procedures planned, no s/s of infections and no antibiotics. Patient happy with current plan PLAN/RECOMMENDATIONS: Update labs hep and tb and cbc and cmp for med monitoring Last hep and tb were neg for outside labs Continue plaquenil 200mg twice daily Eye exam every 6-12 months while on plaquenil I spent a total of 35 minutes on the date of the service which included preparing to see the patient, [id number] patient care, completing clinical documentation, obtaining and/or reviewing separately obtained history, performing a medically appropriate examination, counseling and educating the patient/family/caregiver, and ordering medications, tests, or procedures. Portions of this note have been copied from my previous note and have been updated to reflect today's visit note February 27, 2022 all reflect current medical decision making from date of this visit. Discussed medications dosage, usage, goals of therapy and side effects. Patient instructed to notify provider of any changes in medical condition. Patient in agreement and in understanding of plan. . Follow up:3 months Katty Duenas APRN.CNP Recommendations to share with referring physician/Primary care physician : Dear. Dr. Castillo I had the pleasure of seeing your patient, Mr Duval. I have enclosed a copy of my clinic note with my assessment and recommendations for this patient. Recommendations for your consideration as you deem necessary: -Continuous follow up with Primary care physician for cardiovascular disease prevention, for age appropriate cancer screening and routine health maintenance and wellness, and infection precautions and age appropriate immunization recommended. Thank you for allowing me to participate in the care of your patient. Katty Duenas APRN.CNP CC: Efren Castlilo II, MD Answers submitted by the patient for this visit: Review of Systems Rheumatology (Submitted on 02/26/2022) Fever : No Recent Unintentional Weight Change: Yes Eye Pain: No Eye Redness: No Vision Disturbance: No Eye Dryness: Yes Nose Bleeds: No Sores in your Mouth: No Trouble Swallowing: Yes Dry Mouth: Yes Chest Pain: No Leg Swelling: No A Cough: Yes Blood when you Cough: No Shortness of Breath: Yes Pain with Breathing: No Heartburn: Yes Abdominal Pain: Yes Diarrhea: No Black Tarry Stools: No Blood in Urine: No Pain or Burning with Urination: No Joint Pain or Stiffness: Yes Muscle Weakness: Yes Muscle Aches: Yes Joint Swelling: No Morning Stiffness in Joints: Yes A Rash: Yes Do you have sun sensitive rashes?: No Skin Color Changes: No Hair Loss: No Nail Changes: Yes Headaches: Yes Numbness: Yes Memory Loss: No Swollen Glands: No documented in this encounter [facility] 02-27-2022 History of Present illness Narrative Radiology Service Progress Note DATE OF SERVICE: February 27, 2022 TIME: 2:26 PM PATIENT IDENTITY VERIFICATION COMPLETED USING TWO (2) STANDARD IDENTIFIERS: Name and Date of confirmed by patient verbally. FALL SCREENING: Has the patient had 2 falls in the last year or 1 fall with injury or currently using an Ambulatory Assistive Device (Walker, Cane, Wheelchair, Crutches, etc.)? No PATIENT GENDER DATA: Male PATIENT RELEVANT IMPLANT DATA REVIEWED: Not Applicable ALLERGIES: Reviewed and unchanged CONTRAST ALLERGY: NO. EXAM: CT -CONTRAST INDUCED NEPHROPATHY RISK FACTORS: Patient age > 60 years CREATININE: Creatinine Date Value Ref Range Status 10/22/2021 0.93 0.73 - 1.22 mg/dL Final 02/11/2021 0.87 0.73 - 1.22 mg/dL Final Creatinine (POCT) Date Value Ref Range Status 02/27/2022 0.90 0.7 - 1.4 mg/dL Final eGFR (POCT) Date Value Ref Range Status 02/27/2022 >60 mL/min/1.73 m2 Final eGFR- Date Value Ref Range Status 02/11/2021 >60 Final P.O.C.T. RESULTS: N/A February 27, 2022 TREATMENT: N/A PERIPHERAL IV DATA: Ambulatory: A peripheral IV was started in the Right antecubital site with a Angio cath: 22 gauge. RADIOLOGY DEPARTMENT: CT; Exam(s) Completed: Chest SIGNATURE: AFSHAN Higgins PATIENT NAME: Constantino Duval DATE: February 27, 2022 TIME: 2:26 PM documented in this encounter [facility] 02-27-2022 History of Present illness Narrative PULM FUNCTION SMARTBLOCK: Provider: Joe Headley MD Assisting Tech: Katty Andres RRT Spirometry w/BD: 1 documented in this encounter [facility] 02-12-2022 Miscellaneous Notes I notified Richardson of his testosterone results. He denies further questions at this time. Nicole Guerrier LPN documented in this encounter [facility] 02-11-2022 Nurse Note AUA 18 Trudy Davila RN documented in this encounter [facility] 02-11-2022 History of Present illness Narrative Radiation Oncology - Follow Up Note PATIENT NAME: Constantino Duval PATIENT DIAGNOSIS: Prostate adenocarcinoma, initial PSA 28.36, biopsy Amy score 4 + 3 = 7 (grade group 3), clinical stage T2b, N0, M0, stage IIIA [T1-T2, N0, M0, PSA >=20, GG 1-4] (AJCC 8th ed.), s/p TRUS Random biopsy. RADIATION SUMMARY: DATES OF TREATMENT: Pelvic external beam treatment 05/20/20-06/21/20 Prostate brachytherapy implant 07/31/2020 AREA TREATED: Prostate and pelvis DELIVERED DOSE: Area: Pelvis 45 Gy in 25 fractions,3 Arcs, IMRT with rapid arc , 10MV with daily CBCT Area: Prostate 100 Gy Pd-103, 30 sources, 14 needles, 78.75 mCi INTERVAL HISTORY: Doing well no new problems or concerns. Still having hot flashes. Body function stable. Occasional urgency, feels like his flow has been fairly good. Still having some hot flashes. 10/08/21:Doing fairly well. Has had some lower abdominal pain and rectal discomfort. Mostly relieved by BMs. No blood per rectum. Occasional diarrhea. Otherwise no new problems PSA HISTORY: PSA (ng/mL) Date Value 10/22/2021 <0.02 PSA. (no units) Date Value 02/09/2022 <0.13 10/02/2021 <0.13 03/20/2021 <0.05 09/13/2020 <0.05 02/09/22 Testosterone <3 ALLERGIES Allergen Reactions Tapazole [[place]* Anaphylaxis rash, itching throat was closing Leflunomide Diarrhea, GI Upset, Intolerance, Other: See Comments, Shortness of Breath Sdzirsr-Cyo-Lhe Red* Other: See Comments Leg pain hydrOXYchloroQUINE (PLAQUENIL) 200 mg tablet take 1 tablet by mouth twice a day with food tamsulosin (FLOMAX) 0.4 mg Take 1 capsule by mouth twice daily. Etanercept (ENBREL SURECLICK) 50 mg/mL (1 mL) Inject 50mg subcutaneously one time a week. predniSONE (DELTASONE) 5 mg tablet Take 2 tablets by mouth once daily. liothyronine (CYTOMEL) 25 mcg tablet Take 25 mcg by mouth once daily. levothyroxine 150 mcg cap Take 150 mcg by mouth daily before breakfast. ALPRAZolam (XANAX) 0.25 mg tablet Take 0.25 mg by mouth twice daily as needed. busPIRone (BUSPAR) 10 mg tablet Take 20 mg by mouth three times daily. hydrOXYzine pamoate (VISTARIL) 50 mg capsule Take 50 mg by mouth. atenolol 50 mg tablet Take by mouth once daily. 50 mg.once daily Multivitamin ORAL capsule Take 1 capsule by mouth once daily. REVIEW OF SYSTEMS: D/N = 6/2 AUA = 18 Hematuria: none Dysuria: none Incontinence: none Urgency:Mild to moderate Catheter use: none Medications to aid urination: y Bowel movement frequency: 1-3/day Bowel movement quality: Occasional diarrhea Blood per rectum: none Androgen deprivation: Currently being treated with lupron. Last treatment 05/2021 PHYSICAL EXAM: There were no vitals taken for this visit. KPS: 90 General appearance: Alert and oriented. No acute distress. Abdomen: Normal abdominal exam, Abdomen soft, non-tender. No masses, organomegaly. Rectal exam def Extremities: No deformities, edema, skin discoloration, clubbing or cyanosis. Lymph Nodes: No cervical lymphadenopathy, No supraclavicular lymphadenopathy, No axillary lymphadenopathy. Skin: Skin color, texture, turgor normal, no suspicious rashes or lesions. ASSESSMENT/PLAN: Prostate adenocarcinoma, initial PSA 28.36, biopsy [place] score 4 + 3 = 7 (grade group 3), clinical stage T2b, N0, M0, stage IIIA [T1-T2, N0, M0, PSA >=20, GG 1-4] (AJCC 8th ed.), s/p pelvic radiation followed by prostate brachytherapy 07/31/2020. Overall doing well with undetectable PSA. No new problems. Recommend to do PSA surveillance, plan to see patient back in 4 months. Signed by: May Mcneil MD cc: Efren Castillo II, MD [address] [place] [address] Trae Soler MD documented in this encounter [facility] 02-09-2022 Miscellaneous Notes Last Rheum office visit: 10/22/21 Next Rheum office visit: 02/27/22 Last CMP and CBC: CMP: Glucose 110 10/22/2021 BUN 14 10/22/2021 Creatinine 0.93 10/22/2021 Sodium 140 10/22/2021 Potassium 4.1 10/22/2021 Chloride 102 10/22/2021 CO2 27 10/22/2021 Protein, Total 7.3 10/22/2021 Albumin 4.4 10/22/2021 Calcium 9.8 10/22/2021 Alkaline Phosphatase 69 10/22/2021 Bilirubin, Total 0.3 10/22/2021 AST 27 10/22/2021 ALT 19 10/22/2021 Hemoglobin (g/dL) Date Value 10/22/2021 13.3 02/11/2021 13.2 Hematocrit (%) Date Value 10/22/2021 39.5 02/11/2021 41.5 WBC (k/uL) Date Value 10/22/2021 6.87 02/11/2021 5.98 Platelet Count (k/uL) Date Value 10/22/2021 231 02/11/2021 259 Last eye exam date: no appt noted documented in this encounter [facility] 10-27-2021 Miscellaneous Notes Secure my chart message sent documented in this encounter [facility] 10-23-2021 Miscellaneous Notes Xray faxed to office. call to office and notified of fax being sent, they acknowledged and will watch for fax. ----- Message from Katty Duenas APRN.TRANSVERSE ABDOMINAL MUSCLE SURGEON sent at 10/23/2021 12:54 PM EDT ----- Please call Dr. Castillo office and fax result Patient c/o SOB recently. Since patient has HX RA I did a chest xray. Advised patient to follow up with PCP on this chest xray. Thanks so much documented in this encounter [facility] 10-22-2021 History of Present illness Narrative Radiology Service Progress Note PATIENT NAME: Constantino Duval DATE OF SERVICE: October 22, 2021 TIME: 4:40 PM PATIENT IDENTITY VERIFICATION COMPLETED USING TWO (2) IDENTIFIERS: Name and Date of confirmed by patient verbally. FALL SCREENING: Has the patient had 2 falls in the last year or 1 fall with injury or currently using an Ambulatory Assistive Device (Walker, Cane, Wheelchair, Crutches, etc.)? No PATIENT GENDER DATA: Male PATIENT RELEVANT IMPLANT DATA REVIEWED: Not Applicable RADIOLOGY DEPARTMENT: General X-ray: Exam(s) Completed: Chest X-Ray PERIPHERAL IV DATA: Not applicable SIGNED BY: RT Christina(R) October 22, 2021 4:40 PM documented in this encounter [facility] 10-22-[address] Castillo, patient's primary, called to ask if Katty Duenas is going to handle all the FMLA paperwork because they (Dr. Castillo) just submitted some forms yesterday for 1 week. But, Dr. Castillo received something from Katty Duenas today taking him off work until . Dr. Castillo only had him off until the . They want to know if Katty Matthew will be taking over the FMLA since she has him off longer. Please call them at [phone] and ask for Malu or Rylee. Patient in office today. Had forms filled out. Placed in scanned documents in primary care cabinets per Katty's request. Michelle Lechuga MA documented in this encounter [facility] 10-22-2021 Instructions Katty Duenas APRN.TRANSVERSE ABDOMINAL MUSCLE SURGEON - 10/22/2021 3:14 PM EDT -PLEASE NOTE THAT WE REVIEW ALL YOUR TEST RESULTS AT YOUR NEXT FOLLOW UP VISIT WITH YOU. IF ANY ABNORMAL LAB REQUIRES SOONER ATTENTION, WE WILL CONTACT YOU. -If you have signed up on [employer], we will release your test results through [employer]. I wish you the best of health and wellness. Labs today Plan to start enbrel Will have nurse visit for teach May continue prednisone 10mg daily until started on enbrel then go down to 5 mg daily With breakfast No other nsaids with pred Increase your hydroxychloroquine to 200 mg twice daily with meals Please take with meals The dose is not to exceed 5 mg/ actual weight in kg/day Please continue follow up with your semiconductor wafers saw operator, once a year for your retinal exams to monitor for any retinopathy and to prevent risk of vision loss and blindness. Please use sun screen if you are outdoors during summer and kristen days, to avoid skin pigment changes and sunburn, as this is a risk with hydroxychloroquine. If you experience palpitations or chest pains, please stop the hydroxychloroquine and contact your Primary care physician. They will need to obtain an EKG to insure you do not have a prolonged QTc as well as the usual cardiac work for chest pains. Please share this information with your Primary care physician: the hydroxyzine interacts with the hydroxychloroquine and can lead to hear rhythm problems. The concurrent use of hydroxychloroquine with other agents that prolong the QTc interval may result in potentially life-threatening cardiac arrhythmias, including torsades de pointes.(1) Please follow up with your eye doctor - Start taking vitamin D over the counter, 2000 international units once daily with meals Maintaining good vitamin D blood levels is important for bone health and overall health. Please see additional information on vitamin D below. A vitamin D blood test, called vitamin D 25-hydroxy (OH) is obtained to assess vitamin D level. If the vitamin D is low, you will need to take a vitamin D supplement. If you are already on a vitamin D supplement, then the dose will need to be adjusted. Also you multivitamin may contain vitamin D. Vitamin D is a fat soluble vitamin that requires it be taken with good fat to be absorbed. Examples of healthy fat include nuts, seeds, avocados, olives and for the most part the meal of the day. Spending up to 30 minutes in the sun during Summer and late Spring can provide natural vitamin D to the uncovered skin (arms, legs) - Your calcium can be sufficient in your diet Healthy food that are rich in calcium include: nuts, seeds, legumes/beans, peas, dark green leafy vegetables, plant based milk Additional calcium rich foods listed below - Soaking Almonds overnight in the fridge with drinking water, can help with softening the almonds and improved absorption of the almonds. See additional information below on calcium. - I recommend following a healthy lifestyle. You can find additional information below. I recommend this to all my patients, as I have seen convincing scientific evidence, and seen the results in my practice, of the benefits of this healthy lifestyle to overall health and wellness. I hope you will find this beneficial as well. A whole plant based diet and healthy lifestyle have been reported to be optimal for health in general, anti-inflammatory diet, prevention of common chronic diseases, healthy weight management, memory and brain healthy, bone health. Recommendations for healthy lifestyle include: Healthy nutritious diet, anti-inflammatory diet, appropriate exercise, good sleep hygiene, stress management, supplementing vital deficiencies and maintaining healthy weight. with BMI that does not exceed 25 to 26 . 5 points to remember to improve your health and continue on a healthy path: 1- Optimal nutritious food, such as a Whole Plant Based diet You can watch the movie that features the Whole Plant Based diet, [place] over knives (see video online and visit website). Another movie that was recently released is: Eating You Alive (you can find it at Romotive) and The Game Changers movie Dr. Noemi Guevara is a [facility] physician who is an expert in Whole Plant based diet. His website is [employer]. His research highlights the benefits of the Whole food plant based diet in reversing and preventing heart disease. Mrs. Guevara (his ) has a cookbook with many recipes on whole plant based food: The Prevent and Reverse Heart Disease cookbook. You can also consider reading his son, Edwardo Guevara's book: The Engine 2 cookbook Edwardo is a retired staffing account manager who has helped many people get healthier by following the whole food plant based diet. Dr. Mike Waller, has a website and free marisa to help get started on a whole plant based diet, at www.pcrNujira.org and you can log on for free for his 21-Day Kickstart with meals and recipes to follow for 21 days. There is also a free marisa for that. He has multiple free videos and YouTube, for example: https://youtu.be/fynSydpB7y5 , https://youtu.be/FfLZIyovd2l He has written multiple books, including Power Food for the Brain, The Cheese Trap, Dr. Mike Waller's Program for Reversing Diabetes, Your Body in Balance Dr. William Villalobos has shown the benefit of a starch based whole food plant based diet to his Rheumatoid Arthritis patients, as well as patient with diabetes II, hypertension, obesity, multiple sclerosis, heart disease, acne, and other, his website: www.bert.PressConnect Dr. Alejandro Greene is a renowned informatics scientist, who has studied and researched the benefits of the Whole plant based diet. He has also researched the adverse effects of animal proteins on health. He presents many of his research findings in his book The [place] study. Dr. Yobani Schuler has completed many research trials proving the reversal of diseases, such as heart disease and early prostate cancer, with healthy lifestyle and the Whole Plant based diet. Dr. Yobani Schuler website is: www.evans.PressConnect His new book: Undo It, has evidence based information and guide to following this healthy lifestyle. Dr. Wiliam Rogers has dedicated a website and additional time to reviewing all food related articles and research and presents them in his power point presentation and on his website at: nutritionfacts.org which is all free. Dr. Rogers has multiple free videos and YouTube, for example https://youSpaceCraft, Inc.u.be/aSgNkhgVtks and https://youSpaceCraft, Inc.u.be/lXXXygDRyBU. He has written multiple books including: How Not To and How Not To Diet He is now working on his next book: How Not To Age Dr. Shelley Nguyen (from the [facility]), has articles on the following website: [employer] Also, you could find additional information on practical to follow recipes by reading or watching online and YouTube such as: Pickling Operator AJ, Cooking With Plants, The Vegan Corner (recipes from an [place] Pickling Operator), The Whole Foods Plant Based Cooking Show and visiting the provided websites for additional information on the whole plant based benefit and cooking recipes. You can also consider watching the vlogs of some of the plant based Athletes such as Blas Day Derek on [employer]. Dr. Radha Hadley (a psychiatrist who suffered with lupus) has helped reverse her Systemic Lupus Erythematosus and helps many patients with their auto-immune diseases, based on her recommendations of the whole food plant based diet and the green smoothies. She has a facebook and website, and on youtube her channel is: Goodbye Lupus Some people have adverse effect or intolerance to gluten. Certain patients with auto-immune disease, including auto-immune thyroid disease, need to avoid gluten. If you suspect you are gluten sensitive or intolerant, consider gluten free diet. Gluten could lead to increased inflammation in the bowels and body in certain patients. Not all your food has to be organ if you cannot afford or find them. Consider organic and non-GMO products when shopping for your food, when possible. GMO are genetically modified food that may have adverse impact on our health. If you are unable to purchase organic of non-GMO, you can wash your produce with white vinegar or soak in baking soda and water (see details from Dr. Mixon's website nutritionfacts.org) and rinse well with water. 2- Regular Exercise, such as beginner yoga, marcus chi, stretching, cardio, gradual strengthening, pool therapy, physical therapy Come As You Are: YOGA - Gentle Yoga Anyone Can Do Anywhere www.LDR Holding/y oga Also on youtube: yoga with Sylvia 3- Good Sleep (poor sleep impacts everything, recommended sleep is 7.5 to 8 hrs. a night). Certain people need less or more sleep. Meditation and relaxation techniques have shown to help with improving sleep. 4- Stress management, staying positive, be happy, laugh often (it is a great medicine) Find time to relax and meditate if possible. Following steps 1-3 will help with this as well. In psychiatric disorders, it is important to follow with a professional on the optimal management of depression, anxiety or psychiatric illness 5- Supplements Supplementing necessary vitamins and minerals, correcting any deficiencies, i.e. Vitamin D, B12, omega-3 fatty acids etc... Go natural when possible -Important notice: If you are following a Whole plant based diet, it is recommended to take Vitamin B12, sublingual, dissolve under the tongue, take once daily. Vitamin B12 is available over the counter, dose could be 2500 mcg, and can be taken once a week, and if your blood levels are low, you may need to take it once daily or a higher dose. Raw: Garlic, Cilantro, [place] nuts, Pumpkin seeds, Greene seeds and Flax seed powder have been reported to help with certain metal detoxification such as mercury. [place]-3 plant based rich foods are good anti-inflammatory sources such as : denae seeds, flax seed (needs to be ground), walnuts, hemp seeds, dark green leafy vegetables. It is important to avoid refined oils as much as possible especially that many have too much omega-6 that is pro-inflammatory (lead to inflammation as well as concern for heart and vascular disease). Turmeric can be found natural, used as the spice powder or the root with your food. This is also available as a capsule. If you are on a blood thinner, you will need to discuss with your pharmacist or physician before taking Turmeric If you have gall bladder disease or gall bladder stones, it is recommended to avoid turmeric capsules. Sweet cherries (raw cleaned or frozen), Turmeric , pineapple (contains bromelain), omega-rich foods, have anti-inflammatory benefit Start reviewing the Whole Plant Based Diet, by watching [place] over [employer] movie and then review website. There are many other resources and educational information on the Whole plant based diet on the Internet and documentaries. There are other resources for wellness that you can also benefit from, such as the [facility] Wellness website, [facility] and includes Plant based and Mediterranean diet, yoga and meditation. Please avoid all dairy products. You could use non-dairy milk such as Flax milk, Cashew milk, Brooks milk, Rice milk, Oat milk or Hemp milk, instead. It is very important to avoid all: refined sugars (including high fructose syrup), refined carbohydrates, any artificial sweeteners and artificial preservatives, and soda and heavily processed food. Insure adequate hydration; drink at least 6 to 8 cups of water daily, certain people need less or more. Examples of Smoothies: Every morning you can start your day with a healthy natural anti-inflammatory smoothie, for example, you can blend: fresh or frozen sweet cherries, half a root of turmeric (1 to 2 inches), banana, blue berries, walnuts, few leaves of kale, add flax milk (or almond milk), and enjoy. You could add half an avocado if you like it smoother. If you do not tolerate walnuts, you can use flax seeds, denae seeds or hemp seeds instead. If you do not like plant based milk, you can use coconut water or plain water instead. Other smoothies, including green smoothies, are also very healthy and highly anti-inflammatory. For example fruits (such as banana or frozen alex or pineapple) and add significant amount of leafy greens, then add water or coconut water and blend until smooth. You can also add turmeric in this recipe. GENERAL INFORMATION ON BONE HEALTH : -Bone Density testing (DXA scan) as recommended. -Vitamin D supplementation is recommended, unless blood levels are sufficient. Recommended daily dose of 1000 to 2000 IU total a day, or the dose necessary to achieve a Vitamin D 25-OH blood level of >31 and preferably closer to 40-60 ng/mL. Vitamin D pills are available over the counter. -Recommended daily dose of calcium: 1200mg total a day in divided doses. Calcium is usually sufficient in our regular diet, also available in multivitamins. Patients on certain dietary restrictions or those unable to meet their daily calcium by diety alone, may require calcium supplements. For patient with history of calcium kidney stones, Calcium Citrate would be the recommended supplement. It is recommended to avoid caclium carbonate supplement in this case, as these may increase risk of calcium kidney stones. The after visit summary has information on dietary calcium and instructions on reading calcium label and converting the %DV to mg. When you read a food label and you see calcium reported as DV %, add a zero and this will provide you with the approximate mg value of the calcium content in this food. For example, if a glass of almond milk is labeled as 40% calcium DV, then this contains 400 mg of calcium. For additional information, please see references provided. -Regular weight-bearing and muscle-strengthening exercise -Avoidance of tobacco smoking, excessive alcohol intake and excessive caffeine intake. -Fall and fracture precautions -It is recommend to continue regular follow up visits with your dentist every 6 months, and continue with good oral hygiene. Calcium: If your diet is sufficient in Calcium rich food, you will not need calcium supplement. Calcium Citrate is the preferred calcium if you have had kidney stones. Daily recommended calcium dose: 600mg twice a day with meals. Adequate calcium ingestion is essential for maintaining healthy bones. The recommended dose daily intake of calcium varies depending on individual needs but is usually between 1200 and 1500mg daily, preferably around 1200mg a day in divided dose (not all taken at once). This is equivalent to about five 8oz glasses of milk per day. Many foods are rich in calcium and they include: - Plant based, non-dairy, calcium rich products, include nuts, almond milk, beans, lentils - Vegetables and Fruit: bok-preston, turnips, broccoli, kale, collards, - Dairy products: milk, cheese, yogurt, ice-cream - Fish products: canned salmon, sardines and shrimp - Cereals and nuts: almonds, sesame seeds, fortified cereals and oatmeal - Other foods: fortified orange-juice, figs, soybeans, other beans and eggs. If you have a low calcium diet and cannot tolerate calcium-rich foods, many supplements are available today. Your pharmacist can help you choose the one which best suits your needs. A few tips on supplements: - They should be easy to swallow - They should dissolve easily in cup of vinegar in < 15 minutes. - Count the ELEMENTAL calcium mgs. E.g. Calcium 499mg may have only 221mg of elemental Calcium. - Calcium citrate is the calcium supplement to take if you have had kidney stones and unable to meet your calcium requirements from food/diet alone. - There is such a variety today that it is best to bring in the bottle to your doctor to show them exactly what you are taking. Lastly too much calcium can be bad for you. Recent studies show extra supplements may increase your risk of kidney stones or cause high calcium levels in some people. You should discuss how much you should be taking with your doctor before starting them. Further Information is available from the following resources: www.nof.org (National Osteoporosis Foundation) http://www.osteo.org/osteolinks.a sp National Institutes of Health: 3-086-444-BONE The Calcium Information Center: -Non-Dairy, Plant based Milk, can contain in1 glass up to 450 mg of calcium (300 to 450 mg) Exampled include Oat Milk, Flax Milk, Brooks Milk, Cashew Milk, Soy Milk, Peas Milk general health and well being Examples of Food Sources of Calcium from NIH Food Milligrams (mg) per serving Percent DV* Soymilk, calcium-fortified, 8 ounces 299 30 Spring juice, calcium-fortified, 6 ounces 261 26 Tofu, firm, made with calcium sulfate, cup* 253 25 Tofu, soft, made with calcium sulfate, cup* 138 14 Tsuxc-xf-szy cereal, calcium-fortified, 1 cup 100 1,000 10 100 Turnip greens, fresh, boiled, cup 99 10 Kale, raw, chopped, 1 cup 100 10 Kale, fresh, cooked, 1 cup 94 9 Nigerian cabbage, bok preston, raw, shredded, 1 cup 74 7 Bread, white, 1 slice 73 7 Tortilla, corn, piezw-df-qcms/wang, one 6 diameter 46 5 Tortilla, flour, greur-bv-sure/wang, one 6 diameter 32 3 Bread, whole-wheat, 1 slice 30 3 Broccoli, raw, cup 21 2 * DV = Daily Value. DVs were developed by the U.S. Food and Drug Administration to help consumers compare the nutrient contents among products within the context of a total daily diet. The U.S. Department of Agriculture s (USDA s) Nutrient Database Web site lists the nutrient content of many foods and provides comprehensive list of foods containing calcium arranged by nutrient content and by food name. *Calcium content varies slightly by fat content; the more fat, the less calcium the food contains. * Calcium content is for tofu processed with a calcium salt. Tofu processed with other salts does not provide significant amounts of calcium. You could acces this information online at: http://ods.od.nih.gov/factsheets/ Calcium-HealthProfessional/ Vitamin D: Vitamin D3= cholecalciferol, available over the counter. Dose recommended 800 to 1000 iu daily with a meal; Certain patients require 0301-1917 iu daily and in patients deficient in Vitamin D, they require higher dosages. Certain patient requires higher dose, depending on their Vit D blood levels. Vitamin D is essential for calcium metabolism. It is really a hormone produced mainly in your skin after exposure to sunlight. Vitamin D helps you absorb calcium from your stomach and kidneys and incorporates it into your bones. Studies show approximately 50% of [place] men and women are vitamin D deficient in the winter. Milder cases of vitamin D are usually asymptomatic so the only way to know you have a problem is to have a blood level checked. More severe cases can cause osteomalacia (a.k.a. rickets) which can result in bone pain, weak bones and several abnormal laboratory tests and also weak muscles (a.k.a. myopathy). When this happens, your bones lose a lot of their calcium stores as the body tries to regulate the calcium required by other tissues. Prolonged deficiency can lead to severe bone disorders and fractures. Unlike calcium, dietary sources of vitamin D are rare, limited to a few fish oils particularly cod-liver oil, other fortified foods and egg yolks. and most are unhealthy. Natural source of vitamin D is through sunshine. This is usually during kristen seasons, for example a 30 minute exposure to sunshine. Some people are unable to be exposed to the sun due to skin condition. Often supplementation is needed. Many multivitamins contain some vitamin D and vitamin D alone preparations are now available in several forms. The recommended daily intake of vitamin D used to be 400 and 800 international units, however, it is now known that larger amounts are needed, as discussed above. Your doctor can prescribe prescription strength vitamin D for you if necessary, if you have marked deficiency or diseases of the liver or kidney. Supplementation in patients with severe deficiency can stabilize or improve bone mineral density and in frail elderly persons, may reduce their risk of falling. Additional Information is available from: www.nof.org (the national osteoporosis foundation) http://www.[facility].org/ar thritis/osteo/info.htm http://ods.od.nih.gov/factsheets/ vitamind.asp National Institutes of Health: 1-330-217-BONE The Calcium Information [place]: At the [facility], we work as a team for your care, along with Nurse Practitioners, Physician Assistants, Nurses and Medical Assistants. It is a privilege and honor to serve you. Thank you for choosing [facility] for your healthcare. Sincerely, Katty Duenas APRN.DARIN documented in this encounter [facility] 10-22-2021 History of Present illness Narrative Face to face FOLLOW UP VISIT PCP: Efren Castillo II, MD [address] [place] [address] Mr. 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 was in all over pain Legs, hips, shoulder, wrists, hands, ankle Fell 1 month ago and sprained ankle right - no fracture- following with PCP Could hardly walk to truck Took off work Pain was excoriating Bad until sat and started to calm down with muscle and now all joint pain Fatigue Pain currently 7/10 No swelling currently Am stiffness pred high dose taper- started and on wed was too strong upset stomach Has never taken pharmacologic bone therapy Vit d 2 gummies+ ca and mult vitamin daily Taking plaquenil Eye exams normal- November - no plaquneil toxicity Tried lyrica and gabapentin Exercises- very little Answers for HPI/ROS submitted by the patient on 10/21/2021 Fever : No Recent Unintentional Weight Change: No Eye Pain: No Eye Redness: No Vision Disturbance: No Eye Dryness: Yes Nose Bleeds: No Sores in your Mouth: No Trouble Swallowing: No Dry Mouth: Yes Chest Pain: No Leg Swelling: No A Cough: Yes Blood when you Cough: No Shortness of Breath: Yes Pain with Breathing: No Heartburn: Yes Abdominal Pain: No Diarrhea: Yes Black Tarry Stools: No Blood in Urine: No Pain or Burning with Urination: No Joint Pain or Stiffness: Yes Muscle Weakness: Yes Muscle Aches: Yes Joint Swelling: Yes Morning Stiffness in Joints: Yes A Rash: No Skin Color Changes: No Hair Loss: No Nail Changes: Yes Headaches: Yes Numbness: Yes Memory Loss: No Swollen Glands: No Waiting for enbrel Talking to them tomorrow to provide more info Past Medical Hx, Past Surgical Hx. Social Hx and Family Hx: unchanged ACTIVE PROBLEM LIST Steroid-Induced Osteopenia - 03/19/2021 Prostate Cancer (Hcc) - 06/12/2020 Other Postablative Hypothyroidism - 12/21/2012 PHYSICAL EXAM: BP 112/67 (BP Site: Left Arm, BP Position: Sitting, BP Cuff Size: Large Adult) Pulse 78 Wt 85.4 kg (188 lb 3.2 oz) SpO2 100% BMI 25.52 kg/m GEN: A & O in NAD SKIN: no lesions HEENT: No conj. inj., oral ulcers, thrush LUNGS: CTA B/L HEART: RRR, no g/r/m NEURO: Mental Status: alert and oriented x 3 cheerful, Gait: Normal w/o assistive devices Tone: normal no focal weakness. MUSCULOSKELETAL: Sw Jts.:multiple MCPs and wrists T Jts.:hands, wrists and elbows No joint deformities, no rheumatoid nodules. calcifications or tophi. No SI tenderness, no vitaliy's tenderness, no heel/plantar tenderness, lumbar flexion full, negative Salma's test. No clinical synovitis in the DIP's, PIP's, MCP's, wrists, elbows, shoulders, knees, ankles, midfoot, or toes. No knee effusions bilateral. Shoulder exam:FROM FROM: all upper and lower extremity joints Thoracic/Lumbar Spine: No percussion tenderness SLR: negative modified in chair Extr.: no edema Prior Test results discussed with patient. IMPRESSION/DIAGNOSIS: No diagnosis found. Per Dr. 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 His outside labs: CCP 101 (09/15/2019),RF 10, MANUEL direct negative Urate 4.9 sed 10 crp 0.5 mg/dL He has had very good response to prednisone, but flares after being off and has required multiple courses. He is on low dose, suboptimal dose hydroxychloroquine, for the past 6 months. Did not tolerated methotrexate due to sevre nausea. Has not been on other DMARDs, Biol or Kyle inhibitors. He is better today due to recently completing pred course. At this time, patient requires optimizing DMARD medications. I counseled him on smoking cessation and reviewed the research showing risk of RA in smokers who are CCP positive. Also smoking can impair response to hydroxychloroquine, other DMARDs and Biologic medications. Outside BMD 01/27/2021 osteopenia Spine -2.0 T score Right femur -2.3 lowest T score Additional risk factors- smoking, current frequent steroid use Had 1 dose reclast. Tolerated well. At todays visit patient patient Rheumatoid arthritis appears to be active , continues to have frequent flares. Recent steroid taper for RA flare pain, stiffness and swelling. Increased Am stiffness. Taking plaquenil tolerating well. He Would like to try enbrel he has not received enbrel yet. C/o sob , smoker will obtain cxr. Neuropathy in feet tried lyrica and gabapentin follows with primary care. Will continue pred until started on enbrel No falls, no fractures, no new bone pains, no dental concerns, no procedures planned, no s/s of infections and no antibiotics. Patient happy with current plan PLAN/RECOMMENDATIONS: Office Visit on 10/22/21 XR CHEST 2V FRONTAL/LAT COMP METABOLIC PANEL CBC + DIFF VITAMIN D 25 HYDROXY predniSONE (DELTASONE) 5 mg tablet cxr May continue prednisone 10mg daily until started on enbrel then go down to 5 mg daily With breakfast Start enbrel once recieves Continue plaquenil 200mg twice daily Eye exam every 6-12 months while on plaquenil I spent a total of 34 minutes on the date of the service which included preparing to see the patient, [id number]-[id number] patient care, completing clinical documentation, obtaining and/or reviewing separately obtained history, performing a medically appropriate examination, counseling and educating the patient/family/caregiver, ordering medications, tests, or procedures, communicating with other HCPs (not separately reported) and independently interpreting results (not separately reported). Portions of this note have been copied from my previous note and have been updated to reflect today's visit note October 22, 2021 all reflect current medical decision making from date of this visit. Discussed medications dosage, usage, goals of therapy and side effects. Patient instructed to notify provider of any changes in medical condition. Patient in agreement and in understanding of plan. . Follow up:1 month Katty Duenas APRN.CNP Recommendations to share with referring physician/Primary care physician : Dear. Dr. Castillo I had the pleasure of seeing your patient, Mr Duval. I have enclosed a copy of my clinic note with my assessment and recommendations for this patient. Recommendations for your consideration as you deem necessary: -Continuous follow up with Primary care physician for cardiovascular disease prevention, for age appropriate cancer screening and routine health maintenance and wellness, and infection precautions and age appropriate immunization recommended. Thank you for allowing me to participate in the care of your patient. Katty Duenas APRN.CNP CC: Efren Castillo II, MD documented in this encounter [facility] 10-20-2021 Miscellaneous Notes See other encounter documented in this encounter [facility] 10-20-2021 Miscellaneous Notes Last Rheum office visit: 07/23/21 Next Rheum office visit: no future appt Last CMP and CBC: CMP: Glucose 98 02/11/2021 BUN 9 02/11/2021 Creatinine 0.87 02/11/2021 Sodium 138 02/11/2021 Potassium 4.2 02/11/2021 Chloride 100 02/11/2021 CO2 27 02/11/2021 Protein, Total 7.0 02/11/2021 Albumin 4.1 02/11/2021 Calcium 9.6 02/11/2021 Alkaline Phosphatase 76 02/11/2021 Bilirubin, Total 0.2 02/11/2021 AST 19 02/11/2021 ALT 12 02/11/2021 Hemoglobin (g/dL) Date Value 02/11/2021 13.2 Hematocrit (%) Date Value 02/11/2021 41.5 WBC (k/uL) Date Value 02/11/2021 5.98 Platelet Count (k/uL) Date Value 02/11/2021 259 Last eye exam date: 12/26/20 documented in this encounter [facility] 10-08-2021 History of Present illness Narrative Constantino Duval returns for scheduled follow-up with Dr. Mcneil. Patient was seen and examined by Dr. Truong. Patient is still having post external beam radiation and seed implant side effects. He complains of a weak urinary stream. His bowels are loose and he has occasional diarrhea. He still has some rectal discomfort. The patient also has multiple side effects from the Lupron injection mainly including muscle weakness. He also discussed today sexual dysfunction. Patient is aware that he if he chooses to become sexually active again we can assist or refer him to an appropriate provider. Patient denies any unusual pain. No cough, shortness of breath or other pulmonary complaints. [place] Henderson APRN.DARIN documented in this encounter [facility] 10-08-2021 Nurse Note AUA= 15 documented in this encounter [facility] 10-08-2021 History of Present illness Narrative Radiation Oncology - Follow Up Note PATIENT NAME: Constantino Duval PATIENT DIAGNOSIS: Prostate adenocarcinoma, initial PSA 28.36, biopsy [place] score 4 + 3 = 7 (grade group 3), clinical stage T2b, N0, M0, stage IIIA [T1-T2, N0, M0, PSA >=20, GG 1-4] (AJCC 8th ed.), s/p TRUS Random biopsy. RADIATION SUMMARY: DATES OF TREATMENT: Pelvic external beam treatment 05/20/20-06/21/20 Prostate brachytherapy implant 07/31/2020 AREA TREATED: Prostate and pelvis DELIVERED DOSE: Area: Pelvis 45 Gy in 25 fractions,3 Arcs, IMRT with rapid arc , 10MV with daily CBCT Area: Prostate 100 Gy Pd-103, 30 sources, 14 needles, 78.75 mCi INTERVAL HISTORY: Doing fairly well. Has had some lower abdominal pain and AutoDrop rectal discomfort. Mostly relieved by BMs. No blood per rectum. Occasional diarrhea. Otherwise no new problems PSA HISTORY: PSA. (no units) Date Value 10/02/2021 <0.13 03/20/2021 <0.05 09/13/2020 <0.05 ALLERGIES Allergen Reactions Tapazole [[place]* Anaphylaxis rash, itching throat was closing Leflunomide Diarrhea, GI Upset, Intolerance, Other: See Comments, Shortness of Breath Ypuisjd-Cky-Uxb Red* Other: See Comments Leg pain hydrOXYchloroQUINE (PLAQUENIL) 200 mg tablet take 1 tablet by mouth twice a day with meals *CONTINUE YEARLY EYE EXAMS liothyronine (CYTOMEL) 25 mcg tablet Take 25 mcg by mouth once daily. tamsulosin ER (FLOMAX) 0.4 mg Take 1 capsule by mouth daily at bedtime. levothyroxine 150 mcg cap Take 150 mcg by mouth daily before breakfast. ALPRAZolam (XANAX) 0.25 mg tablet Take 0.25 mg by mouth twice daily as needed. busPIRone (BUSPAR) 10 mg tablet Take 20 mg by mouth three times daily. hydrOXYzine pamoate (VISTARIL) 50 mg capsule Take 50 mg by mouth. atenolol 50 mg tablet Take by mouth once daily. 50 mg.once daily Multivitamin ORAL capsule Take 1 capsule by mouth once daily. REVIEW OF SYSTEMS: D/N = 6/2 AUA = 15 Hematuria: none Dysuria: none Incontinence: none Urgency:Mild to moderate Catheter use: none Medications to aid urination: y Bowel movement frequency: 1-3/day Bowel movement quality: Occasional diarrhea Blood per rectum: none Androgen deprivation: Currently being treated with lupron. PHYSICAL EXAM: BP 102/71 Pulse 78 Temp 36.3 C (97.3 F) Resp 16 Wt 86.1 kg (189 lb 12.8 oz) SpO2 99% BMI 25.74 kg/m KPS: 90 General appearance: Alert and oriented. No acute distress. Abdomen: Normal abdominal exam, Abdomen soft, non-tender. No masses, organomegaly. Rectal exam def Extremities: No deformities, edema, skin discoloration, clubbing or cyanosis. Lymph Nodes: No cervical lymphadenopathy, No supraclavicular lymphadenopathy, No axillary lymphadenopathy. Skin: Skin color, texture, turgor normal, no suspicious rashes or lesions. ASSESSMENT/PLAN: Prostate adenocarcinoma, initial PSA 28.36, biopsy Amy score 4 + 3 = 7 (grade group 3), clinical stage T2b, N0, M0, stage IIIA [T1-T2, N0, M0, PSA >=20, GG 1-4] (AJCC 8th ed.), s/p pelvic radiation followed by prostate brachytherapy 07/31/2020. Doing well. Having some intermittent rectal issues if continue recommend seeing gastroenterology. In terms of prostate cancer PSA remains undetectable. Continues ADT and close follow-up with Dr. Soler. Patient wondering about stopping Lupron given his excellent response could consider stopping at this point. With then plan to recheck PSA somewhat earlier, to 4 months. Signed by: May Mcneil MD cc: Efren Castillo II, MD [address] [place] [address] Trae Soler MD documented in this encounter [facility] 09-30-2021 Note PROCEDURE: XR FOOT R T MIN 3 VIEWS COMPARISON: None. HISTORY: Strain of muscle and/or tendon of lower leg FINDINGS: BONES:No acute fracture or dislocation. Mild enthesopathic spurring of the calcaneus at the Achilles and plantar insertions SOFT TISSUES:Negative. No visible soft tissue swelling. EFFUSION:None visible. OTHER: Negative. IMPRESSION: No acute abnormality Electronically authenticated by: EUGENE HERNANDEZ Date: 2021-09-30 14:20 [facility] 08-05-2021 Miscellaneous Notes Pharmacy verified. 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 The patient has a significant ulnar nerve pathology at the elbow based on the EMG. Clinically he has numbness in the fingers, he has significant hand atrophy and difficulty with his hands with regard to coordination and strength. This may or may not be all due to the ulnar nerve, because of the findings on EMG I would definitely recommend ulnar nerve decompression bilateral. The patient states he wants to think it over; will reevaluate if needed if he decides for surgical intervention Jul, Degenerative cervical spinal stenosis (ICD-10 - M48.02) Jul, Low back pain, unspecified (ICD-10 - M54.50) Jul, Other chronic pain (ICD-10 - G89.29) [facility] Other 02-08-2022 Hospital Discharge instructions Follow Up Care 06/17/2021 12:04:17 With:Ryder Oswald MD, DANNY Andino Address: [facility] [address], [place] [address]- [phone] When: Unknown [facility] evaluation + Plan note No data available for this section [facility] evaluation + Plan note Future Appointments Appointment Date:04/24/2024 10:00:00 AM Scheduled Provider: Location:[facility] Appointment Type:Urology CALL PAT Appointment Date:04/25/2024 02:30:00 PM Scheduled Provider: Location:[facility] Appointment Type:Urology FT Appointment Date:02/23/2025 11:00:00 AM Scheduled Provider:Jacky MARSH MD Location:[facility] Appointment Type:URO Office Visit [facility] evaluation note* Diagnosis Prostate cancer (HCC)- Primary Malignant neoplasm of [facility] Malignant neoplasm of prostate (HCC)- Primary Malignant neoplasm of prostate [facility] Diagnosis Seropositive rheumatoid arthritis (HCC) Rheumatoid arthritis [facility] Diagnosis Seropositive rheumatoid arthritis (HCC)- Primary Rheumatoid arthritis Vitamin D deficiency Unspecified vitamin D deficiency Smoking Tobacco use disorder SOB (shortness of breath) Shortness of breath [facility] Diagnosis Seropositive rheumatoid arthritis (HCC) Rheumatoid arthritis [facility] Diagnosis Seropositive rheumatoid arthritis (HCC) Rheumatoid arthritis [facility] Diagnosis Malignant neoplasm of prostate (HCC)- Primary Malignant neoplasm of prostate [facility] Diagnosis Dyspnea and respiratory abnormalities- Primary Other dyspnea and respiratory abnormality [facility] Diagnosis Dyspnea and respiratory abnormalities- Primary Other dyspnea and respiratory abnormality [facility] Diagnosis 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)- Primary Encounter for monitoring of hydroxychloroquine therapy Encounter to discuss test results Other specified counseling Encounter for medication review and counseling Other specified 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 Encounter for long-term (current) use of steroids Steroid-induced osteopenia Disorder of bone and cartilage, unspecified [facility] Diagnosis Seropositive rheumatoid arthritis (HCC)- Primary Rheumatoid arthritis [facility] Diagnosis History of hepatitis C- Primary Personal history of other infectious and parasitic disease Hepatitis B antibody positive Other and unspecified nonspecific immunological findings [facility] Diagnosis Seropositive rheumatoid arthritis (HCC) Rheumatoid arthritis [facility] Diagnosis Malignant neoplasm of prostate (HCC)- Primary Malignant neoplasm of prostate [facility]* Diagnosis Lung nodule- Primary Solitary pulmonary nodule [facility]* Diagnosis Seropositive rheumatoid arthritis (HCC) Rheumatoid arthritis [facility] Diagnosis Malignant neoplasm of prostate (HCC) Malignant neoplasm of prostate [facility] Diagnosis HCV antibody positive- Primary Other and unspecified nonspecific immunological findings Hepatitis B core antibody positive Other and unspecified nonspecific immunological findings Diarrhea, unspecified type History of diverticulitis [facility] Diagnosis Seropositive rheumatoid arthritis (HCC) Rheumatoid arthritis documented in this [facility] [facility] Diagnosis Malignant neoplasm of prostate (HCC)- Primary Malignant neoplasm of prostate [facility] Diagnosis Seropositive rheumatoid arthritis (HCC) Rheumatoid arthritis Bilateral hand pain Pain in limb Other secondary osteoarthritis of both hands Chronic left shoulder pain Pain in joint, shoulder region Chronic ankle pain, bilateral [facility] Diagnosis Seropositive rheumatoid arthritis (HCC) Rheumatoid arthritis Smoking Tobacco use disorder SOB (shortness of breath) Shortness of breath [facility] Diagnosis Abnormal CXR Other nonspecific abnormal finding of lung field Dyspnea and respiratory abnormalities Other dyspnea and respiratory abnormality [facility] Diagnosis Seropositive rheumatoid arthritis (HCC)- Primary Rheumatoid arthritis Encounter for monitoring of hydroxychloroquine therapy Encounter to discuss test results Other specified counseling Encounter for medication review and counseling Other specified counseling Steroid-induced osteopenia Disorder of bone and cartilage, unspecified Smoking Tobacco use disorder History of hepatitis C Personal history of other infectious and parasitic disease Hepatitis B antibody positive Other and unspecified nonspecific immunological findings Vitamin D deficiency Unspecified vitamin D deficiency [facility] Diagnosis Lung nodule Solitary pulmonary nodule [facility] Diagnosis Seropositive rheumatoid arthritis (HCC)- Primary Rheumatoid arthritis [facility] Diagnosis Seropositive rheumatoid arthritis (HCC)- Primary Rheumatoid arthritis [facility] Diagnosis ILD (interstitial lung disease) (HCC)- Primary Postinflammatory pulmonary fibrosis Chronic obstructive pulmonary disease, unspecified COPD type (HCC) Lung nodule Solitary pulmonary nodule Current smoker Tobacco use disorder Acute upper respiratory infection Acute upper respiratory infections of unspecified site [facility] Diagnosis Seropositive rheumatoid arthritis (HCC) Rheumatoid arthritis documented in [facility] Diagnosis Malignant neoplasm of prostate (HCC) Malignant neoplasm of prostate documented in this [facility] Diagnosis Malignant neoplasm of prostate (HCC)- Primary Malignant neoplasm of prostate documented in this [facility] Diagnosis ILD (interstitial lung disease) (HCC) Postinflammatory pulmonary fibrosis Chronic obstructive pulmonary disease, unspecified COPD type (HCC) Lung nodule Solitary pulmonary nodule documented in this [facility] Diagnosis ILD (interstitial lung disease) (HCC)- Primary Postinflammatory pulmonary fibrosis Chronic obstructive pulmonary disease, unspecified COPD type (HCC) Current smoker Tobacco use disorder documented [facility] this [facility] Diagnosis Seropositive rheumatoid arthritis (HCC) Rheumatoid arthritis documented in this encounter [facility] Diagnosis Malignant neoplasm of prostate (HCC) Malignant neoplasm of prostate documented in this encounter [facility] note* Diagnosis ILD (interstitial lung disease) (HCC)- Primary Postinflammatory pulmonary fibrosis Chronic obstructive pulmonary disease, unspecified COPD type (HCC) Uncomplicated asthma, unspecified asthma severity, unspecified whether persistent [J45.909] Tobacco use disorder [F17.200] Tobacco use disorder documented in this encounter [facility]* Diagnosis Onset Date Resolution Status Abdominal pain acute Change in bowel habits acute Diarrhea acute History of diverticulitis ac [place] History of viral hepatitis a [facility] Work Phone: Evaluation note* Diagnosis Seropositive rheumatoid arthritis (HCC)- Primary Rheumatoid arthritis documented in this encounter [facility] Diagnosis Malignant neoplasm of prostate (HCC)- Primary Malignant neoplasm of prostate documented in this encounter [facility]* Diagnosis Epidermal inclusion cyst- Primary Sebaceous cyst Seborrheic keratosis Actinic keratosis [facility] Author Chin [facility] November 03, 2023 9:43am Note Date/Time November 03, 2023 9:43 am [facility] [address] [place] [address] Gastroenterology H&P Signed Patient: Constantino Duval MR#: [id number] : 1960 Acct:[id number] Age/Sex: 63 / M Adm Date: 4 Loc: Room: Type: [facility] Attending Dr: Chin Watkins MD Copies to: MD Efren Faith II, MD~ Date of Service: 11/03/2023 HISTORY & PHYSICAL: Patient's history with special attention to the cardiovascular, pulmonary systems and the current problem was reviewed with the patient immediately prior to the procedure. Present medications and doses reviewed in the EMR. Allergies and pertinent laboratory tests were also reviewedat this time in the EMR. The physical examination, as below, was then performed. Indication, assessment and HPI: 63-year-old male presents for colonoscopy to evaluate change in bowel habits with diarrhea. Family history of GI malignancy? no PHYSICAL EXAMINATION Mouth and Pharynx : moist mucus membranes, normal dentition Cardiac: regular rate, regular rhythm Pulmonary: normal respiratory effort, able to speak in complete sentences Neurological: alert and oriented x3, no focal deficits noted Abdomen: Abdomen soft, non-tender REVIEW OF SYSTEMS Constitutional: Denies malaise, fevers Cardiovascular: Denies chest pain, palpitations Respiratory: Denies shortness of breath, wheezing Gastrointestinal: Per HPI Genitourinary: Denies dysuria, polyuria Musculoskeletal: Denies joint swelling, joint stiffness Neurological: Denies numbness, tingling Integumentary: Denies rashes, skin lesions Endocrine: Denies fatigue, weight loss Written informed consent obtained from the patient. Risks (including but not limited to perforation, infection, bloating, bleeding, need for emergent surgeryand loss of life), benefits and alternatives explained and questions answered. The patient verbalized understanding. Based on history patient is an appropriate candidate for the procedure. Chin Watkins MD Documented By: Chin Watkins MD 11/03/2342 Signed By: <Electronically signed by Chin Watkins MD> 11/03/23942 [facility] Work Phone: History general Narrative - Reported* Type Description Date Medical History HTN Medical History Hyperthyroidism Medical History anxiety Surgical History Thyroid resection 2010 Surgical History Lt toe correction 2004 Surgical History Rt saphenous vein ablation 2012 Surgical History sinus 2018 Hospitalization History See Above [facility] Other Hospital Discharge instructions Additional Instructions DISCHARGE INSTRUCTIONS FOR COLONOSCOPY WHAT TO EXPECT: - You may feel full, gassy or cramping after your procedure. In some cases, this may be from a few hours to a day. Walking may help relieve the discomfort. - If you have polyp(s) removed you may note some minor bloody discharge after your first bowel movements. - You should begin to recover from anesthesia within 1 hour of the procedure, however may feel groggy for the next 24 hours. DO's AND DON'Ts: - Call your doctor right away if you have a hard abdomen, severe pain, are passing lots of bright red blood or clots. - Call your doctor if you develop any rashes, hives or difficulty breathing. - Let your doctor know if you have not had a bowel movement by 3 days after your procedure. - If you take 81 mg aspirin for your heart it is safe to resume this medication. - If you take other blood thinner medications your doctor will instruct you when these can safely be resumed. - Do NOT drive for 24 hours. - Do NOT operate machinery such as power tools, [place] mowers, snow blowers, sewing machines, etc. for 24 hours. - Avoid alcoholic beverages and drugs for allergies, nerves, or sleep. - Do NOT stay alone. Do NOT leave your child unattended. - Do NOT make important personal or business decisions or sign any legal documents. - Eat solid foods and drink liquids in smaller amounts than usual until normal appetite returns. If you should experience an upset stomach, liquids high in sugar content (soda, Choco-Aid, non-acid juices) are recommended. - You can resume normal activities tomorrow. FOLLOW UP & RECOMMENDATIONS: -The GI office will schedule you a follow-up appointment. -Notify the doctor if you have any problems. -Repeat your colonoscopy in 10 years. -Follow up with PCP. -Office number [phone].[facility] Work Phone: Progress note No data available for this section [facility] reason for referral (narrative)* Outpatient Procedure (Routine) - Authorized Specialty Diagnoses / Procedures Referred By Contac t Referred To [facility] Diagnoses ILD (interstitial lung disease) (HCC) Chronic obstructive pulmonary disease, unspecified COPD type (HCC) Current smoker Procedures SPIROMETRY - BASELINE AND POST DILATOR BRNCDILAT RSPSE SPMTRY PRE&POST-BRNCDILAT ADMN Robyn Alcazar APRN.CNP [address] [place] [address] [facility] [place] [address] [place] [id number] Referral ID Status Reason Start Date Expiration Date Visits Requested Visits Authorized [id number] Authorized Auto-Generat ed Referral 01/15/2023 02/14/2024 1 1 * Outpatient Procedure (Routine) - Authorized Specialty Diagnoses / Procedures Referred By Contac t Referred To Contact [facility] Diagnoses ILD (interstitial lung disease) (HCC) Chronic obstructive pulmonary disease, unspecified COPD type (HCC) Lung nodule Procedures LUNG DIFFUSION CAPACITY (DLCO) DIFFUSING CAPACITY Robyn Alcazar APRN.TRANSVERSE ABDOMINAL MUSCLE SURGEON [address] [place] [address] [address] Referral ID Status Reason Start Date Expiration Date Visits Requested Visits Authorized [id number] Authorized Auto-Generat ed Referral 01/15/2023 02/14/2024 1 1 * Medication Prior Authorization - Pending Review Specialty Diagnoses / Procedures Referred By Contac t Referred To Contact Diagnoses Chronic obstructive pulmonary disease, unspecified COPD type (HCC) Robyn Alcazar APRN.CNP [address] [place] [address] Referral ID Status Reason Start Date Expiration Date V isits Requested Visits Authorized [id number] Pending Review 1 1 [facility] for referral (narrative)* Outpatient Procedure (Routine) - Pending Review Specialty Diagnoses / Procedures Referred By Contac t Referred To [facility] Diagnoses ILD (interstitial lung disease) (HCC) Procedures LUNG DIFFUSION CAPACITY (DLCO) DIFFUSING CAPACITY Joe Headley MD [address] [place] [address] [address] Referral ID Status Reason Start Date Expiration Date Visits Requested Visits Authorized [id number] Pending Review Auto-Generat ed Referral 08/25/2023 09/23/2024 1 1 * Outpatient Procedure (Routine) - Pending Review Specialty Diagnoses / Procedures Referred By Contac t Referred To Contact [facility] Diagnoses ILD (interstitial lung disease) (HCC) Procedures SPIROMETRY WITH DILATOR IF OBSTRUCTED BRNCDILAT RSPSE SPMTRY PRE&[place] [address] [place] [id number] [address] Referral ID Status Reason Start Date Expiration Date Visits Requested Visits Authorized [id number] Pending Review Auto-Generat ed Referral 08/25/2023 09/23/2024 1 1 [facility] for visit NarrativeReferral Dr. Candelario [facility] [employer] Other reason for visit Narrative* Diagnostic Procedure Only (Routine) - Closed Specialty Diagnoses / Procedures Referred By Contac t Referred To Contact Radiology / [facility] Diagnoses XR HAND GENERAL 3V PA/LAT/OBL BILAT Procedures X-RAY HAND MINIMUM 3 VIEWS X-RAY SHOULDER COMPLET MIN 2 VIEWS X-RAY ANKLE MINIMUM 3 VIEWS XR GENERAL 7 [place] [address] [place] [address] [facility] [place] [address] [place] [address] Referral ID Status Reason Start Date Expiration Date Visits Re quested Visits Authorized [id number] Closed 08/01/2020 08/01/2021 99 99 [facility] Reason for Referral Specialty Diagnoses / Procedures Referred By Contac t Referred To Contact CT IMAGING Diagnoses Abnormal CXR Dyspnea and respiratory abnormalities Procedures CT CHEST W IVCON DIAGNOSTIC COMPUTED TOMOGRAPHY THORAX W/CONTRAST Joe Headley MD [address] [place] [address] Ct Imaging Referral ID Status Reason Start Date Expiration Date V isits Requested Visits Authorized [id number] Closed Auto-Generate d Referral 12/24/2021 01/23/2023 1 1 Specialty Diagnoses / Procedures Referred By Contac t Referred To Contact CT IMAGING Diagnoses Lung nodule Procedures CT CHEST WO IVCON DIAGNOSTIC COMPUTED TOMOGRAPHY THORAX W/O CNTRST Joe Headley MD [address] [place] [address] Ct Imaging Referral ID Status Reason Start Date Expiration Date Visits Requested Visits Authorized [id number] Pending Review Auto-Generat ed Referral 12/15/2022 07/18/2023 1 1 Specialty Diagnoses / Procedures Referred By Contac t Referred To Contact Infectious Diseases Diagnoses History of hepatitis C Hepatitis B antibody positive Procedures CONSULT TO INFECTIOUS DISEASES OFFICE/OUTPATIENT [facility] MDM 60-74 MINUTES Katty Duenas, BUGGYMAN.TRANSVERSE ABDOMINAL MUSCLE SURGEON [address] [place] [address] Referral ID Status Reason Start Date Expiration Date Visits Requested Visits Authorized [id number] Authorized PCP Requested Referral 03/03/2023 1 1 Specialty Diagnoses / Procedures Referred By Contac t Referred To Contact Joe Headley MD [address] [place] [address] Referral ID Status Reason Start Date Expiration Date Visits Re quested Visits Authorized [id number] Closed 1 1 Summary Purpose Family History No Family History Records Found Relationship Condition Age at Onset Recorded Date/T nivia father Hypertension Unknown Unknown mother Heart disease Unknown sister Unknown Motor vehicle accident Unknown Advance Directives No Advanced Directives Records Found Advance Directive Response Recorded Date/ Time Advance Directives No October 13 9 7:59am Chief Complaint and Reason for Visit Chief Complaint diverticulitis diarrhea/hx of diverticulitis diarrhea/hx of diverticulitis Reason for Visit Abdominal pain Change in bowel habits Diarrhea History of diverticulitis History of viral hepatitis Additional Source Comments Source Comments (unrecognize d section and content) In the event this informatio n is protected by the Federal Confidentiality of Alcohol and Drug Abuse Patient Records regulations: The Federal rules restrict any use of the information to criminally investigate or prosecute any alcohol or drug abuse patient.[facility] the event this information is protected by the Federal Confidentiality of Alcohol and Drug Abuse Patient Records regulations: The Federal rules restrict any use of the information to criminally investigate or prosecute any alcohol or drug abuse patient.[facility] the event this information is protected by the Federal Confidentiality of Alcohol and Drug Abuse Patient Records regulations: The Federal rules restrict any use of the information to criminally investigate or prosecute any alcohol or drug abuse patient.[facility] the event this information is protected by the Federal Confidentiality of Alcohol and Drug Abuse Patient Records regulations: The Federal rules restrict any use of the information to criminally investigate or prosecute any alcohol or drug abuse patient.[facility] System[facility] the event this information is protected by the Federal Confidentiality of Alcohol and Drug Abuse Patient Records regulations: The Federal rules restrict any use of the information to criminally investigate or prosecute any alcohol or drug abuse patient.[facility] SystemIn the event this information is protected by the Federal Confidentiality of Alcohol and Drug Abuse Patient Records regulations: The Federal rules restrict any use of the information to criminally investigate or prosecute any alcohol or drug abuse patient.[facility] System[facility] the event this information is protected by the Federal Confidentiality of Alcohol and Drug Abuse Patient Records regulations: The Federal rules restrict any use of the information to criminally investigate or prosecute any alcohol or drug abuse patient.[facility] System[facility] the event this information is protected by the Federal Confidentiality of Alcohol and Drug Abuse Patient Records regulations: The Federal rules restrict any use of the information to criminally investigate or prosecute any alcohol or drug abuse patient.[facility] System[facility] the event this information is protected by the Federal Confidentiality of Alcohol and Drug Abuse Patient Records regulations: The Federal rules restrict any use of the information to criminally investigate or prosecute any alcohol or drug abuse patient.[facility] System[facility] the event this information is protected by the Federal Confidentiality of Alcohol and Drug Abuse Patient Records regulations: The Federal rules restrict any use of the information to criminally investigate or prosecute any alcohol or drug abuse patient.[facility] System[facility] the event this information is protected by the Federal Confidentiality of Alcohol and Drug Abuse Patient Records regulations: The Federal rules restrict any use of the information to criminally investigate or prosecute any alcohol or drug abuse patient.[facility] System[facility] the event this information is protected by the Federal Confidentiality of Alcohol and Drug Abuse Patient Records regulations: The Federal rules restrict any use of the information to criminally investigate or prosecute any alcohol or drug abuse patient.[facility] the event this information is protected by the Federal Confidentiality of Alcohol and Drug Abuse Patient Records regulations: The Federal rules restrict any use of the information to criminally investigate or prosecute any alcohol or drug abuse patient.[facility] System[facility] the event this information is protected by the Federal Confidentiality of Alcohol and Drug Abuse Patient Records regulations: The Federal rules restrict any use of the information to criminally investigate or prosecute any alcohol or drug abuse patient.[facility] System[facility] the event this information is protected by the Federal Confidentiality of Alcohol and Drug Abuse Patient Records regulations: The Federal rules restrict any use of the information to criminally investigate or prosecute any alcohol or drug abuse patient.[facility] System[facility] the event this information is protected by the Federal Confidentiality of Alcohol and Drug Abuse Patient Records regulations: The Federal rules restrict any use of the information to criminally investigate or prosecute any alcohol or drug abuse patient.[facility] System[facility] the event this information is protected by the Federal Confidentiality of Alcohol and Drug Abuse Patient Records regulations: The Federal rules restrict any use of the information to criminally investigate or prosecute any alcohol or drug abuse patient.[facility] System[facility] the event this information is protected by the Federal Confidentiality of Alcohol and Drug Abuse Patient Records regulations: The Federal rules restrict any use of the information to criminally investigate or prosecute any alcohol or drug abuse patient.[facility] SystemIn the event this information is protected by the Federal Confidentiality of Alcohol and Drug Abuse Patient Records regulations: The Federal rules restrict any use of the information to criminally investigate or prosecute any alcohol or drug abuse patient.[facility] SystemIn the event this information is protected by the Federal Confidentiality of Alcohol and Drug Abuse Patient Records regulations: The Federal rules restrict any use of the information to criminally investigate or prosecute any alcohol or drug abuse patient.[facility] System[facility] the event this information is protected by the Federal Confidentiality of Alcohol and Drug Abuse Patient Records regulations: The Federal rules restrict any use of the information to criminally investigate or prosecute any alcohol or drug abuse patient.[facility] SystemIn the event this information is protected by the Federal Confidentiality of Alcohol and Drug Abuse Patient Records regulations: The Federal rules restrict any use of the information to criminally investigate or prosecute any alcohol or drug abuse patient.[facility] SystemIn the event this information is protected by the Federal Confidentiality of Alcohol and Drug Abuse Patient Records regulations: The Federal rules restrict any use of the information to criminally investigate or prosecute any alcohol or drug abuse patient.[facility] SystemIn the event this information is protected by the Federal Confidentiality of Alcohol and Drug Abuse Patient Records regulations: The Federal rules restrict any use of the information to criminally investigate or prosecute any alcohol or drug abuse patient.[facility] SystemIn the event this information is protected by the Federal Confidentiality of Alcohol and Drug Abuse Patient Records regulations: The Federal rules restrict any use of the information to criminally investigate or prosecute any alcohol or drug abuse patient.[facility] System[facility] the event this information is protected by the Federal Confidentiality of Alcohol and Drug Abuse Patient Records regulations: The Federal rules restrict any use of the information to criminally investigate or prosecute any alcohol or drug abuse patient.[facility] SystemIn the event this information is protected by the Federal Confidentiality of Alcohol and Drug Abuse Patient Records regulations: The Federal rules restrict any use of the information to criminally investigate or prosecute any alcohol or drug abuse patient.[facility] SystemIn the event this information is protected by the Federal Confidentiality of Alcohol and Drug Abuse Patient Records regulations: The Federal rules restrict any use of the information to criminally investigate or prosecute any alcohol or drug abuse patient.[facility] SystemIn the event this information is protected by the Federal Confidentiality of Alcohol and Drug Abuse Patient Records regulations: The Federal rules restrict any use of the information to criminally investigate or prosecute any alcohol or drug abuse patient.[facility] SystemIn the event this information is protected by the Federal Confidentiality of Alcohol and Drug Abuse Patient Records regulations: The Federal rules restrict any use of the information to criminally investigate or prosecute any alcohol or drug abuse patient.[facility] SystemIn the event this information is protected by the Federal Confidentiality of Alcohol and Drug Abuse Patient Records regulations: The Federal rules restrict any use of the information to criminally investigate or prosecute any alcohol or drug abuse patient.[facility] SystemIn the event this information is protected by the Federal Confidentiality of Alcohol and Drug Abuse Patient Records regulations: The Federal rules restrict any use of the information to criminally investigate or prosecute any alcohol or drug abuse patient.[facility] SystemIn the event this information is protected by the Federal Confidentiality of Alcohol and Drug Abuse Patient Records regulations: The Federal rules restrict any use of the information to criminally investigate or prosecute any alcohol or drug abuse patient.[facility] SystemIn the event this information is protected by the Federal Confidentiality of Alcohol and Drug Abuse Patient Records regulations: The Federal rules restrict any use of the information to criminally investigate or prosecute any alcohol or drug abuse patient.[facility] SystemIn the event this information is protected by the Federal Confidentiality of Alcohol and Drug Abuse Patient Records regulations: The Federal rules restrict any use of the information to criminally investigate or prosecute any alcohol or drug abuse patient.[facility] SystemIn the event this information is protected by the Federal Confidentiality of Alcohol and Drug Abuse Patient Records regulations: The Federal rules restrict any use of the information to criminally investigate or prosecute any alcohol or drug abuse patient.[facility] SystemIn the event this information is protected by the Federal Confidentiality of Alcohol and Drug Abuse Patient Records regulations: The Federal rules restrict any use of the information to criminally investigate or prosecute any alcohol or drug abuse patient.[facility] SystemIn the event this information is protected by the Federal Confidentiality of Alcohol and Drug Abuse Patient Records regulations: The Federal rules restrict any use of the information to criminally investigate or prosecute any alcohol or drug abuse patient.[facility] SystemIn the event this information is protected by the Federal Confidentiality of Alcohol and Drug Abuse Patient Records regulations: The Federal rules restrict any use of the information to criminally investigate or prosecute any alcohol or drug abuse patient.[facility] SystemIn the event this information is protected by the Federal Confidentiality of Alcohol and Drug Abuse Patient Records regulations: The Federal rules restrict any use of the information to criminally investigate or prosecute any alcohol or drug abuse patient.[facility] SystemIn the event this information is protected by the Federal Confidentiality of Alcohol and Drug Abuse Patient Records regulations: The Federal rules restrict any use of the information to criminally investigate or prosecute any alcohol or drug abuse patient.[facility] SystemIn the event this information is protected by the Federal Confidentiality of Alcohol and Drug Abuse Patient Records regulations: The Federal rules restrict any use of the information to criminally investigate or prosecute any alcohol or drug abuse patient.[facility] SystemIn the event this information is protected by the Federal Confidentiality of Alcohol and Drug Abuse Patient Records regulations: The Federal rules restrict any use of the information to criminally investigate or prosecute any alcohol or drug abuse patient.[facility] SystemIn the event this information is protected by the Federal Confidentiality of Alcohol and Drug Abuse Patient Records regulations: The Federal rules restrict any use of the information to criminally investigate or prosecute any alcohol or drug abuse patient.[facility] SystemIn the event this information is protected by the Federal Confidentiality of Alcohol and Drug Abuse Patient Records regulations: The Federal rules restrict any use of the information to criminally investigate or prosecute any alcohol or drug abuse patient.[facility] SystemIn the event this information is protected by the Federal Confidentiality of Alcohol and Drug Abuse Patient Records regulations: The Federal rules restrict any use of the information to criminally investigate or prosecute any alcohol or drug abuse patient.[facility] SystemIn the event this information is protected by the Federal Confidentiality of Alcohol and Drug Abuse Patient Records regulations: The Federal rules restrict any use of the information to criminally investigate or prosecute any alcohol or drug abuse patient.[facility] SystemIn the event this information is protected by the Federal Confidentiality of Alcohol and Drug Abuse Patient Records regulations: The Federal rules restrict any use of the information to criminally investigate or prosecute any alcohol or drug abuse patient.[facility] SystemIn the event this information is protected by the Federal Confidentiality of Alcohol and Drug Abuse Patient Records regulations: The Federal rules restrict any use of the information to criminally investigate or prosecute any alcohol or drug abuse patient.[facility] SystemIn the event this information is protected by the Federal Confidentiality of Alcohol and Drug Abuse Patient Records regulations: The Federal rules restrict any use of the information to criminally investigate or prosecute any alcohol or drug abuse patient.[facility] SystemIn the event this information is protected by the Federal Confidentiality of Alcohol and Drug Abuse Patient Records regulations: The Federal rules restrict any use of the information to criminally investigate or prosecute any alcohol or drug abuse patient.[facility] SystemIn the event this information is protected by the Federal Confidentiality of Alcohol and Drug Abuse Patient Records regulations: The Federal rules restrict any use of the information to criminally investigate or prosecute any alcohol or drug abuse patient.[facility] SystemIn the event this information is protected by the Federal Confidentiality of Alcohol and Drug Abuse Patient Records regulations: The Federal rules restrict any use of the information to criminally investigate or prosecute any alcohol or drug abuse patient.[facility] SystemIn the event this information is protected by the Federal Confidentiality of Alcohol and Drug Abuse Patient Records regulations: The Federal rules restrict any use of the information to criminally investigate or prosecute any alcohol or drug abuse patient.[facility] SystemIn the event this information is protected by the Federal Confidentiality of Alcohol and Drug Abuse Patient Records regulations: The Federal rules restrict any use of the information to criminally investigate or prosecute any alcohol or drug abuse patient.[facility] Care Teams (unrecognized sec tion and content) Case Resource Manager Relationship Specialty Start Date End Date Efren Castillo II [address] [facility] [address] [place] [address] PCP - General Internal Medicine 04/11/20 Case Resource Manager Relationship Specialty Start Date End Date Efren Castillo II [address] [facility] [address] [place] [address] PCP - General Internal Medicine 04/11/20 Case Resource Manager Relationship Specialty Start Date End Date Efren Castillo II [address] [facility] [address] [place] [address] PCP - General Internal Medicine 04/11/20 Case Resource Manager Relationship Specialty Start Date End Date Efren Castillo II [address] [facility] [address] [place] [address] PCP - General Internal Medicine 04/11/20 Case Resource Manager Relationship Specialty Start Date End Date Efren Castillo II [address] [facility] [address] [place] [address] PCP - General Internal Medicine 04/11/20 Case Resource Manager Relationship Specialty Start Date End Date Efren Castillo II [address] [facility] [address] [place] [address] PCP - General Internal Medicine 04/11/20 Case Resource Manager Relationship Specialty Start Date End Date Caio Castillopasha Almonte II [address] [facility] [address] [place] [address] PCP - General Internal Medicine 04/11/20 Case Resource Manager Relationship Specialty Start Date End Date Caio Castillopasha Almonte II [address] [facility] [address] [place] [address] PCP - General Internal Medicine 04/11/20 Case Resource Manager Relationship Specialty Start Date End Date Caio Castillopasha Almonte II [address] [facility] [address] [place] [address] PCP - General Internal Medicine 04/11/20 Case Resource Manager Relationship Specialty Start Date End Date Caio Castillopasha Almonte II [address] [facility] [address] [place] [address] PCP - General Internal Medicine 04/11/20 Case Resource Manager Relationship Specialty Start Date End Date Jonathan Efrenpasha Almonte II [address] [facility] [address] [place] [address] PCP - General Internal Medicine 04/11/20 Case Resource Manager Relationship Specialty Start Date End Date Caio Castillopasha Almonte II [address] [facility] [address] [place] [address] PCP - General Internal Medicine 04/11/20 Case Resource Manager Relationship Specialty Start Date End Date CastilloEfren II [address] [facility] [address] [place] [address] PCP - General Internal Medicine 04/11/20 Case Resource Manager Relationship Specialty Start Date End Date Jonathan Efrenpasha Almonte II [address] [facility] [address] [place] [address] PCP - General Internal Medicine 04/11/20 Case Resource Manager Relationship Specialty Start Date End Date Efren Castillo II [address] [facility] [address] [place] [address] PCP - General Internal Medicine 04/11/20 Case Resource Manager Relationship Specialty Start Date End Date Efren Castillo Gage VALDEZ [address] [facility] [address] [place] [address] PCP - General Internal Medicine 04/11/20 Case Resource Manager Relationship Specialty Start Date End Date Efren Castillo Gage VALDEZ [address] [facility] [address] [place] [address] PCP - General Internal Medicine 04/11/20 Case Resource Manager Relationship Specialty Start Date End Date Efren Castillo Gage VALDEZ [address] [facility] [address] [place] [address] PCP - General Internal Medicine 04/11/20 Case Resource Manager Relationship Specialty Start Date End Date Efren Castillo Gage VALDEZ [address] [facility] [address] [place] [address] PCP - General Internal Medicine 04/11/20 Case Resource Manager Relationship Specialty Start Date End Date Efren Castillo Gage VALDEZ [address] [facility] [address] [place] [address] PCP - General Internal Medicine 04/11/20 Case Resource Manager Relationship Specialty Start Date End Date Efren Castillo Gage VALDEZ [address] [facility] [address] [place] [address] PCP - General Internal Medicine 04/11/20 Case Resource Manager Relationship Specialty Start Date End Date Efren Castillo Gage VALDEZ [address] [facility] [address] [place] [address] PCP - General Internal Medicine 04/11/20 Case Resource Manager Relationship Specialty Start Date End Date Efren Castillo Gage VALDEZ [address] [facility] [address] [place] [address] PCP - General Internal Medicine 04/11/20 Case Resource Manager Relationship Specialty Start Date End Date Efren Castillo Gage VALDEZ [address] [facility] [address] [place] [address] PCP - General Internal Medicine 04/11/20 Case Resource Manager Relationship Specialty Start Date End Date Efren Castillo II [address] [facility] [address] [place] [address] PCP - General Internal Medicine 04/11/20 Case Resource Manager Relationship Specialty Start Date End Date Efren Castillo II, MD [address] [facility] [address] [place] [address] PCP - General Internal Medicine 04/11/20 Case Resource Manager Relationship Specialty Start Date End Date Efren Castillo II, MD [address] [facility] [address] [place] [address] PCP - General Internal Medicine 04/11/20 Case Resource Manager Relationship Specialty Start Date End Date Efren Castillo II, MD [address] [facility] [address] [place] [address] PCP - General Internal Medicine 04/11/20 Case Resource Manager Relationship Specialty Start Date End Date Efren Castillo II, MD [address] [facility] [address] [place] [address] PCP - General Internal Medicine 04/11/20 Case Resource Manager Relationship Specialty Start Date End Date Efren Castillo II, MD [address] [facility] [address] [place] [address] PCP - General Internal Medicine 04/11/20 Case Resource Manager Relationship Specialty Start Date End Date Efren Castillo II, MD [address] [facility] [address] [place] [address] PCP - General Internal Medicine 04/11/20 Case Resource Manager Relationship Specialty Start Date End Date Efren Castillo II, MD [address] [facility] [address] [place] [address] PCP - General Internal Medicine 04/11/20 Case Resource Manager Relationship Specialty Start Date End Date Efren Castillo II, MD [address] [facility] [address] [place] [address] PCP - General Internal Medicine 04/11/20 Case Resource Manager Relationship Specialty Start Date End Date Efren Castillo II, MD [address] [facility] [address] [place] [address] PCP - General Internal Medicine 04/11/20 Case Resource Manager Relationship Specialty Start Date End Date Efren Castillo II, MD [address] [facility] [address] [place] [address] PCP - General Internal Medicine 04/11/20 Case Resource Manager Relationship Specialty Start Date End Date Efren Castillo II, MD [address] [facility] [address] [place] [address] PCP - General Internal Medicine 04/11/20 Case Resource Manager Relationship Specialty Start Date End Date Efren Castillo II, MD [address] [facility] [address] [place] [address] PCP - General Internal Medicine 04/11/20 Case Resource Manager Relationship Specialty Start Date End Date Efren Castillo II, MD [address] [facility] [address] [place] [address] PCP - General Internal Medicine 04/11/20 Case Resource Manager Relationship Specialty Start Date End Date Efren Castillo II, MD [address] [facility] [address] [place] [address] PCP - General Internal Medicine 04/11/20 Team Status: Active Member Role Status Dates Efren Castillo II MD Primary Care Provider Active Team Status: Inactive Member Role Status Dates Khanh Castillo MD Primary Care Provider Active Start: September 30, 2023 End: September 30, 2023 Chin Watkins MD Attending Provider Active S tart: September 30, 2023 End: September 30, 2023 Team Status: Inactive Member Role Status Dates Chin Watkins MD Attending Provider Active S tart: November 03, 2023 End: November 03, 2023 Efren Castillo II MD Primary Care Provider Active Start: November 03, 2023 End: November 03, 2023 Team Status: Active Member Role Status Dates Chin Watkins MD Attending Provider, Other Provide r Active Start: November 03, 2023 Efren Castillo II MD Primary Care Provider Active Start: November 03, 2023 Case Resource Manager Relationship Specialty Start Date End Date Efren Castillo MD [address] [facility] [address] [place] [address] PCP - General Internal Medicine 09/15/22 Case Resource Manager Relationship Specialty Start Date End Date Efren Castillo MD [address] [facility] [address] [place] [address] PCP - General Internal Medicine 09/15/22 Reason for Visit (unrecogniz ed section and content) Specialty Diagnoses / Procedures Referred By Contac t Referred To Contact Hematology/Oncology / HEMATOLOGY/ONCOLOGY Diagnoses 6 Month Follow Up Survivorship Procedures OFFICE/OUTPATIENT ESTABLISHED MOD MDM 30-39 MIN SURVIVORSHIP VISIT May Mcneil MD [facility] [place] [address] Elizabeth Henderson APRN.[place] [address] [place] [address] Referral ID Status Reason Start Date Expiration Date Visits Re quested Visits Authorized [id number] Closed 05/10/2021 05/09/2022 99 1 Reason Comments Prostate Cancer Specialty Diagnoses / Procedures Referred By Contac t Referred To Contact Radiation Oncology / RADIATION ONCOLOGY Diagnoses 6 Month Follow Up - PSA @ [facility] Procedures OFFICE/OUTPATIENT ESTABLISHED MOD MDM 30-39 MIN EST PATIENT May Mcneil MD [address] [place] [address] [place] [address] May Mcneil MD [address] [place] [address] [place] [address] Referral ID Status Reason Start Date Expiration Date Visits Re quested Visits Authorized [id number] Closed 05/10/2021 05/09/2022 1 1 Reason Onset Date Comments Refill Request 10/20/2021 Reason Comments Forms Reason Comments Radiology XR Reason Comments Results Reason Comments Recheck aching, burning, sha rp pain in joints. legs are really weak, muscle pain, last week he worked 2 days, wednesday the , could not walk for 4 days, fatigue, sob. Fall about last month, sp rained his L ankle, showed nothing was broken. Specialty Diagnoses / Procedures Referred By Contac t Referred To Contact Rheumatology / RHEUMATOLOGY Diagnoses follow up in 3 months with Katty Duenas. Procedures EST PATIENT VISIT LEVEL 5 [facility] Katty Duenas, BUGGYMAN.TRANSVERSE ABDOMINAL MUSCLE SURGEON [address] [place] [address] Katty Duenas, BUGGYMAN.TRANSVERSE ABDOMINAL MUSCLE SURGEON [address] [place] [address] Referral ID Status Reason Start Date Expiration Date V isits Requested Visits Authorized [id number] Authorized 01/10/2021 01/10/2022 99 99 Reason Comments Refill Request Specialty Diagnoses / Procedures Referred By Contac t Referred To Contact Radiation Oncology / RADIATION ONCOLOGY Diagnoses 4 Month Follow Up Procedures EST PATIENT May Mcneil MD [address] [place] [address] [place] [address] May Mcneil MD [address] [place] [address] [place] [address] Referral ID Status Reason Start Date Expiration Date V isits Requested Visits Authorized [id number] Pending Review 02/11/2022 02/26/2023 1 1 Reason Comments Spirometry Specialty Diagnoses / Procedures Referred By Contac t Referred To Contact [facility] Diagnoses Dyspnea and respiratory abnormalities Procedures SPIROMETRY WITH DILATOR IF OBSTRUCTED BRNCDILAT RSPSE SPMTRY PRE&POST-BRNCDILAT Joe Gabriel MD [address] [place] [address] Res[facility] [place] [address] [place] [address] Referral ID Status Reason Start Date Expiration Date V isits Requested Visits Authorized [id number] Closed Auto-Generate d Referral 12/24/2021 01/23/2023 1 1 Reason Comments Results Reason Comments Recheck Specialty Diagnoses / Procedures Referred By Contac t Referred To Contact Rheumatology / RHEUMATOLOGY Diagnoses Follow-up examination for ov in 1-2 months RA - added to new patient slot for clinical necessity Procedures OFFICE/OUTPATIENT NEW MODERATE MDM 45-59 MINUTES MAGI EST [facility] Self Katty Duenas, BUGGYMAN.TRANSVERSE A[employer]OM[employer]AL MUSCLE SURGEON [address] [place] [address] Referral ID Status Reason Start Date Expiration Date Visits Re quested Visits Authorized [id number] Closed 01/13/2022 05/09/2022 1 1 Reason Onset Date Comments Refill Request 03/30/2022 Reason Onset Date Comments Refill Request 06/08/2022 Specialty Diagnoses / Procedures Referred By Contac t Referred To Contact Radiation Oncology / RADIATION ONCOLOGY Diagnoses Follow-up exam Followup Procedures OFFICE/OUTPATIENT ESTABLISHED MOD MDM 30-39 MIN EST PATIENT May Mcneil MD [address] [place] [address] [place] [address] May Mcneil MD [address] [place] [address] [place] [address] Referral ID Status Reason Start Date Expiration Date Visits Re quested Visits Authorized [id number] Closed 06/16/2022 05/09/2023 1 1 Reason Comments COPD Specialty Diagnoses / Procedures Referred By Contac t Referred To Contact Pulmonary Disease / PULMONARY MEDICINE Diagnoses Follow-up exam SOB - f/u Procedures OFFICE/OUTPATIENT ESTABLISHED [facility] 30-39 MIN VIDEO SPEC EST Self Joe Headley MD [address] [place] [address] Referral ID Status Reason Start Date Expiration Date Visits Re quested Visits Authorized [id number] Closed 06/18/2022 09/16/2022 1 1 Reason Comments Medication Question Reason Comments Patient Update Reason Onset Date Comments Refill Request 10/13/2022 Reason Comments Hepatitis Specialty Diagnoses / Procedures Referred By Contac t Referred To Contact Gastroenterology Diagnoses Diarrhea, unspecified type History of diverticulitis Procedures CONSULT TO GASTROENTEROLOGY OFFICE/OUTPATIENT [facility] 60-74 MINUTES Katty Duenas, BUGGYMAN.TRANSVERSE A[employer]OMINAL MUSCLE SURGEON [address] [place] [address] Referral ID Status Reason Start Date Expiration Date V isits Requested Visits Authorized [id number] Closed PCP Requested Referral 09/18/2022 09/18/2023 1 1 Specialty Diagnoses / Procedures Referred By Contac t Referred To Contact Radiology / RADIO GEN [facility] Diagnoses Rheumatoid arthritis with rheumatoid factor, unspecified Vitamin D deficiency, unspecified Seropositive rheumatoid arthritis (HCC) Vitamin D deficiency Smoking SOB (shortness of breath) Procedures RADIOLOGIC EXAM CHEST 2 VIEWS XR CHEST Katty Duenas, BUGGYMAN.TRANSVERSE ABDOMINAL MUSCLE SURGEON [address] [place] [address] Radio General [facility] [place] [address] [place] [address] Referral ID Status Reason Start Date Expiration Date Visits Re quested Visits Authorized [id number] Closed 10/22/2021 05/09/2022 1 1 Specialty Diagnoses / Procedures Referred By Contac t Referred To Contact CT IMAGING Diagnoses Abnormal CXR Dyspnea and respiratory abnormalities Procedures CT CHEST W IVCON DIAGNOSTIC COMPUTED TOMOGRAPHY THORAX W/CONTRAST Joe Headley MD [address] [place] [address] Ct Imaging Referral ID Status Reason Start Date Expiration Date V isits Requested Visits Authorized [id number] Closed Auto-Generate d Referral 12/24/2021 01/23/2023 1 1 Reason Comments Follow Up RA -- has been out o f Prednisone - requesting refills -- generalized joint pain Specialty Diagnoses / Procedures [facility] Diagnoses Lung nodule Procedures CT CHEST WO IVCON DIAGNOSTIC COMPUTED TOMOGRAPHY THORAX W/O CNTRST Joe Headley MD [address] [place] [address] [place] [address] Referral ID Status Reason Start Date Expiration Date V isits Requested Visits Authorized [id number] Denied Auto-Generat ed Referral Clearance Not Met - Admin/Chairm an/Director Advise to Postpone/Res chedule or Not Proceed 12/15/2022 07/18/2023 1 0 Reason Comments COPD Follow Up ILD (interstitial lung disease) Lung nodule Nicotine Dependence Reason Onset Date Comments Refill Request 03/05/2023 Reason Comments Received Outside Medical Records Ophthal mology exam - Plaquenil Reason Comments Outside Labs-[facility] Ordered [facility] -06/14/2023- ordered by Katty Duenas CNP Specialty Diagnoses / Procedures [facility] To [facility] Diagnoses ILD (interstitial lung disease) (HCC) Chronic obstructive pulmonary disease, unspecified COPD type (HCC) Lung nodule Procedures LUNG DIFFUSION CAPACITY (DLCO) DIFFUSING CAPACITY Robyn Alcazar, AILIN.TRANSVERSE A[employer]OMINAL MUSCLE SURGEON [address] [place] [address] Res[facility] [place] [address] [place] [address] Referral ID Status Reason Start Date Expiration Date V isits Requested Visits Authorized [id number] Closed Auto-Generate d Referral 01/15/2023 02/14/2024 1 1 Specialty Diagnoses / Procedures [facility] Diagnoses ILD (interstitial lung disease) (HCC) Chronic obstructive pulmonary disease, unspecified COPD type (HCC) Current smoker Procedures SPIROMETRY - BASELINE AND POST DILATOR BRNCDILAT RSPSE SPMTRY PRE&POST-BRNCDILAT ADMN Robyn Alcazar, AILIN.TRANSVERSE ABDOMINAL MUSCLE SURGEON [address] [place] [address] [address] Referral ID Status Reason Start Date Expiration Date V isits Requested Visits Authorized [id number] Closed Auto-Generate d Referral 01/15/2023 02/14/2024 1 1 Reason Onset Date Comments Refill Request 08/16/2023 Reason Comments Asthma Reason Comments Appointment Reason Comments Suspicious Skin Lesion (unrecognized sect ion and content) No Status Records FoundNo Status Records FoundNo Status Records FoundNo Status Records FoundNo Status Records Found INFORMATION SOURCE (unrecogn ized section and content) DATE CREATED AUTHOR 09/16/2022 [facility] DATE CREATED AUTHOR AUTHOR'S ORGANIZ ATION 11/06/2023 [facility] DATE CREATED AUTHOR AUTHOR'S ORGANIZ ATION 12/25/2023 [facility] DATE CREATED AUTHOR AUTHOR'S ORGANIZ ATION 02/23/2024 [facility] DATE CREATED AUTHOR AUTHOR'S ORGANIZ ATION 03/04/2024 [facility] EPIC FOR RECORDS PERTAINING TO PATIENTS WHO ARE OR HAVE BEEN ENROLLED IN A CHEMICAL DEPENDENCY/SUBSTANCEABUSE PROGRAM, SOME INFORMATION MAY BE OMITTED. This clinical summary was aggregated from multiple sources. Caution should be exercised in using it in the provision of clinical care. This summary normalizes information from multiple sources, and as a consequence, information in this document may materially change the coding, format and clinical context of patient data. In addition, data may be omitted in some cases. CLINICAL DECISIONS SHOULD BE BASED ON THE PRIMARY CLINICAL RECORDS. [employer] provides no warranty or guarantee of the accuracy or completeness of information in this document.
--- NOTE | 2024-03-12 06:25 | ECG_ITS ---
[facility] Test Date: 2024-03-12 Pat Name: CONSTANTINO DUVAL Department: Room: - Gender: Male Director Of Infection Prevention: : 1960 Requested By: VIRGINIA MCCABE Order Number: [id number] Reading MD: QAMAR HARRISON Measurements Intervals [place] Rate: 100 P: 30 ME: 138 QRS: -86 QRSD: 104 T: 31 QT: 370 QTc: 427 Interpretive Statements 1120 Sinus tachycardia 1570 with occasional ventricular premature complexes 2440 Incomplete right bundle branch block;2630 Left anterior fascicular block 8102 Low QRS voltage in chest leads 9150 abnormal ECG Electronically Signed On 03-12-2024 18:16:42 EST by QAMAR HARRISON
--- NOTE | 2024-03-12 06:26 | CT_ITS ---
[address] [address] Patient Name: CONSTANTINO DUVAL MRN: [id number] date: 1960 Sex: M Assigned Patient Location: ER Current Patient Location: Accession/Order Number: [id number] Exam Date: 03/12/2024 07:13 Report Date: 03/12/2024 07:49 At the request of: GIULIANA LEHMAN Procedure: CT angio chest EXAMINATION: CT angio chest HISTORY: hemoptysis COMPARISON: CT chest 12/02/2018 TECHNIQUE: Multi-planar CT images were created with IV contrast. Axial, Coronal, and Sagittal images. Dose reduction techniques were achieved by using automated exposure control and/or adjustment of mA and/or kV according to patient size and/or use of iterative reconstruction technique. 3-D reconstruction was performed on a separate workstation. FINDINGS: VASCULATURE: No pulmonary embolism or abnormal opacity. LUNGS: Mild emphysematous changes. Mild scattered infiltrates bilaterally, greater within the lower lobes. Slight bronchial wall thickening of a few lower lobe bronchi. PLEURA: No mass, effusion, or pneumothorax. WILBERT: Bilateral lymphadenopathy. MEDIASTINUM: Mild lymphadenopathy. CARDIAC: No enlargement, pericardial effusion, or pericardial thickening. AORTA: There is a CHEST WALL: No mass or axillary adenopathy. BONES: Remote moderate compression fracture of T7. LIMITED ABDOMEN: No suspicious findings. Limited images of the upper abdomen. OTHER: Negative. CT/CT angio chest IMPRESSION: 1. No pulmonary embolism. 2. Mild bilateral infiltrates; possibly pneumonia. Slight bronchial wall thickening suggestive of bronchiolitis. Chronic mild emphysematous changes. 2. Bilateral hilar lymphadenopathy, likely reactive. 3. Remote moderate compression fracture T7; unchanged. Electronically authenticated by: GORGE ALMEIDA Date: 03/12/2024 07:49
--- NOTE | 2024-03-12 06:33 | PC.NURSE ---
PT STATES HAS HAD URI X 2 WEEKS AND COUGHING. PT STATES BEEN TAKING OTC VICKS COUGH SYRUP AND SALINE NASAL SPRAY. PT STATES STARTED COUGHING UP THICK BRIGHT RED BLOOD THIS MORNING. DENIES TAKING ANTICOAGULANTS. PT HAS HX PROSTATE CA AND RA. PT COUGHING UP BRIGHT RED BLOOD AT BEDSIDE UPON ARRIVAL.
[2024-03-12 06:52] LABS: INR 0.97; Partial Thromboplastin Time 25.1 sec (22.3-36.2); Prothrombin Time 10.3 sec (9.0-11.6)
[2024-03-12 06:54] LABS: Basophils Absolute Auto 0.1 10^3/uL (0.0-0.1); Basophils Percent Auto 1.2 % (0.2-2.0); Eosinophils Absolute Auto 0.3 10^3/uL (0.0-0.7); Eosinophils Percent Auto 7.2 % (0.9-7.0); Hematocrit 41.2 % (42.0-54.0); Hemoglobin 14.8 g/dL (14.0-18.0); Immature Granulocytes Abs Auto 0.05 10^3/uL (0.00-0.03); Immature Granulocytes Pct Auto 1.2 % (0.0-0.5); Lymphocytes Percent Auto 24.3 % (20.5-60.0); Mean Corpuscular HGB Conc 35.9 g/dL (29.9-35.2); Mean Corpuscular Hemoglobin 35.5 pg (25.9-34.0); Mean Corpuscular Volume 98.8 fL (80.0-94.0); Mean Platelet Volume 9.5 fL (9.5-13.5); Monocytes Absolute Auto 0.5 10^3/uL (0.3-0.8); Monocytes Percent Auto 11.3 % (1.7-12.0); Neutrophils Absolute Auto 2.3 10^3/uL (1.4-6.5); Neutrophils Percent Auto 54.8 % (43.0-75.0); Platelet Count 181 10^3/uL (150-450); Red Blood Count 4.17 10^6/uL (4.70-6.10); Red Cell Distribution Width 12.3 % (11.0-15.0); White Blood Count 4.2 10^3/uL (4.0-11.0)
--- NOTE | 2024-03-12 06:54 | ED.GENADUL1 ---
HPI HPI - General Adult General Chief complaint: Upper Respiratory Infection Stated complaint: coughing up blood Time Seen by Provider: 03/12/24 06:21 Source: patient Mode of arrival: walk-in Limitations: no limitations History of Present Illness HPI narrative: 63-year-old male to the emergency department with chief complaint of hemoptysis. Patient reports he has been sick with an upper respiratory infection for the last few days. He is a smoker for over 40 years. He denies any known lung cancer or mass. Has a history of COPD versus asthma followed by pulm. Denies any chest pain or shortness of breath Related Data Home Medications ?Medication ?Instructions ?Recorded ?Confirmed alprazolam 0.25 mg tablet 0.25 mg PO BID PRN anxiety 03/12/24 03/12/24 fluoride (sodium) 1.1 % dental applic 03/12/24 cream (Sodium Fluoride 5000 Plus) hydroxychloroquine 200 mg tablet 200 mg PO DAILY 03/12/24 03/12/24 levothyroxine 175 mcg tablet 175 mcg PO DAILY 03/12/24 03/12/24 liothyronine 25 mcg tablet 25 mcg PO DAILY 03/12/24 03/12/24 loperamide 2 mg capsule 2 mg PO Q4H PRN loose stool 03/12/24 03/12/24 nortriptyline 10 mg capsule 10 mg PO Q12H 03/12/24 03/12/24 tamsulosin 0.4 mg capsule 0.4 mg PO Q24H 03/12/24 03/12/24 Allergies Allergy/AdvReac Type Severity Reaction Status Date / Time methotrexate Allergy Unknown Unknown Verified 03/12/24 06:19 [id number]-OpF Reductase Allergy Unknown Unknown Verified 03/12/24 06:19 Inhibitor Opioid HPI Opioid Management Most Recent Opioid Data: No Data to Display Review of Systems ROS Status of ROS 10 or more systems reviewed and unremarkable except as noted in history and below PFSH PFSH Social History Little interest or pleasure in doing things: not at all Feeling down, depressed, or hopeless: not at all Exam Narrative Exam Narrative: VITALS: I have reviewed the triage vital signs. GENERAL: Well developed, well appearing adult in no acute distress. NEURO: Alert and oriented. Moves all extremities. Face is symmetric and expressive. EYES: PERRL. No scleral icterus or conjunctival injection. No discharge. HENT: Normocephalic, atraumatic. Hearing is grossly intact. Nares grossly patent and without discharge. Mucous membranes moist. No oropharyngeal bleeding. No nasal bleeding. NECK: No JVD. Patient moves neck without restriction. CARDIO: Rhythm regular. Normal rate. No murmur, rub, or gallop. Pulses equal bilaterally in the upper and lower extremity. No lower extremity edema. PULM: Lungs clear to auscultation in all [place]. No wheezes, rales, or rhonchi. No conversational dyspnea. No splinting, stridor, or accessory muscle use. GI/: Abdomen is soft and non-tender. Normoactive bowel sounds. EXTREMITIES: Symmetric muscle bulk. No joint swelling. No clubbing, cyanosis, or deformity. SKIN: Warm and dry. Normal turgor. No rash or lesions appreciated. PSYCH: Mood, affect, and interaction is appropriate to the setting. Constitutional Vital Signs, click to edit/add: Last Vital Signs Pulse 102 H 03/12/24 06:19 Resp 22 H 03/12/24 06:19 BP 143/103 H 03/12/24 06:19 Pulse Ox 97 03/12/24 06:19 O2 Del Method Room Air 03/12/24 06:19 Course Vital Signs Vital signs: Vital Signs Pulse Rate 102 H 03/12/24 06:19 Respiratory Rate 22 H 03/12/24 06:19 Blood Pressure 143/103 H 03/12/24 06:19 Pulse Oximetry 97 03/12/24 06:19 Oxygen Delivery Method Room Air 03/12/24 06:19 Pulse Rate 102 H 03/12/24 06:19 Respiratory Rate 22 H 03/12/24 06:19 Blood Pressure 143/103 H 03/12/24 06:19 Pulse Oximetry 97 03/12/24 06:19 Oxygen Delivery Method Room Air 03/12/24 06:19 Medical Decision Making MDM Narrative Medical decision making narrative: 63-year-old male to the emergency department chief complaint of mopped assist. Vital stable, the patient is afebrile. He is spitting up approximately 4 to 5 cc of bright red blood every 2 to 5 minutes. Moderate hemoptysis by definition. CT angiography, basic labs are ordered. Will consider nebulized TXA. Care was signed out to Dr. Bowie at [phone] with diagnostic workup and disposition pending. Working diagnosis: Hemoptysis Medical Records Medical records reviewed: Yes I reviewed the patient's medical records ECG Data Attestation: I personally reviewed and interpreted this ECG as follows: (Sinus tachycardia at a rate of 100. Normal QTc. No STEMI.) Discharge Plan Discharge Chief Complaint: Upper Respiratory Infection Clinical Impression: Hemoptysis Patient Disposition: Still a Patient Prescriptions / Home Meds: No Action alprazolam 0.25 mg tablet 0.25 mg PO BID PRN (Reason: anxiety) hydroxychloroquine 200 mg tablet 200 mg PO DAILY levothyroxine 175 mcg tablet 175 mcg PO DAILY liothyronine 25 mcg tablet 25 mcg PO DAILY loperamide 2 mg capsule 2 mg PO Q4H PRN (Reason: loose stool) nortriptyline 10 mg capsule 10 mg PO Q12H tamsulosin 0.4 mg capsule 0.4 mg PO Q24H fluoride (sodium) [Sodium Fluoride 5000 Plus] 1.1 % cream Print Language: Chinese Referrals: VIRGINIA MCCABE [Primary Care Provider] - 1 week
[2024-03-12 06:55] LABS: Alanine Aminotransferase 33 U/L (16-63); Albumin Globulin Ratio 0.9; Albumin Level 3.6 g/dL (3.4-5.0); Alkaline Phosphatase 82 U/L (46-116); Aspartate Amino Transferase 37 U/L (15-37); BUN Creatinine Ratio 5.8; Bilirubin Total 0.6 mg/dL (0.2-1.0); Calcium 8.7 mg/dL (8.5-10.1); Carbon Dioxide 21.4 mmol/L (21.0-32.0); Chloride 103 mmol/L (98-107); Estimated GFR (African America >60 (>=60 mL/min/1.73m^2); Estimated GFR (Non-African Ame >60 (>=60 mL/min/1.73m^2); Glucose 114 mg/dL (74-106); Potassium 4.4 mmol/L (3.5-5.1); Sodium 139 mmol/L (136-145); Total Protein 7.6 g/dL (6.4-8.2); Troponin I High Sensitivity 17.2 pg/mL (4.0-76.1)
[2024-03-12] MEDS: SODIUM CHLORIDE 0.9% IH (08:13)
[2024-03-12] MEDS: TRANEXAMIC ACID IH (08:13)
[2024-03-12] MEDS: AZITHROMYCIN 500 MG in 0.9 % SODIUM CHLORIDE 250 ML 250 MG IV (08:46)
[2024-03-12] MEDS: CEFTRIAXONE 1,000 MG in 0.9 % SODIUM CHLORIDE 50 ML 100 MG IV (08:46)
== END 2024-03-12 12:13 | disposition short-term general hospital (02) ==
PROVIDERS: Emergency Provider Student in an Organized Health Care Education/Training Program; PCP Internal Medicine
DX: R04.2 Hemoptysis (principal); J44.9 Chronic obstructive pulmonary disease, unspecified; F17.200 Nicotine dependence, unspecified, uncomplicated
CPT/HCPCS: 36415; 71275; 80053; 84484; 85025; 85610; 85730; 93005; 94640; 96365; 96375; 99285; J0456; J0696; Q9967